=== PATIENT | female | born 1940 | race Caucasian/White ===

== ENCOUNTER → 2018-04-25 08:23 | Outpatient (CLI) | payer MEDICARE, SELFPAY | PROVIDERS: Family Provider Family Medicine; PCP Family Medicine; Visit Provider Urology | DX: N93.9 Abnormal uterine and vaginal bleeding, unspecified (principal) | CPT/HCPCS: 76830; 76856 ==

== ENCOUNTER → 2018-07-03 10:17 | Outpatient (CLI) | payer MEDICARE, SELFPAY ==
[2018-07-03 12:25] LABS: Anion Gap 10 (5-15); BUN 21 mg/dL (7-18); BUN/Creat Ratio 22.7 RATIO (10-20); Calcium,Total 9.5 mg/dL (8.5-10.1); Chloride 102 mmol/L (98-107); Creatinine, Serum 0.92 mg/dL (0.55-1.02); EST Glomerular Filtration Rate 62 mL/min (>60); Est Glom Filt Rate - Afr Amer 75 mL/min (>60); Glucose 97 mg/dL (74-106); Potassium 3.6 mmol/L (3.5-5.1); Sodium Level 141 mmol/L (136-145)
[2018-07-03 12:32] LABS: BNP,B-Type NATRIURETIC PEPTIDE 6.2 pg/mL (0-100)
== END ==
PROVIDERS: Family Provider Family Medicine; PCP Family Medicine; Referring Provider Internal Medicine Cardiovascular Disease; Visit Provider Internal Medicine Cardiovascular Disease
DX: R06.00 Dyspnea, unspecified (principal); I10 Essential (primary) hypertension
CPT/HCPCS: 36415; 80048; 83880

== ENCOUNTER → 2018-07-22 06:53 | Outpatient (CLI) | payer MEDICARE, SELFPAY ==
--- NOTE | 2018-07-22 07:18 | ECHOD_ITS ---
Reason For Study: \DYSPNEA/SOB Procedure This was a 2D Doppler, Color Flow transthoracic echocardiogram. Exam performed in department. Left Ventricle Normal LV size. Left ventricular systolic function is normal. The estimated ejection fraction is 65 %. Stage 1 diastolic dysfunction. No regional wall motion abnormalities noted. Right Ventricle Normal RV size. Normal systolic function. Atria Normal left atrium. Normal right atrium. Bubble contrast study negative for right to left interatrial shunt. Mitral Valve Normal mitral valve. Trivial eccentric mitral valve insufficiency. Tricuspid Valve Normal tricuspid valve. Mild to moderate (1-2+) tricuspid valve insufficiency. Pulmonary artery systolic pressure is 42 mmHg. Aortic Valve Trisinus/trileaflet aortic valve. Mild focal aortic valve thickening. Pulmonic Valve Normal pulmonic valve. Great Vessels Normal aortic root. The pulmonary artery is normal size. Normal inferior vena cava. Pericardium/Pleural No pericardial effusion. Medication Performed a rapid injection of agitated mix of 9 cc saline and 1cc air to assess for atrial septal defect. MMode/2D Measurements & Calculations LVIDd: 4.5 cm IVSd: 1.2 cm Ao root diam: 2.7 cm LVIDs: 2.9 cm LVPWd: 1.1 cm RVDd: 3.2 cm FS: 35.3 % LAV(MOD-bp): 75.7 ml LA A4 area: 22.1 cm2 LA dimension(2D): 4.0 cm LAV(MOD-bp) Indexed: 36.1 ml/m2 LAV(MOD-sp2): 73.8 ml LAV(MOD-sp4): 75.2 ml RA A4 area: 15.2 cm2 Time Measurements MV dec time: 0.23 sec Doppler Measurements & Calculations MV E max darren: 104.2 cm/sec Lat Peak E' Darren: 5.3 cm/sec Med Peak E' Darren: 5.4 cm/sec MV A max darren: 126.3 cm/sec E/E' lat: 19.7 E/E' med: 19.2 MV E/A: 0.82 Ao V2 max: 172.1 cm/sec LV V1 max: 112.2 cm/sec PA V2 max: 116.4 cm/sec Ao max P.9 mmHg LV V1 max P.0 mmHg TR max darren: 304.6 cm/sec TR max P.5 mmHg Interpretation Summary Normal LV size. Left ventricular systolic function is normal. The estimated ejection fraction is 65 %. Stage 1 diastolic dysfunction. Mild to moderate (1-2+) tricuspid valve insufficiency. Ordering Physician: Eitan Larson Referring Physician: Epi Escudero Performed By: Nelly Lozada, DENISHA, RVT
--- NOTE | 2018-07-22 14:47 | STRESSREP ---
Stress Test Report Pharmacologic myocardial perfusion stress test. 78-year-old lady with a history of chest pain possible previous NM. Stress protocol: Resting EKG demonstrates sinus bradycardia with a rate of 57 bpm normal intervals are noted. 0.4 mg of regadenoson was infused per usual protocol followed by rapid intravenous saline flush injection. Continuous EKG monitoring was performed. The maximum heart rate attained was 90 bpm which was 64% of maximum predicted heart rate the maximum workload was 1 metabolic equivalent. At rest there were no ST or T wave changes noted suggest abnormal flow reserve at peak infusion nonspecific ST-T wave changes were noted with normally the criteria for ischemia. The resting blood pressure was 136/84 with a final blood pressure 142/88. The peak blood pressure was 162/82 mmHg. Myocardial perfusion protocol. 14.7 mCi of technetium 99m sestamibi was injected at rest. 0.4 mg of adenosine was infused per usual protocol peak infusion 43.1 mCi of technetium 99m sestamibi was injected stress images were obtained stress and rest images were reconstructed and compared in the short axis vertical long and horizontal long axis. Gated images were also obtained Perfusion SPECT analysis: Review of the stress images demonstrate normal uptake of tracer noted in all areas of myocardium except for the apex of the ventricle. There was a perfusion defect noted in this area. On the resting images there was near complete reversibility suggesting apical ischemia. Gated SPECT analysis: The gated ejection fraction is noted to be 76%. Conclusion: Abnormal pharmacologic myocardial perfusion stress test with evidence of apical ischemia. Preserved ejection fraction.
== END ==
PROVIDERS: Family Provider Family Medicine; PCP Family Medicine; Referring Provider Internal Medicine Cardiovascular Disease; Visit Provider Internal Medicine Cardiovascular Disease
DX: R07.9 Chest pain, unspecified (principal); I10 Essential (primary) hypertension
CPT/HCPCS: 78452; 93017; 93306; A9500; A4216; J2785

== ENCOUNTER → 2018-07-23 15:37 | Outpatient (CLI) | payer MEDICARE, SELFPAY ==
[2018-07-23 16:19] LABS: Absolute Lymphocyte Count 1.97 X10^3/ul (0.83-4.51); Basophil# 0.09 X10^3/uL; Basophil% 1.1 % (0-1); Eosinophil# 0.18 X10^3/uL; Eosinophils% 2.3 % (0-5); Hematocrit 40.5 % (37-47); Hemoglobin 13.6 g/dl (12.0-15.0); Lymphocyte # 1.97 X10^3/ul (4.0); Lymphocyte % 24.9 % (19-41); Mean Corp Hgb Conc 33.6 g/gl (32-36); Mean Corpuscular Hgb 29.9 pg (27.0-32.0); Monocyte# 0.63 X10^3/uL; Neutrophil # 5.02 X10^3/uL (2.7-7.7); Neutrophil % 63.6 % (47-70); Platelet Count 335 K/mm3 (150-450); RBC Distribution Width CV 13.7 % (11.6-14.6); RBC Distribution Width SD 44.5 fl (35.1-43.9); Red Blood Count 4.55 M/mm3 (4.2-5.4); White Blood Count 7.9 K/mm3 (4.4-11.0)
[2018-07-23 16:22] LABS: POSITIVE COUNT NO; POSITIVE DIFFERENTIAL NO; POSITIVE MORPHOLOGY NO
[2018-07-23 16:32] LABS: Anion Gap 10 (5-15); BUN 19 mg/dL (7-18); BUN/Creat Ratio 21.7 RATIO (10-20); Calcium,Total 9.3 mg/dL (8.5-10.1); Chloride 102 mmol/L (98-107); Creatinine, Serum 0.88 mg/dL (0.55-1.02); EST Glomerular Filtration Rate 66 mL/min (>60); Est Glom Filt Rate - Afr Amer 80 mL/min (>60); Glucose 107 mg/dL (74-106); Potassium 3.4 mmol/L (3.5-5.1); Sodium Level 140 mmol/L (136-145)
[2018-07-23 16:44] LABS: Prothrombin Time (Protime)PT. 13.2 SECONDS (11.7-14.9)
[2018-07-23 16:45] LABS: Partial Thromboplast Time 32.3 Seconds (24.1-36.2)
--- OUTSIDE RECORDS SUMMARY | 2018-09-18 08:34 | XMS RPT_ITS ---
:1940 Author Organization OHIP Care Team Providers Name Role Phone PERRY ESCUDERO) Referring Unavailable PERRY ESCUDERO) Attending Unavailable PERRY ESCUDERO) Referring Unavailable PERRY ESCUDERO) Referring Unavailable SUZI VELAZCO (ASSOCIATE FIELD SERVICE ENGINEER) Attending Unavailable JAVI LIVE Referring Unavailable JAVI LIVE Attending Unavailable PERRY ESCUDERO) Referring Unavailable PERRY ESCUDERO) Attending Unavailable PERRY ESCUDERO) Referring Unavailable PERRY ESCUDERO) Referring Unavailable TRAM ROMAN (ASSOCIATE FIELD SERVICE ENGINEER) Attending Unavailable PODLOGAR, TRAM (ASSOCIATE FIELD SERVICE ENGINEER) Referring Unavailable PODLOGAR, TRAM (ASSOCIATE FIELD SERVICE ENGINEER) Referring Unavailable PODLOGAR, TRAM (ASSOCIATE FIELD SERVICE ENGINEER) Referring Unavailable PODLOGAR, TRAM (ASSOCIATE FIELD SERVICE ENGINEER) Attending Unavailable PODLOGAR, TRAM (ASSOCIATE FIELD SERVICE ENGINEER) Referring Unavailable BURSLEY, PERRY Way () Referring Unavailable BURSLEY, PERRY Way () Attending Unavailable BURSLEY, PERRY Way () Referring Unavailable BURSLEY, PERRY Way () Referring Unavailable BURSLEY, PERRY Way () Referring Unavailable AkiraneskiGale Attending Unavailable Gale Guan Referring Unavailable Bursley, Bhanu Primary Care Unavailable Nolt, Flory Attending Unavailable Marsha, [place]ien Attending Unavailable Bursley, Bhanu Referring Unavailable Marsha, [place] Attending Unavailable Marsha, Eitan Referring Unavailable Bursley, Bhanu Primary Care Unavailable Marsha, [place] Attending Unavailable Marsha, Eitan Referring Unavailable Bursley, Bhanu Primary Care Unavailable Marsha, Eitan Attending Unavailable Marsha, Eitan Referring Unavailable Bursley, Bhanu Primary Care Unavailable Marsha, [place] Consulting Unavailable Marsha, Eitan Attending Unavailable Bursley, Bhanu Referring Unavailable Marsha, Ietan Attending Unavailable Marsha, [place] Du [place]ien Referring Unavailable Bursley, Bhanu Primary Care Unavailable Marsha, Eitan Attending Unavailable Marsha, [place] Referring Unavailable Bursley, Bhanu Primary Care Unavailable PROBLEMS PROBLEMS DATE TYPE CONDITION / CODE ATTENDING STATUS SOURCE 07/22/2018 Unknown R07.9 - Chest pain, Marsha, [place] Active [facility] unspecified / Community R07.9(ICD-10) Hospital Repository 07/22/2018 Unknown I10 - Essential Marsha, [place] Active [facility] (primary) Community hypertension / Hospital I10(ICD-10) Repository 07/03/2018 Unknown R06.00 - Dyspnea, Marsha, Eitan Active [facility] unspecified / Community R06.00(ICD-10) Hospital Repository 07/03/2018 Unknown E78.5 - Marsha, Eitan Active [facility] Hyperlipidemia, Community unspecified / Hospital E78.5(ICD-10) Repository 09/11/2005 Active Essential (primary) NA Active [facility] hypertension / Clinic Main I10(ICD-10) [place] Repository 06/17/2018 Active Chronic gout, NA Active [facility] unspecified, Clinic Main without [facility] ([facility]) / Repository M1A.9XX0(ICD-10) 05/28/2018 Active Gout, unspecified / NA Active [facility] M10.9(ICD-10) Clinic Main [place] Repository 05/07/2018 Active Pain in left toe(s) NA Active [facility] / M79.675(ICD-10) Clinic Main [place] Repository 04/01/2018 Active Chest pain, NA Active [facility] unspecified / Clinic Main R07.9(ICD-10) [place] Repository 04/01/2018 Active Shortness of breath NA Active [facility] / R06.02(ICD-10) Clinic Main [place] Repository 11/05/2017 Active Pain, unspecified / NA Active [facility] R52(ICD-10) Clinic Main [place] Repository 09/27/2017 Active Unknown / BURSLEY, Active [facility] UNK(Unknown) PERRY [address] Clinic Main () [place] Repository 09/20/2017 Active Hypothyroidism, NA Active [facility] unspecified / Clinic Main E03.9(ICD-10) [place] Repository 09/20/2017 Active Type 2 diabetes NA Active [facility] mellitus without Clinic Main complications / [place] E11.9(ICD-10) Repository 09/20/2017 Active Disease of NA Active [facility] pancreas, Clinic Main unspecified / [place] K86.9(ICD-10) Repository PROCEDURES PROCEDURES No Procedure Records FoundRESULTS RESULTS OFFICE VISIT REPORT Observed: 07/30/2018 Status: F Source: [place] 10:15 AM [facility] REPOSITORY [address] [address] OFFICE VISIT Date of Service: 07/23/18 MR#: [id number] Acct: [id number] Patient: ANGELINE MONTANA Rep #: [id number] : 1940 Provider: Eitan Larson MD Age/Sex: 78/F Location: [facility] [place] Status: Signed Intake Intake Visit Reasons: [facility] Chief Complaint: Initial evaluation. Allergies codeine Allergy (Verified 07/03/18 08:49) Hives Penicillins [PCN] Allergy (Verified 07/03/18 08:49) Hives erythromycin base [Erythromycin Base] Adverse Reaction (Verified 07/03/18 08:49) Upset Stomach Medications Amlodipine [Norvasc] 1 tab PO DAILY 06/13/17 [History Confirmed 07/03/18] Aspirin 81 mg PO DAILY 06/13/17 [History Confirmed 07/03/18] Fosinopril Sodium 40 mg PO DAILY 06/13/17 [History Confirmed 07/03/18] Levothyroxine [Synthroid] 75 mcg PO DAILY 06/13/17 [History Confirmed 07/03/18] albuterol sulfate 2.5 mg/3 mL (0.083 %) solution for nebulization 1.25 mg INHALATION Q4H PRN 07/02/18 [History Confirmed 07/03/18] albuterol sulfate HFA 90 mcg/actuation aerosol inhaler 2 puff INHALATION Q4H PRN g 07/02/18 [History Confirmed 07/03/18] allopurinol 100 mg tablet 100 mg PO DAILY 07/02/18 [History Confirmed 07/03/18] budesonide-formoterol HFA 160 mcg-4.5 mcg/actuation aerosol inhaler 2 puff INHALATION BID 07/02/18 [History Confirmed 07/03/18] calcium carbonate-vitamin D3 500 mg (1,250 mg)-600 unit tablet tab PO tab 07/02/18 [History Confirmed 07/03/18] colchicine 0.6 mg tablet See Rx Instructions PO DAILY PRN 07/02/18 [History Confirmed 07/03/18] fluticasone 50 mcg/actuation nasal spray,suspension 2 spray INTRANASAL DAILY 07/02/18 [History Confirmed 07/03/18] furosemide 40 mg tablet 40 mg PO DAILY 07/02/18 [History Confirmed 07/03/18] labetalol 300 mg tablet 300 mg PO BID 07/02/18 [History Confirmed 07/03/18] metformin ER 500 mg tablet,extended release 24 hr 500 mg PO BID tab 07/02/18 [History Confirmed 07/03/18] qztrxzku-uej-uvfps acid 0.4 mg-lycopene 300 mcg-lutein 250 mcg tablet 1 tab PO DAILY 07/02/18 [History Confirmed 07/03/18] nystatin 100,000 unit/gram topical ointment 1 applic TOPICAL BID 07/02/18 [History Confirmed 07/03/18] pravastatin 20 mg tablet 20 mg PO DAILY 07/02/18 [History Confirmed 07/03/18] clopidogrel 75 mg tablet 75 mg PO DAILY #30 tab 07/23/18 [Rx Confirmed 07/23/18] Assessment AND Plan Medications New: Nursing Note Cardiac cath teaching completed. All questions answered. 07/30/18 1015 <Electronically signed by Eitan Larson MD> Date Eitan Larson MD Cosigner Signature: Date (if applicable) CC: CBC W/DIFF, AUTOMATED Collected: 07/23/2018 Status: F Source: [place] 3:41 PM [facility] REPOSITORY TYPE CODE TESTS RESULT OUT OF RANGE REFERENCE UNITS LAB L100.1000 4.4-11.0 K/mm3 Normal WBC 7.9 LAB L100.1200 4.2-5.4 M/mm3 Normal RBC 4.55 LAB L100.1300 12.0-15.0 g/dl Normal HGB 13.6 LAB L100.1400 37-47 % Normal HCT 40.5 LAB L100.1500 81-99 fL Normal MCV 89.0 LAB L100.1600 27.0-32.0 pg Normal MCH 29.9 LAB L100.1700 32-36 g/gl Normal MCHC 33.6 LAB L100.1810 11.6-14.6 % Normal RDW CV 13.7 LAB L100.1820 35.1-43.9 fl High RDW SD 44.5 LAB L100.1900 150-450 K/mm3 Normal PLT 335 LAB L100.2000 6.2-12.0 fl Normal MPV 9.0 LAB L100.2100 47-70 % Normal NEUT% 63.6 LAB L100.2200 19-41 % Normal LY% 24.9 LAB L100.2300 0-10 % Normal MONO% 8.0 LAB L100.2400 0-5 % Normal EO% 2.3 LAB L100.2500 0-1 % High BASO% 1.1 LAB L100.2550 0.0-0.9 % Normal IM GRAN % 0.100 Result Comment: IG% - Immature Granulocytes (promyelocytes, myelocytes and metamyelocytes) > 1% indicates that a LEFT SHIFT is Present. LAB L100.2620 2.0-7.7 X10 3/uL Normal Absolute Neut 5.0 LAB L100.2720 0.83-4.51 X10 3/ul Normal Absolute Lymph 1.97 Performed By: #### L100.0100 #### [facility] [address] [facility] [facility]. [place], [place], [address] BASIC METABOLIC Collected: 07/23/2018 Status: F Source: [place] PROFILE ([facility]) 3:41 PM [facility] REPOSITORY TYPE CODE TESTS RESULT OUT OF RANGE REFERENCE UNITS LAB L501.0100 74-106 mg/dL High GLU 107 Result Comment: Fasting Glucose result from 100 to 125 mg/dL suggests IMPAIRED HOMEOSTASIS per A.D.A. criteria. Please note revised GLUCOSE reference range effective 2017. LAB L501.1000 7-18 mg/dL High BUN 19 LAB L501.1100 0.55-1.02 mg/dL Normal CREAT,SERUM 0.88 Result Comment: The validity of the calculated GFR AND GFRAA in patients over 70 years has not been determined. Clinical correlation is essential. LAB L501.1110 >60 mL/min Normal EST GFR 66 Result Comment: Non- GFR Calc LAB L501.1115 >60 mL/min Normal EST GFR - AA 80 Result Comment: GFR Calc LAB L501.1300 10-20 RATIO High BUN/CRE 21.7 LAB L501.2200 8.5-10.1 mg/dL CA Normal 9.3 LAB L501.5300 136-145 mmol/L NA Normal 140 LAB L501.5600 3.5-5.1 mmol/L Low K 3.4 LAB L501.5900 98-107 mmol/L CL Normal 102 LAB L501.6100 21.0-32.0 mmol/L Normal CO2 28.0 LAB L501.6200 5-15 Normal GAP 10 Performed By: #### L500.2500 #### [facility] [address] [facility]. [place], [place], [address] PROTHROMBIN TIME W/INR Collected: 07/23/2018 Status: F Source: [place] 3:41 PM [facility] REPOSITORY TYPE CODE TESTS RESULT OUT OF RANGE REFERENCE UNITS LAB L300.4150 11.7-14.9 SECONDS Normal PROTIME 13.2 LAB L300.4200 Normal INR 1.0 Performed By: #### L300.3900, L300.4310 #### [facility] [address] [place], [address] PARTIAL THROMBOPLAST Collected: 07/23/2018 Status: F Source: [place] TIME 3:41 PM [facility] REPOSITORY TYPE CODE TESTS RESULT OUT OF RANGE REFERENCE UNITS LAB L300.4310 24.1-36.2 Seconds Normal PTT 32.3 Performed By: #### L300.3900, L300.4310 #### [facility] [address] [facility] [place], [address] STRESS REPORT Observed: 07/22/2018 Status: F Source: [place] 2:51 PM [facility] REPOSITORY [facility] Cardiovascular Services [address] [place] [address] MR#: [id number] Acct: [id number] Name: ANGELINE MONTANA Rep #: [id number] : 1940 78 From: Eitan Larson MD Primary Care: Bhanu Escudero MD Status: REG CLI Ordering Dr: Sex: F C Stress Test Report Pharmacologic myocardial perfusion stress test. 78-year-old lady with a history of chest pain possible previous MD. Stress protocol: Resting EKG demonstrates sinus bradycardia with a rate of 57 bpm normal intervals are noted. 0.4 mg of regadenoson was infused per usual protocol followed by rapid intravenous saline flush injection. Continuous EKG monitoring was performed. The maximum heart rate attained was 90 bpm which was 64% of maximum predicted heart rate the maximum workload was 1 metabolic equivalent. At rest there were no ST or T wave changes noted suggest abnormal flow reserve at peak infusion nonspecific ST-T wave changes were noted with normally the criteria for ischemia. The resting blood pressure was 136/84 with a final blood pressure 142/88. The peak blood pressure was 162/82 mmHg. Myocardial perfusion protocol. 14.7 mCi of technetium 99m sestamibi was injected at rest. 0.4 mg of adenosine was infused per usual protocol peak infusion 43.1 mCi of technetium 99m sestamibi was injected stress images were obtained stress and rest images were reconstructed and compared in the short axis vertical long and horizontal long axis. Gated images were also obtained Perfusion SPECT analysis: Review of the stress images demonstrate normal uptake of tracer noted in all areas of myocardium except for the apex of the ventricle. There was a perfusion defect noted in this area. On the resting images there was near complete reversibility suggesting apical ischemia. Gated SPECT analysis: The gated ejection fraction is noted to be 76%. Conclusion: Abnormal pharmacologic myocardial perfusion stress test with evidence of apical ischemia. Preserved ejection fraction. 07/22/18 1451 <Electronically signed by Eitan Larson MD> Date Eitan Larson MD CC: Bhanu Escudero MD; Eitan Larson MD Date Dictated: 07/22/181446 Date Transcribed: 07/22/181446 Die Stamper: CO Signed ECHOCARDIOGRAM COMPLETE Observed: 07/22/2018 Status: F Source: [place] 2:13 PM [facility] REPOSITORY [facility] Cardiovascular Services [address] [place] [address] Echo Complete 07/22/18 0856 MR#: [id number] Acct: [id number] Name: ANGELINE MONTANA Rep #: [id number] : 1940 78 From: Eitan Larson MD Attending Dr: Eitan Larson MD Status: REG CLI Ordering Dr: Eitan Larson MD Date: 07/22/18 Location: [facility] Sex: F C Admitted: Reason For Study: \DYSPNEA/SOB Procedure This was a 2D Doppler, Color Flow transthoracic echocardiogram. Exam performed in department. Left Ventricle Normal LV size. Left ventricular systolic function is normal. The estimated ejection fraction is 65 %. Stage 1 diastolic dysfunction. No regional wall motion abnormalities noted. Right Ventricle Normal RV size. Normal systolic function. Atria Normal left atrium. Normal right atrium. Bubble contrast study negative for right to left interatrial shunt. Mitral Valve Normal mitral valve. Trivial eccentric mitral valve insufficiency. Tricuspid Valve Normal tricuspid valve. Mild to moderate (1-2+) tricuspid valve insufficiency. Pulmonary artery systolic pressure is 42 mmHg. Aortic Valve Trisinus/trileaflet aortic valve. Mild focal aortic valve thickening. Pulmonic Valve Normal pulmonic valve. Great Vessels Normal aortic root. The pulmonary artery is normal size. Normal inferior vena cava. Pericardium/Pleural No pericardial effusion. Medication Performed a rapid injection of agitated mix of 9 cc saline and 1cc air to assess for atrial septal defect. MMode/2D Measurements AND Calculations LVIDd: 4.5 cm IVSd: 1.2 cm Ao root diam: 2.7 cm LVIDs: 2.9 cm LVPWd: 1.1 cm RVDd: 3.2 cm FS: 35.3 % LAV(MOD-bp): 75.7 ml LA A4 area: 22.1 cm2 LA dimension(2D): 4.0 cm LAV(MOD-bp) Indexed: 36.1 ml/m2 LAV(MOD-sp2): 73.8 ml LAV(MOD-sp4): 75.2 ml RA A4 area: 15.2 cm2 Time Measurements MV dec time: 0.23 sec Doppler Measurements AND Calculations MV E max milo: 104.2 cm/sec Lat Peak E' Milo: 5.3 cm/sec Med Peak E' Milo: 5.4 cm/sec MV A max milo: 126.3 cm/sec E/E' lat: 19.7 E/E' med: 19.2 MV E/A: 0.82 Ao V2 max: 172.1 cm/sec LV V1 max: 112.2 cm/sec PA V2 max: 116.4 cm/sec Ao max P.9 mmHg LV V1 max P.0 mmHg TR max milo: 304.6 cm/sec TR max P.5 mmHg Interpretation Summary Normal LV size. Left ventricular systolic function is normal. The estimated ejection fraction is 65 %. Stage 1 diastolic dysfunction. Mild to moderate (1-2+) tricuspid valve insufficiency. Ordering Physician: Eitan Larson Referring Physician: Perry Escudero Performed By: Nelly Lozada, DENISHA, RVT 07/22/18 1412 Date Eitan Larson MD CC: Bhanu Escudero MD; Eitan Larson MD Date Dictated: 07/22/18 0856 Date Transcribed: 07/22/18 1412 Die Stamper: Signed BASIC METABOLIC Collected: 07/03/2018 Status: F Source: [place] PROFILE ([place]) 10:22 AM [facility] REPOSITORY TYPE CODE TESTS RESULT OUT OF RANGE REFERENCE UNITS LAB L501.0100 74-106 mg/dL Normal GLU 97 Result Comment: Please note revised GLUCOSE reference range effective 2017. LAB L501.1000 7-18 mg/dL High BUN 21 LAB L501.1100 0.55-1.02 mg/dL Normal CREAT,SERUM 0.92 Result Comment: The validity of the calculated GFR AND GFRAA in patients over 70 years has not been determined. Clinical correlation is essential. LAB L501.1110 >60 mL/min Normal EST GFR 62 Result Comment: Non- GFR Calc LAB L501.1115 >60 mL/min Normal EST GFR - AA 75 Result Comment: GFR Calc LAB L501.1300 10-20 RATIO High BUN/CRE 22.7 LAB L501.2200 8.5-10.1 mg/dL CA Normal 9.5 LAB L501.5300 136-145 mmol/L NA Normal 141 LAB L501.5600 3.5-5.1 mmol/L K Normal 3.6 LAB L501.5900 98-107 mmol/L CL Normal 102 LAB L501.6100 21.0-32.0 mmol/L Normal CO2 29.0 LAB L501.6200 5-15 Normal GAP 10 Performed By: #### L500.2500 #### [facility] [address] [place], [address] BNP,B-TYPE NATRIURETIC Collected: 07/03/2018 Status: F Source: [place] 10:22 AM [facility] REPOSITORY TYPE CODE TESTS RESULT OUT OF RANGE REFERENCE UNITS LAB L503.6620 0-100 pg/mL Normal B-TYPE 6.2 YANELIS PEP Performed By: #### L503.6620 #### [facility] [address] [place], [address] CARDIOLOGY VISIT Observed: 07/03/2018 Status: F Source: [place] REPORT 9:52 AM [facility] REPOSITORY [facility] [address] [place] [address] OFFICE VISIT Date of Service: 07/03/18 MR#: [id number] Acct: [id number] Name: ANGELINE MONTANA Rep #: [id number] : 1940 Provider: Eitan Larson MD Age/Sex: 78/F Location: [facility] [place] Status: Signed HPI HPI Chief Complaint: Initial evaluation. Details: ANGELINE MONTANA, is a 78 F who presents to the office today for an initial evaluation. She is a lady with a history of hypertension diabetes mellitus who says that in March she was on a trip to [place] and got short of breath. Indeed it was debilitating enough that she could not walk. She says that when she got back she saw her physician and they told her that she may have had a heart attack. She has had no dizziness or diaphoresis no near syncope or syncope she did have an episode of chest discomfort which she described as sharp but with some dull qualities. There was no radiation of this discomfort. She has been compliant with all her medications and has been taking her blood pressures at home and says that they have been in the fairly normal range. Her last echocardiogram was performed in 2009 at that time demonstrated an ejection fraction of 60-70%. She has had no dizziness or diaphoresis no near syncope or syncope she has had some medications adjusted. Her physical exam here today demonstrates clear lung sebastian regular rate and rhythm mildly elevated blood pressure and no pedal edema. She does have an electrocardiogram from March 2018 demonstrating sinus rhythm with a rate of 75 bpm and no acute changes. Intake Vital Signs07/03/18 Height 5 ft 6 in Intake Visit Reasons: PCP ref'd for strong family Hx Allergies codeine Allergy (Verified 07/03/18 08:49) Hives Penicillins [PCN] Allergy (Verified 07/03/18 08:49) Hives erythromycin base [Erythromycin Base] Adverse Reaction (Verified 07/03/18 08:49) Upset Stomach Medications Amlodipine [Norvasc] 1 tab PO DAILY 06/13/17 [History Confirmed 07/03/18] Aspirin 81 mg PO DAILY 06/13/17 [History Confirmed 07/03/18] Fosinopril Sodium 40 mg PO DAILY 06/13/17 [History Confirmed 07/03/18] Levothyroxine [Synthroid] 75 mcg PO DAILY 06/13/17 [History Confirmed 07/03/18] albuterol sulfate 2.5 mg/3 mL (0.083 %) solution for nebulization 1.25 mg INHALATION Q4H PRN 07/02/18 [History Confirmed 07/03/18] albuterol sulfate HFA 90 mcg/actuation aerosol inhaler 2 puff INHALATION Q4H PRN g 07/02/18 [History Confirmed 07/03/18] allopurinol 100 mg tablet 100 mg PO DAILY 07/02/18 [History Confirmed 07/03/18] budesonide-formoterol HFA 160 mcg-4.5 mcg/actuation aerosol inhaler 2 puff INHALATION BID 07/02/18 [History Confirmed 07/03/18] calcium carbonate-vitamin D3 500 mg (1,250 mg)-600 unit tablet tab PO tab 07/02/18 [History Confirmed 07/03/18] colchicine 0.6 mg tablet See Rx Instructions PO DAILY PRN 07/02/18 [History Confirmed 07/03/18] fluticasone 50 mcg/actuation nasal spray,suspension 2 spray INTRANASAL DAILY 07/02/18 [History Confirmed 07/03/18] furosemide 40 mg tablet 40 mg PO DAILY 07/02/18 [History Confirmed 07/03/18] labetalol 300 mg tablet 300 mg PO BID 07/02/18 [History Confirmed 07/03/18] metformin ER 500 mg tablet,extended release 24 hr 500 mg PO BID tab 07/02/18 [History Confirmed 07/03/18] eibzjivz-zdn-yteia acid 0.4 mg-lycopene 300 mcg-lutein 250 mcg tablet 1 tab PO DAILY 07/02/18 [History Confirmed 07/03/18] nystatin 100,000 unit/gram topical ointment 1 applic TOPICAL BID 07/02/18 [History Confirmed 07/03/18] pravastatin 20 mg tablet 20 mg PO DAILY 07/02/18 [History Confirmed 07/03/18] [facility] Medical History Essential (primary) hypertension (Chronic) Secondary pulmonary arterial hypertension (Chronic) Obesity (BMI 30-39.9) (Chronic) Hyperlipidemia (Chronic) Arthritis (Chronic) Asthma (Chronic) Bilateral leg edema (Chronic) Cataracts, bilateral (Chronic) Diverticulosis (Chronic) Dysmetabolic syndrome X (Chronic) Essential hypertension (Chronic) Gout (Chronic) Hypothyroidism (Chronic) Obesity (Chronic) Pancreatic cyst (Chronic) Primary osteoarthritis of right knee (Chronic) Type 2 diabetes mellitus (Chronic) Surgical History History of abdominal hysterectomy (Resolved) History of appendectomy (Resolved) History of cataract extraction (Resolved) History of dilatation and curettage (Resolved) History of tonsillectomy (Resolved) Family History Father Diabetes Hypertension Heart disease Mother Diabetes Hypertension Brother Heart disease Brother Diabetes Brother Hypertension Social History Smoking Status: Never smoker alcohol intake: current alcohol intake frequency: holidays/special occasions only ROS Const Const: Negative for fatigue, weakness, difficulty sleeping, frequent falls, excessive sweating or headache(s) Eyes Eyes: Negative for loss of peripheral vision, transient loss of vision, blurry vision, tunnel vision or double vision ENT ENT: Negative for headache(s), dizziness, Nosebleed/epistaxis or balance problems Cardio Chest Pain: Yes (1 episode in March along with dyspnea) Palpitations: No Edema: Bilateral (BLE edema) Muscle aches with walking: None Resp Respiratory: Positive for SOB with activity (Admits to being SOB all the time); negative for SOB at rest, SOB orthopnea\SOB lying down, paroxysmal nocturnal dyspnea or Cough Additional Details: In March of this year had an episode of SOB and Chest pain while traveling on a bus trip. Admitted that she felt poorly and was unable to walk because of dyspnea and chest pain. GI GI: Negative nausea, heartburn, black,tarry stools or vomiting : Negative for hematuria Musc Musc: Negative for balance problems, muscle aches/ myalgia, muscle weakness or joint pain Skin Skin: Negative non-healing lesions, unusual bruising or rash Neuro Neuro: Negative for weakness, frequent falls, headache(s), blurry vision, double vision, dizziness, lightheadedness, orthostatic symptoms, near syncope, syncope or lack of coordination Randy Hematologic/Lymphatic: Negative for easy bruising or easy bleeding Endo Endo: Negative for fatigue, excessive sweating or increased thirst/drinking Psych Psych: Negative for anxiety or depression Allergy Allergy/Immunology: Negative for hives, Negative for rash Cardiology Exam Const Appearance: cooperative, healthy appearing, well developed, well groomed and no acute distress Nutritional Appearance: well nourished and average body habitus Orientation: alert, awake and oriented x3 Head Head: normal to inspection, normocephalic and atraumatic Ears: hearing grossly normal bilaterally and external ears normal Nose: external nose normal, nasal mucous membranes and turbinates normal, nares normal, septum normal, no nasal discharge Face and Sinus: face symmetric Mouth: oral mucosae normal, tongue normal, oropharynx normal and moist mucous membranes Teeth and gingiva: dentition normal Throat: posterior oropharynx normal, tonsils normal and uvula midline Eyes General: appearance normal, both eyes and all related structures Eyelids: eyelids normal Conjunctivae: conjunctivae normal Pupils: PERRL, normal by confrontation and accommodation normal EOM: EOM intact bilaterally Neck Neck: normal visual inspection, trachea midline and no JVD JVD: +5 Carotids: normal carotid upstroke and bounding pulses Chest Chest inspection: normal inspection of the chest, symmetric chest movement and normal respiratory effort Auscultation: Bilateral: Clear to Auscultation Cardio Palpation: normal PMI Rate: regular rate Rhythm: regular rhythm Heart sounds: S1 normal, S2 normal and normal, physiologic split S2; negative rub, gallop or murmur GI GI: normal to inspection, soft, no hepatosplenomegaly and bowel sounds present Neuro General: alert, awake, oriented x3, no focal sensory deficit, gait normal and moves all extremities Skin Skin: no rashes or lesions noted Extremities Pulses: Normal: Right Femoral Pulse, Left Femoral Pulse, Right Dorsalis Pedis Pulse, Left Dorsalis Pedis Pulse, Right Posterior Tibial Pulse, Left Posterior Tibial Pulse, Right Radial Pulse, Left Radial Pulse Lower Extremity Edema: None: Bilateral Musculoskel Musculoskeletal: No joint tenderness Psych Psychological: normal affect Assessment AND Plan 1. Essential (primary) hypertension I10 Plan She does have a history of hypertension. Her blood pressure here is elevated I have asked her to continue to monitor it. I am hesitant to increase her medications any further at this time. An echocardiogram should be performed to assess her left ventricular function and depending on those results further recommendations will be made she will remain in the meantime on the labetalol, and the fosinopril as well as the low-dose amlodipine. Orders Orders: 2. Chest pain, unspecified type R07.9 Plan She does have a history of chest pain which is somewhat atypical. I would recommend that we obtain a pharmacologic myocardial perfusion stress test to assess for ischemia. Depending on the findings further recommendations will be made. Orders Orders: 3. Dyspnea, unspecified type R06.00 Plan She did have some shortness of breath which she says has been diagnosed as reactive airway disease I would like to obtain a natruretic peptide level to exclude diastolic dysfunction and heart failure. Orders Orders: 4. Hyperlipidemia E78.5 Plan She does have a history of hyperlipidemia and the recommendation will be for her to remain on her current dose of statin especially with her diabetes. We will continue to follow her in terms of her lipid profiles. Thank you for allowing me to participate in the care of your patient. Please don't hesitate to call if any issues arise Plan Detail Follow Up 1 Month (mmm) Coding Level of Care Code Off vis,new,level 4 Diagnoses Essential (primary) hypertension I10 Chest pain, unspecified type R07.9 Chest pain type: unspecified Dyspnea, unspecified type R06.00 Dyspnea type: unspecified Hyperlipidemia E78.5 Hyperlipidemia type: unspecified hyperlipidemia Coding Level of Care Code Off vis,new,level 4 Diagnoses Essential (primary) hypertension I10 Chest pain, unspecified type R07.9 Chest pain type: unspecified Dyspnea, unspecified type R06.00 Dyspnea type: unspecified Hyperlipidemia E78.5 Hyperlipidemia type: unspecified hyperlipidemia 07/03/18 0952 <Electronically signed by Eitan Larson MD> Date Eitan Larson MD Cosigner Signature: Date (if applicable) CC: Bhanu Escudero MD PROGRESS Observed: 07/01/2018 Status: COMPLETED Source: [place] 11:20 AM [facility] [place] REPOSITORY O ID: [id number] Author: Dulce St LPN Service: (none) Author Type: (none) Type: Progress Notes Filed: 07/01/2018 11:28 AM Note Text: Manual Readin/76 Pulse: 60 Reason for blood pressure check - Last BP elevated and Medication adjustment Patient is: Taking medication as prescribed No Took medication today Yes If no, date medication last taken N/A Experiencing side effects No BP continued to be elevated at nurse visit 06/17/18. Fosinopril was to be increased to 40mg every AM and 20mg every PM. Patient stated today that she only took the new dosing for one day. She had misunderstood instructions and thought that the dosing was too high (thought that she was going to be taking an entire extra 40mg every AM in addition to the 40mg she was already taking, plus the 20mg every PM). Continues to have some edema in BLE; non-pitting right ankle and 1+ left. Denies any chest pain, unusual shortness of breath, dizziness or headaches. Daily caffeine use; none today. No personal history of tobacco use; no current exposure. Alert and oriented. Pt has been identified by name and birthdate: Yes Allergies reviewed: Yes Latex allergy: no. Medication - prescribed and OTC reviewed and updated: Yes Do you need any prescription refills prior to your next visit: No Health Maintenance: Reviewed and not up to date and provider notified Patient advised that she would be contacted after review by PCP. Dulce St LPN CNNURSE Observed: 07/01/2018 Status: COMPLETED Source: [place] 11:15 AM [facility] REPOSITORY Nurse Visit ([facility]) ANGELINE MONTANA ([id number]) 1940 F Date Time Provider Department 07/01/18 11:15 AM MD NURSE FAMPWS During your visit today, we recorded the following information about you: Pulse Blood pressure 60/minute 134/[address] LPN 07/01/2018 11:28 AM Signed Manual Readin/76 Pulse: 60 Reason for blood pressure check - Last BP elevated and Medication adjustment Patient is: Taking medication as prescribed No Took medication today Yes If no, date medication last taken N/A Experiencing side effects No BP continued to be elevated at nurse visit 06/17/18. Fosinopril was to be increased to 40mg every AM and 20mg every PM. Patient stated today that she only took the new dosing for one day. She had misunderstood instructions and thought that the dosing was too high (thought that she was going to be taking an entire extra 40mg every AM in addition to the 40mg she was already taking, plus the 20mg every PM). Continues to have some edema in BLE; non-pitting right ankle and 1+ left. Denies any chest pain, unusual shortness of breath, dizziness or headaches. Daily caffeine use; none today. No personal history of tobacco use; no current exposure. Alert and oriented. Pt has been identified by name and birthdate: Yes Allergies reviewed: Yes Latex allergy: no. Medication - prescribed and OTC reviewed and updated: Yes Do you need any prescription refills prior to your next visit: No Health Maintenance: Reviewed and not up to date and provider notified Patient advised that she would be contacted after review by PCP. Dulce St LPN Referring Provider: PERRY ESCUDERO) [[id number]] Allergies As of Date: 07/01/2018 Noted Allergy Reaction CODEINE 09/11/2005 4 - Hives ERYTHROMYCIN 09/11/2005 8 - GI Upset PENICILLINS 09/11/2005 4 - Hives Date Reviewed: 05/30/2018 Reviewed by: Manjula Sorensen - Fully Assessed Reason for Visit: Blood Pressure Check [195] Primary Visit Diagnosis:Essential hypertension, benign [I10] Prescriptions as of 07/01/2018 Sig: AMLODIPINE 5 MG TABLET Take 0.5 tablets by mouth onc* FUROSEMIDE 40 MG TABLET Take 1 tablet by mouth once d* PRAVASTATIN 20 MG TABLET TAKE 1 TABLET DAILY AT BEDTIME ALLOPURINOL 100 MG TABLET Take 1 tablet by mouth once d* ALBUTEROL SULFATE 2.5 MG/3 ML* Use 3 mL via nebulizer every * ALBUTEROL SULFATE 2.5 MG/3 ML* Use 3 mL via nebulizer every * BUDESONIDE-FORMOTEROL HFA 160* Inhale 2 Puffs as instructed * LABETALOL 300 MG TABLET TAKE 1 TABLET TWICE A DAY METFORMIN ER 500 MG TABLET,EX* TAKE 1 TABLET TWICE A DAY ALBUTEROL SULFATE HFA 90 MCG/* Inhale 2 Puffs as instructed * FLUTICASONE 50 MCG/ACTUATION * INSTILL 2 SPRAYS IN EACH NOST* LEVOTHYROXINE 75 MCG TABLET TAKE 1 TABLET DAILY ON AN EMP* NYSTATIN 100,000 UNIT/GRAM TO* Apply 1 application to affect* COMPOUNDED PRESCRIPTION Walker COMPOUNDED PRESCRIPTION Walker with wheels Left * COMPOUNDED PRESCRIPTION 1 Device every 4 hours as nee* CALCIUM 500 + D ORAL Take by mouth. Every other d* BLOOD GLUCOSE CONTROL, NORMAL* Test controls as needed. * ASPIRIN 81 MG TABLET Take one(1) tablet daily. * CENTRUM SILVER TABLET Take one(1) tablet daily. FOSINOPRIL 40 MG TABLET Take 40 mg PO qam and 20 mg q* Problem List As Of Date 07/01/2018 Noted Resolved BENIGN HYPERTENSION [I10] More... Hypothyroidism [E03.9] HYPERLIPIDEMIA NEC/NOS [E78.5] 06/24/2015 More... 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15] INVALID FOR*06/24/2015 Nocturia [R35.1] INVALID FOR*06/24/2015 Urge incontinence [N39.41] INVALID FOR*05/16/2011 Female stress incontinence [N39.3] INVALID FOR* Unspecified urinary incontinence [R32] INVALID FOR*06/24/2015 Breast cyst [N60.09] INVALID FOR*06/24/2015 Sebaceous cyst [L72.3] INVALID FOR*06/24/2015 BMI 36.0-36.9,adult [Z68.36] INVALID FOR*11/30/2014 DM (diabetes mellitus), type 2 (HCC) [E11.9] INVALID FOR*06/24/2015 BMI 37.0-37.9, adult [Z68.37] INVALID FOR*06/24/2015 Diabetes mellitus type 2, controlled, without c*INVALID FOR* BMI 38.0-38.9,adult [Z68.38] INVALID FOR*10/07/2015 Hyperlipidemia [E78.5] INVALID FOR* Primary osteoarthritis of right knee [M17.11] INVALID FOR* Cellulitis of right lower extremity [L03.115] INVALID FOR*09/27/2017 Burning with urination [R30.0] INVALID FOR*09/27/2017 Gross hematuria [R31.0] INVALID FOR* Generalized abdominal pain [R10.84] INVALID FOR* Secondhand smoke exposure [Z77.22] INVALID FOR* Aspirin long-term use [Z79.82] INVALID FOR* Asthma [J45.909] 12/19/2016 Mild intermittent asthma without complication [*INVALID FOR* More... Encounter Status:Closed by DULCE ST LPN on 07/01/18 CNNURSE Observed: 06/17/2018 Status: COMPLETED Source: [place] 10:30 AM [facility] REPOSITORY [facility] ANGELINE MONTANA ([id number]) 1940 F Date Time Provider Department 06/17/18 10:30 AM MD NURSE BHARAT During your visit today, we recorded the following information about you: Pulse Blood pressure 75/minute 165/[address] LPN 06/17/2018 10:46 AM Signed Manual Readin/84 Pulse: 78 BP Eyad average: 165/78 P: 75 Repeat BP Check: 165/81 P73 #1 167/80 P74 #2 170/78 P75 #3 171/78 P76 #4 163/78 P76 #5 156/78 P75 #6 Reason for blood pressure check - Last BP elevated and Medication adjustment Patient is: Taking medication as prescribed Yes Took medication today Yes If no, date medication last taken N/A Experiencing side effects No BP was elevated at last appt 05/30/18. Lasix was increased to 40mg daily at that time d/t increased swelling. Tolerating medication change well. States that swelling in BLE is better; non-pitting right ankle and 1+ left. Denies any chest pain, unusual shortness of breath, dizziness or headaches. Daily caffeine use. No personal history of tobacco use; no current exposure. Alert and oriented. Pt has been identified by name and birthdate: Yes Allergies reviewed: Yes Latex allergy: no. Medication - prescribed and OTC reviewed and updated: Yes Do you need any prescription refills prior to your next visit: No Health Maintenance: Reviewed and not up to date and provider notified Patient advised that she would be contacted after review by PCP. Dulce St LPN Referring Provider: SELF [[id number]] Allergies As of Date: 06/17/2018 Noted Allergy Reaction CODEINE 09/11/2005 4 - Hives ERYTHROMYCIN 09/11/2005 8 - GI Upset PENICILLINS 09/11/2005 4 - Hives Date Reviewed: 05/30/2018 Reviewed by: Manjula Sorensen - Fully Assessed Reason for Visit: Blood Pressure Check [195] Primary Visit Diagnosis:Essential hypertension, benign [I10] Prescriptions as of 06/17/2018 Sig: AMLODIPINE 5 MG TABLET Take 0.5 tablets by mouth onc* FUROSEMIDE 40 MG TABLET Take 1 tablet by mouth once d* PRAVASTATIN 20 MG TABLET TAKE 1 TABLET DAILY AT BEDTIME ALLOPURINOL 100 MG TABLET Take 1 tablet by mouth once d* ALBUTEROL SULFATE 2.5 MG/3 ML* Use 3 mL via nebulizer every * ALBUTEROL SULFATE 2.5 MG/3 ML* Use 3 mL via nebulizer every * BUDESONIDE-FORMOTEROL HFA 160* Inhale 2 Puffs as instructed * LABETALOL 300 MG TABLET TAKE 1 TABLET TWICE A DAY FOSINOPRIL 40 MG TABLET TAKE 1 TABLET DAILY METFORMIN ER 500 MG TABLET,EX* TAKE 1 TABLET TWICE A DAY ALBUTEROL SULFATE HFA 90 MCG/* Inhale 2 Puffs as instructed * FLUTICASONE 50 MCG/ACTUATION * INSTILL 2 SPRAYS IN EACH NOST* LEVOTHYROXINE 75 MCG TABLET TAKE 1 TABLET DAILY ON AN EMP* NYSTATIN 100,000 UNIT/GRAM TO* Apply 1 application to affect* COMPOUNDED PRESCRIPTION Walker COMPOUNDED PRESCRIPTION Walker with wheels Left * COMPOUNDED PRESCRIPTION 1 Device every 4 hours as nee* CALCIUM 500 + D ORAL Take by mouth. Every other d* BLOOD GLUCOSE CONTROL, NORMAL* Test controls as needed. * ASPIRIN 81 MG TABLET Take one(1) tablet daily. * CENTRUM SILVER TABLET Take one(1) tablet daily. Problem List As Of Date 06/17/2018 Noted Resolved BENIGN HYPERTENSION [I10] More... Hypothyroidism [E03.9] HYPERLIPIDEMIA NEC/NOS [E78.5] 06/24/2015 More... 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15] INVALID FOR*06/24/2015 Nocturia [R35.1] INVALID FOR*06/24/2015 Urge incontinence [N39.41] INVALID FOR*05/16/2011 Female stress incontinence [N39.3] INVALID FOR* Unspecified urinary incontinence [R32] INVALID FOR*06/24/2015 Breast cyst [N60.09] INVALID FOR*06/24/2015 Sebaceous cyst [L72.3] INVALID FOR*06/24/2015 BMI 36.0-36.9,adult [Z68.36] INVALID FOR*11/30/2014 DM (diabetes mellitus), type 2 (HCC) [E11.9] INVALID FOR*06/24/2015 BMI 37.0-37.9, adult [Z68.37] INVALID FOR*06/24/2015 Diabetes mellitus type 2, controlled, without c*INVALID FOR* BMI 38.0-38.9,adult [Z68.38] INVALID FOR*10/07/2015 Hyperlipidemia [E78.5] INVALID FOR* Primary osteoarthritis of right knee [M17.11] INVALID FOR* Cellulitis of right lower extremity [L03.115] INVALID FOR*09/27/2017 Burning with urination [R30.0] INVALID FOR*09/27/2017 Gross hematuria [R31.0] INVALID FOR* Generalized abdominal pain [R10.84] INVALID FOR* Secondhand smoke exposure [Z77.22] INVALID FOR* Aspirin long-term use [Z79.82] INVALID FOR* Asthma [J45.909] 12/19/2016 Mild intermittent asthma without complication [*INVALID FOR* More... Encounter Status:Closed by DULEC ST LPN on 06/17/18 PROGRESS Observed: 06/17/2018 Status: COMPLETED Source: [place] 10:24 AM [facility] HNO ID: [id number] Author: Dulce St LPN Service: (none) Author Type: (none) Type: Progress Notes Filed: 06/17/2018 10:46 AM Note Text: Manual Readin/84 Pulse: 78 BP Eyad average: 165/78 P: 75 Repeat BP Check: 165/81 P73 #1 167/80 P74 #2 170/78 P75 #3 171/78 P76 #4 163/78 P76 #5 156/78 P75 #6 Reason for blood pressure check - Last BP elevated and Medication adjustment Patient is: Taking medication as prescribed Yes Took medication today Yes If no, date medication last taken N/A Experiencing side effects No BP was elevated at last appt 05/30/18. Lasix was increased to 40mg daily at that time d/t increased swelling. Tolerating medication change well. States that swelling in BLE is better; non-pitting right ankle and 1+ left. Denies any chest pain, unusual shortness of breath, dizziness or headaches. Daily caffeine use. No personal history of tobacco use; no current exposure. Alert and oriented. Pt has been identified by name and birthdate: Yes Allergies reviewed: Yes Latex allergy: no. Medication - prescribed and OTC reviewed and updated: Yes Do you need any prescription refills prior to your next visit: No Health Maintenance: Reviewed and not up to date and provider notified Patient advised that she would be contacted after review by PCP. Dulce St LPN BASIC METABOLIC PANL Collected: 06/17/2018 Status: F Source: [place] 8:45 AM [facility] REPOSITORY TYPE CODE TESTS RESULT OUT OF REFERENCE UNITS RANGE LAB GLU 74-99 mg/dL Glucose High 123 LAB BUN 7-21 mg/dL BUN 17 LAB CRET 0.58-0.96 mg/dL Creatinine 0.75 LAB NA 136-144 mmol/L Sodium 138 LAB K 3.7-5.1 mmol/L Potassium 4.0 LAB CL 97-105 mmol/L Chloride 103 LAB CO2 22-30 mmol/L CO2 23 LAB AGAP mmol/L Anion Gap 12 LAB CA 8.5-10.2 mg/dL Calcium, Total 9.6 LAB GFRAA eGFR- >60 Amer. LAB GFRNAA . eGFR-All Other Races >60 Result Comment: eGFR (Estimated GFR) Units of measure: mL/min/1.73 meters squared eGFR is derived from the reexpressed MDRD Study equation using the following parameters: serum creatinine, age, gender and race. The creatinine assay has been calibrated to be traceable to IDMS. An eGFR <60 mL/min/1.73m2 for >3 months is consistent with chronic kidney disease. Refer to KDOQI guidelines for clinical interpretation. In patients with unstable renal function, e.g. those with acute kidney injury, the eGFR may not accurately reflect actual GFR. URIC ACID Collected: 06/17/2018 Status: F Source: [place] 8:45 AM [facility] [place] REPOSITORY TYPE CODE TESTS RESULT OUT OF RANGE REFERENCE UNITS LAB URIC 2.5-6.6 mg/dL Uric Acid 6.6 PROGRESS Observed: 05/30/2018 Status: COMPLETED Source: [place] 2:46 PM [facility] REPOSITORY HNO ID: [id number] Author: Perry Brito) [place] Service: (none) Author Type: Physician Type: Progress Notes Filed: 05/30/2018 9:00 PM Note Text: Chief Complaint Patient presents with: Recheck Imm/Inj: Flu Vaccine HPI Angeline Montana is a 77 year old female who presents here today for 3 month follow up appointment. DIABETES MELLITUS: Ms. Montana was last seen 3 months ago. Since our last visit she denies excessive thirst or increased frequency of urination, numbness, tingling or pain in extremities, new or unusual visual symptoms and low sugar/hypoglycemic reactions. Follows a diabetic diet most of the time. She is compliant with medication(s) and is tolerating med(s) without any side effects. She reports checking her glucose on a infrequent to not at all basis. Patient's last HgA1C was Hemoglobin A1C (%) Date Value 05/28/2018 6.0 01/18/2018 6.0 ) Last Ophthalmology exam was within the past 12 months Last Podiatry exam was within the past 12 months Asthma: Patient has not had any further asthma exacerbations since her OV with UROGYNECOLOGY PHYSICIAN last month. Finished prednisone and has been using her symbicort as prescribed by UROGYNECOLOGY PHYSICIAN and symptoms have been well controlled. Has not required her rescue inhaler at home. Denies wheezing, SOB, coughing, night time awakenings. HTN: BP elevated today. Forgot her medications this morning. Willing to come back for recheck. Edema: still getting swelling in her LE with 20 mg lasix daily. Kidney function and electrolytes normal. Discussed increased dosage and use of compression stockings at home which she has not been compliant with. Gout: working to control with diet. Has not been taking allopurinol. Uric acid level still elevated. Requesting flu shot today. Up to date on HM otherwise. Past medical history, appointments, medications, allergies reviewed. Previous Medical History PAST MEDICAL HISTORY Diagnosis Date - Allergic rhinitis, cause unspecified - Arthritis - Asthma - Cataracts, bilateral Seeing Dr. Godwin - Diabetes mellitus without mention of complication Diabetes mellitus - Diverticulosis of colon (without mention of hemorrhage) - Dysmetabolic syndrome X - Essential hypertension, benign - Gout - Obesity, unspecified - Other and unspecified hyperlipidemia - Pancreatic cyst 07/24/2016 needs repeat MRI in 6 months from 02/22/2018 to recheck - Primary osteoarthritis of right knee 06/24/2015 - Unspecified hypothyroidism - Urgency of urination Previous Surgical History PAST SURGICAL HISTORY Procedure Laterality Date - APPENDECTOMY - CATARACT EXTRACTION HX Bilateral 05/2014, 06/2017 - COLONOSCOP W/ OR W/O RUST SPEC 1990 Colonoscopy - COLONOSCOP W/ OR W/O RUST SPEC 05/11/2011 Colonoscopy - DANDC, DIAG AND/OR THERAPEUTIC Dilation AND curettage - FNA WITH IMAGING 09/15/10 U/S FNA right breast 6 O'clock - REMOVAL OF TONSILS,<12 Y/O Tonsillectomy - TOTAL ABDOM HYSTERECTOMY Hysterectomy, JOSE still has her ovaries Family History FAMILY HISTORY Problem Relation Age of Onset - Diabetes Father - Hypertension Father - other (heart disease) Father - Diabetes Mother - Hypertension Mother - other (heart disease) Brother - Cancer Daughter had a hysterectomy for cervical - Diabetes Brother - Diabetes Maternal Grandmother - Hypertension Maternal Grandmother - Stroke Maternal Grandmother - Hypertension Brother - Hypertension Maternal Grandfather - Stroke Maternal Grandfather Patient Allergies ALLERGIES Allergen Reactions - Codeine Hives - Erythromycin GI Upset - Penicillins Hives Current Medications Current Outpatient Prescriptions on File Prior to Visit: pravastatin (PRAVACHOL) 20 mg tablet TAKE 1 TABLET DAILY AT BEDTIME colchicine 0.6 mg tablet Take 2 tabs by mouth, followed by 1 tab one hour later for gout flare. May repeat in 1 week. allopurinol (ZYLOPRIM) 100 mg tablet Take 1 tablet by mouth once daily. For gout. albuterol (PROVENTIL) 2.5 mg /3 mL (0.083 %) nebulizer solution Use 3 mL via nebulizer every 4 hours as needed for Wheezing/Shortness of Breath. Use over 5-15minutes. albuterol (PROVENTIL) 2.5 mg /3 mL (0.083 %) nebulizer solution Use 3 mL via nebulizer every 4 hours as needed for Wheezing/Shortness of Breath. Use over 5-15minutes. budesonide-formoterol (SYMBICORT) 160-4.5 mcg/actuation inhaler Inhale 2 Puffs as instructed twice daily. labetalol (TRANDATE) 300 mg tablet TAKE 1 TABLET TWICE A DAY Fosinopril Sodium 40 mg tablet TAKE 1 TABLET DAILY metFORMIN ER (GLUCOPHAGE XR) 500 mg 24 hr tablet TAKE 1 TABLET TWICE A DAY albuterol HFA (PROVENTIL HFA, VENTOLIN HFA) 90 mcg/actuation inhaler Inhale 2 Puffs as instructed every 4 hours as needed. furosemide (LASIX) 20 mg tablet Take 1 tablet by mouth once daily. fluticasone (FLONASE) 50 mcg/actuation nasal spray INSTILL 2 SPRAYS IN EACH NOSTRIL ONCE DAILY. RINSE MOUTH AFTER USE levothyroxine (SYNTHROID) 75 mcg tablet TAKE 1 TABLET DAILY ON AN EMPTY STOMACH amLODIPine (NORVASC) 5 mg tablet Take 0.5 tablets by mouth once daily. nystatin (MYCOSTATIN) ointment Apply 1 application to affected area twice daily. COMPOUNDED PRESCRIPTION Walker COMPOUNDED PRESCRIPTION Walker with wheelsLeft Leg Pain: M79.605Chronic Right Knee Pain M25.561 Nebulizer 1 Device every 4 hours as needed (asthma exacerbation). NEBULIZER AND SUPPLIES FOR HOME USE. DX: mild intermittent asthma CALCIUM CARBONATE/VITAMIN D3 (CALCIUM 500 + D ORAL) Take by mouth. Every other day Blood Glucose Control, Normal (CONTOUR CONTROL SOLUTION, NML) soln Test controls as needed. ASPIRIN 81 MG TAB Take one(1) tablet daily. multivitamins w-minerals/lut(CENTRUM SILVER TAB) Take one(1) tablet daily. No current facility-administered medications on file prior to visit. 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 No recurrent symptoms since asthma controlled. GI: No nausea, vomiting, or diarrhea SKIN: Negative for lesions, rash, and itching EXAM: BP 152/82 (BP Site: Left Arm, BP Position: Sitting, BP Cuff Size: Regular Adult) Pulse 82 Resp 18 Wt 103.9 kg (229 lb) BMI 38.11 kg/m? General Appearance: Well appearing, alert, in no acute distress, well-hydrated, well nourished.. Skin: Skin color, texture, turgor normal, no suspicious rashes or lesions. Lungs: Lungs clear to auscultation. No wheezing, rhonchi, rales. Heart: RRR without murmur, gallop, or rubs. No ectopy. Abdomen: Normal abdominal exam, Abdomen soft, non-tender. Bowel sounds normal. No masses, organomegaly. Extremities: Edema: 2+ edema to just above ankle. Health Maintenance List INFLUENZA(1) due on 04/27/2018 STATIN MED ADHERENCE due on 06/27/2018 DIABETES MED ADHERENCE due on 06/27/2018 STEROID INHALER ADHERENCE due on 06/27/2018 HBA1C due on 11/26/2018 DIABETIC FOOT EXAM due on 01/31/2019 DILATED RETINAL EXAM due on 03/21/2019 ANNUAL PCP TEAM CHRONIC DISEASE VISIT due on 05/07/2019 BP CONTROLLED (<130/80) due on 05/07/2019 URINE ALBUMIN:CREATININE RATIO due on 05/28/2019 LDL CHOLESTEROL due on 05/28/2019 COLORECTAL CANCER SCREENING,SEE MODIFIER due on 05/11/2021 DTAP,TDAP,TD(2 - Td) due on 04/01/2028 BONE DENSITY Completed ADULT PREVNAR-13 Completed PNEUMOVAX AGE 65 AND OVER WITH 5YR LOOKBACK Completed Data reviewed Component Latest Ref Rng AND Units 01/18/2018 05/28/2018 Protein, Total 6.3 - 8.0 g/dL 6.7 6.8 Albumin 3.9 - 4.9 g/dL 4.2 4.1 Calcium 8.5 - 10.2 mg/dL 9.4 9.7 Bilirubin, Total 0.2 - 1.3 mg/dL 0.4 0.4 Alkaline Phosphatase 34 - 123 U/L 66 67 AST 13 - 35 U/L 14 19 Glucose 74 - 99 mg/dL 109 (H) 110 (H) BUN 7 - 21 mg/dL 17 17 Creatinine 0.58 - 0.96 mg/dL 0.90 0.81 Sodium 136 - 144 mmol/L 138 141 Potassium 3.7 - 5.1 mmol/L 4.3 4.1 Chloride 97 - 105 mmol/L 99 103 CO2 22 - 30 mmol/L 26 26 Anion Gap 9 - 18 mmol/L 13 12 ALT 7 - 38 U/L 14 13 eGFR- >60 >60 eGFR-All Other Races . >60 >60 WBC 3.70 - 11.00 k/uL 6.64 RBC 3.90 - 5.20 m/uL 4.60 Hemoglobin 11.5 - 15.5 g/dL 13.7 Hematocrit 36.0 - 46.0 % 42.4 MCV 80.0 - 100.0 fL 92.2 MCH 26.0 - 34.0 pG 29.8 MCHC 30.5 - 36.0 g/dL 32.3 RDW-CV 11.5 - 15.0 % 13.8 Platelet Count 150 - 400 k/uL 334 MPV 9.0 - 12.7 fL 9.2 Absolute nRBC <0.01 k/uL <0.01 Cholesterol, Total <200 mg/dL 172 Triglyceride <150 mg/dL 182 (H) HDL Cholesterol >39 mg/dL 51 LDL Cholesterol <100 mg/dL 85 Non HDL Cholesterol <130 mg/dL 121 Fasting Time hrs 12 VLDL Cholesterol <30 mg/dL 36 (H) TC:HDL Ratio <5.10 3.37 LDL:HDL Ratio <2.54 1.67 Creatinine, Ur Random (UCRR) 20 - 300 mg/dL 73.6 Albumin, Urine Random 0.0 - 23.0 mg/L 91.3 (H) Albumin/Creat Ratio 0 - 30 mg/g 124 (H) Hemoglobin A1C 4.3 - 5.6 % 6.0 (H) 6.0 (H) Estimated Average Glucose mg/dL 126 126 Vitamin B12 232 - 1,245 pg/mL 278 Uric Acid 2.5 - 6.6 mg/dL 6.7 (H) ASSESSMENT/PLAN: 1. Controlled type 2 diabetes mellitus without complication, without long-term current use of insulin (HCC) - ICD9: 250.00, ICD10: E11.9 (primary diagnosis) Controlled. - Continue current medications - Blood glucose monitoring on a once a day schedule - Encouraged regular aerobic exercise and weight loss - Daily Asprin therapy recommended - Follow up in 3 months, sooner should any other issues arise. 2. Chronic gout without tophus, unspecified cause, unspecified site - ICD9: 274.02, ICD10: M1A.9XX0 Start allopurinol. Given information on diet control for gout. - URIC ACID BLOOD 3. Essential hypertension, benign - ICD9: 401.1, ICD10: I10 - suboptimal control - Continue current medication(s) - Encouraged dietary sodium restriction/DASH diet - Recommended regular aerobic exercise. - Follow up in 1 month for BP recheck. - Reviewed risks of HTN and principles of treatment - Goal of BP <140/90 - BASIC METABOLIC PNL 4. Acquired hypothyroidism - ICD9: 244.9, ICD10: E03.9 Continue current regimen 5. Hyperlipidemia, unspecified hyperlipidemia type - ICD9: 272.4, ICD10: E78.5 - good control - Continue current medication. - Encouraged following a low fat, low cholesterol diet. - Discussed the benefits of regular aerobic exercise and weight loss. 6. Mild intermittent asthma without complication - ICD9: 493.90, ICD10: J45.20 Moderate persistent Asthma stable - Continue current meds - Avoidance of triggers recommended 7. Need for vaccination - ICD9: V05.9, ICD10: Z23 - INFLUENZA SEASONAL HIGH DOSE AGE 65+ 8. Bilateral leg edema - ICD9: 782.3, ICD10: R60.0 Increase lasix. Recheck BMP in 2 weeks. - FUROSEMIDE 40 MG TABLET Perry Escudero MD CNOV Observed: 05/30/2018 Status: COMPLETED Source: [place] 2:40 PM [facility] REPOSITORY Office Visit (FAMPWS) ANGELINE MONTANA ([id number]) 1940 F Date Time Provider Department 05/30/18 2:40 PM PERRY ESCUDERO) [facility] During your visit today, we recorded the following information about you: Pulse Respiration Blood pressure Weight 82/minute 18/minute 152/82 103.9 kg Manjula Sorensen 05/30/2018 9:00 PM Signed 77 year old female here for INACTIVATED INFLUENZA VACCINE. 9918-6427 Season Patient is identified by name and date of : Yes [] CONTRAINDICATIONS color enhanced section Age less than 6 months? No Allergy to eggs, chicken, chicken feathers, or chicken dander? No Allergy to thimerosal (a preservative) or formaldehyde, gelatin? No History of severe reaction to any vaccine component or a previous dose of influenza vaccination? No History of Guillain-Crocheron Syndrome within 6 weeks after a previous influenza vaccine? No Patient is not moderately or severely ill? No Current temperature greater or equal to 100.4F? No History of Bone Marrow Transplant prior 6 months or solid organ transplant in the past 3 months ? No History of fainting after a prior injection or medical procedure? No- ? If patient has fainted in the past, the CDC recommends sitting or lying down for 15 minutes after the vaccination. [] VERIFICATION color enhanced section Was the answer Yes for any of the above contraindications? No contraindications present. Acceptable to proceed with vaccine. Patient/guardian agrees the above answers are true to the best of their knowledge? Yes Flu vaccine information sheet given? Yes See immunization activity in [facility] for details of immunizations adminstered today. Patient age: [age] year old For The [id number] Flu Season 6-35 months old: Fluzone 0.25 ml - IM (Preservative Free) 3 years of age: Fluzone 0.5 ml - IM (Preservative Free) 3 years and older: Fluzone 0.5 ml- IM-(with Preservatives) 65+ years old: 2-49 years old Fluzone High-Dose 0.5 ml - IM (Preservative Free) FLUMIST- intranasal REMEMBER: If patient is less than 9 years of age and this is the first vaccine of Influenza to be received in any flu season, they should receive a second dose in one months time. Perry Escudero MD 05/30/2018 9:00 PM Signed Chief Complaint Patient presents with: Recheck Imm/Inj: Flu Vaccine HPI Angeline Montana is a 77 year old female who presents here today for 3 month follow up appointment. DIABETES MELLITUS: Ms. Montana was last seen 3 months ago. Since our last visit she denies excessive thirst or increased frequency of urination, numbness, tingling or pain in extremities, new or unusual visual symptoms and low sugar/hypoglycemic reactions. Follows a diabetic diet most of the time. She is compliant with medication(s) and is tolerating med(s) without any side effects. She reports checking her glucose on a infrequent to not at all basis. Patient's last HgA1C was Hemoglobin A1C (%) Date Value 05/28/2018 6.0 01/18/2018 6.0 ) Last Ophthalmology exam was within the past 12 months Last Podiatry exam was within the past 12 months Asthma: Patient has not had any further asthma exacerbations since her OV with UROGYNECOLOGY PHYSICIAN last month. Finished prednisone and has been using her symbicort as prescribed by UROGYNECOLOGY PHYSICIAN and symptoms have been well controlled. Has not required her rescue inhaler at home. Denies wheezing, SOB, coughing, night time awakenings. HTN: BP elevated today. Forgot her medications this morning. Willing to come back for recheck. Edema: still getting swelling in her LE with 20 mg lasix daily. Kidney function and electrolytes normal. Discussed increased dosage and use of compression stockings at home which she has not been compliant with. Gout: working to control with diet. Has not been taking allopurinol. Uric acid level still elevated. Requesting flu shot today. Up to date on HM otherwise. Past medical history, appointments, medications, allergies reviewed. Previous Medical History PAST MEDICAL HISTORY Diagnosis Date - Allergic rhinitis, cause unspecified - Arthritis - Asthma - Cataracts, bilateral Seeing Dr. Godwin - Diabetes mellitus without mention of complication Diabetes mellitus - Diverticulosis of colon (without mention of hemorrhage) - Dysmetabolic syndrome X - Essential hypertension, benign - Gout - Obesity, unspecified - Other and unspecified hyperlipidemia - Pancreatic cyst 07/24/2016 needs repeat MRI in 6 months from 02/22/2018 to recheck - Primary osteoarthritis of right knee 06/24/2015 - Unspecified hypothyroidism - Urgency of urination Previous Surgical History PAST SURGICAL HISTORY Procedure Laterality Date - APPENDECTOMY - CATARACT EXTRACTION HX Bilateral 05/2014, 06/2017 - COLONOSCOP W/ OR W/O RUST SPEC 1990 Colonoscopy - COLONOSCOP W/ OR W/O BRS SPEC 05/11/2011 Colonoscopy - DANDC, DIAG AND/OR THERAPEUTIC Dilation AND curettage - FNA WITH IMAGING 09/15/10 U/S FNA right breast 6 O'clock - REMOVAL OF TONSILS,<12 Y/O Tonsillectomy - TOTAL ABDOM HYSTERECTOMY Hysterectomy, JOSE still has her ovaries Family History FAMILY HISTORY Problem Relation Age of Onset - Diabetes Father - Hypertension Father - other (heart disease) Father - Diabetes Mother - Hypertension Mother - other (heart disease) Brother - Cancer Daughter had a hysterectomy for cervical - Diabetes Brother - Diabetes Maternal Grandmother - Hypertension Maternal Grandmother - Stroke Maternal Grandmother - Hypertension Brother - Hypertension Maternal Grandfather - Stroke Maternal Grandfather Patient Allergies ALLERGIES Allergen Reactions - Codeine Hives - Erythromycin GI Upset - Penicillins Hives Current Medications Current Outpatient Prescriptions on File Prior to Visit: pravastatin (PRAVACHOL) 20 mg tablet TAKE 1 TABLET DAILY AT BEDTIME colchicine 0.6 mg tablet Take 2 tabs by mouth, followed by 1 tab one hour later for gout flare. May repeat in 1 week. allopurinol (ZYLOPRIM) 100 mg tablet Take 1 tablet by mouth once daily. For gout. albuterol (PROVENTIL) 2.5 mg /3 mL (0.083 %) nebulizer solution Use 3 mL via nebulizer every 4 hours as needed for Wheezing/Shortness of Breath. Use over 5-15minutes. albuterol (PROVENTIL) 2.5 mg /3 mL (0.083 %) nebulizer solution Use 3 mL via nebulizer every 4 hours as needed for Wheezing/Shortness of Breath. Use over 5-15minutes. budesonide-formoterol (SYMBICORT) 160-4.5 mcg/actuation inhaler Inhale 2 Puffs as instructed twice daily. labetalol (TRANDATE) 300 mg tablet TAKE 1 TABLET TWICE A DAY Fosinopril Sodium 40 mg tablet TAKE 1 TABLET DAILY metFORMIN ER (GLUCOPHAGE XR) 500 mg 24 hr tablet TAKE 1 TABLET TWICE A DAY albuterol HFA (PROVENTIL HFA, VENTOLIN HFA) 90 mcg/actuation inhaler Inhale 2 Puffs as instructed every 4 hours as needed. furosemide (LASIX) 20 mg tablet Take 1 tablet by mouth once daily. fluticasone (FLONASE) 50 mcg/actuation nasal spray INSTILL 2 SPRAYS IN EACH NOSTRIL ONCE DAILY. RINSE MOUTH AFTER USE levothyroxine (SYNTHROID) 75 mcg tablet TAKE 1 TABLET DAILY ON AN EMPTY STOMACH amLODIPine (NORVASC) 5 mg tablet Take 0.5 tablets by mouth once daily. nystatin (MYCOSTATIN) ointment Apply 1 application to affected area twice daily. COMPOUNDED PRESCRIPTION Walker COMPOUNDED PRESCRIPTION Walker with wheelsLeft Leg Pain: M79.605Chronic Right Knee Pain M25.561 Nebulizer 1 Device every 4 hours as needed (asthma exacerbation). NEBULIZER AND SUPPLIES FOR HOME USE. DX: mild intermittent asthma CALCIUM CARBONATE/VITAMIN D3 (CALCIUM 500 + D ORAL) Take by mouth. Every other day Blood Glucose Control, Normal (CONTOUR CONTROL SOLUTION, NML) soln Test controls as needed. ASPIRIN 81 MG TAB Take one(1) tablet daily. multivitamins w-minerals/lut(CENTRUM SILVER TAB) Take one(1) tablet daily. No current facility-administered medications on file prior to visit. 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 No recurrent symptoms since asthma controlled. GI: No nausea, vomiting, or diarrhea SKIN: Negative for lesions, rash, and itching EXAM: BP 152/82 (BP Site: Left Arm, BP Position: Sitting, BP Cuff Size: Regular Adult) Pulse 82 Resp 18 Wt 103.9 kg (229 lb) BMI 38.11 kg/m? General Appearance: Well appearing, alert, in no acute distress, well-hydrated, well nourished.. Skin: Skin color, texture, turgor normal, no suspicious rashes or lesions. Lungs: Lungs clear to auscultation. No wheezing, rhonchi, rales. Heart: RRR without murmur, gallop, or rubs. No ectopy. Abdomen: Normal abdominal exam, Abdomen soft, non-tender. Bowel sounds normal. No masses, organomegaly. Extremities: Edema: 2+ edema to just above ankle. Health Maintenance List INFLUENZA(1) due on 04/27/2018 STATIN MED ADHERENCE due on 06/27/2018 DIABETES MED ADHERENCE due on 06/27/2018 STEROID INHALER ADHERENCE due on 06/27/2018 HBA1C due on 11/26/2018 DIABETIC FOOT EXAM due on 01/31/2019 DILATED RETINAL EXAM due on 03/21/2019 ANNUAL PCP TEAM CHRONIC DISEASE VISIT due on 05/07/2019 BP CONTROLLED (<130/80) due on 05/07/2019 URINE ALBUMIN:CREATININE RATIO due on 05/28/2019 LDL CHOLESTEROL due on 05/28/2019 COLORECTAL CANCER SCREENING,SEE MODIFIER due on 05/11/2021 DTAP,TDAP,TD(2 - Td) due on 04/01/2028 BONE DENSITY Completed ADULT PREVNAR-13 Completed PNEUMOVAX AGE 65 AND OVER WITH 5YR LOOKBACK Completed Data reviewed Component Latest Ref Rng AND Units 01/18/2018 05/28/2018 Protein, Total 6.3 - 8.0 g/dL 6.7 6.8 Albumin 3.9 - 4.9 g/dL 4.2 4.1 Calcium 8.5 - 10.2 mg/dL 9.4 9.7 Bilirubin, Total 0.2 - 1.3 mg/dL 0.4 0.4 Alkaline Phosphatase 34 - 123 U/L 66 67 AST 13 - 35 U/L 14 19 Glucose 74 - 99 mg/dL 109 (H) 110 (H) BUN 7 - 21 mg/dL 17 17 Creatinine 0.58 - 0.96 mg/dL 0.90 0.81 Sodium 136 - 144 mmol/L 138 141 Potassium 3.7 - 5.1 mmol/L 4.3 4.1 Chloride 97 - 105 mmol/L 99 103 CO2 22 - 30 mmol/L 26 26 Anion Gap 9 - 18 mmol/L 13 12 ALT 7 - 38 U/L 14 13 eGFR- >60 >60 eGFR-All Other Races . >60 >60 WBC 3.70 - 11.00 k/uL 6.64 RBC 3.90 - 5.20 m/uL 4.60 Hemoglobin 11.5 - 15.5 g/dL 13.7 Hematocrit 36.0 - 46.0 % 42.4 MCV 80.0 - 100.0 fL 92.2 MCH 26.0 - 34.0 pG 29.8 MCHC 30.5 - 36.0 g/dL 32.3 RDW-CV 11.5 - 15.0 % 13.8 Platelet Count 150 - 400 k/uL 334 MPV 9.0 - 12.7 fL 9.2 Absolute nRBC <0.01 k/uL <0.01 Cholesterol, Total <200 mg/dL 172 Triglyceride <150 mg/dL 182 (H) HDL Cholesterol >39 mg/dL 51 LDL Cholesterol <100 mg/dL 85 Non HDL Cholesterol <130 mg/dL 121 Fasting Time hrs 12 VLDL Cholesterol <30 mg/dL 36 (H) TC:HDL Ratio <5.10 3.37 LDL:HDL Ratio <2.54 1.67 Creatinine, Ur Random (UCRR) 20 - 300 mg/dL 73.6 Albumin, Urine Random 0.0 - 23.0 mg/L 91.3 (H) Albumin/Creat Ratio 0 - 30 mg/g 124 (H) Hemoglobin A1C 4.3 - 5.6 % 6.0 (H) 6.0 (H) Estimated Average Glucose mg/dL 126 126 Vitamin B12 232 - 1,245 pg/mL 278 Uric Acid 2.5 - 6.6 mg/dL 6.7 (H) ASSESSMENT/PLAN: 1. Controlled type 2 diabetes mellitus without complication, without long-term current use of insulin (HCC) - ICD9: 250.00, ICD10: E11.9 (primary diagnosis) Controlled. - Continue current medications - Blood glucose monitoring on a once a day schedule - Encouraged regular aerobic exercise and weight loss - Daily Asprin therapy recommended - Follow up in 3 months, sooner should any other issues arise. 2. Chronic gout without tophus, unspecified cause, unspecified site - ICD9: 274.02, ICD10: M1A.9XX0 Start allopurinol. Given information on diet control for gout. - URIC ACID BLOOD 3. Essential hypertension, benign - ICD9: 401.1, ICD10: I10 - suboptimal control - Continue current medication(s) - Encouraged dietary sodium restriction/DASH diet - Recommended regular aerobic exercise. - Follow up in 1 month for BP recheck. - Reviewed risks of HTN and principles of treatment - Goal of BP <140/90 - BASIC METABOLIC PNL 4. Acquired hypothyroidism - ICD9: 244.9, ICD10: E03.9 Continue current regimen 5. Hyperlipidemia, unspecified hyperlipidemia type - ICD9: 272.4, ICD10: E78.5 - good control - Continue current medication. - Encouraged following a low fat, low cholesterol diet. - Discussed the benefits of regular aerobic exercise and weight loss. 6. Mild intermittent asthma without complication - ICD9: 493.90, ICD10: J45.20 Moderate persistent Asthma stable - Continue current meds - Avoidance of triggers recommended 7. Need for vaccination - ICD9: V05.9, ICD10: Z23 - INFLUENZA SEASONAL HIGH DOSE AGE 65+ 8. Bilateral leg edema - ICD9: 782.3, ICD10: R60.0 Increase lasix. Recheck BMP in 2 weeks. - FUROSEMIDE 40 MG TABLET Perry Escudero MD Referring Provider: PERRY ESCUDERO) [[id number]] Allergies As of Date: 05/30/2018 Noted Allergy Reaction CODEINE 09/11/2005 4 - Hives ERYTHROMYCIN 09/11/2005 8 - GI Upset PENICILLINS 09/11/2005 4 - Hives Date Reviewed: 05/30/2018 Reviewed by: Manjula Sorensen - Fully Assessed Reason for Visit: Recheck [92] Imm/Inj [58] Cmt: Flu Vaccine Reason For Visit History Recorded Primary Visit Diagnosis:Controlled type 2 diabetes mellitus without complication, without long-term current use of insulin (HCC) [E11.9] Other Visit Diagnoses:Chronic gout without tophus, unspecified cause, unspecified site [M1A.9XX0] Essential hypertension, benign [I10] Acquired hypothyroidism [E03.9] Hyperlipidemia, unspecified hyperlipidemia type [E78.5] Mild intermittent asthma without complication [J45.20] Need for vaccination [Z23] Bilateral leg edema [R60.0] Order(s):INFLUENZA SEASONAL HIGH DOSE AGE 65+ [[id number]] Order #: [id number] URIC ACID BLOOD [SQURIC] Order #: [id number] FUTURE furosemide (LASIX) 40 mg tabletTake 1 tablet by mouth once daily.Disp: 30 tabletRfl: 5 BASIC METABOLIC PNL [SQBMP] Order #: [id number] FUTURE Prescriptions as of 05/30/2018 Sig: FUROSEMIDE 40 MG TABLET Take 1 tablet by mouth once d* PRAVASTATIN 20 MG TABLET TAKE 1 TABLET DAILY AT BEDTIME ALLOPURINOL 100 MG TABLET Take 1 tablet by mouth once d* ALBUTEROL SULFATE 2.5 MG/3 ML* Use 3 mL via nebulizer every * ALBUTEROL SULFATE 2.5 MG/3 ML* Use 3 mL via nebulizer every * BUDESONIDE-FORMOTEROL HFA 160* Inhale 2 Puffs as instructed * LABETALOL 300 MG TABLET TAKE 1 TABLET TWICE A DAY FOSINOPRIL 40 MG TABLET TAKE 1 TABLET DAILY METFORMIN ER 500 MG TABLET,EX* TAKE 1 TABLET TWICE A DAY ALBUTEROL SULFATE HFA 90 MCG/* Inhale 2 Puffs as instructed * FLUTICASONE 50 MCG/ACTUATION * INSTILL 2 SPRAYS IN EACH NOST* LEVOTHYROXINE 75 MCG TABLET TAKE 1 TABLET DAILY ON AN EMP* AMLODIPINE 5 MG TABLET Take 0.5 tablets by mouth onc* NYSTATIN 100,000 UNIT/GRAM TO* Apply 1 application to affect* COMPOUNDED PRESCRIPTION Walker COMPOUNDED PRESCRIPTION Walker with wheels Left * COMPOUNDED PRESCRIPTION 1 Device every 4 hours as nee* CALCIUM 500 + D ORAL Take by mouth. Every other d* BLOOD GLUCOSE CONTROL, NORMAL* Test controls as needed. * ASPIRIN 81 MG TABLET Take one(1) tablet daily. * CENTRUM SILVER TABLET Take one(1) tablet daily. Problem List As Of Date 05/30/2018 Noted Resolved BENIGN HYPERTENSION [I10] More... Hypothyroidism [E03.9] HYPERLIPIDEMIA NEC/NOS [E78.5] 06/24/2015 More... 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15] INVALID FOR*06/24/2015 Nocturia [R35.1] INVALID FOR*06/24/2015 Urge incontinence [N39.41] INVALID FOR*05/16/2011 Female stress incontinence [N39.3] INVALID FOR* Unspecified urinary incontinence [R32] INVALID FOR*06/24/2015 Breast cyst [N60.09] INVALID FOR*06/24/2015 Sebaceous cyst [L72.3] INVALID FOR*06/24/2015 BMI 36.0-36.9,adult [Z68.36] INVALID FOR*11/30/2014 DM (diabetes mellitus), type 2 (HCC) [E11.9] INVALID FOR*06/24/2015 BMI 37.0-37.9, adult [Z68.37] INVALID FOR*06/24/2015 Diabetes mellitus type 2, controlled, without c*INVALID FOR* BMI 38.0-38.9,adult [Z68.38] INVALID FOR*10/07/2015 Hyperlipidemia [E78.5] INVALID FOR* Primary osteoarthritis of right knee [M17.11] INVALID FOR* Cellulitis of right lower extremity [L03.115] INVALID FOR*09/27/2017 Burning with urination [R30.0] INVALID FOR*09/27/2017 Gross hematuria [R31.0] INVALID FOR* Generalized abdominal pain [R10.84] INVALID FOR* Secondhand smoke exposure [Z77.22] INVALID FOR* Aspirin long-term use [Z79.82] INVALID FOR* Asthma [J45.909] 12/19/2016 Mild intermittent asthma without complication [*INVALID FOR* More... Prescriptions ordered this encounter Disp Refills Start End FUROSEMIDE 40 MG TABLET 30 t* 5 05/30/2018 Route: ORAL Sig: Take 1 tablet by mouth once daily. Medications Discontinued During This Encounter colchicine 0.6 mg tablet 6 ta* 0 05/08/2018 05/30/2018 Sig: Take 2 tabs by mouth, followed by 1 tab one hour later for gout flare. May repeat in 1 week. Disc: Reason for discontinue is not on file. furosemide (LASIX) 20 mg tablet 90 t* 3 09/27/2017 05/30/2018 Class: [facility] Route: ORAL Sig: Take 1 tablet by mouth once daily. Disc: Reason for discontinue is not on file. Disposition: Return in about 3 months (around 08/30/2018). Follow-up and Disposition History Recorded Encounter Status:Closed by PERRY ESCUDERO MD on 05/30/18 PROGRESS Observed: 05/30/2018 Status: COMPLETED Source: [place] 2:37 PM [facility] RE[facility] O ID: [id number] Author: Manjula Sorensen Service: (none) Author Type: (none) Type: Progress Notes Filed: 05/30/2018 9:00 PM Note Text: 77 year old female here for INACTIVATED INFLUENZA VACCINE. [id number] Season Patient is identified by name and date of : Yes [] CONTRAINDICATIONS color enhanced section Age less than 6 months? No Allergy to eggs, chicken, chicken feathers, or chicken dander? No Allergy to thimerosal (a preservative) or formaldehyde, gelatin? No History of severe reaction to any vaccine component or a previous dose of influenza vaccination? No History of Guillain-Crocheron Syndrome within 6 weeks after a previous influenza vaccine? No Patient is not moderately or severely ill? No Current temperature greater or equal to 100.4F? No History of Bone Marrow Transplant prior 6 months or solid organ transplant in the past 3 months ? No History of fainting after a prior injection or medical procedure? No- ? If patient has fainted in the past, the CDC recommends sitting or lying down for 15 minutes after the vaccination. [] VERIFICATION color enhanced section Was the answer Yes for any of the above contraindications? No contraindications present. Acceptable to proceed with vaccine. Patient/guardian agrees the above answers are true to the best of their knowledge? Yes Flu vaccine information sheet given? Yes See immunization activity in [facility] for details of immunizations adminstered today. Patient age: [age] year old For The [id number] Flu Season 6-35 months old: Fluzone 0.25 ml - IM (Preservative Free) 3 years of age: Fluzone 0.5 ml - IM (Preservative Free) 3 years and older: Fluzone 0.5 ml- IM-(with Preservatives) 65+ years old: 2-49 years old Fluzone High-Dose 0.5 ml - IM (Preservative Free) FLUMIST- intranasal REMEMBER: If patient is less than 9 years of age and this is the first vaccine of Influenza to be received in any flu season, they should receive a second dose in one months time. ALBUMIN/CREAT RATIO Collected: 05/28/2018 Status: F Source: [place] 8:00 AM [facility] REPOSITORY TYPE CODE TESTS RESULT OUT OF REFERENCE UNITS RANGE LAB UCRR 20-300 mg/dL Creatinine,Ur 73.6 ine,Ran LAB UALBR 0.0-23.0 mg/L High Albumin Urine 91.3 Random LAB UALBCR 0-30 mg/g High Albumin/Creat 124 Ratio Result Comment: 30 to 300 mg/g indicates an increased risk for diabetic nephropathy. Greater than 300 mg/g is consistent with clinical nephropathy. (Am J Kidney Disease 1994, 25:107) Performed By: #### UACR #### [facility] [address] [place] [address] COMP METABOLIC PANEL Collected: 05/28/2018 Status: F Source: [place] 7:57 AM [facility] REPOSITORY TYPE CODE TESTS RESULT OUT OF REFERENCE UNITS RANGE LAB TP 6.3-8.0 g/dL Protein, Total 6.8 LAB ALB 3.9-4.9 g/dL Albumin 4.1 LAB CA 8.5-10.2 mg/dL Calcium, Total 9.7 LAB TBIL 0.2-1.3 mg/dL Bilirubin, Total 0.4 LAB ALKP 34-123 U/L Alkaline Phosphatase 67 LAB AST 13-35 U/L AST 19 LAB GLU 74-99 mg/dL Glucose High 110 Result Comment: The [place] Diabetes Association (ADA) provides guidance for cutoff values for fasting glucose and random glucose. The ADA defines fasting as no caloric intake for at least 8 hours. Fas ting plasma glucose results between 100 to 125 mg/dL indicate increased risk for diabetes (prediabetes). Fasting plasma glucose results greater than or equal to 126 mg/dL meet the criteria for diagnosis of diabetes. In the absence of unequivocal hyperglycemia, results should be confirmed by repeat testing. In a patient with classic symptoms of hyperglycemia or hyperglycemic crisis, random plasma glucose results greater than or equal to 200 mg/dL meet the criteria for diagnosis of diabetes. Reference: Standards of Medical Care in Diabetes 2016, [place] Diabetes Association. Diabetes Care. 2016.39(Suppl 1). LAB BUN 7-21 mg/dL BUN 17 LAB CRET 0.58-0.96 mg/dL Creatinine 0.81 LAB NA 136-144 mmol/L Sodium 141 LAB K 3.7-5.1 mmol/L Potassium 4.1 LAB CL 97-105 mmol/L Chloride 103 LAB CO2 22-30 mmol/L CO2 26 LAB AGAP 9-18 mmol/L Anion Gap 12 LAB ALT 7-38 U/L ALT 13 LAB GFRAA eGFR- Amer. >60 LAB GFRNAA . eGFR-All Other Races >60 Result Comment: eGFR (Estimated GFR) Units of measure: mL/min/1.73 meters squared eGFR is derived from the reexpressed MDRD Study equation using the following parameters: serum creatinine, age, gender and race. The creatinine assay has been calibrated to be traceable to IDMS. An eGFR <60 mL/min/1.73m2 for >3 months is consistent with chronic kidney disease. Refer to KDOQI guidelines for clinical interpretation. In patients with unstable renal function, e.g. those with acute kidney injury, the eGFR may not accurately reflect actual GFR. Performed By: #### CMP, LIPB, URIC, B12, HBA1C #### [facility] [address] [place], [place] [address] LIPID PANEL, BASIC Collected: 05/28/2018 Status: F Source: [place] 7:57 AM [facility] REPOSITORY TYPE CODE TESTS RESULT OUT OF REFERENCE UNITS RANGE LAB CHOL <200 mg/dL Cholesterol 172 Result Comment: <200 mg/dL, Desirable 200-239 mg/dL, Borderline high >239 mg/dL, High LAB TRIGLY <150 mg/dL Triglyceride High 182 Result Comment: <150 mg/dL, Normal 150-199 mg/dL, Borderline high 200-499 mg/dL, High >499 mg/dL, Very high LAB HDL >39 mg/dL HDL-Cholesterol 51 Result Comment: 40-59 mg/dL, Acceptable >59 mg/dL, High: Negative risk factor for coronary heart disease <40 mg/dL, Low: Positive risk factor for coronary heart disease LAB LDL <100 mg/dL LDL-Cholesterol 85 Result Comment: <100 mg/dL, Optimal 100-129 mg/dL, Near optimal/above optimal 130-159 mg/dL, Borderline high 160-189 mg/dL, High >189 mg/dL, Very high Secondary prevention optimal LDL Cholesterol levels are recommended to be < 70 mg/dL LAB NONHDL <130 mg/dL Non HDL Cholesterol 121 Result Comment: <130 mg/dL, Optimal 130-159 mg/dL, Near optimal/above optimal 160-189 mg/dL, Borderline high 190-219 mg/dL, High >219 mg/dL, Very high Secondary prevention optimal non HDL Cholesterol levels are recommended to be < 100 mg/dL LAB FT hrs Fasting Time 12 LAB VLDL <30 mg/dL High VLDL Cholesterol 36 LAB TCHDL <5.10 TC:HDL Ratio 3.37 LAB LDLHDL <2.54 LDL:HDL Ratio 1.67 Result Comment: Reference: 1. National Cholesterol Education Program ATP III Guideline At-A-Glance Quick Desk Reference: National Heart, Lung, and Blood [place]. National Institutes of Health. 2001: NIH Publication No. 01-3305. 2. An International Atherosclerosis Society position paper: global recommendations for the management of dyslipidemia: executive summary, Atherosclerosis. 2014: 232(2):410-413. Performed By: #### CMP, LIPB, URIC, B12, HBA1C #### [facility] [address] [place] [address] URIC ACID Collected: 05/28/2018 Status: F Source: [place] 7:57 AM [facility] REPOSITORY TYPE CODE TESTS RESULT OUT OF RANGE REFERENCE UNITS LAB URIC 2.5-6.6 mg/dL High Uric Acid 6.7 Performed By: #### CMP, LIPB, URIC, B12, HBA1C #### [facility] [address] [place] [address] VITAMIN B12 Collected: 05/28/2018 Status: F Source: [place] 7:57 AM [facility] REPOSITORY TYPE CODE TESTS RESULT OUT OF REFERENCE UNITS RANGE LAB B12 232-1245 pg/mL Vitamin B12 278 Performed By: #### CMP, LIPB, URIC, B12, HBA1C #### [facility] [address] [place] [address] HEMOGLOBIN A1C Collected: 05/28/2018 Status: F Source: [place] 7:57 AM [facility] REPOSITORY TYPE CODE TESTS RESULT OUT OF REFERENCE UNITS RANGE LAB HGBA1C 4.3-5.6 % High Hemoglobin A1c 6.0 LAB HBA0 mg/dL Est. Average Glucose 126 Result Comment: eAG: (Estimated average glucose) is a calculated value from HgbA1c and is business center representative of the average blood glucose level in the last 2-3 month period. Performed By: #### CMP, LIPB, URIC, B12, HBA1C #### [facility] [address] [place], [place] [address] URIC ACID Collected: 05/07/2018 Status: F Source: [place] 9:45 AM [facility] REPOSITORY TYPE CODE TESTS RESULT OUT OF RANGE REFERENCE UNITS LAB URIC 2.5-6.6 mg/dL High Uric Acid 6.9 Performed By: #### URIC #### [facility] [address] [place], [place] [address] PROGRESS Observed: 05/07/2018 Status: COMPLETED Source: [place] 8:47 AM [facility] REPOSITORY HNO ID: [id number] Author: Tram Bird) Podlogar Service: (none) Author Type: Nurse Practitioner Type: Progress Notes Filed: 05/07/2018 2:43 PM Note Text: 05/07/2018 Patient presents with: Asthma: off all medications now states going backwards a bit SUBJECTIVE: This is a 77 year old that is here today for Above Complaints. After last visit on 04/01/2018 is feeling much better. Ran out of Symbicort a couple of days ago and has had some wheezing and SOB. Since starting Symbicort has rarely had to use albuterol inhaler or home nebulizer. Did get her PFT's done since last visit- see results below. Denies fevers, chills, dyspnea, coughing, hemoptysis, chest pains, palpitations, and leg edema Left great toe: has had some pain in left great toe for a couple of days- thinks it may be gout. Has been reducing her diet for coffee. Reports did have a gout attack a few years ago Has been taking some tylenol which does help some. Pain is described as aching/throbbing. No aggravating features. Denies other swollen painful, reddened, or warm joints [facility] ?[address] ? [place] [address] ?Test Date: ? ? 2018-04-11 Pat Name: ? ? ?ANGELINE MONTANA ?Department: ? ? Patient ID: ? ?[id number] ? Room: ? Gender: ?Female ?Supervisor Sound Technician: ? ? : ? 1940 ?Requested By: ? Order Number: ?[id number] ? ? ? Reading MD: ? ?Ovidio Hunter ?Interpretive Statements ATS acceptability and repeatability standards for spirometry met. Meds taken: Symbicort 18 hours before testing. IMPRESSION: The flow volume loop is normal. Spirometry is normal. Electronically Signed On 04-11-2018 15:41:47 EDT by Ovidio Hunter PAST MEDICAL HISTORY Diagnosis Date - Allergic rhinitis, cause unspecified - Arthritis - Asthma - Cataracts, bilateral Seeing Dr. Godwin - Diabetes mellitus without mention of complication Diabetes mellitus - Diverticulosis of colon (without mention of hemorrhage) - Dysmetabolic syndrome X - Essential hypertension, benign - Obesity, unspecified - Other and unspecified hyperlipidemia - Pancreatic cyst 07/24/2016 needs repeat MRI in 6 months from 02/22/2018 to recheck - Primary osteoarthritis of right knee 06/24/2015 - Unspecified hypothyroidism - Urgency of urination ALLERGIES Codeine; Erythromycin; Penicillins MEDICATIONS Current Outpatient Prescriptions: albuterol (PROVENTIL) 2.5 mg /3 mL (0.083 %) nebulizer solution Use 3 mL via nebulizer every 4 hours as needed for Wheezing/Shortness of Breath. Use over 5-15minutes. predniSONE (DELTASONE) 20 mg tablet Take 2 tablets by mouth once daily. budesonide-formoterol (SYMBICORT) 160-4.5 mcg/actuation inhaler Inhale 2 Puffs as instructed twice daily. albuterol (PROVENTIL) 2.5 mg /3 mL (0.083 %) nebulizer solution Use 3 mL via nebulizer every 4 hours as needed for Wheezing/Shortness of Breath. Use over 5-15minutes. budesonide-formoterol (SYMBICORT) 160-4.5 mcg/actuation inhaler Inhale 2 Puffs as instructed twice daily. predniSONE (DELTASONE) 20 mg tablet Take 2 tablets by mouth once daily. labetalol (TRANDATE) 300 mg tablet TAKE 1 TABLET TWICE A DAY Fosinopril Sodium 40 mg tablet TAKE 1 TABLET DAILY metFORMIN ER (GLUCOPHAGE XR) 500 mg 24 hr tablet TAKE 1 TABLET TWICE A DAY pravastatin (PRAVACHOL) 20 mg tablet TAKE 1 TABLET DAILY AT BEDTIME albuterol HFA (PROVENTIL HFA, VENTOLIN HFA) 90 mcg/actuation inhaler Inhale 2 Puffs as instructed every 4 hours as needed. furosemide (LASIX) 20 mg tablet Take 1 tablet by mouth once daily. fluticasone (FLONASE) 50 mcg/actuation nasal spray INSTILL 2 SPRAYS IN EACH NOSTRIL ONCE DAILY. RINSE MOUTH AFTER USE levothyroxine (SYNTHROID) 75 mcg tablet TAKE 1 TABLET DAILY ON AN EMPTY STOMACH amLODIPine (NORVASC) 5 mg tablet Take 0.5 tablets by mouth once daily. nystatin (MYCOSTATIN) ointment Apply 1 application to affected area twice daily. COMPOUNDED PRESCRIPTION Walker COMPOUNDED PRESCRIPTION Walker with wheelsLeft Leg Pain: M79.605Chronic Right Knee Pain M25.561 Nebulizer 1 Device every 4 hours as needed (asthma exacerbation). NEBULIZER AND SUPPLIES FOR HOME USE. DX: mild intermittent asthma CALCIUM CARBONATE/VITAMIN D3 (CALCIUM 500 + D ORAL) Take by mouth. Every other day Blood Glucose Control, Normal (CONTOUR CONTROL SOLUTION, NML) soln Test controls as needed. ASPIRIN 81 MG TAB Take one(1) tablet daily. multivitamins w-minerals/lut(CENTRUM SILVER TAB) Take one(1) tablet daily. No current facility-administered medications for this visit. Medications and allergies reviewed by this provider. 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 OBJECTIVE: BP 104/62 (BP Site: Left Arm, BP Position: Sitting, BP Cuff Size: Large Adult) Pulse 63 Temp 36.7 ?C (98 ?F) Resp 16 Wt 104.3 kg (230 lb) SpO2 95% BMI 38.27 kg/m? . Vital signs reviewed by this provider. APPEARANCE Well appearing, alert, in no acute distress, well-hydrated, well nourished. NECK Supple, no adenopathy; thyroid symmetric, normal size, no bruits HEART RRR with normal S1 and S2, no murmurs, no gallops, no JVD appreciated LUNG clear to auscultation. No wheezes, rhonchi, or rales EXTREMITIES Extremities normal, No deformities, No skin discoloration and Normal pulses bilaterally. Left ankle mildly swollen SKIN Skin color, texture, turgor normal, no suspicious rashes or lesions to exposed skin Left great toe: no erythema or warmth. Slightly puffy. ASSESSMENT/PLAN: 1. Mild intermittent asthma, uncomplicated - ICD9: 493.90, ICD10: J45.20 (primary diagnosis) Mild intermittent Asthma stable - Continue current meds - Avoidance of triggers recommended - Follow up as scheduled - Flu shot in the fall recommended 2. Great toe pain, left - ICD9: 729.5, ICD10: M79.675 - possibly gout- will treat if uric acid level increased - handout on gout diet and treatment provided - encouraged to use ibuprofen to help with pain - URIC ACID BLOOD 3. Old anterior myocardial infarction - ICD9: 412, ICD10: I25.2 - CONSULT TO CARDIOLOGY Tram Podlogkenny, USER EXPERIENCE ANALYST.ASSOCIATE FIELD SERVICE ENGINEER Prescription instructions reviewed with patient as applicable. Patient advised if symptoms do not improve or if symptoms worsen sooner, to contact their primary care physician. Potential red flag symptoms discussed with the patient. Reviewed appropriate action plan to take if red flag symptoms occur. Patient agreeable to treatment plan. [place] Observed: 05/07/2018 Status: COMPLETED Source: [place] 8:40 AM [facility] REPOSITORY [facility] RUBÉNANGELINE ([id number]) 1940 F Date Time Provider Department 05/07/18 8:40 AM TRAM ROMAN) BHARAT During your visit today, we recorded the following information about you: Temperature Pulse Respiration Blood pressure 98 degrees 63/minute 16/minute 104/62 Weight 104.3 kg Tram Roman APRN.CNP 05/07/2018 2:43 PM Signed 05/07/2018 Patient presents with: Asthma: off all medications now states going backwards a bit SUBJECTIVE: This is a 77 year old that is here today for Above Complaints. After last visit on 04/01/2018 is feeling much better. Ran out of Symbicort a couple of days ago and has had some wheezing and SOB. Since starting Symbicort has rarely had to use albuterol inhaler or home nebulizer. Did get her PFT's done since last visit- see results below. Denies fevers, chills, dyspnea, coughing, hemoptysis, chest pains, palpitations, and leg edema Left great toe: has had some pain in left great toe for a couple of days- thinks it may be gout. Has been reducing her diet for coffee. Reports did have a gout attack a few years ago Has been taking some tylenol which does help some. Pain is described as aching/throbbing. No aggravating features. Denies other swollen painful, reddened, or warm joints [facility] ?[address] ? [place] [address] ?Test Date: ? ? 2018-04-11 Pat Name: ? ? ?ANGELINE MONTANA ?Department: ? ? Patient ID: ? ?[id number] ? Room: ? Gender: ?Female ?Supervisor Sound Technician: ? ? : ? 1940 ?Requested By: ? Order Number: ?[id number] ? ? ? Reading MD: ? ?Ovidio Hunter ?Interpretive Statements ATS acceptability and repeatability standards for spirometry met. Meds taken: Symbicort 18 hours before testing. IMPRESSION: The flow volume loop is normal. Spirometry is normal. Electronically Signed On 04-11-2018 15:41:47 EDT by Ovidio Hunter PAST MEDICAL HISTORY Diagnosis Date - Allergic rhinitis, cause unspecified - Arthritis - Asthma - Cataracts, bilateral Seeing Dr. Godwin - Diabetes mellitus without mention of complication Diabetes mellitus - Diverticulosis of colon (without mention of hemorrhage) - Dysmetabolic syndrome X - Essential hypertension, benign - Obesity, unspecified - Other and unspecified hyperlipidemia - Pancreatic cyst 07/24/2016 needs repeat MRI in 6 months from 02/22/2018 to recheck - Primary osteoarthritis of right knee 06/24/2015 - Unspecified hypothyroidism - Urgency of urination ALLERGIES Codeine; Erythromycin; Penicillins MEDICATIONS Current Outpatient Prescriptions: albuterol (PROVENTIL) 2.5 mg /3 mL (0.083 %) nebulizer solution Use 3 mL via nebulizer every 4 hours as needed for Wheezing/Shortness of Breath. Use over 5-15minutes. predniSONE (DELTASONE) 20 mg tablet Take 2 tablets by mouth once daily. budesonide-formoterol (SYMBICORT) 160-4.5 mcg/actuation inhaler Inhale 2 Puffs as instructed twice daily. albuterol (PROVENTIL) 2.5 mg /3 mL (0.083 %) nebulizer solution Use 3 mL via nebulizer every 4 hours as needed for Wheezing/Shortness of Breath. Use over 5-15minutes. budesonide-formoterol (SYMBICORT) 160-4.5 mcg/actuation inhaler Inhale 2 Puffs as instructed twice daily. predniSONE (DELTASONE) 20 mg tablet Take 2 tablets by mouth once daily. labetalol (TRANDATE) 300 mg tablet TAKE 1 TABLET TWICE A DAY Fosinopril Sodium 40 mg tablet TAKE 1 TABLET DAILY metFORMIN ER (GLUCOPHAGE XR) 500 mg 24 hr tablet TAKE 1 TABLET TWICE A DAY pravastatin (PRAVACHOL) 20 mg tablet TAKE 1 TABLET DAILY AT BEDTIME albuterol HFA (PROVENTIL HFA, VENTOLIN HFA) 90 mcg/actuation inhaler Inhale 2 Puffs as instructed every 4 hours as needed. furosemide (LASIX) 20 mg tablet Take 1 tablet by mouth once daily. fluticasone (FLONASE) 50 mcg/actuation nasal spray INSTILL 2 SPRAYS IN EACH NOSTRIL ONCE DAILY. RINSE MOUTH AFTER USE levothyroxine (SYNTHROID) 75 mcg tablet TAKE 1 TABLET DAILY ON AN EMPTY STOMACH amLODIPine (NORVASC) 5 mg tablet Take 0.5 tablets by mouth once daily. nystatin (MYCOSTATIN) ointment Apply 1 application to affected area twice daily. COMPOUNDED PRESCRIPTION Walker COMPOUNDED PRESCRIPTION Walker with wheelsLeft Leg Pain: M79.605Chronic Right Knee Pain M25.561 Nebulizer 1 Device every 4 hours as needed (asthma exacerbation). NEBULIZER AND SUPPLIES FOR HOME USE. DX: mild intermittent asthma CALCIUM CARBONATE/VITAMIN D3 (CALCIUM 500 + D ORAL) Take by mouth. Every other day Blood Glucose Control, Normal (CONTOUR CONTROL SOLUTION, NML) soln Test controls as needed. ASPIRIN 81 MG TAB Take one(1) tablet daily. multivitamins w-minerals/lut(CENTRUM SILVER TAB) Take one(1) tablet daily. No current facility-administered medications for this visit. Medications and allergies reviewed by this provider. 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 OBJECTIVE: BP 104/62 (BP Site: Left Arm, BP Position: Sitting, BP Cuff Size: Large Adult) Pulse 63 Temp 36.7 ?C (98 ?F) Resp 16 Wt 104.3 kg (230 lb) SpO2 95% BMI 38.27 kg/m? . Vital signs reviewed by this provider. APPEARANCE Well appearing, alert, in no acute distress, well- hydrated, well nourished. NECK Supple, no adenopathy; thyroid symmetric, normal size, no bruits HEART RRR with normal S1 and S2, no murmurs, no gallops, no JVD appreciated LUNG clear to auscultation. No wheezes, rhonchi, or rales EXTREMITIES Extremities normal, No deformities, No skin discoloration and Normal pulses bilaterally. Left ankle mildly swollen SKIN Skin color, texture, turgor normal, no suspicious rashes or lesions to exposed skin Left great toe: no erythema or warmth. Slightly puffy. ASSESSMENT/PLAN: 1. Mild intermittent asthma, uncomplicated - ICD9: 493.90, ICD10: J45.20 (primary diagnosis) Mild intermittent Asthma stable - Continue current meds - Avoidance of triggers recommended - Follow up as scheduled - Flu shot in the fall recommended 2. Great toe pain, left - ICD9: 729.5, ICD10: M79.675 - possibly gout- will treat if uric acid level increased - handout on gout diet and treatment provided - encouraged to use ibuprofen to help with pain - URIC ACID BLOOD 3. Old anterior myocardial infarction - ICD9: 412, ICD10: I25.2 - CONSULT TO CARDIOLOGY Tram Roman APRN.CNP Prescription instructions reviewed with patient as applicable. Patient advised if symptoms do not improve or if symptoms worsen sooner, to contact their primary care physician. Potential red flag symptoms discussed with the patient. Reviewed appropriate action plan to take if red flag symptoms occur. Patient agreeable to treatment plan. Tram Roman APRN.CNP 05/07/2018 9:23 AM Signed Low Purine Diet Recommendations for Gout Gout is a form of arthritis which can occur as sudden, severe attacks of pain, with redness and tenderness in the joints of the body. Too much uric acid in the blood (hyperuricemia), is one cause of gout. Uric acid is a waste product formed from the breakdown of purines. It is helpful to lower your uric acid level through your diet as well as by taking your prescribed medication. Foods high in primes which should be avoided include: Organ meats: such as liver, brain, kidneys, heart, and sweetbreads Game meats: goose, partridge, duck Gravy, broth, bouilloin, and consomme Mincemeat Seafood such as chowdhury, sardines, anchovies, scallops, mussels, mackerel, caviar and gus (fish eggs) Yeast extracts such as: Marmite, Vegemite, Aaron's and Boyd's yeast. In addition to avoiding the above named foods, other aspects of your diet should also be considered. Increase Your Fluid Consumption - Fluids aid in the removal of uric acid from the body. Drink approximately 8-10 eight ounce glasses of water or other non-caloric fluid per day. Weight Control - Maintain a healthy weight. Obesity is associated with gout and may contribute to the onset of the disease. If you are overweight make strong efforts to decrease the amount of food you consume. Excess weight puts additional stress on your joints and increases the risk of hyperuricemia and gout. Avoid low carbohydrate type diets because they are high in protein and fat which can increase the amount of uric acid in the blood. Avoid or Limit Alcohol - Drinking too much alcohol increases the risk of hyperuremia because it interferes with the removal or uric acid from the body. Moderate Protein Intake - Smaller amounts of purines are found in all types of meat, fish and poultry products. It is generally recommended that meat, fish, and poultry be limited to no more than 6-8 ounces per day. Referring Provider: SELF [[id number]] Allergies As of Date: 05/07/2018 Noted Allergy Reaction CODEINE 09/11/2005 4 - Hives ERYTHROMYCIN 09/11/2005 8 - GI Upset PENICILLINS 09/11/2005 4 - Hives Date Reviewed: 05/07/2018 Reviewed by: Shelly Dia LPN - Fully Assessed Reason for Visit: Asthma [11] Cmt: off all medications now states going backwards a bit Primary Visit Diagnosis:Mild intermittent asthma, uncomplicated [J45.20] Other Visit Diagnoses:Great toe pain, left [M79.675] Old anterior myocardial infarction [I25.2] Order(s):CONSULT TO CARDIOLOGY [9004] Order #: [id number]: 1 URIC ACID BLOOD [SQURIC] Order #: [id number] FUTURE Prescriptions as of 05/07/2018 Sig: ALBUTEROL SULFATE 2.5 MG/3 ML* Use 3 mL via nebulizer every * ALBUTEROL SULFATE 2.5 MG/3 ML* Use 3 mL via nebulizer every * BUDESONIDE-FORMOTEROL HFA 160* Inhale 2 Puffs as instructed * LABETALOL 300 MG TABLET TAKE 1 TABLET TWICE A DAY FOSINOPRIL 40 MG TABLET TAKE 1 TABLET DAILY METFORMIN ER 500 MG TABLET,EX* TAKE 1 TABLET TWICE A DAY PRAVASTATIN 20 MG TABLET TAKE 1 TABLET DAILY AT BEDTIME ALBUTEROL SULFATE HFA 90 MCG/* Inhale 2 Puffs as instructed * FUROSEMIDE 20 MG TABLET Take 1 tablet by mouth once d* FLUTICASONE 50 MCG/ACTUATION * INSTILL 2 SPRAYS IN EACH NOST* LEVOTHYROXINE 75 MCG TABLET TAKE 1 TABLET DAILY ON AN EMP* AMLODIPINE 5 MG TABLET Take 0.5 tablets by mouth onc* NYSTATIN 100,000 UNIT/GRAM TO* Apply 1 application to affect* COMPOUNDED PRESCRIPTION Walker COMPOUNDED PRESCRIPTION Walker with wheels Left * COMPOUNDED PRESCRIPTION 1 Device every 4 hours as nee* CALCIUM 500 + D ORAL Take by mouth. Every other d* BLOOD GLUCOSE CONTROL, NORMAL* Test controls as needed. * CENTRUM SILVER TABLET Take one(1) tablet daily. * ASPIRIN 81 MG TABLET Take one(1) tablet daily. Problem List As Of Date 05/07/2018 Noted Resolved BENIGN HYPERTENSION [I10] More... Hypothyroidism [E03.9] HYPERLIPIDEMIA NEC/NOS [E78.5] 06/24/2015 More... 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15] INVALID FOR*06/24/2015 Nocturia [R35.1] INVALID FOR*06/24/2015 Urge incontinence [N39.41] INVALID FOR*05/16/2011 Female stress incontinence [N39.3] INVALID FOR* Unspecified urinary incontinence [R32] INVALID FOR*06/24/2015 Breast cyst [N60.09] INVALID FOR*06/24/2015 Sebaceous cyst [L72.3] INVALID FOR*06/24/2015 BMI 36.0-36.9,adult [Z68.36] INVALID FOR*11/30/2014 DM (diabetes mellitus), type 2 (HCC) [E11.9] INVALID FOR*06/24/2015 BMI 37.0-37.9, adult [Z68.37] INVALID FOR*06/24/2015 Diabetes mellitus type 2, controlled, without c*INVALID FOR* BMI 38.0-38.9,adult [Z68.38] INVALID FOR*10/07/2015 Hyperlipidemia [E78.5] INVALID FOR* Primary osteoarthritis of right knee [M17.11] INVALID FOR* Cellulitis of right lower extremity [L03.115] INVALID FOR*09/27/2017 Burning with urination [R30.0] INVALID FOR*09/27/2017 Gross hematuria [R31.0] INVALID FOR* Generalized abdominal pain [R10.84] INVALID FOR* Secondhand smoke exposure [Z77.22] INVALID FOR* Aspirin long-term use [Z79.82] INVALID FOR* Asthma [J45.909] 12/19/2016 Mild intermittent asthma without complication [*INVALID FOR* More... Other instructions from your clinician: Low Purine Diet Recommendations for Gout Gout is a form of arthritis which can occur as sudden, severe attacks of pain, with redness and tenderness in the joints of the body. Too much uric acid in the blood (hyperuricemia), is one cause of gout. Uric acid is a waste product formed from the breakdown of purines. It is helpful to lower your uric acid level through your diet as well as by taking your prescribed medication. Foods high in primes which should be avoided include: Organ meats: such as liver, brain, kidneys, heart, and sweetbreads Game meats: goose, partridge, duck Gravy, broth, bouilloin, and consomme Mincemeat Seafood such as chowdhury, sardines, anchovies, scallops, mussels, mackerel, caviar and gus (fish eggs) Yeast extracts such as: Marmite, Vegemite, Aaron's and Boyd's yeast. In addition to avoiding the above named foods, other aspects of your diet should also be considered. Increase Your Fluid Consumption - Fluids aid in the removal of uric acid from the body. Drink approximately 8-10 eight ounce glasses of water or other non-caloric fluid per day. Weight Control - Maintain a healthy weight. Obesity is associated with gout and may contribute to the onset of the disease. If you are overweight make strong efforts to decrease the amount of food you consume. Excess weight puts additional stress on your joints and increases the risk of hyperuricemia and gout. Avoid low carbohydrate type diets because they are high in protein and fat which can increase the amount of uric acid in the blood. Avoid or Limit Alcohol - Drinking too much alcohol increases the risk of hyperuremia because it interferes with the removal or uric acid from the body. Moderate Protein Intake - Smaller amounts of purines are found in all types of meat, fish and poultry products. It is generally recommended that meat, fish, and poultry be limited to no more than 6-8 ounces per day. Prescriptions ordered this encounter Disp Refills Start End BUDESONIDE-FORMOTEROL HFA 160 MCG-4.* 1 In* 2 05/07/2018 05/07/2018 Route: INHALATION Sig: Inhale 2 Puffs as instructed twice daily. Disc: Duplicate Entry Medications Discontinued During This Encounter budesonide-formoterol (SYMBICORT) 16* 1 In* 2 04/01/2018 05/07/2018 Route: INHALATION Sig: Inhale 2 Puffs as instructed twice daily. Disc: Reason for discontinue is not on file. predniSONE (DELTASONE) 20 mg tablet 10 t* 0 04/01/2018 05/07/2018 Route: ORAL Sig: Take 2 tablets by mouth once daily. Disc: Reason for discontinue is not on file. predniSONE (DELTASONE) 20 mg tablet 10 t* 0 04/01/2018 05/07/2018 Route: ORAL Sig: Take 2 tablets by mouth once daily. Disc: Course of therapy completed budesonide-formoterol (SYMBICORT) 16* 1 In* 2 05/07/2018 05/07/2018 Route: INHALATION Sig: Inhale 2 Puffs as instructed twice daily. Disc: Duplicate Entry Follow-up and Disposition History Recorded Encounter Status:Closed by PODLOGTRAM PLATA CNP on 05/07/18 PELVIC (NON ) Observed: 04/25/2018 Status: F Source: [place] 8:27 AM [facility] REPOSITORY [facility] Imaging Services [address] [place] [id number] Pelvic (Non ) MR#: [id number] Acct: [id number] Name: ANGELINE MONTANA Rep #: [id number] : 1940 F 77 From: Sammy Fitzpatrick MD PCP: Bhanu Escudero MD Status: REG CLI Study: Pelvic (Non ) Date of Exam: 04/25/18 Exam# [id number] Ordering Dr: Gale Guan MD STUDY: ULTRASOUND OF THE FEMALE PELVIS - COMPLETE REASON FOR EXAM: Female, 77 years old. Bleeding LMP: TECHNIQUE: Transabdominal and Transvaginal TECHNICAL QUALITY: Adequate. COMPARISON: None. FINDINGS: There has been previous hysterectomy. Uterus and ovaries have been previously removed. There is an echogenic focus in the vaginal cuff measuring 5 x 6 x 4 mm likely representing adjacent bowel. There is no fluid in the cul-de-sac. The pre void volume of the bladder was 58.17 ml. US/Pelvic (Non ) IMPRESSION: No suspicious sonographic findings Electronically Signed: Armani Fitzpatrick MD at 17:05 EDT , Service support , CC: Bhanu Escudero MD; Gale Guan MD Die Stamper: Signed TRANSVAGINAL Observed: 04/25/2018 Status: F Source: [place] NON- 8:27 AM [facility] REPOSITORY [facility] Imaging Services [address] [place] [address] Transvaginal Non- MR#: [id number] Acct: [id number] Name: ANGELINE MONTANA Rep #: [id number] : 1940 F 77 From: Sammy Fitzpatrick MD PCP: Bhanu Escudero MD Status: REG CLI Study: Transvaginal Non- Date of Exam: 04/25/18 Exam# [id number] Ordering Dr: Gale Guan MD STUDY: ULTRASOUND OF THE FEMALE PELVIS - COMPLETE REASON FOR EXAM: Female, 77 years old. Bleeding LMP: TECHNIQUE: Transabdominal and Transvaginal TECHNICAL QUALITY: Adequate. COMPARISON: None. FINDINGS: There has been previous hysterectomy. Uterus and ovaries have been previously removed. There is an echogenic focus in the vaginal cuff measuring 5 x 6 x 4 mm likely representing adjacent bowel. There is no fluid in the cul-de-sac. The pre void volume of the bladder was 58.17 ml. US/Transvaginal Non- IMPRESSION: No suspicious sonographic findings Electronically Signed: Armani Fitzpatrick MD at 17:05 EDT , Service support , CC: Bhanu Escudero MD; Gale Guan MD Die Stamper: Signed XR CHEST 2V FRONTAL/LAT Observed: 04/01/2018 Status: F Source: [place] 11:49 AM [facility] REPOSITORY * * *Final Report* * * DATE OF EXAM: Apr 01 2018 11:49AM WOX [id number] - XR CHEST 2V FRONTAL/LAT / PROCEDURE REASON: Shortness of breath * * * * Physician Interpretation * * * * PA and lateral views are compared with the prior study of 08/06/2015. No significant change is seen. The cardiac size is not enlarged. The lung sebastian are clear. There is no pleural fluid. The bony thorax appears intact. IMPRESSION: No developing abnormality or acute process. Die Stamper: MICKEY Transcribe Date/Time: Apr 01 2018 12:38P Dictated by : MARIVEL BRYANT MD This examination was interpreted and the report reviewed and electronically signed by: MARIVEL BRYANT MD on Apr 01 2018 12:38PM EST [id number] PROGRESS Observed: 04/01/2018 Status: COMPLETED Source: [place] 11:36 AM [facility] REPOSITORY HNO ID: [id number] Author: Muriel Richardson (Rt) Yogesh Eden Service: (none) Author Type: Supervisor Sound Technician Type: Progress Notes Filed: 04/01/2018 11:49 AM Note Text: Radiology Service Progress Note PATIENT NAME: Angeline Montana DATE OF SERVICE: April 01, 2018 TIME: 11:36 AM PATIENT IDENTITY VERIFICATION COMPLETED USING TWO (2) METHODS: Patient confirmed name verbally and Date of . PATIENT GENDER DATA: Female. status: : No status: NO. PATIENT RELEVANT IMPLANT DATA REVIEWED: Not Applicable RADIOLOGY DEPARTMENT: General X-ray: Exam(s) Completed: Chest X-Ray PERIPHERAL IV DATA: Not applicable SIGNED BY: RT Radha April 01, 2018 11:36 AM ECG COMPLETE W Observed: 04/01/2018 Status: F Source: [place] INTERPRETATION 10:20 AM [facility] REPOSITORY NAME : ANGELINE MONTANA PID : [id number] : 1940 Gender : Female Race : ORD : [id number] Procedure Date : Apr 01 2018 10:20:12 Edit Date : Apr 03 2018 08:03:49 Diagnosis:NORMAL SINUS RHYTHM CANNOT EXCLUDE ANTERIOR MYOCARDIAL INFARCTION , AGE UNDETERMINED ABNORMAL ECG Confirmed by SRINIVASA TODD D.O. ([id number]) on 04/03/2018 8:03:43 AM Ventricular Rate : 75 BPM Atrial Rate : 75 BPM P-R Interval : 186 ms QRS Duration : 84 ms Q-T Interval : 408 ms QTC Calculation(Bezet) : 455 ms P [place] : 44 degrees R [place] : 14 degrees T [place] : 61 degrees Test Reason : Location : 185 : [facility] Overread By : SRINIVASA TODD D.O. Edited By : SRINIVASA TODD D.O. Referred By : TRAM ROMAN Acquired by : [facility], PROGRESS Observed: 04/01/2018 Status: COMPLETED Source: [place] 9:54 AM [facility] REPOSITORY [facility] ID: [id number] Author: Tram (Counterintelligence Analyst) Podlogar Service: (none) Author Type: Nurse Practitioner Type: Progress Notes Filed: 04/01/2018 11:57 AM Note Text: 04/01/2018 Patient presents with: Asthma: off and on wheezing started worse over weekend using inhaler but having to use more than supose to. coughing SUBJECTIVE: This is a 77 year old that is here today for Above Complaints. Over the last couple of weeks has been having increased SOB and wheezing. Has been using albuterol inhaler and nebulizer frequently. Went on bus trip this last weekend asn was using inhaler every 2 hours. Gets relief with use, however needs to use often. Denies nocturnal wakening, however she gets up frequently in the night to urinate and then gets SOB and uses inhaler or nebulizer. Positive for dry cough, chest pain, wheezing, dyspnea, and leg edema. Denies weight loss, fever, chills, sore throat, ear pain, headaches, and palpitations. SOB is occasionally accompanied with chest pain. Is located mid sternal, is sharp, non-radiating and not reproducible. Will go away with rest. manual b/p 162/92 79 True b/p average 153/78 75 1.) 156/80 74 2.) 158/84 75 3.) 150/73 74 4.) 153/77 77 5.) 143/79 73 PAST MEDICAL HISTORY Diagnosis Date - Allergic rhinitis, cause unspecified - Arthritis - Asthma - Cataracts, bilateral Seeing Dr. Godwin - Diabetes mellitus without mention of complication Diabetes mellitus - Diverticulosis of colon (without mention of hemorrhage) - Dysmetabolic syndrome X - Essential hypertension, benign - Obesity, unspecified - Other and unspecified hyperlipidemia - Pancreatic cyst 07/24/2016 needs repeat MRI in 6 months from 02/22/2018 to recheck - Primary osteoarthritis of right knee 06/24/2015 - Unspecified hypothyroidism - Urgency of urination ALLERGIES Codeine; Erythromycin; Penicillins MEDICATIONS Current Outpatient Prescriptions: labetalol (TRANDATE) 300 mg tablet TAKE 1 TABLET TWICE A DAY Fosinopril Sodium 40 mg tablet TAKE 1 TABLET DAILY metFORMIN ER (GLUCOPHAGE XR) 500 mg 24 hr tablet TAKE 1 TABLET TWICE A DAY pravastatin (PRAVACHOL) 20 mg tablet TAKE 1 TABLET DAILY AT BEDTIME albuterol HFA (PROVENTIL HFA, VENTOLIN HFA) 90 mcg/actuation inhaler Inhale 2 Puffs as instructed every 4 hours as needed. furosemide (LASIX) 20 mg tablet Take 1 tablet by mouth once daily. fluticasone (FLONASE) 50 mcg/actuation nasal spray INSTILL 2 SPRAYS IN EACH NOSTRIL ONCE DAILY. RINSE MOUTH AFTER USE levothyroxine (SYNTHROID) 75 mcg tablet TAKE 1 TABLET DAILY ON AN EMPTY STOMACH amLODIPine (NORVASC) 5 mg tablet Take 0.5 tablets by mouth once daily. nystatin (MYCOSTATIN) ointment Apply 1 application to affected area twice daily. COMPOUNDED PRESCRIPTION Walker COMPOUNDED PRESCRIPTION Walker with wheelsLeft Leg Pain: M79.605Chronic Right Knee Pain M25.561 albuterol (PROVENTIL) 2.5 mg /3 mL (0.083 %) nebulizer solution Use 3 mL via nebulizer every 4 hours as needed for Wheezing/Shortness of Breath. Use over 5-15minutes. Nebulizer 1 Device every 4 hours as needed (asthma exacerbation). NEBULIZER AND SUPPLIES FOR HOME USE. DX: mild intermittent asthma CALCIUM CARBONATE/VITAMIN D3 (CALCIUM 500 + D ORAL) Take by mouth. Every other day Blood Glucose Control, Normal (CONTOUR CONTROL SOLUTION, NML) soln Test controls as needed. multivitamins w-minerals/lut(CENTRUM SILVER TAB) Take one(1) tablet daily. ASPIRIN 81 MG TAB Take one(1) tablet daily. No current facility-administered medications for this visit. Medications and allergies reviewed by this provider. 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 OBJECTIVE: BP 153/78 Pulse 75 Temp 36.2 ?C (97.1 ?F) Resp 18 Wt 105.7 kg (233 lb 0.6 oz) SpO2 96% BMI 38.78 kg/m? . Vital signs reviewed by this provider. APPEARANCE Well appearing, alert, in no acute distress, well-hydrated, well nourished. and Overweight EYES PERRLA, conjunctiva and sclera normal. EARS External ears normal, canals clear THROAT normal, no erythema NECK Supple, no adenopathy; thyroid symmetric, normal size, no bruits HEART RRR with normal S1 and S2, no murmurs, no gallops, no JVD appreciated LUNG clear to auscultation. No wheezes, rhonchi, or rales EXTREMITIES No deformities, No skin discoloration and Normal pulses bilaterally. 1+ pitting edema BLE SKIN Skin color, texture, turgor normal, no suspicious rashes or lesions ASSESSMENT/PLAN: 1. SOB (shortness of breath) - ICD9: 786.05, ICD10: R06.02 (primary diagnosis) - asthma exacerbation - no red flag exam findings -red flag symptoms discussed, verbalizes understanding - XR CHEST 2V FRONTAL/LAT - SPIROMETRY WITH DILATOR IF OBSTRUCTED - PREDNISONE 20 MG TABLET- if worse after stopping notify office - BUDESONIDE-FORMOTEROL HFA 160 MCG-4.5 MCG/ACTUATION AEROSOL INHALER - follow-up pending testing, sooner if needed 2. Cough - ICD9: 786.2, ICD10: R05 -plan as above 3. Moderate persistent asthma with (acute) exacerbation - ICD9: 493.92, ICD10: J45.41 Moderate persistent Asthma worse - factors affecting control of asthma include being overweight - Begin symbicort - Exacerbation treatment of Prednisone burst- see orders - Avoidance of triggers recommended - Asthma education of Reviewed signs and symptoms, Monitoring of control by symptoms and rinsing after each inhaled steroid use - ALBUTEROL SULFATE 2.5 MG/3 ML (0.083 %) SOLUTION FOR NEBULIZATION - PREDNISONE 20 MG TABLET - BUDESONIDE-FORMOTEROL HFA 160 MCG-4.5 MCG/ACTUATION AEROSOL INHALER - follow-up pending testing 4. Chest pain, unspecified type - ICD9: 786.50, ICD10: R07.9 Atypical chest pain, symptoms are not consistent with cardiac ischemia due to localization of the pain possible etiology include Costochondritis/chest wall pain, asthma related and Pleurisy - no red flag exam findings - red flag symptoms discussed, verbalizes understanding - Electrocardiogram: An ECG today showed normal sinus rhythm at 82 BPM, UT interval 170 ms, normal QRS, cannot rule out anterior wall myocardial infarction, age insetermined normal ST-T, QT 406 ms - ECG COMPLETE W INTERPRETATION - follow-up pending above testing- consider stress test if continue Tram Roman, NORMA.TABITHA Prescription instructions reviewed with patient as applicable. Patient advised if symptoms do not improve or if symptoms worsen sooner, to contact their primary care physician. Potential red flag symptoms discussed with the patient. Reviewed appropriate action plan to take if red flag symptoms occur. Patient agreeable to treatment plan. CNOV Observed: 04/01/2018 Status: COMPLETED Source: [place] 9:40 AM [facility] REPOSITORY Office Visit (FAMPWS) ANGELINE MONTANA ([id number]) 1940 F Date Time Provider Department 04/01/18 9:40 AM TRAM ROMAN) DARONPWS During your visit today, we recorded the following information about you: Temperature Pulse Respiration Blood pressure 97.1 degrees 75/minute 18/minute 153/78 Weight 105.7 kg Tram Roman, USER EXPERIENCE ANALYST.ASSOCIATE FIELD SERVICE ENGINEER 04/01/2018 11:57 AM Signed 04/01/2018 Patient presents with: Asthma: off and on wheezing started worse over weekend using inhaler but having to use more than supose to. coughing SUBJECTIVE: This is a 77 year old that is here today for Above Complaints. Over the last couple of weeks has been having increased SOB and wheezing. Has been using albuterol inhaler and nebulizer frequently. Went on bus trip this last weekend asn was using inhaler every 2 hours. Gets relief with use, however needs to use often. Denies nocturnal wakening, however she gets up frequently in the night to urinate and then gets SOB and uses inhaler or nebulizer. Positive for dry cough, chest pain, wheezing, dyspnea, and leg edema. Denies weight loss, fever, chills, sore throat, ear pain, headaches, and palpitations. SOB is occasionally accompanied with chest pain. Is located mid sternal, is sharp, non-radiating and not reproducible. Will go away with rest. manual b/p 162/92 79 True b/p average 153/78 75 1.) 156/80 74 2.) 158/84 75 3.) 150/73 74 4.) 153/77 77 5.) 143/79 73 PAST MEDICAL HISTORY Diagnosis Date - Allergic rhinitis, cause unspecified - Arthritis - Asthma - Cataracts, bilateral Seeing Dr. Godwin - Diabetes mellitus without mention of complication Diabetes mellitus - Diverticulosis of colon (without mention of hemorrhage) - Dysmetabolic syndrome X - Essential hypertension, benign - Obesity, unspecified - Other and unspecified hyperlipidemia - Pancreatic cyst 07/24/2016 needs repeat MRI in 6 months from 02/22/2018 to recheck - Primary osteoarthritis of right knee 06/24/2015 - Unspecified hypothyroidism - Urgency of urination ALLERGIES Codeine; Erythromycin; Penicillins MEDICATIONS Current Outpatient Prescriptions: labetalol (TRANDATE) 300 mg tablet TAKE 1 TABLET TWICE A DAY Fosinopril Sodium 40 mg tablet TAKE 1 TABLET DAILY metFORMIN ER (GLUCOPHAGE XR) 500 mg 24 hr tablet TAKE 1 TABLET TWICE A DAY pravastatin (PRAVACHOL) 20 mg tablet TAKE 1 TABLET DAILY AT BEDTIME albuterol HFA (PROVENTIL HFA, VENTOLIN HFA) 90 mcg/actuation inhaler Inhale 2 Puffs as instructed every 4 hours as needed. furosemide (LASIX) 20 mg tablet Take 1 tablet by mouth once daily. fluticasone (FLONASE) 50 mcg/actuation nasal spray INSTILL 2 SPRAYS IN EACH NOSTRIL ONCE DAILY. RINSE MOUTH AFTER USE levothyroxine (SYNTHROID) 75 mcg tablet TAKE 1 TABLET DAILY ON AN EMPTY STOMACH amLODIPine (NORVASC) 5 mg tablet Take 0.5 tablets by mouth once daily. nystatin (MYCOSTATIN) ointment Apply 1 application to affected area twice daily. COMPOUNDED PRESCRIPTION Walker COMPOUNDED PRESCRIPTION Walker with wheelsLeft Leg Pain: M79.605Chronic Right Knee Pain M25.561 albuterol (PROVENTIL) 2.5 mg /3 mL (0.083 %) nebulizer solution Use 3 mL via nebulizer every 4 hours as needed for Wheezing/Shortness of Breath. Use over 5-15minutes. Nebulizer 1 Device every 4 hours as needed (asthma exacerbation). NEBULIZER AND SUPPLIES FOR HOME USE. DX: mild intermittent asthma CALCIUM CARBONATE/VITAMIN D3 (CALCIUM 500 + D ORAL) Take by mouth. Every other day Blood Glucose Control, Normal (CONTOUR CONTROL SOLUTION, NML) soln Test controls as needed. multivitamins w-minerals/lut(CENTRUM SILVER TAB) Take one(1) tablet daily. ASPIRIN 81 MG TAB Take one(1) tablet daily. No current facility-administered medications for this visit. Medications and allergies reviewed by this provider. 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 OBJECTIVE: BP 153/78 Pulse 75 Temp 36.2 ?C (97.1 ?F) Resp 18 Wt 105.7 kg (233 lb 0.6 oz) SpO2 96% BMI 38.78 kg/m? . Vital signs reviewed by this provider. APPEARANCE Well appearing, alert, in no acute distress, well- hydrated, well nourished. and Overweight EYES PERRLA, conjunctiva and sclera normal. EARS External ears normal, canals clear THROAT normal, no erythema NECK Supple, no adenopathy; thyroid symmetric, normal size, no bruits HEART RRR with normal S1 and S2, no murmurs, no gallops, no JVD appreciated LUNG clear to auscultation. No wheezes, rhonchi, or rales EXTREMITIES No deformities, No skin discoloration and Normal pulses bilaterally. 1+ pitting edema BLE SKIN Skin color, texture, turgor normal, no suspicious rashes or lesions ASSESSMENT/PLAN: 1. SOB (shortness of breath) - ICD9: 786.05, ICD10: R06.02 (primary diagnosis) - asthma exacerbation - no red flag exam findings -red flag symptoms discussed, verbalizes understanding - XR CHEST 2V FRONTAL/LAT - SPIROMETRY WITH DILATOR IF OBSTRUCTED - PREDNISONE 20 MG TABLET- if worse after stopping notify office - BUDESONIDE-FORMOTEROL HFA 160 MCG-4.5 MCG/ACTUATION AEROSOL INHALER - follow-up pending testing, sooner if needed 2. Cough - ICD9: 786.2, ICD10: R05 -plan as above 3. Moderate persistent asthma with (acute) exacerbation - ICD9: 493.92, ICD10: J45.41 Moderate persistent Asthma worse - factors affecting control of asthma include being overweight - Begin symbicort - Exacerbation treatment of Prednisone burst- see orders - Avoidance of triggers recommended - Asthma education of Reviewed signs and symptoms, Monitoring of control by symptoms and rinsing after each inhaled steroid use - ALBUTEROL SULFATE 2.5 MG/3 ML (0.083 %) SOLUTION FOR NEBULIZATION - PREDNISONE 20 MG TABLET - BUDESONIDE-FORMOTEROL HFA 160 MCG-4.5 MCG/ACTUATION AEROSOL INHALER - follow-up pending testing 4. Chest pain, unspecified type - ICD9: 786.50, ICD10: R07.9 Atypical chest pain, symptoms are not consistent with cardiac ischemia due to localization of the pain possible etiology include Costochondritis/chest wall pain, asthma related and Pleurisy - no red flag exam findings - red flag symptoms discussed, verbalizes understanding - Electrocardiogram: An ECG today showed normal sinus rhythm at 82 BPM, UT interval 170 ms, normal QRS, cannot rule out anterior wall myocardial infarction, age insetermined normal ST-T, QT 406 ms - ECG COMPLETE W INTERPRETATION - follow-up pending above testing- consider stress test if continue Tram Roman APRN.ASSOCIATE FIELD SERVICE ENGINEER Prescription instructions reviewed with patient as applicable. Patient advised if symptoms do not improve or if symptoms worsen sooner, to contact their primary care physician. Potential red flag symptoms discussed with the patient. Reviewed appropriate action plan to take if red flag symptoms occur. Patient agreeable to treatment plan. Referring Provider: SELF [[id number]] Allergies As of Date: 04/01/2018 Noted Allergy Reaction CODEINE 09/11/2005 4 - Hives ERYTHROMYCIN 09/11/2005 8 - GI Upset PENICILLINS 09/11/2005 4 - Hives Date Reviewed: 04/01/2018 Reviewed by: Shelly Dia LPN - Fully Assessed Reason for Visit: Asthma [11] Cmt: off and on wheezing started worse over weekend using inhaler but having to use more than supose to. coughing Primary Visit Diagnosis:SOB (shortness of breath) [R06.02] Other Visit Diagnoses:Cough [R05] Moderate persistent asthma with (acute) exacerbation [J45.41] Chest pain, unspecified type [R07.9] Order(s):albuterol (PROVENTIL) 2.5 mg /3 mL (0.083 %) nebulizer solutionUse 3 mL via nebulizer every 4 hours as needed for Wheezing/Shortness of Breath. Use over 5-15minutes.Disp: 1 PackageRfl: 2 ECG COMPLETE W INTERPRETATION [ECG01] Order #: [id number] FUTURE XR CHEST 2V FRONTAL/LAT [[id number]] Order #: [id number] FUTURE SPIROMETRY WITH DILATOR IF OBSTRUCTED [[id number]] Order #: [id number] FUTURE predniSONE (DELTASONE) 20 mg tabletTake 2 tablets by mouth once daily.Disp: 10 tabletRfl: 0 budesonide-formoterol (SYMBICORT) 160-4.5 mcg/actuation inhalerInhale 2 Puffs as instructed twice daily.Disp: 1 InhalerRfl: 2 albuterol (PROVENTIL) 2.5 mg /3 mL (0.083 %) nebulizer solutionUse 3 mL via nebulizer every 4 hours as needed for Wheezing/Shortness of Breath. Use over 5-15minutes.Disp: 3 mLRfl: 3 budesonide-formoterol (SYMBICORT) 160-4.5 mcg/actuation inhalerInhale 2 Puffs as instructed twice daily.Disp: 1 InhalerRfl: 2 predniSONE (DELTASONE) 20 mg tabletTake 2 tablets by mouth once daily.Disp: 10 tabletRfl: 0 Prescriptions as of 04/01/2018 Sig: ALBUTEROL SULFATE 2.5 MG/3 ML* Use 3 mL via nebulizer every * LABETALOL 300 MG TABLET TAKE 1 TABLET TWICE A DAY FOSINOPRIL 40 MG TABLET TAKE 1 TABLET DAILY METFORMIN ER 500 MG TABLET,EX* TAKE 1 TABLET TWICE A DAY PRAVASTATIN 20 MG TABLET TAKE 1 TABLET DAILY AT BEDTIME ALBUTEROL SULFATE HFA 90 MCG/* Inhale 2 Puffs as instructed * FUROSEMIDE 20 MG TABLET Take 1 tablet by mouth once d* FLUTICASONE 50 MCG/ACTUATION * INSTILL 2 SPRAYS IN EACH NOST* LEVOTHYROXINE 75 MCG TABLET TAKE 1 TABLET DAILY ON AN EMP* AMLODIPINE 5 MG TABLET Take 0.5 tablets by mouth onc* NYSTATIN 100,000 UNIT/GRAM TO* Apply 1 application to affect* COMPOUNDED PRESCRIPTION Walker COMPOUNDED PRESCRIPTION Walker with wheels Left * COMPOUNDED PRESCRIPTION 1 Device every 4 hours as nee* CALCIUM 500 + D ORAL Take by mouth. Every other d* BLOOD GLUCOSE CONTROL, NORMAL* Test controls as needed. * CENTRUM SILVER TABLET Take one(1) tablet daily. PREDNISONE 20 MG TABLET Take 2 tablets by mouth once * BUDESONIDE-FORMOTEROL HFA 160* Inhale 2 Puffs as instructed * ALBUTEROL SULFATE 2.5 MG/3 ML* Use 3 mL via nebulizer every * BUDESONIDE-FORMOTEROL HFA 160* Inhale 2 Puffs as instructed * PREDNISONE 20 MG TABLET Take 2 tablets by mouth once * * ASPIRIN 81 MG TABLET Take one(1) tablet daily. Problem List As Of Date 04/01/2018 Noted Resolved BENIGN HYPERTENSION [I10] More... Hypothyroidism [E03.9] HYPERLIPIDEMIA NEC/NOS [E78.5] 06/24/2015 More... 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15] INVALID FOR*06/24/2015 Nocturia [R35.1] INVALID FOR*06/24/2015 Urge incontinence [N39.41] INVALID FOR*05/16/2011 Female stress incontinence [N39.3] INVALID FOR* Unspecified urinary incontinence [R32] INVALID FOR*06/24/2015 Breast cyst [N60.09] INVALID FOR*06/24/2015 Sebaceous cyst [L72.3] INVALID FOR*06/24/2015 BMI 36.0-36.9,adult [Z68.36] INVALID FOR*11/30/2014 DM (diabetes mellitus), type 2 (HCC) [E11.9] INVALID FOR*06/24/2015 BMI 37.0-37.9, adult [Z68.37] INVALID FOR*06/24/2015 Diabetes mellitus type 2, controlled, without c*INVALID FOR* BMI 38.0-38.9,adult [Z68.38] INVALID FOR*10/07/2015 Hyperlipidemia [E78.5] INVALID FOR* Primary osteoarthritis of right knee [M17.11] INVALID FOR* Cellulitis of right lower extremity [L03.115] INVALID FOR*09/27/2017 Burning with urination [R30.0] INVALID FOR*09/27/2017 Gross hematuria [R31.0] INVALID FOR* Generalized abdominal pain [R10.84] INVALID FOR* Secondhand smoke exposure [Z77.22] INVALID FOR* Aspirin long-term use [Z79.82] INVALID FOR* Asthma [J45.909] 12/19/2016 Mild intermittent asthma without complication [*INVALID FOR* More... Prescriptions ordered this encounter Disp Refills Start End ALBUTEROL SULFATE 2.5 MG/3 ML (0.083* 1 Pa* 2 04/01/2018 Route: NEBULIZATION Sig: Use 3 mL via nebulizer every 4 hours as needed for Wheezing/Shortness of Breath. Use over 5-15minutes. PREDNISONE 20 MG TABLET 10 t* 0 04/01/2018 Route: ORAL Sig: Take 2 tablets by mouth once daily. BUDESONIDE-FORMOTEROL HFA 160 MCG-4.* 1 In* 2 04/01/2018 Route: INHALATION Sig: Inhale 2 Puffs as instructed twice daily. ALBUTEROL SULFATE 2.5 MG/3 ML (0.083* 3 mL 3 04/01/2018 Route: NEBULIZATION Sig: Use 3 mL via nebulizer every 4 hours as needed for Wheezing/Shortness of Breath. Use over 5-15minutes. BUDESONIDE-FORMOTEROL HFA 160 MCG-4.* 1 In* 2 04/01/2018 Route: INHALATION Sig: Inhale 2 Puffs as instructed twice daily. PREDNISONE 20 MG TABLET 10 t* 0 04/01/2018 Route: ORAL Sig: Take 2 tablets by mouth once daily. Medications Discontinued During This Encounter albuterol (PROVENTIL) 2.5 mg /3 mL (* 1 Pa* 2 01/24/2017 04/01/2018 Route: NEBULIZATION -UNSPEC Sig: Use 3 mL via nebulizer every 4 hours as needed for Wheezing/Shortness of Breath. Use over 5-15minutes. Disc: Reason for discontinue is not on file. Follow-up and Disposition History Recorded Encounter Status:Closed by PODLOGARTRAM CNP on 04/01/18 MRI ABDOMEN WO/W Observed: 02/21/2018 Status: F Source: [place] IVCON 11:10 AM [facility] REPOSITORY * * *Final Report* * * DATE OF EXAM: Feb 21 2018 11:10AM [facility] [id number] - MRI ABDOMEN WO/W IVCON / PROCEDURE REASON: Disease of pancreas, unspecified * * * * Physician Interpretation * * * * MRI ABDOMEN WITHOUT AND WITH IV CONTRAST HISTORY: Follow-up of pancreatic cystic lesion TECHNIQUE: Magnet: 1.5T scanner. Multiplanar MRI with multiple sequences before and after contrast. Contrast: IV: 20 ml of Dotarem COMPARISON: 08/02/2017 RESULT: Liver: Normal morphology. Diffuse hepatic steatosis. No mass. Biliary: No bile duct dilation. Gallbladder is normal. Spleen: No mass. No splenomegaly. Pancreas: No significant change in size or morphology of T2 hyperintense cystic lesion arising exophytically from the uncinate process, measuring 1.4 x 1.7 x 1.6 cm (6:11, 7:38). The lesion demonstrates thin internal septation but no nodular or masslike enhancing component. Additional sub-5 mm T2 hyperintense foci in the body and tail, stable. No duct dilation. Adrenals: No mass. Kidneys: No solid or cystic mass. No hydronephrosis. GI tract: No dilation or wall thickening. Small hiatal hernia. Lymph nodes: No abdominal or pelvic lymphadenopathy. Mesentery / Peritoneum / Retroperitoneum: No ascites or mass. Vasculature: The celiac axis and SMA are patent. The portal vein and branches, splenic vein, SMV, and hepatic veins are patent. IMPRESSION: STABLE T2 HYPERINTENSE CYSTIC LESION IN THE UNCINATE PROCESS, DIFFERENTIAL DIAGNOSIS AGAIN INCLUDES SIDE BRANCH IPMN, PSEUDOCYST OR LESS LIKELY SEROUS CYSTADENOMA. SIX-MONTH FOLLOW-UP MRI IS RECOMMENDED. HEPATIC STEATOSIS. Die Stamper: MICKEY Transcribe Date/Time: Feb 21 2018 11:44A Dictated by : SIRIA PATEL MD This examination was interpreted and the report reviewed and electronically signed by: SIRIA PATEL MD on Feb 21 2018 3:31PM EST [id number] Observed: 02/21/2018 Status: COMPLETED Source: [place] 11:05 AM [facility] REPOSITORY O ID: [id number] Author: Yogesh Edwards (Rt) Service: (none) Author Type: Supervisor Sound Technician Type: Progress Notes Filed: 02/21/2018 11:07 AM Note Text: Radiology Service Progress Note PATIENT NAME: Angeline Montana DATE OF SERVICE: February 21, 2018 TIME: 11:06 AM PATIENT IDENTITY VERIFICATION COMPLETED USING TWO (2) METHODS: Patient confirmed name verbally and Date of . PATIENT GENDER DATA: Female. status: : No status: NO. PATIENT RELEVANT IMPLANT DATA REVIEWED: Yes CONTRAST INDUCED NEPHROPATHY RISK FACTORS: Patient age > 60 years CREATININE: Creatinine Date Value Ref Range Status 01/18/2018 0.90 0.58 - 0.96 mg/dL Final 09/20/2017 0.80 0.58 - 0.96 mg/dL Final 06/19/2017 0.86 0.58 - 0.96 mg/dL Final eGFR-All Other Races Date Value Ref Range Status 01/18/2018 >60 . Final Comment: eGFR (Estimated GFR) Units of measure: mL/min/1.73 meters squared eGFR is derived from the reexpressed MDRD Study equation using the following parameters: serum creatinine, age, gender and race. The creatinine assay has been calibrated to be traceable to IDMS. An eGFR <60 mL/min/1.73m2 for >3 months is consistent with chronic kidney disease. Refer to KDOQI guidelines for clinical interpretation. In patients with unstable renal function, e.g. those with acute kidney injury, the eGFR may not accurately reflect actual GFR. eGFR- Date Value Ref Range Status 01/18/2018 >60 Final P.O.C.T. RESULTS: POC done: Yes, See Lab Tab February 21, 2018 RADIOLOGIST NOTIFIED?: No ALLERGIES: Reviewed and unchanged CONTRAST ALLERGY: NO. PERIPHERAL IV ACCESS: Ambulatory: IV type: A peripheral IV was started in the Left antecubital site with a Angio cath: 22 gauge., Site assessment: Clean,Dry and Intact, Site disposition Discontinued RADIOLOGY DEPARTMENT: MR; Exam(s) Completed: Body: Pancreas/Biliary SIGNED BY: RT Jerry February 21, 2018 11:06 AM CNOV Observed: 01/31/2018 Status: COMPLETED Source: [place] 11:20 AM [facility] REPOSITORY Office Visit (FAMPWS) ANGELINE MONTANA ([id number]) 1940 F Date Time Provider Department 01/31/18 11:20 AM PERRY ESCUDERO) FAMPWS During your visit today, we recorded the following information about you: Pulse Respiration Blood pressure Weight 76/minute 16/minute 136/80 105.7 kg Perry Escudero MD 01/31/2018 8:59 PM Signed Chief Complaint Patient presents with: Recheck: 4 month HPI Angeline Montana is a 77 year old female who presents here today for 4 month follow up. Patient states that she was seen in the urgent care on 01/12 for complaint of recurrent bleeding. States that she had pain up in her vagina with bleeding, and had small amount with clotting. They obtained UA which showed trace blood and treated her with Keflex for UTI. Bleeding symptoms resolved and urine culture resulted as negative. Patient has been seen by [facility] and had negative vaginal exam. Has had hysterectomy. Does not think that the bleeding could be coming from rectum. Has appointment with new urologist on 03/07. . Denies lightheadedness, vertigo, SOB. Reviewed recent labs showing well controlled DM. Denies worsening symptoms. Need to obtain records from diabetic eye exam done in the last 6 months. Not wearing compression stockings during summer. Has had increased leg swelling with current dose of lasix. C/o erythematous rash on left lower extremity. Treating with OTC lotion without improvement. Denies itching or burning. Started out as brown macule. Past medical history, appointments, medications, allergies reviewed. Previous Medical History PAST MEDICAL HISTORY Diagnosis Date - Allergic rhinitis, cause unspecified - Arthritis - Asthma - Cataracts, bilateral Seeing Dr. Godwin - Diabetes mellitus without mention of complication Diabetes mellitus - Diverticulosis of colon (without mention of hemorrhage) - Dysmetabolic syndrome X - Essential hypertension, benign - Obesity, unspecified - Other and unspecified hyperlipidemia - Pancreatic cyst 07/24/2016 needs repeat MRI in 6 months from 08/04/17 to recheck - Primary osteoarthritis of right knee 06/24/2015 - Unspecified hypothyroidism - Urgency of urination Previous Surgical History PAST SURGICAL HISTORY Procedure Laterality Date - APPENDECTOMY - CATARACT EXTRACTION HX Bilateral 05/2014, 06/2017 - COLONOSCOP W/ OR W/O RUST SPEC 1990 Colonoscopy - COLONOSCOP W/ OR W/O BRSH SPEC 05/11/2011 Colonoscopy - DANDC, DIAG AND/OR THERAPEUTIC Dilation AND curettage - FNA WITH IMAGING 09/15/10 U/S FNA right breast 6 O'clock - REMOVAL OF TONSILS,<12 Y/O Tonsillectomy - TOTAL ABDOM HYSTERECTOMY Hysterectomy, JOSE still has her ovaries Family History FAMILY HISTORY Problem Relation Age of Onset - Diabetes Father - Hypertension Father - heart disease [OTHER] Father - Diabetes Mother - Hypertension Mother - heart disease [OTHER] Brother - Cancer Daughter had a hysterectomy for cervical - Diabetes Brother - Diabetes Maternal Grandmother - Hypertension Maternal Grandmother - Stroke Maternal Grandmother - Hypertension Brother - Hypertension Maternal Grandfather - Stroke Maternal Grandfather Patient Allergies ALLERGIES Allergen Reactions - Codeine Hives - Erythromycin GI Upset - Penicillins Hives Current Medications Current Outpatient Prescriptions on File Prior to Visit: labetalol (TRANDATE) 300 mg tablet TAKE 1 TABLET TWICE A DAY Fosinopril Sodium 40 mg tablet TAKE 1 TABLET DAILY metFORMIN ER (GLUCOPHAGE XR) 500 mg 24 hr tablet TAKE 1 TABLET TWICE A DAY pravastatin (PRAVACHOL) 20 mg tablet TAKE 1 TABLET DAILY AT BEDTIME albuterol HFA (PROVENTIL HFA, VENTOLIN HFA) 90 mcg/actuation inhaler Inhale 2 Puffs as instructed every 4 hours as needed. furosemide (LASIX) 20 mg tablet Take 1 tablet by mouth once daily. fluticasone (FLONASE) 50 mcg/actuation nasal spray INSTILL 2 SPRAYS IN EACH NOSTRIL ONCE DAILY. RINSE MOUTH AFTER USE levothyroxine (SYNTHROID) 75 mcg tablet TAKE 1 TABLET DAILY ON AN EMPTY STOMACH amLODIPine (NORVASC) 5 mg tablet Take 0.5 tablets by mouth once daily. nystatin (MYCOSTATIN) ointment Apply 1 application to affected area twice daily. COMPOUNDED PRESCRIPTION Walker COMPOUNDED PRESCRIPTION Walker with wheelsLeft Leg Pain: M79.605Chronic Right Knee Pain M25.561 albuterol (PROVENTIL) 2.5 mg /3 mL (0.083 %) nebulizer solution Use 3 mL via nebulizer every 4 hours as needed for Wheezing/Shortness of Breath. Use over 5-15minutes. Nebulizer 1 Device every 4 hours as needed (asthma exacerbation). NEBULIZER AND SUPPLIES FOR HOME USE. DX: mild intermittent asthma CALCIUM CARBONATE/VITAMIN D3 (CALCIUM 500 + D ORAL) Take by mouth. Every other day Blood Glucose Control, Normal (CONTOUR CONTROL SOLUTION, NML) soln Test controls as needed. ASPIRIN 81 MG TAB Take one(1) tablet daily. multivitamins w-minerals/lut(CENTRUM SILVER TAB) Take one(1) tablet daily. No current facility-administered medications on file prior to visit. 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 General Appearance: Well appearing, alert, in no acute distress, well-hydrated, well nourished.. Skin: 3-4 cm erythematous macule with flaking on left anterior tirado. Lungs: Lungs clear to auscultation. No wheezing, rhonchi, rales. Heart: RRR without murmur, gallop, or rubs. No ectopy. Abdomen: Normal abdominal exam, Abdomen soft, non-tender. Bowel sounds normal. No masses, organomegaly. Extremities: Edema: Trace to 1+ to knees. Feet: Shoes and socks removed and No deformities, ulcers, calluses Health Maintenance List DTAP,TDAP,TD(1 - Tdap) due on 1957 DILATED RETINAL EXAM due on 04/19/2016 URINE ALBUMIN CREATININE RATIO due on 06/19/2018 LDL due on 06/19/2018 HBA1C due on 07/21/2018 DIABETIC FOOT EXAM due on 09/27/2018 COLORECTAL CANCER SCREENING,SEE MODIFIER due on 05/11/2021 BONE DENSITY Completed ADULT PREVNAR-13 Completed INFLUENZA Completed PNEUMOVAX AGE 65 AND OVER WITH 5YR LOOKBACK Completed Data reviewed Component Latest Ref Rng AND Units 09/20/2017 01/18/2018 Protein, Total 6.3 - 8.0 g/dL 6.7 Albumin 3.9 - 4.9 g/dL 4.2 Calcium 8.5 - 10.2 mg/dL 9.4 Bilirubin, Total 0.2 - 1.3 mg/dL 0.4 Alkaline Phosphatase 32 - 117 U/L 66 AST 13 - 35 U/L 14 Glucose 74 - 99 mg/dL 109 (H) BUN 7 - 21 mg/dL 17 Creatinine 0.58 - 0.96 mg/dL 0.80 0.90 Sodium 136 - 144 mmol/L 138 Potassium 3.7 - 5.1 mmol/L 4.3 Chloride 97 - 105 mmol/L 99 CO2 22 - 30 mmol/L 26 Anion Gap 9 - 18 mmol/L 13 ALT 7 - 38 U/L 14 eGFR- >60 >60 eGFR-All Other Races . >60 >60 WBC 3.70 - 11.00 k/uL 6.64 RBC 3.90 - 5.20 m/uL 4.60 Hemoglobin 11.5 - 15.5 g/dL 13.7 Hematocrit 36.0 - 46.0 % 42.4 MCV 80.0 - 100.0 fL 92.2 MCH 26.0 - 34.0 pG 29.8 MCHC 30.5 - 36.0 g/dL 32.3 RDW-CV 11.5 - 15.0 % 13.8 Platelet Count 150 - 400 k/uL 334 MPV 9.0 - 12.7 fL 9.2 Absolute nRBC <0.01 k/uL <0.01 Hemoglobin A1C 4.3 - 5.6 % 6.0 (H) 6.0 (H) Estimated Average Glucose mg/dL 126 126 TSH 0.400 - 5.500 uU/mL 1.640 ASSESSMENT/PLAN: 1. Gross hematuria - ICD9: 599.71, ICD10: R31.0 (primary diagnosis) Patient to follow up with urology. Normal CBC since bleeding episode. Will follow up results. 2. Rectal bleeding - ICD9: 569.3, ICD10: K62.5 Will obtain FOBT to rule out rectal bleeding. If positive, will refer for colonoscopy. - FECAL OCCULT BLOOD TEST 3. Controlled type 2 diabetes mellitus without complication, without long-term current use of insulin (HCC) - ICD9: 250.00, ICD10: E11.9 Controlled. - Continue current medications - Blood glucose monitoring on a once a day schedule - Ophthalmology referral for eval/management of diabetic eye changes - Encouraged regular aerobic exercise and weight loss - Daily Asprin therapy recommended - Follow up in 4 months, sooner should any other issues arise. 4. Essential hypertension, benign - ICD9: 401.1, ICD10: I10 - good control - Continue current medication(s) - Encouraged dietary sodium restriction/DASH diet - Recommended regular aerobic exercise. - Reviewed risks of HTN and principles of treatment - Goal of BP <140/90 5. Acquired hypothyroidism - ICD9: 244.9, ICD10: E03.9 - Instructed patient on importance of taking on an empty stomach either first thing in the morning or at bedtime. - continue current dose of Synthroid 0.075 mg 6. Hyperlipidemia, unspecified hyperlipidemia type - ICD9: 272.4, ICD10: E78.5 - good control - Continue current medication. - Encouraged following a low fat, low cholesterol diet. - Discussed the benefits of regular aerobic exercise and weight loss. 7. Bilateral lower extremity edema - ICD9: 782.3, ICD10: R60.0 Continue lasix. Advised continued use of compression stockings daily. 8. Rash - ICD9: 782.1, ICD10: R21 Patient to follow up with dermatology. Continue lotion BID. Perry Escudero MD Referring Provider: PERRY ESCUDERO) [[id number]] Allergies As of Date: 01/31/2018 Noted Allergy Reaction CODEINE 09/11/2005 4 - Hives ERYTHROMYCIN 09/11/2005 8 - GI Upset PENICILLINS 09/11/2005 4 - Hives Date Reviewed: 01/31/2018 Reviewed by: Serenity Jimenez) CHILO Edwards - Fully Assessed Reason for Visit: Recheck [92] Cmt: 4 month Primary Visit Diagnosis:Gross hematuria [R31.0] Other Visit Diagnoses:Rectal bleeding [K62.5] Controlled type 2 diabetes mellitus without complication, without long-term current use of insulin (HCC) [E11.9] Essential hypertension, benign [I10] Acquired hypothyroidism [E03.9] Hyperlipidemia, unspecified hyperlipidemia type [E78.5] Bilateral lower extremity edema [R60.0] Rash [R21] Order(s):FECAL OCCULT BLOOD TEST [SQIFOBT] Order #: [id number] FUTURE HGB A1C [GWDBH6B] Order #: [id number] FUTURE COMP METABOLIC PANEL [SQCMP] Order #: [id number] FUTURE VITAMIN B12 BLOOD [SQB12] Order #: [id number] FUTURE LIPID PANEL BASIC [SQLIPB] Order #: [id number] FUTURE ALBUMIN/CREAT RATIO RND UR [SQUACR] Order #: [id number] FUTURE Prescriptions as of 01/31/2018 Sig: LABETALOL 300 MG TABLET TAKE 1 TABLET TWICE A DAY FOSINOPRIL 40 MG TABLET TAKE 1 TABLET DAILY METFORMIN ER 500 MG TABLET,EX* TAKE 1 TABLET TWICE A DAY PRAVASTATIN 20 MG TABLET TAKE 1 TABLET DAILY AT BEDTIME ALBUTEROL SULFATE HFA 90 MCG/* Inhale 2 Puffs as instructed * FUROSEMIDE 20 MG TABLET Take 1 tablet by mouth once d* FLUTICASONE 50 MCG/ACTUATION * INSTILL 2 SPRAYS IN EACH NOST* LEVOTHYROXINE 75 MCG TABLET TAKE 1 TABLET DAILY ON AN EMP* AMLODIPINE 5 MG TABLET Take 0.5 tablets by mouth onc* NYSTATIN 100,000 UNIT/GRAM TO* Apply 1 application to affect* COMPOUNDED PRESCRIPTION Walker COMPOUNDED PRESCRIPTION Walker with wheels Left * ALBUTEROL SULFATE 2.5 MG/3 ML* Use 3 mL via nebulizer every * COMPOUNDED PRESCRIPTION 1 Device every 4 hours as nee* CALCIUM 500 + D ORAL Take by mouth. Every other d* BLOOD GLUCOSE CONTROL, NORMAL* Test controls as needed. * ASPIRIN 81 MG TABLET Take one(1) tablet daily. * CENTRUM SILVER TABLET Take one(1) tablet daily. Problem List As Of Date 01/31/2018 Noted Resolved BENIGN HYPERTENSION [I10] More... Hypothyroidism [E03.9] HYPERLIPIDEMIA NEC/NOS [E78.5] 06/24/2015 More... 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15] INVALID FOR*06/24/2015 Nocturia [R35.1] INVALID FOR*06/24/2015 Urge incontinence [N39.41] INVALID FOR*05/16/2011 Female stress incontinence [N39.3] INVALID FOR* Unspecified urinary incontinence [R32] INVALID FOR*06/24/2015 Breast cyst [N60.09] INVALID FOR*06/24/2015 Sebaceous cyst [L72.3] INVALID FOR*06/24/2015 BMI 36.0-36.9,adult [Z68.36] INVALID FOR*11/30/2014 DM (diabetes mellitus), type 2 (HCC) [E11.9] INVALID FOR*06/24/2015 BMI 37.0-37.9, adult [Z68.37] INVALID FOR*06/24/2015 Diabetes mellitus type 2, controlled, without c*INVALID FOR* BMI 38.0-38.9,adult [Z68.38] INVALID FOR*10/07/2015 Hyperlipidemia [E78.5] INVALID FOR* Primary osteoarthritis of right knee [M17.11] INVALID FOR* Cellulitis of right lower extremity [L03.115] INVALID FOR*09/27/2017 Burning with urination [R30.0] INVALID FOR*09/27/2017 Gross hematuria [R31.0] INVALID FOR* Generalized abdominal pain [R10.84] INVALID FOR* Secondhand smoke exposure [Z77.22] INVALID FOR* Aspirin long-term use [Z79.82] INVALID FOR* Asthma [J45.909] 12/19/2016 Mild intermittent asthma without complication [*INVALID FOR* More... Encounter Status:Closed by PERRY ESCUDERO MD on 01/31/18 PROGRESS Observed: 01/31/2018 Status: COMPLETED Source: [place] 11:05 AM [facility] [place] REPOSITORY O ID: [id number] Author: Perry Way () [place] Service: (none) Author Type: Physician Type: Progress Notes Filed: 01/31/2018 8:59 PM Note Text: Chief Complaint Patient presents with: Recheck: 4 month HPI Angeline Montana is a 77 year old female who presents here today for 4 month follow up. Patient states that she was seen in the urgent care on 01/12 for complaint of recurrent bleeding. States that she had pain up in her vagina with bleeding, and had small amount with clotting. They obtained UA which showed trace blood and treated her with Keflex for UTI. Bleeding symptoms resolved and urine culture resulted as negative. Patient has been seen by [facility] and had negative vaginal exam. Has had hysterectomy. Does not think that the bleeding could be coming from rectum. Has appointment with new urologist on 03/07. . Denies lightheadedness, vertigo, SOB. Reviewed recent labs showing well controlled DM. Denies worsening symptoms. Need to obtain records from diabetic eye exam done in the last 6 months. Not wearing compression stockings during summer. Has had increased leg swelling with current dose of lasix. C/o erythematous rash on left lower extremity. Treating with OTC lotion without improvement. Denies itching or burning. Started out as brown macule. Past medical history, appointments, medications, allergies reviewed. Previous Medical History PAST MEDICAL HISTORY Diagnosis Date - Allergic rhinitis, cause unspecified - Arthritis - Asthma - Cataracts, bilateral Seeing Dr. Godwin - Diabetes mellitus without mention of complication Diabetes mellitus - Diverticulosis of colon (without mention of hemorrhage) - Dysmetabolic syndrome X - Essential hypertension, benign - Obesity, unspecified - Other and unspecified hyperlipidemia - Pancreatic cyst 07/24/2016 needs repeat MRI in 6 months from 08/04/17 to recheck - Primary osteoarthritis of right knee 06/24/2015 - Unspecified hypothyroidism - Urgency of urination Previous Surgical History PAST SURGICAL HISTORY Procedure Laterality Date - APPENDECTOMY - CATARACT EXTRACTION HX Bilateral 05/2014, 06/2017 - COLONOSCOP W/ OR W/O RUST SPEC 1990 Colonoscopy - COLONOSCOP W/ OR W/O RUST SPEC 05/11/2011 Colonoscopy - DANDC, DIAG AND/OR THERAPEUTIC Dilation AND curettage - FNA WITH IMAGING 09/15/10 U/S FNA right breast 6 O'clock - REMOVAL OF TONSILS,<12 Y/O Tonsillectomy - TOTAL ABDOM HYSTERECTOMY Hysterectomy, JOSE still has her ovaries Family History FAMILY HISTORY Problem Relation Age of Onset - Diabetes Father - Hypertension Father - heart disease [OTHER] Father - Diabetes Mother - Hypertension Mother - heart disease [OTHER] Brother - Cancer Daughter had a hysterectomy for cervical - Diabetes Brother - Diabetes Maternal Grandmother - Hypertension Maternal Grandmother - Stroke Maternal Grandmother - Hypertension Brother - Hypertension Maternal Grandfather - Stroke Maternal Grandfather Patient Allergies ALLERGIES Allergen Reactions - Codeine Hives - Erythromycin GI Upset - Penicillins Hives Current Medications Current Outpatient Prescriptions on File Prior to Visit: labetalol (TRANDATE) 300 mg tablet TAKE 1 TABLET TWICE A DAY Fosinopril Sodium 40 mg tablet TAKE 1 TABLET DAILY metFORMIN ER (GLUCOPHAGE XR) 500 mg 24 hr tablet TAKE 1 TABLET TWICE A DAY pravastatin (PRAVACHOL) 20 mg tablet TAKE 1 TABLET DAILY AT BEDTIME albuterol HFA (PROVENTIL HFA, VENTOLIN HFA) 90 mcg/actuation inhaler Inhale 2 Puffs as instructed every 4 hours as needed. furosemide (LASIX) 20 mg tablet Take 1 tablet by mouth once daily. fluticasone (FLONASE) 50 mcg/actuation nasal spray INSTILL 2 SPRAYS IN EACH NOSTRIL ONCE DAILY. RINSE MOUTH AFTER USE levothyroxine (SYNTHROID) 75 mcg tablet TAKE 1 TABLET DAILY ON AN EMPTY STOMACH amLODIPine (NORVASC) 5 mg tablet Take 0.5 tablets by mouth once daily. nystatin (MYCOSTATIN) ointment Apply 1 application to affected area twice daily. COMPOUNDED PRESCRIPTION Walker COMPOUNDED PRESCRIPTION Walker with wheelsLeft Leg Pain: M79.605Chronic Right Knee Pain M25.561 albuterol (PROVENTIL) 2.5 mg /3 mL (0.083 %) nebulizer solution Use 3 mL via nebulizer every 4 hours as needed for Wheezing/Shortness of Breath. Use over 5-15minutes. Nebulizer 1 Device every 4 hours as needed (asthma exacerbation). NEBULIZER AND SUPPLIES FOR HOME USE. DX: mild intermittent asthma CALCIUM CARBONATE/VITAMIN D3 (CALCIUM 500 + D ORAL) Take by mouth. Every other day Blood Glucose Control, Normal (CONTOUR CONTROL SOLUTION, NML) soln Test controls as needed. ASPIRIN 81 MG TAB Take one(1) tablet daily. multivitamins w-minerals/lut(CENTRUM SILVER TAB) Take one(1) tablet daily. No current facility-administered medications on file prior to visit. 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 General Appearance: Well appearing, alert, in no acute distress, well-hydrated, well nourished.. Skin: 3-4 cm erythematous macule with flaking on left anterior tirado. Lungs: Lungs clear to auscultation. No wheezing, rhonchi, rales. Heart: RRR without murmur, gallop, or rubs. No ectopy. Abdomen: Normal abdominal exam, Abdomen soft, non-tender. Bowel sounds normal. No masses, organomegaly. Extremities: Edema: Trace to 1+ to knees. Feet: Shoes and socks removed and No deformities, ulcers, calluses Health Maintenance List DTAP,TDAP,TD(1 - Tdap) due on 1959 DILATED RETINAL EXAM due on 04/19/2016 URINE ALBUMIN CREATININE RATIO due on 06/19/2018 LDL due on 06/19/2018 HBA1C due on 07/21/2018 DIABETIC FOOT EXAM due on 09/27/2018 COLORECTAL CANCER SCREENING,SEE MODIFIER due on 05/11/2021 BONE DENSITY Completed ADULT PREVNAR-13 Completed INFLUENZA Completed PNEUMOVAX AGE 65 AND OVER WITH 5YR LOOKBACK Completed Data reviewed Component Latest Ref Rng AND Units 09/20/2017 01/18/2018 Protein, Total 6.3 - 8.0 g/dL 6.7 Albumin 3.9 - 4.9 g/dL 4.2 Calcium 8.5 - 10.2 mg/dL 9.4 Bilirubin, Total 0.2 - 1.3 mg/dL 0.4 Alkaline Phosphatase 32 - 117 U/L 66 AST 13 - 35 U/L 14 Glucose 74 - 99 mg/dL 109 (H) BUN 7 - 21 mg/dL 17 Creatinine 0.58 - 0.96 mg/dL 0.80 0.90 Sodium 136 - 144 mmol/L 138 Potassium 3.7 - 5.1 mmol/L 4.3 Chloride 97 - 105 mmol/L 99 CO2 22 - 30 mmol/L 26 Anion Gap 9 - 18 mmol/L 13 ALT 7 - 38 U/L 14 eGFR- >60 >60 eGFR-All Other Races . >60 >60 WBC 3.70 - 11.00 k/uL 6.64 RBC 3.90 - 5.20 m/uL 4.60 Hemoglobin 11.5 - 15.5 g/dL 13.7 Hematocrit 36.0 - 46.0 % 42.4 MCV 80.0 - 100.0 fL 92.2 MCH 26.0 - 34.0 pG 29.8 MCHC 30.5 - 36.0 g/dL 32.3 RDW-CV 11.5 - 15.0 % 13.8 Platelet Count 150 - 400 k/uL 334 MPV 9.0 - 12.7 fL 9.2 Absolute nRBC <0.01 k/uL <0.01 Hemoglobin A1C 4.3 - 5.6 % 6.0 (H) 6.0 (H) Estimated Average Glucose mg/dL 126 126 TSH 0.400 - 5.500 uU/mL 1.640 ASSESSMENT/PLAN: 1. Gross hematuria - ICD9: 599.71, ICD10: R31.0 (primary diagnosis) Patient to follow up with urology. Normal CBC since bleeding episode. Will follow up results. 2. Rectal bleeding - ICD9: 569.3, ICD10: K62.5 Will obtain FOBT to rule out rectal bleeding. If positive, will refer for colonoscopy. - FECAL OCCULT BLOOD TEST 3. Controlled type 2 diabetes mellitus without complication, without long-term current use of insulin (HCC) - ICD9: 250.00, ICD10: E11.9 Controlled. - Continue current medications - Blood glucose monitoring on a once a day schedule - Ophthalmology referral for eval/management of diabetic eye changes - Encouraged regular aerobic exercise and weight loss - Daily Asprin therapy recommended - Follow up in 4 months, sooner should any other issues arise. 4. Essential hypertension, benign - ICD9: 401.1, ICD10: I10 - good control - Continue current medication(s) - Encouraged dietary sodium restriction/DASH diet - Recommended regular aerobic exercise. - Reviewed risks of HTN and principles of treatment - Goal of BP <140/90 5. Acquired hypothyroidism - ICD9: 244.9, ICD10: E03.9 - Instructed patient on importance of taking on an empty stomach either first thing in the morning or at bedtime. - continue current dose of Synthroid 0.075 mg 6. Hyperlipidemia, unspecified hyperlipidemia type - ICD9: 272.4, ICD10: E78.5 - good control - Continue current medication. - Encouraged following a low fat, low cholesterol diet. - Discussed the benefits of regular aerobic exercise and weight loss. 7. Bilateral lower extremity edema - ICD9: 782.3, ICD10: R60.0 Continue lasix. Advised continued use of compression stockings daily. 8. Rash - ICD9: 782.1, ICD10: R21 Patient to follow up with dermatology. Continue lotion BID. Perry Escudero MD CBC Collected: 01/18/2018 Status: F Source: [place] 8:41 AM [facility] REPOSITORY TYPE CODE TESTS RESULT OUT OF REFERENCE UNITS RANGE LAB WBC 3.70-11.00 k/uL WBC 6.64 LAB RBC 3.90-5.20 m/uL RBC 4.60 LAB HGB 11.5-15.5 g/dL Hemoglobin 13.7 LAB HCT 36.0-46.0 % Hematocrit 42.4 LAB MCV 80.0-100.0 fL MCV 92.2 LAB MCH 26.0-34.0 pG MCH 29.8 LAB MCHC 30.5-36.0 g/dL MCHC 32.3 LAB RDWCV 11.5-15.0 % RDW-CV 13.8 LAB PLTCT 150-400 k/uL Platelet Count 334 LAB MPV 9.0-12.7 fL MPV 9.2 LAB ABSNUC <0.01 k/uL Absolute nRBC <0.01 Performed By: #### CBC, CMP, HBA1C #### [facility] [address] [address] COMP METABOLIC PANEL Collected: 01/18/2018 Status: F Source: [place] 8:41 AM [facility] REPOSITORY TYPE CODE TESTS RESULT OUT OF REFERENCE UNITS RANGE LAB TP 6.3-8.0 g/dL Protein, Total 6.7 LAB ALB 3.9-4.9 g/dL Albumin 4.2 LAB CA 8.5-10.2 mg/dL Calcium, Total 9.4 LAB TBIL 0.2-1.3 mg/dL Bilirubin, Total 0.4 LAB ALKP 32-117 U/L Alkaline Phosphatase 66 LAB AST 13-35 U/L AST 14 LAB GLU 74-99 mg/dL Glucose High 109 Result Comment: The [place] Diabetes Association (ADA) provides guidance for cutoff values for fasting glucose and random glucose. The ADA defines fasting as no caloric intake for at least 8 hours. Fas ting plasma glucose results between 100 to 125 mg/dL indicate increased risk for diabetes (prediabetes). Fasting plasma glucose results greater than or equal to 126 mg/dL meet the criteria for diagnosis of diabetes. In the absence of unequivocal hyperglycemia, results should be confirmed by repeat testing. In a patient with classic symptoms of hyperglycemia or hyperglycemic crisis, random plasma glucose results greater than or equal to 200 mg/dL meet the criteria for diagnosis of diabetes. Reference: Standards of Medical Care in Diabetes 2016, [place] Diabetes Association. Diabetes Care. 2016.39(Suppl 1). LAB BUN 7-21 mg/dL BUN 17 LAB CRET 0.58-0.96 mg/dL Creatinine 0.90 LAB NA 136-144 mmol/L Sodium 138 LAB K 3.7-5.1 mmol/L Potassium 4.3 LAB CL 97-105 mmol/L Chloride 99 LAB CO2 22-30 mmol/L CO2 26 LAB AGAP 9-18 mmol/L Anion Gap 13 LAB ALT 7-38 U/L ALT 14 LAB GFRAA eGFR- Amer. >60 LAB GFRNAA . eGFR-All Other Races >60 Result Comment: eGFR (Estimated GFR) Units of measure: mL/min/1.73 meters squared eGFR is derived from the reexpressed MDRD Study equation using the following parameters: serum creatinine, age, gender and race. The creatinine assay has been calibrated to be traceable to IDMS. An eGFR <60 mL/min/1.73m2 for >3 months is consistent with chronic kidney disease. Refer to KDOQI guidelines for clinical interpretation. In patients with unstable renal function, e.g. those with acute kidney injury, the eGFR may not accurately reflect actual GFR. Performed By: #### CBC, CMP, HBA1C #### [facility] [address] [place], [place] [address] HEMOGLOBIN A1C Collected: 01/18/2018 Status: F Source: [place] 8:41 [facility] [place] REPOSITORY TYPE CODE TESTS RESULT OUT OF REFERENCE UNITS RANGE LAB HGBA1C 4.3-5.6 % High Hemoglobin A1c 6.0 LAB HBA0 mg/dL Est. Average Glucose 126 Result Comment: eAG: (Estimated average glucose) is a calculated value from HgbA1c and is business center representative of the average blood glucose level in the last 2-3 month period. Performed By: #### CBC, CMP, HBA1C #### [facility] [address] [place], [place] [address] Observed: 01/12/2018 Status: F Source: [place] URINE CULTURE 12:30 PM [facility] REPOSITORY Sp. Request/Comment: - Specimen received in preservative Culture Result - 10,000 - <50,000 CFU/ml Normal urogenital michelle Performed By: #### URCUL #### [facility] [address] [place] [id number] PROGRESS Observed: 01/12/2018 Status: COMPLETED Source: [place] 12:27 PM [facility] REPOSITORY HNO ID: [id number] Author: Bridgette Bird) Jenny Service: (none) Author Type: Nurse Practitioner Type: Progress Notes Filed: 01/12/2018 1:26 PM Note Text: Subjective HPI ROS Objective Physical Exam PROGRESS Observed: 01/12/2018 Status: COMPLETED Source: [place] 12:19 PM [facility] REPOSITORY HNO ID: [id number] Author: Bridgette Alvarado Service: (none) Author Type: Nurse Practitioner Type: Progress Notes Filed: 01/12/2018 1:26 PM Note Text: Subjective HPI HPI Angeline Montana is a 77 year old female who presents today for CC of increase frequency in urination This started over the past week She is also having cloudy colored urine, and lower pelvic pressure. Symptoms are worsened by voiding. She has tried tylenol with slight relief. Risk factors menopause, elderly. PMH T2D BP 130/72 Pulse 64 Temp (!) 35.6 ?C (96.1 ?F) Resp 16 Wt 105.2 kg (232 lb) BMI 38.61 kg/m? ALLERGIES Allergen Reactions - Codeine Hives - Erythromycin GI Upset - Penicillins Hives ACTIVE PROBLEM LIST Essential Hypertension, Benign Hypothyroidism Dysmetabolic Syndrome X Postmenopausal Atrophic Vaginitis Female Stress Incontinence Diabetes Mellitus Type 2, Controlled, Without Complications (Hcc) Hyperlipidemia Primary Osteoarthritis of Right Knee Gross Hematuria Generalized Abdominal Pain Secondhand Smoke Exposure Aspirin Long-Term Use Mild Intermittent Asthma Without Complication Family History Problem Relation Age of Onset - Diabetes Father - Hypertension Father - heart disease [OTHER] Father - Diabetes Mother - Hypertension Mother - heart disease [OTHER] Brother - Cancer Daughter had a hysterectomy for cervical - Diabetes Brother - Diabetes Maternal Grandmother - Hypertension Maternal Grandmother - Stroke Maternal Grandmother - Hypertension Brother - Hypertension Maternal Grandfather - Stroke Maternal Grandfather Social History Marital status: Spouse name: Years of education: 17+ Number of children: 2 Occupational History Occupation Employer Comment retired [employer]* Social History Main Topics Smoking status: Never Smoker Smokeless tobacco: Never Used Alcohol use: Yes Comment: rarely 1 per year Drug use: No Sexual activity: Not Currently Partners with: Male Social History Narrative Enjoys playing cards 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 Gastrointestinal: Positive for abdominal pain. Vomiting: suprapubic. Genitourinary: Positive for dysuria, flank pain, frequency, hematuria and urgency. Skin: Negative for rash. Neurological: Negative for headaches. Objective Physical Exam Constitutional: She is oriented to person, place, and time and well-developed, well-nourished, and in no distress. HENT: Head: Normocephalic and atraumatic. Eyes: Conjunctivae and EOM are normal. Pupils are equal, round, and reactive to light. Neck: Normal range of motion. Neck supple. Pulmonary/Chest: Effort normal. Abdominal: Soft. Bowel sounds are normal. She exhibits no abdominal bruit, no pulsatile midline mass and no mass. There is no hepatosplenomegaly. There is tenderness in the suprapubic area. There is no rigidity, no rebound, no guarding, no CVA tenderness (mild), no tenderness at McBurney's point and negative Burgos's sign. Neurological: She is alert and oriented to person, place, and time. Skin: Skin is warm. Psychiatric: Affect normal. Nursing note and vitals reviewed. Component Latest Ref Rng AND Units 01/12/2018 Glucose, Urine Neg mg/dL neg Bilirubin, Urine Neg neg Ketones, Urine Neg neg Specific [place], Ur 1.005 - 1.030 1.010 Hemoglobin/Blood,Ur Neg non hemo trace pH, Urine 4.5 - 8.0 6.0 Protein, Urine Neg mg/dL neg Urobilinogen, Urine Normal (<1.1) EU 0.2 Nitrites Neg neg Leukocytes Neg small Color/Appearance comment: clear yellow Quality Check yes/no Yes ASSESSMENT/PLAN: 1. Acute cystitis with hematuria - ICD9: 595.0, ICD10: N30.01 (primary diagnosis) -Avoid alcohol and caffeine as these are bladder irritants and may make symptoms worse. -You can take OTC AZO if needed for painful urination but not for longer then 2 days. - Increase water intake -Follow up with PCP or return to clinic if symptoms not improving in 3 days or if you develop any new (or worsening) symptoms such as fever, chills or back pain. Urinary tract infection (UTI) We will send the urine for culture, which shows us what organism, if any, we are treating. If we need to change the antibiotic coverage, you will receive a call in 48-72 hours. * Seek medical care immediately, call 911, or go to ER if you have high fevers, severe flank or low back pain, blood in your urine. * Follow up with primary care provider if symptoms persist or worsen. - CEPHALEXIN 500 MG CAPSULE 2. Urinary frequency - ICD9: 788.41, ICD10: R35.0 acute - UA positive for barry esterase, hematuria and proteinuria - Send urine for culture - Begin treatment with keflex for 7 days - Patient education for prevention given - UA DIP B/O - URINE CULTURE 3. Cloudy urine - ICD9: 791.9, ICD10: R82.90 - UA DIP B/O - URINE CULTURE Diagnosis and treatment plan were discussed and questions were answered to the patient's satisfaction. Pt acknowledged understanding of concepts and follow up plan. Specific signs and symptoms that would indicate the need for higher level of care were discussed in detail warranting prompt ER evaluation. Bridgette Alvarado APRN.TABITHA CNOV Observed: 01/12/2018 Status: COMPLETED Source: [place] 11:45 AM [facility] REPOSITORY Office Visit ([facility]) ANGELINE MONTANA ([id number]) 1940 F Date Time Provider Department 01/12/18 11:45 AM BRIDGETTE ALVARADO ([facility]) [facility] During your visit today, we recorded the following information about you: Temperature Pulse Respiration Blood pressure 96.1 degrees 64/minute 16/minute 130/72 Weight 105.2 kg Bridgette Alvarado APRN.TABITHA 01/12/2018 1:26 PM Signed Subjective HPI HPI Angeline Montana is a 77 year old female who presents today for CC of increase frequency in urination This started over the past week She is also having cloudy colored urine, and lower pelvic pressure. Symptoms are worsened by voiding. She has tried tylenol with slight relief. Risk factors menopause, elderly. PMH T2D BP 130/72 Pulse 64 Temp (!) 35.6 ?C (96.1 ?F) Resp 16 Wt 105.2 kg (232 lb) BMI 38.61 kg/m? ALLERGIES Allergen Reactions - Codeine Hives - Erythromycin GI Upset - Penicillins Hives ACTIVE PROBLEM LIST Essential Hypertension, Benign Hypothyroidism Dysmetabolic Syndrome X Postmenopausal Atrophic Vaginitis Female Stress Incontinence Diabetes Mellitus Type 2, Controlled, Without Complications (Hcc) Hyperlipidemia Primary Osteoarthritis of Right Knee Gross Hematuria Generalized Abdominal Pain Secondhand Smoke Exposure Aspirin Long-Term Use Mild Intermittent Asthma Without Complication Family History Problem Relation Age of Onset - Diabetes Father - Hypertension Father - heart disease [OTHER] Father - Diabetes Mother - Hypertension Mother - heart disease [OTHER] Brother - Cancer Daughter had a hysterectomy for cervical - Diabetes Brother - Diabetes Maternal Grandmother - Hypertension Maternal Grandmother - Stroke Maternal Grandmother - Hypertension Brother - Hypertension Maternal Grandfather - Stroke Maternal Grandfather Social History Marital status: Spouse name: Years of education: 17+ Number of children: 2 Occupational History Occupation Employer Comment retired [employer]* Social History Main Topics Smoking status: Never Smoker Smokeless tobacco: Never Used Alcohol use: Yes Comment: rarely 1 per year Drug use: No Sexual activity: Not Currently Partners with: Male Social History Narrative Enjoys playing cards 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 Gastrointestinal: Positive for abdominal pain. Vomiting: suprapubic. Genitourinary: Positive for dysuria, flank pain, frequency, hematuria and urgency. Skin: Negative for rash. Neurological: Negative for headaches. Objective Physical Exam Constitutional: She is oriented to person, place, and time and well-developed, well-nourished, and in no distress. HENT: Head: Normocephalic and atraumatic. Eyes: Conjunctivae and EOM are normal. Pupils are equal, round, and reactive to light. Neck: Normal range of motion. Neck supple. Pulmonary/Chest: Effort normal. Abdominal: Soft. Bowel sounds are normal. She exhibits no abdominal bruit, no pulsatile midline mass and no mass. There is no hepatosplenomegaly. There is tenderness in the suprapubic area. There is no rigidity, no rebound, no guarding, no CVA tenderness (mild), no tenderness at McBurney's point and negative Burgos's sign. Neurological: She is alert and oriented to person, place, and time. Skin: Skin is warm. Psychiatric: Affect normal. Nursing note and vitals reviewed. Component Latest Ref Rng AND Units 01/12/2018 Glucose, Urine Neg mg/dL neg Bilirubin, Urine Neg neg Ketones, Urine Neg neg Specific [place], Ur 1.005 - 1.030 1.010 Hemoglobin/Blood,Ur Neg non hemo trace pH, Urine 4.5 - 8.0 6.0 Protein, Urine Neg mg/dL neg Urobilinogen, Urine Normal (<1.1) EU 0.2 Nitrites Neg neg Leukocytes Neg small Color/Appearance comment: clear yellow Quality Check yes/no Yes ASSESSMENT/PLAN: 1. Acute cystitis with hematuria - ICD9: 595.0, ICD10: N30.01 (primary diagnosis) -Avoid alcohol and caffeine as these are bladder irritants and may make symptoms worse. -You can take OTC AZO if needed for painful urination but not for longer then 2 days. - Increase water intake -Follow up with PCP or return to clinic if symptoms not improving in 3 days or if you develop any new (or worsening) symptoms such as fever, chills or back pain. Urinary tract infection (UTI) We will send the urine for culture, which shows us what organism, if any, we are treating. If we need to change the antibiotic coverage, you will receive a call in 48-72 hours. * Seek medical care immediately, call 911, or go to ER if you have high fevers, severe flank or low back pain, blood in your urine. * Follow up with primary care provider if symptoms persist or worsen. - CEPHALEXIN 500 MG CAPSULE 2. Urinary frequency - ICD9: 788.41, ICD10: R35.0 acute - UA positive for barry esterase, hematuria and proteinuria - Send urine for culture - Begin treatment with keflex for 7 days - Patient education for prevention given - UA DIP B/O - URINE CULTURE 3. Cloudy urine - ICD9: 791.9, ICD10: R82.90 - UA DIP B/O - URINE CULTURE Diagnosis and treatment plan were discussed and questions were answered to the patient's satisfaction. Pt acknowledged understanding of concepts and follow up plan. Specific signs and symptoms that would indicate the need for higher level of care were discussed in detail warranting prompt ER evaluation. RUSTY Mendoza APRN.CNP 01/12/2018 12:27 PM Signed ASSESSMENT/PLAN: 1. Acute cystitis with hematuria - ICD9: 595.0, ICD10: N30.01 (primary diagnosis) -Avoid alcohol and caffeine as these are bladder irritants and may make symptoms worse. -You can take OTC AZO if needed for painful urination but not for longer then 2 days. - Increase water intake -Follow up with PCP or return to clinic if symptoms not improving in 3 days or if you develop any new (or worsening) symptoms such as fever, chills or back pain. Urinary tract infection (UTI) We will send the urine for culture, which shows us what organism, if any, we are treating. If we need to change the antibiotic coverage, you will receive a call in 48-72 hours. * Seek medical care immediately, call 911, or go to ER if you have high fevers, severe flank or low back pain, blood in your urine. * Follow up with primary care provider if symptoms persist or worsen. - CEPHALEXIN 500 MG CAPSULE 2. Urinary frequency - ICD9: 788.41, ICD10: R35.0 acute - UA positive for barry esterase, hematuria and proteinuria - Send urine for culture - Begin treatment with keflex for 7 days - Patient education for prevention given - UA DIP B/O - URINE CULTURE 3. Cloudy urine - ICD9: 791.9, ICD10: R82.90 - UA DIP B/O - URINE CULTURE Bridgette Alvarado APRN.CNP 01/12/2018 1:26 PM Signed Subjective HPI ROS Objective Physical Exam Referring Provider: SELF [200] Allergies As of Date: 01/12/2018 Noted Allergy Reaction CODEINE 09/11/2005 4 - Hives ERYTHROMYCIN 09/11/2005 8 - GI Upset PENICILLINS 09/11/2005 4 - Hives Date Reviewed: 01/12/2018 [facility] - Fully Assessed Reason for Visit: Urinary Problem [252] Cmt: x 1 week frequent urination, cloudy urine and clots in urine Primary Visit Diagnosis:Acute cystitis with hematuria [N30.01] Other Visit Diagnoses:Urinary frequency [R35.0] Cloudy urine [R82.90] Order(s):UA DIP B/O [[id number]] Order #: [id number] URINE CULTURE [SQURCUL] Order #: [id number] cephALEXin (KEFLEX) 500 mg capsuleTake 1 capsule by mouth twice daily for 7 days.Disp: 14 capsuleRfl: 0 Prescriptions as of 01/12/2018 Sig: PRAVASTATIN 20 MG TABLET TAKE 1 TABLET DAILY AT BEDTIME ALBUTEROL SULFATE HFA 90 MCG/* Inhale 2 Puffs as instructed * FUROSEMIDE 20 MG TABLET Take 1 tablet by mouth once d* FLUTICASONE 50 MCG/ACTUATION * INSTILL 2 SPRAYS IN EACH NOST* LEVOTHYROXINE 75 MCG TABLET TAKE 1 TABLET DAILY ON AN EMP* AMLODIPINE 5 MG TABLET Take 0.5 tablets by mouth onc* NYSTATIN 100,000 UNIT/GRAM TO* Apply 1 application to affect* COMPOUNDED PRESCRIPTION Walker COMPOUNDED PRESCRIPTION Walker with wheels Left * FOSINOPRIL 40 MG TABLET Take 1 tablet by mouth once d* METFORMIN ER 500 MG TABLET,EX* Take 1 tablet by mouth twice * LABETALOL 300 MG TABLET Take 1 tablet by mouth twice * ALBUTEROL SULFATE 2.5 MG/3 ML* Use 3 mL via nebulizer every * COMPOUNDED PRESCRIPTION 1 Device every 4 hours as nee* CALCIUM 500 + D ORAL Take by mouth. Every other d* BLOOD GLUCOSE CONTROL, NORMAL* Test controls as needed. * ASPIRIN 81 MG TABLET Take one(1) tablet daily. * CENTRUM SILVER TABLET Take one(1) tablet daily. CEPHALEXIN 500 MG CAPSULE Take 1 capsule by mouth twice* Problem List As Of Date 01/12/2018 Noted Resolved BENIGN HYPERTENSION [I10] More... Hypothyroidism [E03.9] HYPERLIPIDEMIA NEC/NOS [E78.5] 06/24/2015 More... 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15] INVALID FOR*06/24/2015 Nocturia [R35.1] INVALID FOR*06/24/2015 Urge incontinence [N39.41] INVALID FOR*05/16/2011 Female stress incontinence [N39.3] INVALID FOR* Unspecified urinary incontinence [R32] INVALID FOR*06/24/2015 Breast cyst [N60.09] INVALID FOR*06/24/2015 Sebaceous cyst [L72.3] INVALID FOR*06/24/2015 BMI 36.0-36.9,adult [Z68.36] INVALID FOR*11/30/2014 DM (diabetes mellitus), type 2 (HCC) [E11.9] INVALID FOR*06/24/2015 BMI 37.0-37.9, adult [Z68.37] INVALID FOR*06/24/2015 Diabetes mellitus type 2, controlled, without c*INVALID FOR* BMI 38.0-38.9,adult [Z68.38] INVALID FOR*10/07/2015 Hyperlipidemia [E78.5] INVALID FOR* Primary osteoarthritis of right knee [M17.11] INVALID FOR* Cellulitis of right lower extremity [L03.115] INVALID FOR*09/27/2017 Burning with urination [R30.0] INVALID FOR*09/27/2017 Gross hematuria [R31.0] INVALID FOR* Generalized abdominal pain [R10.84] INVALID FOR* Secondhand smoke exposure [Z77.22] INVALID FOR* Aspirin long-term use [Z79.82] INVALID FOR* Asthma [J45.909] 12/19/2016 Mild intermittent asthma without complication [*INVALID FOR* More... Other instructions from your clinician: ASSESSMENT/PLAN: 1. Acute cystitis with hematuria - ICD9: 595.0, ICD10: N30.01 (primary diagnosis) -Avoid alcohol and caffeine as these are bladder irritants and may make symptoms worse. -You can take OTC AZO if needed for painful urination but not for longer then 2 days. - Increase water intake -Follow up with PCP or return to clinic if symptoms not improving in 3 days or if you develop any new (or worsening) symptoms such as fever, chills or back pain. Urinary tract infection (UTI) We will send the urine for culture, which shows us what organism, if any, we are treating. If we need to change the antibiotic coverage, you will receive a call in 48-72 hours. * Seek medical care immediately, call 911, or go to ER if you have high fevers, severe flank or low back pain, blood in your urine. * Follow up with primary care provider if symptoms persist or worsen. - CEPHALEXIN 500 MG CAPSULE 2. Urinary frequency - ICD9: 788.41, ICD10: R35.0 acute - UA positive for barry esterase, hematuria and proteinuria - Send urine for culture - Begin treatment with keflex for 7 days - Patient education for prevention given - UA DIP B/O - URINE CULTURE 3. Cloudy urine - ICD9: 791.9, ICD10: R82.90 - UA DIP B/O - URINE CULTURE Prescriptions ordered this encounter Disp Refills Start End CEPHALEXIN 500 MG CAPSULE 14 c* 0 01/12/2018 01/19/2018 Route: ORAL Sig: Take 1 capsule by mouth twice daily for 7 days. Encounter Status:Closed by BRIDGETTE ALVARADO CNP on 01/12/18 PROGRESS Observed: 12/06/2017 Status: COMPLETED Source: [place] 10:26 PM [facility] REPOSITORY HNO ID: [id number] Author: Javi Live Service: (none) Author Type: Physician Type: Progress Notes Filed: 12/06/2017 10:28 PM Note Text: PROCEDURE- JOINT INJECTION Joint Sites: knee On exam, the joint is cool to touch without sign of infection. Flexion is limited and is uncomfortable. Crepitation is present with ROM. The proposed risks versus benefits of local anesthetic and steroid injection were discussed in detail. The patient verbalizes understanding and elects to proceed with the injection. The procedure was verified with the patient, including the correct injection site, and confirmation with both the patient and marketing support coordinator. Under sterile technique following verbal consent the patient underwent a right knee injection with 2cc of 6 mg/ml Celestone with 3 cc 1% Lidocaine and tolerated the procedure well without complications. The injection was performed through a superior-lateral portal to the knee without incident. The patient tolerated the injection well. Verbal instructions on post-injection care were given. Javi Live MD PROGRESS Observed: 11/08/2017 Status: COMPLETED Source: [place] 8:29 AM [facility] REPOSITORY HNO ID: [id number] Author: Javi Live Service: (none) Author Type: Physician Type: Progress Notes Filed: 12/06/2017 10:28 PM Note Text: CONSULT ORTHOPAEDIC: KNEE PRIMARY CARE PHYSICIAN: Perry Escudero MD REFERRING PROVIDER: SELF ASSESSMENT AND PLAN Impression: Right Knee Severe Degenerative Osteoarthritis, Primary After discussion with Angeline Montana, continued non-operative management of injection(s) was chosen. The patient currently has had progressive symptoms. Progressive Symptoms Include: Pain effecting living situation Pain limiting ability to stay fit and healthy. The patient has been ordered: No orders placed today. CONSULTS: Patient does not require consults for optimization at this time. ACTIVE PROBLEM LIST Essential Hypertension, Benign Hypothyroidism Dysmetabolic Syndrome X Postmenopausal Atrophic Vaginitis Female Stress Incontinence Diabetes Mellitus Type 2, Controlled, Without Complications (Hcc) Hyperlipidemia Primary Osteoarthritis of Right Knee Gross Hematuria Generalized Abdominal Pain Secondhand Smoke Exposure Aspirin Long-Term Use Mild Intermittent Asthma Without Complication SUBJECTIVE CHIEF COMPLAINT: Knee Pain HPI: Angeline Montana is a 77 year old female here for evaluation and management of right knee pain. 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 The problem began limiting activities 3+ years ago. Looking for non-operative treatments at this time. Currently the pain in the joint is rated at 5 out of 10 with moderate activity. The pain is chronic and constant and is located along the inside aspect and in the back. The pain is described as aching, boring, severe, sharp and stiffness. Relieving factors include ambulatory device, rest and repositioning. There is no specific incident that brought about this pain. She has no additional complaints. FUNCTIONAL STATUS: Walk indoors, such as around the house (1.75 METs) Do light work around the house, such as dusting or washing dishes (2.70 METs) Take care of self, that is eating, dressing, bathing, using the toilet (2.75 METs) Walk a block or two on level ground (2.75 METs) Preoperative Ambulatory Status: Impaired Community Distances Number of Entry Steps: 1 Bedroom Location: First floor Bathroom Location: First floor Caregiver Assistance: Inconsistent/None Home Location: [place] to 150 miles PREVIOUS TREATMENTS: Medical Treatments: Intolerant of NSAIDS REVIEW OF SYSTEMS: GENERAL: Denies fever, chills malaise and weight loss.. PAIN ASSESSMENT: See HPI. MUSCULOSKELETAL: See HPI. Surgical Risk Factors: Diabetes PAST MEDICAL HISTORY Diagnosis Date - Allergic rhinitis, cause unspecified - Arthritis - Asthma - Cataracts, bilateral Seeing Dr. Godwin - Diabetes mellitus without mention of complication Diabetes mellitus - Diverticulosis of colon (without mention of hemorrhage) - Dysmetabolic syndrome X - Essential hypertension, benign - Obesity, unspecified - Other and unspecified hyperlipidemia - Pancreatic cyst 07/24/2016 needs repeat MRI in 6 months from 08/04/17 to recheck - Primary osteoarthritis of right knee 06/24/2015 - Unspecified hypothyroidism - Urgency of urination PAST SURGICAL HISTORY Procedure Laterality Date - APPENDECTOMY - CATARACT EXTRACTION HX Bilateral 05/2014, 06/2017 - COLONOSCOP W/ OR W/O RUST SPEC 1991 Colonoscopy - COLONOSCOP W/ OR W/O RUST SPEC 05/11/2011 Colonoscopy - DANDC, DIAG AND/OR THERAPEUTIC Dilation AND curettage - FNA WITH IMAGING 09/15/10 U/S FNA right breast 6 O'clock - REMOVAL OF TONSILS,<10 Y/O Tonsillectomy - TOTAL ABDOM HYSTERECTOMY Hysterectomy, JOSE still has her ovaries FAMILY HISTORY Problem Relation Age of Onset - Diabetes Father - Hypertension Father - heart disease [OTHER] Father - Diabetes Mother - Hypertension Mother - heart disease [OTHER] Brother - Cancer Daughter had a hysterectomy for cervical - Diabetes Brother - Diabetes Maternal Grandmother - Hypertension Maternal Grandmother - Stroke Maternal Grandmother - Hypertension Brother - Hypertension Maternal Grandfather - Stroke Maternal Grandfather Social History Marital status: Spouse name: Years of education: 17+ Number of children: 2 Occupational History Occupation Employer Comment retired [employer]* Social History Main Topics Smoking status: Never Smoker Smokeless status: Never Used Alcohol use: Yes Comment: rarely 1 per year Drug use: No Sexual activity: Not Currently Partners with: Male Social History Narrative Enjoys playing cards 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 albuterol HFA (PROVENTIL HFA, VENTOLIN HFA) 90 mcg/actuation inhaler Inhale 2 Puffs as instructed every 4 hours as needed. furosemide (LASIX) 20 mg tablet Take 1 tablet by mouth once daily. fluticasone (FLONASE) 50 mcg/actuation nasal spray INSTILL 2 SPRAYS IN EACH NOSTRIL ONCE DAILY. RINSE MOUTH AFTER USE levothyroxine (SYNTHROID) 75 mcg tablet TAKE 1 TABLET DAILY ON AN EMPTY STOMACH amLODIPine (NORVASC) 5 mg tablet Take 0.5 tablets by mouth once daily. nystatin (MYCOSTATIN) ointment Apply 1 application to affected area twice daily. COMPOUNDED PRESCRIPTION Walker COMPOUNDED PRESCRIPTION Walker with wheelsLeft Leg Pain: M79.605Chronic Right Knee Pain M25.561 Fosinopril Sodium 40 mg tablet Take 1 tablet by mouth once daily. metFORMIN ER (GLUCOPHAGE XR) 500 mg 24 hr tablet Take 1 tablet by mouth twice daily. labetalol (TRANDATE) 300 mg tablet Take 1 tablet by mouth twice daily. albuterol (PROVENTIL) 2.5 mg /3 mL (0.083 %) nebulizer solution Use 3 mL via nebulizer every 4 hours as needed for Wheezing/Shortness of Breath. Use over 5-15minutes. pravastatin (PRAVACHOL) 20 mg tablet Take 1 tablet by mouth daily at bedtime. Nebulizer 1 Device every 4 hours as needed (asthma exacerbation). NEBULIZER AND SUPPLIES FOR HOME USE. DX: mild intermittent asthma CALCIUM CARBONATE/VITAMIN D3 (CALCIUM 500 + D ORAL) Take by mouth. Every other day Blood Glucose Control, Normal (CONTOUR CONTROL SOLUTION, NML) soln Test controls as needed. ASPIRIN 81 MG TAB Take one(1) tablet daily. multivitamins w-minerals/lut(CENTRUM SILVER TAB) Take one(1) tablet daily. PHYSICAL EXAM: Ht 165.1 cm (5' 5) Wt 105.2 kg (232 lb) BMI 38.61 kg/m2 All other systems deferred. GENERAL: Obese HABITUS: Obese GAIT: Antalgic to the right KNEE EXAM: Left: Alignment: Varus deformity, Partially Correctable Range of motion is 0 degrees in extension and 110 degrees of flexion. Extension La degrees Pain with ROM: No Effusion: Slight Tender to the palpation of Medial joint line Pain with patellar compression: No Stability: Anterior/Posterior stable and Varus/Valgus stable Hip Exam: flexion to 100+ degrees, full extension, internal/external rotation adequate and no pain with log roll Neurovascular Status: Sensation Intact, Moves foot and ankle up AND down and 2+ dorsalis pedis Right: Alignment: Varus deformity, Partially Correctable Range of motion is 5 degrees in extension and 110 degrees of flexion. Extension La degrees Pain with ROM: No Effusion: Slight Tender to the palpation of Medial joint line Pain with patellar compression: No Stability: Anterior/Posterior stable and has mild laxity and slight joint space opening MEDIAL with valgus stress. Hip Exam: flexion to 100+ degrees, full extension, internal/external rotation adequate and no pain with log roll Neurovascular Status: Sensation Intact, Moves foot and ankle up AND down and 2+ dorsalis pedis DATA: Diagnostic tests reviewed for today's visit: Right knee X-Ray: Severe tri-compartmental degeneration, Medial joint space noted to have severe degenerative changes, Osteophyte formation in the medial joint space(s) and Preservation of the lateral joint space(s) The following conditions were addressed during the office visit today: Obesity - Weight management strategies SIGNATURE: Javi Live MD PATIENT NAME: Angeline Montana DATE: November 08, 2017 TIME: 8:29 AM CNOV Observed: 11/08/2017 Status: COMPLETED Source: [place] 8:00 AM [facility] REPOSITORY Office Visit (ORMDNA) ANGELINE MONTANA ([id number]) 1940 F Date Time Provider Department 11/08/17 8:00 AM JAVI LIVE During your visit today, we recorded the following information about you: Weight Height 105.2 kg 1.651 m Diana Buck Ma 11/08/2017 8:18 AM Signed Patient presents with: Right Knee Pain Javi Live MD 12/06/2017 10:28 PM Signed CONSULT ORTHOPAEDIC: KNEE PRIMARY CARE PHYSICIAN: Perry Escudero MD REFERRING PROVIDER: SELF ASSESSMENT ANDamp; PLAN Impression: Right Knee Severe Degenerative Osteoarthritis, Primary After discussion with Angeline Montana, continued non-operative management of injection(s) was chosen. The patient currently has had progressive symptoms. Progressive Symptoms Include: Pain effecting living situation Pain limiting ability to stay fit and healthy. The patient has been ordered: No orders placed today. CONSULTS: Patient does not require consults for optimization at this time. ACTIVE PROBLEM LIST Essential Hypertension, Benign Hypothyroidism Dysmetabolic Syndrome X Postmenopausal Atrophic Vaginitis Female Stress Incontinence Diabetes Mellitus Type 2, Controlled, Without Complications ([facility]) Hyperlipidemia Primary Osteoarthritis of Right Knee Gross Hematuria Generalized Abdominal Pain Secondhand Smoke Exposure Aspirin Long-Term Use Mild Intermittent Asthma Without Complication SUBJECTIVE CHIEF COMPLAINT: Knee Pain HPI: Angeline Montana is a 77 year old female here for evaluation and management of right knee pain. 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 The problem began limiting activities 3+ years ago. Looking for non-operative treatments at this time. Currently the pain in the joint is rated at 5 out of 10 with moderate activity. The pain is chronic and constant and is located along the inside aspect and in the back. The pain is described as aching, boring, severe, sharp and stiffness. Relieving factors include ambulatory device, rest and repositioning. There is no specific incident that brought about this pain. She has no additional complaints. FUNCTIONAL STATUS: Walk indoors, such as around the house (1.75 METs) Do light work around the house, such as dusting or washing dishes (2.70 METs) Take care of self, that is eating, dressing, bathing, using the toilet (2.75 METs) Walk a block or two on level ground (2.75 METs) Preoperative Ambulatory Status: Impaired Community Distances Number of Entry Steps: 1 Bedroom Location: First floor Bathroom Location: First floor Caregiver Assistance: Inconsistent/None Home Location: [place] 150 [place] PREVIOUS TREATMENTS: Medical Treatments: Intolerant of NSAIDS REVIEW OF SYSTEMS: GENERAL: Denies fever, chills malaise and weight loss.. PAIN ASSESSMENT: See HPI. MUSCULOSKELETAL: See HPI. Surgical Risk Factors: Diabetes PAST MEDICAL HISTORY Diagnosis Date - Allergic rhinitis, cause unspecified - Arthritis - Asthma - Cataracts, bilateral Seeing Dr. Godwin - Diabetes mellitus without mention of complication Diabetes mellitus - Diverticulosis of colon (without mention of hemorrhage) - Dysmetabolic syndrome X - Essential hypertension, benign - Obesity, unspecified - Other and unspecified hyperlipidemia - Pancreatic cyst 07/24/2016 needs repeat MRI in 6 months from 08/04/17 to recheck - Primary osteoarthritis of right knee 06/24/2015 - Unspecified hypothyroidism - Urgency of urination PAST SURGICAL HISTORY Procedure Laterality Date - APPENDECTOMY - CATARACT EXTRACTION HX Bilateral 05/2014, 06/2017 - COLONOSCOP W/ OR W/O RUST SPEC 1990 Colonoscopy - COLONOSCOP W/ OR W/O BRSH SPEC 05/11/2011 Colonoscopy - DANDamp;C, DIAG AND/OR THERAPEUTIC Dilation ANDamp; curettage - FNA WITH IMAGING 09/15/10 U/S FNA right breast 6 O'clock - REMOVAL OF TONSILS,ANDlt;10 Y/O Tonsillectomy - TOTAL ABDOM HYSTERECTOMY Hysterectomy, JOSE still has her ovaries FAMILY HISTORY Problem Relation Age of Onset - Diabetes Father - Hypertension Father - heart disease [OTHER] Father - Diabetes Mother - Hypertension Mother - heart disease [OTHER] Brother - Cancer Daughter had a hysterectomy for cervical - Diabetes Brother - Diabetes Maternal Grandmother - Hypertension Maternal Grandmother - Stroke Maternal Grandmother - Hypertension Brother - Hypertension Maternal Grandfather - Stroke Maternal Grandfather Social History Marital status: Spouse name: Years of education: 17+ Number of children: 2 Occupational History Occupation Employer Comment retired [employer]* Social History Main Topics Smoking status: Never Smoker Smokeless status: Never Used Alcohol use: Yes Comment: rarely 1 per year Drug use: No Sexual activity: Not Currently Partners with: Male Social History Narrative Enjoys playing cards 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 albuterol HFA (PROVENTIL HFA, VENTOLIN HFA) 90 mcg/actuation inhaler Inhale 2 Puffs as instructed every 4 hours as needed. furosemide (LASIX) 20 mg tablet Take 1 tablet by mouth once daily. fluticasone (FLONASE) 50 mcg/actuation nasal spray INSTILL 2 SPRAYS IN EACH NOSTRIL ONCE DAILY. RINSE MOUTH AFTER USE levothyroxine (SYNTHROID) 75 mcg tablet TAKE 1 TABLET DAILY ON AN EMPTY STOMACH amLODIPine (NORVASC) 5 mg tablet Take 0.5 tablets by mouth once daily. nystatin (MYCOSTATIN) ointment Apply 1 application to affected area twice daily. COMPOUNDED PRESCRIPTION Walker COMPOUNDED PRESCRIPTION Walker with wheelsLeft Leg Pain: M79.605Chronic Right Knee Pain M25.561 Fosinopril Sodium 40 mg tablet Take 1 tablet by mouth once daily. metFORMIN ER (GLUCOPHAGE XR) 500 mg 24 hr tablet Take 1 tablet by mouth twice daily. labetalol (TRANDATE) 300 mg tablet Take 1 tablet by mouth twice daily. albuterol (PROVENTIL) 2.5 mg /3 mL (0.083 %) nebulizer solution Use 3 mL via nebulizer every 4 hours as needed for Wheezing/Shortness of Breath. Use over 5-15minutes. pravastatin (PRAVACHOL) 20 mg tablet Take 1 tablet by mouth daily at bedtime. Nebulizer 1 Device every 4 hours as needed (asthma exacerbation). NEBULIZER AND SUPPLIES FOR HOME USE. DX: mild intermittent asthma CALCIUM CARBONATE/VITAMIN D3 (CALCIUM 500 + D ORAL) Take by mouth. Every other day Blood Glucose Control, Normal (CONTOUR CONTROL SOLUTION, NML) soln Test controls as needed. ASPIRIN 81 MG TAB Take one(1) tablet daily. multivitamins w-minerals/lut(CENTRUM SILVER TAB) Take one(1) tablet daily. PHYSICAL EXAM: Ht 165.1 cm (5' 5ANDquot;) Wt 105.2 kg (232 lb) BMI 38.61 kg/m2 All other systems deferred. GENERAL: Obese HABITUS: Obese GAIT: Antalgic to the right KNEE EXAM: Left: Alignment: Varus deformity, Partially Correctable Range of motion is 0 degrees in extension and 110 degrees of flexion. Extension La degrees Pain with ROM: No Effusion: Slight Tender to the palpation of Medial joint line Pain with patellar compression: No Stability: Anterior/Posterior stable and Varus/Valgus stable Hip Exam: flexion to 100+ degrees, full extension, internal/external rotation adequate and no pain with log roll Neurovascular Status: Sensation Intact, Moves foot and ankle up ANDamp; down and 2+ dorsalis pedis Right: Alignment: Varus deformity, Partially Correctable Range of motion is 5 degrees in extension and 110 degrees of flexion. Extension La degrees Pain with ROM: No Effusion: Slight Tender to the palpation of Medial joint line Pain with patellar compression: No Stability: Anterior/Posterior stable and has mild laxity and slight joint space opening MEDIAL with valgus stress. Hip Exam: flexion to 100+ degrees, full extension, internal/external rotation adequate and no pain with log roll Neurovascular Status: Sensation Intact, Moves foot and ankle up ANDamp; down and 2+ dorsalis pedis DATA: Diagnostic tests reviewed for today's visit: Right knee X-Ray: Severe tri-compartmental degeneration, Medial joint space noted to have severe degenerative changes, Osteophyte formation in the medial joint space(s) and Preservation of the lateral joint space(s) The following conditions were addressed during the office visit today: Obesity - Weight management strategies SIGNATURE: Javi Live MD PATIENT NAME: Angeline Montana DATE: November 08, 2017 TIME: 8:29 AM Javi Live MD 12/06/2017 10:28 PM Signed PROCEDURE- JOINT INJECTION Joint Sites: knee On exam, the joint is cool to touch without sign of infection. Flexion is limited and is uncomfortable. Crepitation is present with ROM. The proposed risks versus benefits of local anesthetic and steroid injection were discussed in detail. The patient verbalizes understanding and elects to proceed with the injection. The procedure was verified with the patient, including the correct injection site, and confirmation with both the patient and marketing support coordinator. Under sterile technique following verbal consent the patient underwent a right knee injection with 2cc of 6 mg/ml Celestone with 3 cc 1% Lidocaine and tolerated the procedure well without complications. The injection was performed through a superior-lateral portal to the knee without incident. The patient tolerated the injection well. Verbal instructions on post-injection care were given. Javi Live MD Referring Provider: SELF [[id number]] Allergies As of Date: 11/08/2017 Noted Allergy Reaction CODEINE 09/11/2005 4 - Hives ERYTHROMYCIN 09/11/2005 8 - GI Upset PENICILLINS 09/11/2005 4 - Hives Date Reviewed: 11/08/2017 Reviewed by: Diana Buck Ma - Fully Assessed Reason for Visit: Right Knee Pain [1209] Primary Visit Diagnosis:Primary osteoarthritis of right knee [M17.11] Prescriptions as of 11/08/2017 Sig: X CEPHALEXIN 500 MG CAPSULE Take 1 capsule by mouth four * ALBUTEROL SULFATE HFA 90 MCG/* Inhale 2 Puffs as instructed * FUROSEMIDE 20 MG TABLET Take 1 tablet by mouth once d* FLUTICASONE 50 MCG/ACTUATION * INSTILL 2 SPRAYS IN EACH NOST* LEVOTHYROXINE 75 MCG TABLET TAKE 1 TABLET DAILY ON AN EMP* AMLODIPINE 5 MG TABLET Take 0.5 tablets by mouth onc* NYSTATIN 100,000 UNIT/GRAM TO* Apply 1 application to affect* COMPOUNDED PRESCRIPTION Walker COMPOUNDED PRESCRIPTION Walker with wheels Left * FOSINOPRIL 40 MG TABLET Take 1 tablet by mouth once d* METFORMIN ER 500 MG TABLET,EX* Take 1 tablet by mouth twice * LABETALOL 300 MG TABLET Take 1 tablet by mouth twice * ALBUTEROL SULFATE 2.5 MG/3 ML* Use 3 mL via nebulizer every * X PRAVASTATIN 20 MG TABLET Take 1 tablet by mouth daily * COMPOUNDED PRESCRIPTION 1 Device every 4 hours as nee* CALCIUM 500 + D ORAL Take by mouth. Every other d* BLOOD GLUCOSE CONTROL, NORMAL* Test controls as needed. * ASPIRIN 81 MG TABLET Take one(1) tablet daily. * CENTRUM SILVER TABLET Take one(1) tablet daily. Medication notes this encounter CEPHALEXIN 500 MG CAPSULE >> Diana Mari Buck Chilo 11/08/2017 8:10 AM >> HARRY BUCK MAEN DecemberNov 08, 2017 8:10 AM D/C >> Diana December Buck Chilo 11/08/2017 8:10 AM >> AYSHA WOO DIANA DecemberNov 08, 2017 8:10 AM Will finish Sunday Problem List As Of Date 11/08/2017 Noted Resolved BENIGN HYPERTENSION [I10] More... Hypothyroidism [E03.9] HYPERLIPIDEMIA NEC/NOS [E78.5] 06/24/2015 More... 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15] INVALID FOR*06/24/2015 Nocturia [R35.1] INVALID FOR*06/24/2015 Urge incontinence [N39.41] INVALID FOR*05/16/2011 Female stress incontinence [N39.3] INVALID FOR* Unspecified urinary incontinence [R32] INVALID FOR*06/24/2015 Breast cyst [N60.09] INVALID FOR*06/24/2015 Sebaceous cyst [L72.3] INVALID FOR*06/24/2015 BMI 36.0-36.9,adult [Z68.36] INVALID FOR*11/30/2014 DM (diabetes mellitus), type 2 (HCC) [E11.9] INVALID FOR*06/24/2015 BMI 37.0-37.9, adult [Z68.37] INVALID FOR*06/24/2015 Diabetes mellitus type 2, controlled, without c*INVALID FOR* BMI 38.0-38.9,adult [Z68.38] INVALID FOR*10/07/2015 Hyperlipidemia [E78.5] INVALID FOR* Primary osteoarthritis of right knee [M17.11] INVALID FOR* Cellulitis of right lower extremity [L03.115] INVALID FOR*09/27/2017 Burning with urination [R30.0] INVALID FOR*09/27/2017 Gross hematuria [R31.0] INVALID FOR* Generalized abdominal pain [R10.84] INVALID FOR* Secondhand smoke exposure [Z77.22] INVALID FOR* Aspirin long-term use [Z79.82] INVALID FOR* Asthma [J45.909] 12/19/2016 Mild intermittent asthma without complication [*INVALID FOR* More... Visit Notes: >> Diana Buck Ma Filomena Nov 08, 2017 8:10 AM Status: Signed Patient presents with: Right Knee Pain Encounter Status:Closed by JAVI LIVE MD on 12/06/17 XR KNEE 4V AP/PA Observed: 11/05/2017 Status: F Source: [facility] BOTH+LAT/TESS RT 9:06 AM [facility] REPOSITORY * * *Final Report* * * DATE OF EXAM: Nov 05 2017 9:06AM WRX [id number] - XR KNEE 4V AP/PA BOTH+LAT/TESS RT / PROCEDURE REASON: Pain, unspecified * * * * Physician Interpretation * * * * EXAM TITLE: XR KNEE 4V AP/PA BOTH+LAT/TESS RT EXAM DATE/TIME: 11/05/2017 9:06 AM COMPARISON: None. CLINICAL INDICATION/HISTORY: Right knee pain. TECHNIQUE: AP, lateral, sunrise and tunnel views of the right knee are presented. FINDINGS: Right knee: No fractures or subluxations are noted. There is significant medial compartmental joint space narrowing. Tricompartmental osteophyte formation is present. There are loose bodies. There is no evidence of joint effusion. The mineralization of the bones is normal. There is no significant soft tissue swelling. Left knee: Medial compartmental joint space narrowing. IMPRESSION: Findings are suggestive of osteoarthritis of the right knee. Die Stamper: MICKEY Transcribe Date/Time: Nov 05 2017 9:41A Dictated by : NORBERTO MUÑIZ MD This examination was interpreted and the report reviewed and electronically signed by: NORBERTO MUÑIZ MD on Nov 05 2017 9:44AM EST [id number] PROGRESS Observed: 11/05/2017 Status: COMPLETED Source: [place] 8:51 AM [facility] REPOSITORY HNO ID: [id number] Author: Dakota Garcia (Rt) Yogesh Tate Service: (none) Author Type: Supervisor Sound Technician Type: Progress Notes Filed: 11/05/2017 9:07 AM Note Text: Radiology Service Progress Note PATIENT NAME: Angeline Montana DATE OF SERVICE: November 05, 2017 TIME: 8:51 AM PATIENT IDENTITY VERIFICATION COMPLETED USING TWO (2) METHODS: Patient confirmed name verbally and Date of . PATIENT GENDER DATA: Female. status: : No status: NO. PATIENT RELEVANT IMPLANT DATA REVIEWED: Not Applicable RADIOLOGY DEPARTMENT: General X-ray: Exam(s) Completed: Lower Extremity X-Ray(s): Knee, AP / Lat / Tunne / Merchant Right and Wt. Bearing: PERIPHERAL IV DATA: Not applicable SIGNED BY: RT Rakesh November 05, 2017 8:51 AM PROGRESS Observed: 10/29/2017 Status: COMPLETED Source: [place] 10:36 AM [facility] REPOSITORY O ID: [id number] Author: Suzi Velazco Service: (none) Author Type: Nurse Practitioner Type: Progress Notes Filed: 10/29/2017 11:08 AM Note Text: 10/29/2017 Patient presents with: SAMANTA leg edema and warm to touch SUBJECTIVE: This is a 77 year old that is here today for left leg swelling, warmth, slight pain, and small blisters starting to form. She states that her daughter was visiting yesterday and she wanted to see how the lasix was working, so she looked at her legs. She noticed the symptoms listed above. She denies any open areas, fever, chills, streaking. She states that she is worried because she had cellulitis a couple of years ago that required a hospital stay because it was so bad. She states that she recalls tolerating the keflex she was given by Dr. Rodriguez after the hospital stay, she only recalls not doing well with any of the pain medications. She would prefer to go back to something that she has tolerated before rather than anything new. She denies any pain when walking, just twinges of pain here and there. Denies CP, SOB, cough, wheezing, palpitations. She states that she has not been able to wear compression stockings for edema because of her calf size and the elastic made her break out. She was using KRZYSZTOF wraps, but she cannot get her shoes on if she does. She is very active and this is a concern for her. A friend gave her a catalog that they order their compression stockings from and she measured herself and plans to order a pair to try. She is elevating at night. She does feel that they lasix is helping. PAST MEDICAL HISTORY Diagnosis Date - Allergic rhinitis, cause unspecified - Arthritis - Asthma - Cataracts, bilateral Seeing Dr. Godwin - Diabetes mellitus without mention of complication Diabetes mellitus - Diverticulosis of colon (without mention of hemorrhage) - Dysmetabolic syndrome X - Essential hypertension, benign - Obesity, unspecified - Other and unspecified hyperlipidemia - Pancreatic cyst 07/24/2016 needs repeat MRI in 6 months from 08/04/17 to recheck - Primary osteoarthritis of right knee 06/24/2015 - Unspecified hypothyroidism - Urgency of urination ALLERGIES Codeine; Erythromycin; Penicillins MEDICATIONS Current Outpatient Prescriptions: albuterol HFA (PROVENTIL HFA, VENTOLIN HFA) 90 mcg/actuation inhaler Inhale 2 Puffs as instructed every 4 hours as needed. furosemide (LASIX) 20 mg tablet Take 1 tablet by mouth once daily. fluticasone (FLONASE) 50 mcg/actuation nasal spray INSTILL 2 SPRAYS IN EACH NOSTRIL ONCE DAILY. RINSE MOUTH AFTER USE levothyroxine (SYNTHROID) 75 mcg tablet TAKE 1 TABLET DAILY ON AN EMPTY STOMACH amLODIPine (NORVASC) 5 mg tablet Take 0.5 tablets by mouth once daily. nystatin (MYCOSTATIN) ointment Apply 1 application to affected area twice daily. COMPOUNDED PRESCRIPTION Walker COMPOUNDED PRESCRIPTION Walker with wheelsLeft Leg Pain: M79.605Chronic Right Knee Pain M25.561 Fosinopril Sodium 40 mg tablet Take 1 tablet by mouth once daily. metFORMIN ER (GLUCOPHAGE XR) 500 mg 24 hr tablet Take 1 tablet by mouth twice daily. labetalol (TRANDATE) 300 mg tablet Take 1 tablet by mouth twice daily. albuterol (PROVENTIL) 2.5 mg /3 mL (0.083 %) nebulizer solution Use 3 mL via nebulizer every 4 hours as needed for Wheezing/Shortness of Breath. Use over 5-15minutes. pravastatin (PRAVACHOL) 20 mg tablet Take 1 tablet by mouth daily at bedtime. Nebulizer 1 Device every 4 hours as needed (asthma exacerbation). NEBULIZER AND SUPPLIES FOR HOME USE. DX: mild intermittent asthma CALCIUM CARBONATE/VITAMIN D3 (CALCIUM 500 + D ORAL) Take by mouth. Every other day Blood Glucose Control, Normal (CONTOUR CONTROL SOLUTION, NML) soln Test controls as needed. ASPIRIN 81 MG TAB Take one(1) tablet daily. multivitamins w-minerals/lut(CENTRUM SILVER TAB) Take one(1) tablet daily. No current facility-administered medications for this visit. Medications and allergies reviewed by this provider. 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 Vital signs reviewed by this provider. PHYSICAL EXAMINATION: General appearance: Well appearing, alert, in no acute distress, well-hydrated, well nourished., Overweight Lungs: Lungs clear to auscultation. No wheezing, rhonchi, rales Heart: RRR without murmur, gallop, or rubs. No ectopy Extremities: Pulses: 2+, Edema: Trace to right leg, 1+ to right foot, left leg 1+ and left foot 1+, left anterior lower leg with slight erythema, warm to touch, 3 small start of blisters (less than 0.5cm). Area starts just below the knee and ends just above the ankle and the entire width of the anterior lower leg. No open areas or drainage. Slightly shiny appearance. No streaking. ASSESSMENT/PLAN: 1. Cellulitis of left lower leg - ICD9: 682.6, ICD10: L03.116 - Begin treatment with Cephalaxin (Keflex) - No lymphangetic streaking, this was defined for patient to watch for and to seek medical care immediately if appears - Discussed possible cross reaction with PCN allergy- encouraged to monitor symptoms- states that she prefers to be on something that she knows that she has tolerated in the past with her history of not tolerating medications - follow up as needed if no improvement or with any worsening symptoms. Discussed that this appears to be just the start of the infection, so hopeful that this treatment will be all she needs, but discussed that if not starting to get any better with the antibiotic, she should be seen. If worsening on the antibiotic, she needs to be seen immediately. - CEPHALEXIN 500 MG CAPSULE TABITHA OrantesOV Observed: 10/29/2017 Status: COMPLETED Source: [place] 10:20 AM [facility] REPOSITORY [facility] ANGELINE MONTANA ([id number]) 1940 F Date Time Provider Department 10/29/17 10:20 AM SUZI VELAZCO (TABITHA) BHARAT During your visit today, we recorded the following information about you: Temperature Pulse Respiration Blood pressure 96.8 degrees 74/minute 16/minute 130/84 Weight 104.8 kg Suzi Velazco CNP 10/29/2017 11:08 AM Signed 10/29/2017 Patient presents with: SAMANTA leg edema and warm to touch SUBJECTIVE: This is a 77 year old that is here today for left leg swelling, warmth, slight pain, and small blisters starting to form. She states that her daughter was visiting yesterday and she wanted to see how the lasix was working, so she looked at her legs. She noticed the symptoms listed above. She denies any open areas, fever, chills, streaking. She states that she is worried because she had cellulitis a couple of years ago that required a hospital stay because it was so bad. She states that she recalls tolerating the keflex she was given by Dr. Rodriguez after the hospital stay, she only recalls not doing well with any of the pain medications. She would prefer to go back to something that she has tolerated before rather than anything new. She denies any pain when walking, just ANDquot;twinges of pain here and thereANDquot;. Denies CP, SOB, cough, wheezing, palpitations. She states that she has not been able to wear compression stockings for edema because of her calf size and the elastic made her break out. She was using KRZYSZTOF wraps, but she cannot get her shoes on if she does. She is very active and this is a concern for her. A friend gave her a catalog that they order their compression stockings from and she measured herself and plans to order a pair to try. She is elevating at night. She does feel that they lasix is helping. PAST MEDICAL HISTORY Diagnosis Date - Allergic rhinitis, cause unspecified - Arthritis - Asthma - Cataracts, bilateral Seeing Dr. Godwin - Diabetes mellitus without mention of complication Diabetes mellitus - Diverticulosis of colon (without mention of hemorrhage) - Dysmetabolic syndrome X - Essential hypertension, benign - Obesity, unspecified - Other and unspecified hyperlipidemia - Pancreatic cyst 07/24/2016 needs repeat MRI in 6 months from 08/04/17 to recheck - Primary osteoarthritis of right knee 06/24/2015 - Unspecified hypothyroidism - Urgency of urination ALLERGIES Codeine; Erythromycin; Penicillins MEDICATIONS Current Outpatient Prescriptions: albuterol HFA (PROVENTIL HFA, VENTOLIN HFA) 90 mcg/actuation inhaler Inhale 2 Puffs as instructed every 4 hours as needed. furosemide (LASIX) 20 mg tablet Take 1 tablet by mouth once daily. fluticasone (FLONASE) 50 mcg/actuation nasal spray INSTILL 2 SPRAYS IN EACH NOSTRIL ONCE DAILY. RINSE MOUTH AFTER USE levothyroxine (SYNTHROID) 75 mcg tablet TAKE 1 TABLET DAILY ON AN EMPTY STOMACH amLODIPine (NORVASC) 5 mg tablet Take 0.5 tablets by mouth once daily. nystatin (MYCOSTATIN) ointment Apply 1 application to affected area twice daily. COMPOUNDED PRESCRIPTION Walker COMPOUNDED PRESCRIPTION Walker with wheelsLeft Leg Pain: M79.605Chronic Right Knee Pain M25.561 Fosinopril Sodium 40 mg tablet Take 1 tablet by mouth once daily. metFORMIN ER (GLUCOPHAGE XR) 500 mg 24 hr tablet Take 1 tablet by mouth twice daily. labetalol (TRANDATE) 300 mg tablet Take 1 tablet by mouth twice daily. albuterol (PROVENTIL) 2.5 mg /3 mL (0.083 %) nebulizer solution Use 3 mL via nebulizer every 4 hours as needed for Wheezing/Shortness of Breath. Use over 5-15minutes. pravastatin (PRAVACHOL) 20 mg tablet Take 1 tablet by mouth daily at bedtime. Nebulizer 1 Device every 4 hours as needed (asthma exacerbation). NEBULIZER AND SUPPLIES FOR HOME USE. DX: mild intermittent asthma CALCIUM CARBONATE/VITAMIN D3 (CALCIUM 500 + D ORAL) Take by mouth. Every other day Blood Glucose Control, Normal (CONTOUR CONTROL SOLUTION, NML) soln Test controls as needed. ASPIRIN 81 MG TAB Take one(1) tablet daily. multivitamins w-minerals/lut(CENTRUM SILVER TAB) Take one(1) tablet daily. No current facility-administered medications for this visit. Medications and allergies reviewed by this provider. 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 Vital signs reviewed by this provider. PHYSICAL EXAMINATION: General appearance: Well appearing, alert, in no acute distress, well-hydrated, well nourished., Overweight Lungs: Lungs clear to auscultation. No wheezing, rhonchi, rales Heart: RRR without murmur, gallop, or rubs. No ectopy Extremities: Pulses: 2+, Edema: Trace to right leg, 1+ to right foot, left leg 1+ and left foot 1+, left anterior lower leg with slight erythema, warm to touch, 3 small start of blisters (less than 0.5cm). Area starts just below the knee and ends just above the ankle and the entire width of the anterior lower leg. No open areas or drainage. Slightly shiny appearance. No streaking. ASSESSMENT/PLAN: 1. Cellulitis of left lower leg - ICD9: 682.6, ICD10: L03.116 - Begin treatment with Cephalaxin (Keflex) - No lymphangetic streaking, this was defined for patient to watch for and to seek medical care immediately if appears - Discussed possible cross reaction with PCN allergy- encouraged to monitor symptoms- states that she prefers to be on something that she knows that she has tolerated in the past with her history of not tolerating medications - follow up as needed if no improvement or with any worsening symptoms. Discussed that this appears to be just the start of the infection, so hopeful that this treatment will be all she needs, but discussed that if not starting to get any better with the antibiotic, she should be seen. If worsening on the antibiotic, she needs to be seen immediately. - CEPHALEXIN 500 MG CAPSULE Suzi Velazco CNP Referring Provider: SELF [[id number]] Allergies As of Date: 10/29/2017 Noted Allergy Reaction CODEINE 09/11/2005 4 - Hives ERYTHROMYCIN 09/11/2005 8 - GI Upset PENICILLINS 09/11/2005 4 - Hives Date Reviewed: 10/29/2017 Reviewed by: Clinton Huerta Ma - Fully Assessed Reason for Visit: SAMANTA leg edema and warm to touch [Other] Primary Visit Diagnosis:Cellulitis of left lower leg [L03.116] Order(s):cephALEXin (KEFLEX) 500 mg capsuleTake 1 capsule by mouth four times daily for 10 days.Disp: 40 capsuleRfl: 0 Prescriptions as of 10/29/2017 Sig: ALBUTEROL SULFATE HFA 90 MCG/* Inhale 2 Puffs as instructed * FUROSEMIDE 20 MG TABLET Take 1 tablet by mouth once d* FLUTICASONE 50 MCG/ACTUATION * INSTILL 2 SPRAYS IN EACH NOST* LEVOTHYROXINE 75 MCG TABLET TAKE 1 TABLET DAILY ON AN EMP* AMLODIPINE 5 MG TABLET Take 0.5 tablets by mouth onc* NYSTATIN 100,000 UNIT/GRAM TO* Apply 1 application to affect* COMPOUNDED PRESCRIPTION Walker COMPOUNDED PRESCRIPTION Walker with wheels Left * FOSINOPRIL 40 MG TABLET Take 1 tablet by mouth once d* METFORMIN ER 500 MG TABLET,EX* Take 1 tablet by mouth twice * LABETALOL 300 MG TABLET Take 1 tablet by mouth twice * ALBUTEROL SULFATE 2.5 MG/3 ML* Use 3 mL via nebulizer every * PRAVASTATIN 20 MG TABLET Take 1 tablet by mouth daily * COMPOUNDED PRESCRIPTION 1 Device every 4 hours as nee* CALCIUM 500 + D ORAL Take by mouth. Every other d* BLOOD GLUCOSE CONTROL, NORMAL* Test controls as needed. * ASPIRIN 81 MG TABLET Take one(1) tablet daily. * CENTRUM SILVER TABLET Take one(1) tablet daily. CEPHALEXIN 500 MG CAPSULE Take 1 capsule by mouth four * Medication notes this encounter ASPIRIN 81 MG TABLET >> Clinton Huerta Ma 10/29/2017 10:27 AM >> CLINTON HUERTA MA Oct 29, 2017 10:27 AM Problem List As Of Date 10/29/2017 Noted Resolved BENIGN HYPERTENSION [I10] More... Hypothyroidism [E03.9] HYPERLIPIDEMIA NEC/NOS [E78.5] 06/24/2015 More... 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15] INVALID FOR*06/24/2015 Nocturia [R35.1] INVALID FOR*06/24/2015 Urge incontinence [N39.41] INVALID FOR*05/16/2011 Female stress incontinence [N39.3] INVALID FOR* Unspecified urinary incontinence [R32] INVALID FOR*06/24/2015 Breast cyst [N60.09] INVALID FOR*06/24/2015 Sebaceous cyst [L72.3] INVALID FOR*06/24/2015 BMI 36.0-36.9,adult [Z68.36] INVALID FOR*11/30/2014 DM (diabetes mellitus), type 2 (HCC) [E11.9] INVALID FOR*06/24/2015 BMI 37.0-37.9, adult [Z68.37] INVALID FOR*06/24/2015 Diabetes mellitus type 2, controlled, without c*INVALID FOR* BMI 38.0-38.9,adult [Z68.38] INVALID FOR*10/07/2015 Hyperlipidemia [E78.5] INVALID FOR* Primary osteoarthritis of right knee [M17.11] INVALID FOR* Cellulitis of right lower extremity [L03.115] INVALID FOR*09/27/2017 Burning with urination [R30.0] INVALID FOR*09/27/2017 Gross hematuria [R31.0] INVALID FOR* Generalized abdominal pain [R10.84] INVALID FOR* Secondhand smoke exposure [Z77.22] INVALID FOR* Aspirin long-term use [Z79.82] INVALID FOR* Asthma [J45.909] 12/19/2016 Mild intermittent asthma without complication [*INVALID FOR* More... Prescriptions ordered this encounter Disp Refills Start End CEPHALEXIN 500 MG CAPSULE 40 c* 0 10/29/2017 11/08/2017 Route: ORAL Sig: Take 1 capsule by mouth four times daily for 10 days. Disposition: Return if symptoms worsen or fail to improve. Follow-up and Disposition History Recorded Encounter Status:Closed by SUZI VELAZCO on 10/29/17 PROGRESS Observed: 10/15/2017 Status: COMPLETED Source: [place] 9:54 AM [facility] REPOSITORY [place] ID: [id number] Author: Dulce St LPN Service: (none) Author Type: (none) Type: Progress Notes Filed: 10/15/2017 9:59 AM Note Text: Manual Readin/72 Pulse: 70 Reason for blood pressure check - Last BP elevated Patient is: Taking medication as prescribed Yes Took medication today Yes If no, date medication last taken N/A Experiencing side effects No BP was elevated at last appt 09/27/17. No BP medication changes were made at that time. Taking all medications as prescribed. Denies any chest pain, unusual shortness of breath, dizziness, or headaches. Drinks mostly decaf. No personal history of tobacco use; no current exposure. Alert and oriented. Pt has been identified by name and birthdate: Yes Allergies reviewed: Yes Latex allergy: no. Medication - prescribed and OTC reviewed and updated: Yes Do you need any prescription refills prior to your next visit: No Health Maintenance: Reviewed and not up to date and provider notified Patient advised to continue with current medications and would be contacted with any further instructions after review by PCP. Dulce St LPN PROGRESS Observed: 09/27/2017 Status: COMPLETED Source: [place] 1:09 PM [facility] REPOSITORY [place] ID: [id number] Author: Perry Brito) [place] Service: (none) Author Type: Physician Type: Progress Notes Filed: 09/27/2017 1:47 PM Note Text: Chief Complaint Patient presents with: Recheck: 3 month follow up HPI Angeline Montana is a 77 year old female who presents here today for 3 month follow up. Complaining today of dry cough with wheezing, SOB, and chest congestion which has been present for the last 3 weeks. Treating with Flonase, OTC cough medicine. Only cough medicine is helping. Has albuterol nebulizer at home, but has not been using it. Has been unable to use the puffer, but instructed on use today. Is able to depress the canister on her own. Admits to sick contacts with family. Feels like symptoms not improving. DIABETES MELLITUS: Ms. Montana was last seen 3 months ago. Since our last visit she denies excessive thirst or increased frequency of urination, numbness, tingling or pain in extremities, new or unusual visual symptoms and low sugar/hypoglycemic reactions. Follows a diabetic diet some of the time. She is compliant with medication(s) and is tolerating med(s) without any side effects. Patient's last HgA1C was Hemoglobin A1C (%) Date Value 09/20/2017 6.0 12/14/2016 6.2 ) Last Ophthalmology exam was within the past [address] Godwin's office. Last Podiatry exam was within the past 12 months Neck pain discussed at last visit is improving with PT. Still going 2 times per week and has improved ROM and pain. Still having left leg swelling. Has been unable to wear compression stockings or KRZYSZTOF wrap as her foot will not fit in shoes, even larger men' shoe. Feels like lasix was helping initially, but seems to be worsening. Past medical history, appointments, medications, allergies reviewed. Previous Medical History PAST MEDICAL HISTORY Diagnosis Date - Allergic rhinitis, cause unspecified - Arthritis - Asthma - Cataracts, bilateral Seeing Dr. Godwin - Diabetes mellitus without mention of complication Diabetes mellitus - Diverticulosis of colon (without mention of hemorrhage) - Dysmetabolic syndrome X - Essential hypertension, benign - Obesity, unspecified - Other and unspecified hyperlipidemia - Pancreatic cyst 07/24/2016 needs repeat MRI in 6 months from 08/04/17 to recheck - Primary osteoarthritis of right knee 06/24/2015 - Unspecified hypothyroidism - Urgency of urination Previous Surgical History PAST SURGICAL HISTORY Procedure Laterality Date - APPENDECTOMY - COLONOSCOP W/ OR W/O RUST SPEC 1990 Colonoscopy - COLONOSCOP W/ OR W/O RUST SPEC 05/11/2011 Colonoscopy - DANDC, DIAG AND/OR THERAPEUTIC Dilation AND curettage - FNA WITH IMAGING 09/15/10 U/S FNA right breast 6 O'clock - REMOVAL OF TONSILS,<12 Y/O Tonsillectomy - TOTAL ABDOM HYSTERECTOMY Hysterectomy, JOSE still has her ovaries Family History FAMILY HISTORY Problem Relation Age of Onset - Diabetes Father - Hypertension Father - heart disease [OTHER] Father - Diabetes Mother - Hypertension Mother - heart disease [OTHER] Brother - Cancer Daughter had a hysterectomy for cervical - Diabetes Brother - Diabetes Maternal Grandmother - Hypertension Maternal Grandmother - Stroke Maternal Grandmother - Hypertension Brother - Hypertension Maternal Grandfather - Stroke Maternal Grandfather Patient Allergies ALLERGIES Allergen Reactions - Codeine Hives - Erythromycin GI Upset - Penicillins Hives Current Medications Current Outpatient Prescriptions on File Prior to Visit: levothyroxine (SYNTHROID) 75 mcg tablet TAKE 1 TABLET DAILY ON AN EMPTY STOMACH furosemide (LASIX) 20 mg tablet Take 1 tablet by mouth once daily. amLODIPine (NORVASC) 5 mg tablet Take 0.5 tablets by mouth once daily. fluticasone (FLONASE) 50 mcg/actuation nasal spray INSTILL 2 SPRAYS IN EACH NOSTRIL ONCE DAILY. RINSE MOUTH AFTER USE atropine 1 % ophthalmic solution Use 1 Drop in the right eye twice daily. ciprofloxacin HCl (CILOXAN) 0.3 % ophthalmic solution Use 1 Drop in the right eye as directed. 4 times daily 3 days before surgery then 4 times daily after surgery. Ketorolac Tromethamine (ACLUAR LS) 0.4 % drop Use 1 Drop in the right eye as directed. 4 times daily 3 days before surgery then 4 times daily after surgery. prednisoLONE acetate (PRED FORTE, ECONOPRED PLUS) 1 % ophthalmic suspension Use 1 Drop in the right eye as directed. 4 times daily after surgery. nystatin (MYCOSTATIN) ointment Apply 1 application to affected area twice daily. COMPOUNDED PRESCRIPTION Walker COMPOUNDED PRESCRIPTION Walker with wheelsLeft Leg Pain: M79.605Chronic Right Knee Pain M25.561 Fosinopril Sodium 40 mg tablet Take 1 tablet by mouth once daily. metFORMIN ER (GLUCOPHAGE XR) 500 mg 24 hr tablet Take 1 tablet by mouth twice daily. labetalol (TRANDATE) 300 mg tablet Take 1 tablet by mouth twice daily. albuterol (PROVENTIL) 2.5 mg /3 mL (0.083 %) nebulizer solution Use 3 mL via nebulizer every 4 hours as needed for Wheezing/Shortness of Breath. Use over 5-15minutes. pravastatin (PRAVACHOL) 20 mg tablet Take 1 tablet by mouth daily at bedtime. Nebulizer 1 Device every 4 hours as needed (asthma exacerbation). NEBULIZER AND SUPPLIES FOR HOME USE. DX: mild intermittent asthma CALCIUM CARBONATE/VITAMIN D3 (CALCIUM 500 + D ORAL) Take by mouth. Every other day albuterol HFA (PROVENTIL HFA, VENTOLIN HFA) 90 mcg/actuation inhaler Inhale 2 Puffs as instructed every 4 hours as needed. Blood Glucose Control, Normal (CONTOUR CONTROL SOLUTION, NML) soln Test controls as needed. ASPIRIN 81 MG TAB Take one(1) tablet daily. multivitamins w-minerals/lut(CENTRUM SILVER TAB) Take one(1) tablet daily. No current facility-administered medications on file prior to visit. 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 Skin: Skin color, texture, turgor normal, no suspicious rashes or lesions. Lungs: Lungs clear to auscultation. No wheezing, rhonchi, rales. Heart: RRR without murmur, gallop, or rubs. No ectopy. Abdomen: Normal abdominal exam, Abdomen soft, non-tender. Bowel sounds normal. No masses, organomegaly. Extremities:Edema: Trace from ankle to mid tirado on left. Feet: Shoes and socks removed, No deformities, ulcers, calluses, normal distal pulses and sensitive to 10 gm monofilament Health Maintenance List DILATED RETINAL EXAM due on 04/19/2016 DIABETIC FOOT EXAM due on 12/19/2017 HBA1C due on 03/20/2018 URINE ALBUMIN CREATININE RATIO due on 06/19/2018 LDL due on 06/19/2018 COLORECTAL CANCER SCREENING,SEE MODIFIER due on 05/11/2021 TETANUS due on 09/24/2022 BONE DENSITY Completed ADULT PREVNAR-13 Completed INFLUENZA Completed PNEUMOVAX AGE 65 AND OVER WITH 5YR LOOKBACK Completed Data reviewed Component Latest Ref Rng AND Units 12/14/2016 06/19/2017 09/20/2017 Glucose 74 - 99 mg/dL 101 (H) BUN 7 - 21 mg/dL 18 Creatinine 0.58 - 0.96 mg/dL 0.86 0.80 Sodium 136 - 144 mmol/L 136 Potassium 3.7 - 5.1 mmol/L 3.9 Chloride 97 - 105 mmol/L 97 CO2 22 - 30 mmol/L 24 Anion Gap 9 - 18 mmol/L 15 Calcium 8.5 - 10.2 mg/dL 9.5 eGFR- >60 >60 eGFR-All Other Races . >60 >60 Triglyceride 30 - 149 mg/dL 177 (H) Cholesterol, Total 100 - 199 mg/dL 174 HDL Cholesterol >55 mg/dL 57 VLDL Cholesterol 6 - 40 mg/dL 35 LDL Cholesterol 60 - 129 mg/dL 82 Fasting Time hrs 14 TC:HDL Ratio 1.00 - 5.00 3.05 LDL:HDL Ratio 0.50 - 3.55 1.44 Non HDL Cholesterol 90 - 159 mg/dL 117 Creatinine, Ur Random (UCRR) 20 - 300 mg/dL 104.1 Albumin, Urine Random 0.0 - 23.0 mg/L 23.7 (H) Albumin/Creat Ratio 0 - 30 mg/g 23 Hemoglobin A1C 4.3 - 5.6 % 6.2 (H) 6.0 (H) Estimated Average Glucose mg/dL 131 126 TSH 0.400 - 5.500 uU/mL 1.640 ASSESSMENT/PLAN: 1. Controlled type 2 diabetes mellitus without complication, without long-term current use of insulin (HCC) - ICD9: 250.00, ICD10: E11.9 (primary diagnosis) Controlled. - Continue current medications - Blood glucose monitoring on a twice a day schedule - Encouraged regular aerobic exercise and weight loss - Daily Asprin therapy recommended - Follow up in 4 months, sooner should any other issues arise. 2. Bilateral leg edema - ICD9: 782.3, ICD10: R60.0 Swelling mild today. Discussed limiting salt in diet, keeping leg elevated, tighter wrap on KRZYSZTOF bandage. If still worsening to call and will increase lasix. - FUROSEMIDE 20 MG TABLET 3. Essential hypertension, benign - ICD9: 401.1, ICD10: I10 - suboptimal control - Continue current medication(s) - Encouraged dietary sodium restriction/DASH diet - Recommended regular aerobic exercise. - Follow up in 1 month for BP recheck. - Reviewed risks of HTN and principles of treatment - Goal of BP <140/90 4. Hyperlipidemia, unspecified hyperlipidemia type - ICD9: 272.4, ICD10: E78.5 - good control - Continue current medication. - Encouraged following a low fat, low cholesterol diet. - Discussed the benefits of regular aerobic exercise and weight loss. 5. Acquired hypothyroidism - ICD9: 244.9, ICD10: E03.9 - continue current dose of Synthroid 6. Mild intermittent asthma with acute exacerbation - ICD9: 493.92, ICD10: J45.21 Advised avoidance of triggers and instructed to use albuterol every 4 hours for next 2-3 days, then PRN, and call with worsening symptoms. Perry Escudero MD OBSOLETE Observed: 09/23/2017 Status: COMPLETED Source: [place] 12:00 [facility] REPOSITORY Refill (INTMWS) ANGELINE MONTANA ([id number]) 1940 F Date Time Provider Department 09/23/17 PERRY ESCUDERO) INTMWS During your visit today, we recorded the following information about you: Melba Ambriz LPN 09/24/2017 2:44 PM Signed Last office visit: 06/29/17 Next office visit: 09/27/17 Patient has been identified by name and date of : Yes Pending Prescriptions Disp Refills LEVOTHYROXINE 75 MCG TABLET 90 tablet 3 Sig: TAKE 1 TABLET DAILY ON AN EMPTY STOMACH JEANETTE: Yes RX INSTRUCTIONS: Pharmacy initiated this request. No need to notify patient. Melba Ambriz LPN Allergies As of Date: 09/23/2017 Noted Allergy Reaction CODEINE 09/11/2005 4 - Hives ERYTHROMYCIN 09/11/2005 8 - GI Upset PENICILLINS 09/11/2005 4 - Hives Date Reviewed: 08/01/2017 Reviewed by: Tianna Jorge Rt - Fully Assessed Reason for Visit: Refill Request [94] Order(s):levothyroxine (SYNTHROID) 75 mcg tabletTAKE 1 TABLET DAILY ON AN EMPTY STOMACHDisp: 90 tabletRfl: 3 Prescriptions as of 09/23/2017 Sig: LEVOTHYROXINE 75 MCG TABLET TAKE 1 TABLET DAILY ON AN EMP* FUROSEMIDE 20 MG TABLET Take 1 tablet by mouth once d* AMLODIPINE 5 MG TABLET Take 0.5 tablets by mouth onc* FLUTICASONE 50 MCG/ACTUATION * INSTILL 2 SPRAYS IN EACH NOST* ATROPINE 1 % EYE DROPS Use 1 Drop in the right eye t* CIPROFLOXACIN 0.3 % EYE DROPS Use 1 Drop in the right eye a* KETOROLAC 0.4 % EYE DROPS Use 1 Drop in the right eye a* PREDNISOLONE ACETATE 1 % EYE * Use 1 Drop in the right eye a* NYSTATIN 100,000 UNIT/GRAM TO* Apply 1 application to affect* COMPOUNDED PRESCRIPTION Walker COMPOUNDED PRESCRIPTION Walker with wheels Left * FOSINOPRIL 40 MG TABLET Take 1 tablet by mouth once d* METFORMIN ER 500 MG TABLET,EX* Take 1 tablet by mouth twice * LABETALOL 300 MG TABLET Take 1 tablet by mouth twice * ALBUTEROL SULFATE 2.5 MG/3 ML* Use 3 mL via nebulizer every * PRAVASTATIN 20 MG TABLET Take 1 tablet by mouth daily * COMPOUNDED PRESCRIPTION 1 Device every 4 hours as nee* CALCIUM 500 + D ORAL Take by mouth. Every other d* ALBUTEROL SULFATE HFA 90 MCG/* Inhale 2 Puffs as instructed * BLOOD GLUCOSE CONTROL, NORMAL* Test controls as needed. * ASPIRIN 81 MG TABLET Take one(1) tablet daily. * CENTRUM SILVER TABLET Take one(1) tablet daily. Problem List As Of Date 09/23/2017 Noted Resolved BENIGN HYPERTENSION [I10] More... Hypothyroidism [E03.9] HYPERLIPIDEMIA NEC/NOS [E78.5] 06/24/2015 More... 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15] INVALID FOR*06/24/2015 Nocturia [R35.1] INVALID FOR*06/24/2015 Urge incontinence [N39.41] INVALID FOR*05/16/2011 Female stress incontinence [N39.3] INVALID FOR* Unspecified urinary incontinence [R32] INVALID FOR*06/24/2015 Breast cyst [N60.09] INVALID FOR*06/24/2015 Sebaceous cyst [L72.3] INVALID FOR*06/24/2015 BMI 36.0-36.9,adult [Z68.36] INVALID FOR*11/30/2014 DM (diabetes mellitus), type 2 (HCC) [E11.9] INVALID FOR*06/24/2015 BMI 37.0-37.9, adult [Z68.37] INVALID FOR*06/24/2015 Diabetes mellitus type 2, controlled, without c*INVALID FOR* BMI 38.0-38.9,adult [Z68.38] INVALID FOR*10/07/2015 Hyperlipidemia [E78.5] INVALID FOR* Primary osteoarthritis of right knee [M17.11] INVALID FOR* Cellulitis of right lower extremity [L03.115] INVALID FOR* Burning with urination [R30.0] INVALID FOR* Gross hematuria [R31.0] INVALID FOR* Generalized abdominal pain [R10.84] INVALID FOR* Secondhand smoke exposure [Z77.22] INVALID FOR* Aspirin long-term use [Z79.82] INVALID FOR* Asthma [J45.909] 12/19/2016 Mild intermittent asthma without complication [*INVALID FOR* More... Prescriptions ordered this encounter Disp Refills Start End LEVOTHYROXINE 75 MCG TABLET 90 t* 3 09/24/2017 Sig: TAKE 1 TABLET DAILY ON AN EMPTY STOMACH Medications Discontinued During This Encounter levothyroxine (SYNTHROID) 75 mcg tab* 90 t* 3 09/27/2016 09/24/2017 Route: ORAL Sig: Take 1 tablet by mouth once daily. Take on an empty stomach. Disc: Reason for discontinue is not on file. Encounter Status:Closed by PERRY ESCUDERO MD on 09/24/17 CREATININE Collected: 09/20/2017 Status: F Source: [place] 9:57 AM [facility] REPOSITORY TYPE CODE TESTS RESULT OUT OF REFERENCE UNITS RANGE LAB CRET 0.58-0.96 mg/dL Creatinine 0.80 LAB GFRAA eGFR- >60 Amer. LAB GFRNAA . eGFR-All Other Races >60 Result Comment: eGFR (Estimated GFR) Units of measure: mL/min/1.73 meters squared eGFR is derived from the reexpressed MDRD Study equation using the following parameters: serum creatinine, age, gender and race. The creatinine assay has been calibrated to be traceable to IDMS. An eGFR <60 mL/min/1.73m2 for >3 months is consistent with chronic kidney disease. Refer to KDOQI guidelines for clinical interpretation. In patients with unstable renal function, e.g. those with acute kidney injury, the eGFR may not accurately reflect actual GFR. Performed By: #### CRET1, TSH, HBA1C #### [facility] [employer] [address] [place], [place] [address] TSH Collected: 09/20/2017 Status: F Source: [place] 9:57 AM [facility] REPOSITORY TYPE CODE TESTS RESULT OUT OF RANGE REFERENCE UNITS LAB TSH 0.400-5.500 uU/mL TSH 1.640 Performed By: #### CRET1, TSH, HBA1C #### [facility] [employer] [address] [place] [id number] HEMOGLOBIN A1C Collected: 09/20/2017 Status: F Source: [place] 9:57 AM [facility] REPOSITORY TYPE CODE TESTS RESULT OUT OF REFERENCE UNITS RANGE LAB HGBA1C 4.3-5.6 % High Hemoglobin A1c 6.0 LAB HBA0 mg/dL Est. Average Glucose 126 Result Comment: eAG: (Estimated average glucose) is a calculated value from HgbA1c and is business center representative of the average blood glucose level in the last 2-3 month period. Performed By: #### CRET1, TSH, HBA1C #### [facility] [employer] [address] [place], [place] [address] ALLERGIES ALLERGIES DATE TYPE / CODE NAME / CODE REACTION SEVERITY SOURCE 07/03/2018 Drug Penicillins/[id number] Hives Unknown [place] Allergy/416 476(RXNORM) [facility] 218728([facility]) Repository 07/03/2018 Drug codeine/[id number]( Hives Unknown [place] Allergy/416 RXNORM) [facility] 814390([facility] ED CT) Repository 07/03/2018 Drug erythromycin Upset Stomach Unknown [place] Allergy/416 base/[id number](RXN [facility] 987482([facility] ED CT) Repository 09/11/2005 DRUG CODEINE HIVES [facility] INGREDI/[address] [place] 336619(SNOM Repository ED CT) 09/11/2005 DRUG/[id number] ERYTHROMYCIN GI UPSET [facility] 003(SNOMED [address] [place] [address]) Repository 09/11/2005 Drug PENICILLINS [facility] Class/[address] [place] 1003(SNOMED Repository CT) ENCOUNTERS ENCOUNTERS ADMIT/DISCHARGE ACCOUNT ADMITTING ENCOUNTER LOCATION SOURCE NUMBER CLASS 08/02/2018/08/02/20 [id number] Ambulatory [address] ing:CLSP Repository 07/23/2018 [id number] Ambulatory [facility] ing:LAB Repository 07/23/2018/07/23/20 [id number] Ambulatory BMS[facility]:B [place] [address] [facility] Repository 07/22/2018 [id number] Ambulatory [facility]:B [place] [facility] Repository 07/22/2018 [id number] Ambulatory [facility] ing:CVS Repository 07/03/2018 [id number] Ambulatory [facility] ing:LAB Repository 07/03/2018/07/03/20 [id number] Ambulatory BMSBuilding:B [place] [address] [facility] Repository 07/02/2018 [id number] Ambulatory BMSBuilding:B [place] Repository 07/01/2018/07/02/20 [id number] Ambulatory [address] Repository 06/17/2018/06/18/20 [id number] Ambulatory [address] Repository 06/17/2018/06/18/20 [id number] Ambulatory [address] Repository 05/30/2018/05/31/20 [id number] Ambulatory [address] Repository 05/28/2018/05/28/20 [id number] [facility] [address] [place] Repository 05/07/2018/05/07/20 [id number] [facility] [address] [place] Repository 05/07/2018/05/08/20 [id number] [facility] [address] [place] Repository 04/25/2018 [id number] Ambulatory [place] [facility] ing:OPUS Repository 04/11/2018/04/12/20 [id number] [facility] [address] [place] Repository 04/01/2018/04/01/20 [id number] [facility] [address] [place] Repository 04/01/2018/04/01/20 [id number] [facility] [address] [place] Repository 04/01/2018/04/02/20 [id number] [facility] [address] [place] Repository 02/21/2018/02/22/20 [id number] [facility] [address] [place] Repository 01/31/2018/02/02/20 [id number] [facility] [place] Repository 01/18/2018/01/19/20 [id number] [facility] [place] Repository 01/12/2018/02/26/20 [id number] [facility] [place] Repository 11/08/2017/12/08/19 [id number] [facility] [place] Repository 11/05/2017/11/06/19 [id number] [facility] [place] Repository 10/29/2017/10/31/19 [id number] [facility] [place] Repository 10/15/2017/10/15/19 [id number] [facility] [place] Repository 09/27/2017/09/27/19 [id number] [facility] [place] Repository 09/20/2017/09/20/19 [id number] [facility] [place] Repository PAYERS PAYERS ENCOUNTER GUARANTOR PAYER SUBSCRIBER SOURCE 08/02/2018 ANGELINE [id number] Insurance:BECCA GUSTAFSONB: [facility] Number: [id number]66DVEffective Repository [address]Lyi: 330) Date:5569-52-67SV [phone] (HP) [id number] [place] [address]JF: 08/02/2018 Secondary NOT GIVENUNK [place] Insurance:SELF PAY [facility] Number: Effective Repository Date:2018-07-23 07/23/2018 ANGELINE L Primary ANGELINE L [place] [id number] Insurance:AETNA TURNERDOB: [facility] Number: [id number] [facility] HospitalBD66DVEffective Repository [address]Soo: (330) Date:4308-57-13BL [phone] (HP) [id number] [place] [address]ZG: 07/23/2018 Secondary NOT GIVENUNK Francisco Insurance:SELF PAY [facility] Number: Effective Repository Date:2018-07-23 07/23/2018 ANGELINE L Primary ANGELINE L [place] [id number] Insurance:AETNA TURNERDOB: [facility] Number: [id number] [id number] Repository [address]Bnq: (330) Date:3456-04-91WD [phone] () [id number] [place] [address]TT: 07/23/2018 Secondary NOT GIVENUNK Francisco Insurance:SELF PAY [facility] Number: Effective Repository Date:2018-07-23 07/22/2018 ANGELINE L Primary ANGELINE L [place] [id number] Insurance:AETNA TURNERDOB: [facility] Number: [id number], [place] [id number] Repository [address]Fbs: (330) Date:1747-11-28KC [phone] () [id number] [place] [address]RT: 07/22/2018 Secondary NOT GIVENUNK [place] Insurance:SELF PAY [facility] Number: Effective Repository Date:2018-07-22 07/22/2018 ANGELINE L Primary ANGELINE L [place] [id number] Insurance:AETNA TURNERDOB: [facility] Number: [id number], [place] [id number] Repository [address]Fym: (330) Date:5707-43-63NU [phone] () [id number] JOVANI DAR[place] [phone]: 07/22/2018 Secondary NOT GIVENUNK Francisco Insurance:SELF PAY [facility] Number: Effective Repository Date:2018-07-03 07/03/2018 ANGELINE L Primary ANGELINE L [place] [id number] Insurance:AETNA JAANYB: [facility] Number: [id number], [place] [id number] Repository [address]Fan: (330) Date:9984-83-43ZS [phone] (HP) [id number] [place]OVANI DAR[place] [address]BX: 07/03/2018 Secondary NOT GIVENUNK Francisco Insurance:SELF PAY [facility] Number: Effective Repository Date:2018-07-03 07/03/2018 ANGELINE L Primary ANGELINE L [place] [id number] Insurance:AETJUSTIN GUSTAFSONB: [facility] Number: [id number], [place] [id number] Repository [address]Crr: (330) Date:3918-19-87FB [phone] (HP) [id number] [place] [address]XV: 07/03/2018 Secondary NOT GIVENUNK Francisco Insurance:SELF PAY [facility] Number: Effective Repository Date:2018-07-03 07/02/2018 Angeline L Primary Angeline L Francisco [id number] Insurance:AETJUSTIN GustafsonB: [facility] Number: [id number] [id number] Repository [address]Omi: (330) Date:3846-93-50MB [phone] (HP) [id number] [place] [address]CM: 07/02/2018 Secondary NOT GIVENUNK [place] Insurance:SELF PAY [facility] Number: Effective Repository Date:2018-07-02 04/25/2018 Angeline Turcios Primary Angeline Singh [id number] Insurance:AETJUSTIN GustafsonB: [facility] Number: [id number], [place] [id number] Repository [address]Qsq: 330) Date:2383-87-16TF [phone] () [id number] JOVANI DARBY [id number]: 04/25/2018 Secondary NOT GIVENUNK Francisco Insurance:SELF PAY [facility] Number: Effective Repository Date:2018-03-07
== END ==
PROVIDERS: Family Provider Family Medicine; PCP Family Medicine; Referring Provider Internal Medicine Cardiovascular Disease; Visit Provider Internal Medicine Cardiovascular Disease
DX: R94.39 Abnormal result of other cardiovascular function study (principal); R07.9 Chest pain, unspecified; R06.00 Dyspnea, unspecified; I10 Essential (primary) hypertension; I27.21 Secondary pulmonary arterial hypertension; E66.9 Obesity, unspecified; E78.5 Hyperlipidemia, unspecified
CPT/HCPCS: 36415; 80048; 85025; 85610; 85730

== ENCOUNTER 2018-08-02 06:45 | Day surgery (SDC) | payer MEDICARE, SELFPAY ==
[2018-07-03 08:49] VITALS: BMI 36.1
[2018-08-01 08:13] VITALS: BMI 36.1
--- NOTE | 2018-08-02 08:55 | CL.D_ITS ---
Patient Name: PEDRITO MONTANA Study Date: 08/02/2018 Performing: Eitan Larson MD Ht: 66.14 inches 168 cm : 1940 Wt: 224.87 lbs 102 kg Age: 78 Gender: female BSA: 2.11 PROCEDURE(S) PERFORMED SL39-ADJ/COR/LV CLINICAL PROFILE AND INDICATIONS Indications: Suspected CAD Heart Failure: None Stress/Imaging Stress Test w/SPECT MPI: Yes Result: Positive Intermediate RiskStress Test with SP ECT MPI: Positive Intermediate Risk CAD Presentations: Stable angina. CONCLUSIONS Mild coronary artery disease noted in the proximal LAD, circumflex artery, and right coronary artery. RECOMMENDATIONS Medical therapy DESCRIPTION OF PROCEDURE The patient arrived to the procedure lab. The risks and benefits of the procedure as well as a full d escription of our services here and current unavailability of surgical backup were fully explained to the patient and/or their significant other prior to the catheterization. The Timeout was completed, verifying the correct patient and procedure. The patient's procedural site was prepped and draped in the usual fashion. Local anesthetic was given subcutaneously to right groin region with Lidocaine 2%. Using a modified Seldinger technique, arterial access was obtained via the right femoral artery, a 5 Fr sheath was inserted. Left Coronary Artery selective angiography was performed in multiple views u sing a 5 Fr. JL4 catheter. Right Coronary Artery selective angiography was then performed in multiple views using a 5 Fr. 3DRC (David) catheter. Left Ventriculography was performed in BARRERA projection using a 5 Fr. Pigtail catheter. LV to AO pullback pressures were then recorded.Contrast was injected through the sheath and the Right Iliac and Femoral artery were assessed for possible luis sure device.The arterial sheath was pulled and manual compression applied until hemostasis is achieve d. CORONARY ANGIOGRAPHY DOMINANCE: Right Dominant LEFT HEART ASSESSMENT Left Ventricular Ejection Fraction: by LV Gram 60 % Apical Akinesis Normal Left Ventricular systolic function LEFT MAIN: Mild calcification, Angiographically normal LEFT ANTERIOR DECENDING ARTERY: Mild luminal irregularities less than 30% DISTAL LAD: is occluded CIRCUMFLEX ARTERY: Mild luminal irregularities less than 30% RIGHT CORONARY ARTERY: Mild luminal irregularities less than 30% COMPLICATIONS No Complications PROCEDURE MEDICATIONS Versed 1 mg IV Oxygen: 2 L/min via nasal cannula SUMMARY OF HEMODYNAMIC DATA Time AIR REST ECG 07:14:44 AO 136/59 (89) SA 08:01:45 LV 126/3, 11 08:08:00 LV 132/0, 8 08:08:07 LV 123/2, 19 08:09:07 LV 144/2, 17 08:09:13 LVp 147/2, 24 08:09:17 AOp 146/-51 (37) 08:09:22 Signed By Eitan Larson MD On 08/02/2018 08:55:03 Eitan Larson MD
== END 2018-08-02 12:05 | disposition home or self-care (01) ==
LOC: CLSP 06:48
PROVIDERS: Family Provider Family Medicine; PCP Family Medicine; Referring Provider Internal Medicine Cardiovascular Disease; Visit Provider Internal Medicine Cardiovascular Disease
DX: I25.10 Atherosclerotic heart disease of native coronary artery without angina pectoris (principal); I10 Essential (primary) hypertension; E78.5 Hyperlipidemia, unspecified; E11.9 Type 2 diabetes mellitus without complications; I27.21 Secondary pulmonary arterial hypertension; E66.9 Obesity, unspecified; Z68.36 Body mass index [BMI] 36.0-36.9, adult; M19.90 Unspecified osteoarthritis, unspecified site; J45.909 Unspecified asthma, uncomplicated; K57.90 Diverticulosis of intestine, part unspecified, without perforation or abscess without bleeding; M10.9 Gout, unspecified; E03.9 Hypothyroidism, unspecified; M17.11 Unilateral primary osteoarthritis, right knee; E88.81 Metabolic syndrome and other insulin resistance; Z79.82 Long term (current) use of aspirin; Z79.84 Long term (current) use of oral hypoglycemic drugs; Z79.899 Other long term (current) drug therapy
CPT/HCPCS: 93458; 99152; 99153; C1760; J7040; C1769; Q9967

== ENCOUNTER → 2019-05-06 16:20 | Outpatient (CLI) | payer MEDICARE, SELFPAY ==
--- NOTE | 2019-05-06 | IMM_PTH ---
PATIENT: PEDRITO MONTANA LOC: GREG U#:[id number] AGE/SX: 85/F ROOM: RE05/06/[address]: Dr. Robb Bill MD : 1940 BED: DIS: SPEC #: [id number] RECD: 05/08/19 11:36 STATUS: CHRISTIAN REQ #: [id number] BELA: 05/06/19 00:[address]: Robb Bill DEPT: IMMUNOHISTOCHEMISTRY RECD BY: Che Don ENTERED: 05/08/19 11:38 SP TYPE: IMMUNO OTHR DR: Dr. Bhanu Escudero MD Tissues: Right breast, NOS Procedures: Calponin-1(initial) P53 (add) P40 (add) PHYSICIAN & INSTITUTION [place] [id number] SPECIMEN INFORMATION: Tissue Source: Right breast biopsy Clinical Info: Abnormal breast ultrasound Specimen Number: [id number] CPT code: 14176, 04048 x2 METHODOLOGY: Deparaffinized sections of prefer/formalin-fixed tissue or PAP/DQ stained slides are incubated with monoclonal/polyclonal antibodies/oligonucleotide probes. Localization is made via biotin free immunoperoxidase method. Appropriate controls are performed and reacted as expected. Results on target cell population are indicated in the following table: RESULTS: ANTIBODY / CLONE RESULT P40 (BC28) * Calponin-1 (HC503S) * P53 (DO-7) negative These tests were developed and their performance characteristics determined by [facility]. They may not have been cleared or approved by the U.S. Food and Drug Administration. The FDA has determined that such clearance or approval is not necessary. INTERPRETATION: Right breast, biopsy: Immunohistochemistry is noncontributory. AM:jose e 05/08/19 Comment: *Most of the tissue is exhausted on testing. Clinical correlation is necessary.
[2019-05-06 16:10] VITALS: BMI 39.1
--- NOTE | 2019-05-06 16:20 | BRBX_PTH ---
PATIENT: PEDRITO MONTANA LOC: GREG U#:[id number] AGE/SX: 85/F ROOM: RE05/06/[address]: Dr. Robb Bill MD : 1940 BED: DIS: SPEC #: [id number] RECD: 05/06/19 17:02 STATUS: CHRISTIAN CHANTEL #: [id number] BELA: 05/06/19 16:[address]: Robb Bill DEPT: SURGICAL PATHOLOGY RECD BY: Dariel Gramajo ENTERED: 05/07/19 10:03 SP TYPE: BREAST BX OTHR DR: Dr. Bhanu Escudero MD Tissues: Right breast, NOS Procedures: Surgery Specimen Level IV HEADER OPERATION: Right breast biopsy PRE-OP DIAGNOSIS: Abnormal breast ultrasound TISSUE SUBMITTED: Right breast tissue ISCHEMIC TIME: <1 minute FIXATION TIME: 27.5 hours MICROSCOPIC DIAGNOSIS Right breast, ultrasound-guided biopsy: Detached fragments of atypical glandular epithelium. See comment. AM:jose e 05/08/19 COMMENT The tissue may represent an area of hyperplasia or a higher grade lesion. The specimen is minute and exhausted on testing. Clinical correlation is necessary. Immunohistochemistry ([id number]) supports the above diagnosis. Case has been reviewed in consultation with Dr. Nelson who concurs with the above diagnosis. THIERRY:RENE MICROSCOPIC DESCRIPTION Slides are reviewed. GROSS DESCRIPTION Received in fixative is one container labeled with the patient's name and designated right breast biopsy. The specimen consists of small fragment of wise-yellow fibroadipose tissue measuring 0.3 cm in length and <0.1 cm in diameter. The entire specimen is submitted in one cassette. / RENE:jose e 05/07/19 TC:5 CPT: 91612
== END ==
PROVIDERS: Family Provider Family Medicine; PCP Family Medicine; Referring Provider Surgery; Visit Provider Surgery
DX: R92.8 Other abnormal and inconclusive findings on diagnostic imaging of breast (principal)
CPT/HCPCS: 88305; 88341; 88342

== ENCOUNTER → 2019-05-13 09:56 | Outpatient (CLI) | payer MEDICARE, SELFPAY ==
[2019-05-06 16:10] VITALS: BMI 39.1
--- NOTE | 2019-05-13 11:00 | BRBX_PTH ---
PATIENT: PEDRITO MONTANA LOC: [facility] U#:[id number] AGE/SX: 85/F ROOM: RE05/13/[address]: Dr. Robb Bill MD : 1940 BED: DIS: SPEC #: [id number] RECD: 05/13/19 12:08 STATUS: CHRISTIAN CHANTEL #: [id number] BELA: 05/13/19 11:[address]: Robb Bill DEPT: SURGICAL PATHOLOGY RECD BY: Dariel Gramajo ENTERED: 05/13/19 13:20 SP TYPE: BREAST BX OTHR DR: Dr. Bhanu Escudero MD Tissues: Right breast, NOS Procedures: Surgery Specimen Level IV HEADER OPERATION: Right breast stereotactic biopsy PRE-OP DIAGNOSIS: Right calcifications 1 o'clock anterior depth TISSUE SUBMITTED: Right breast ISCHEMIC TIME: 1 minute FIXATION TIME: 8.5 hours MICROSCOPIC DIAGNOSIS Right breast stereotactic core biopsy: Mild nonproliferative fibrocystic change. Collagenized stroma with clustered microcalcifications. Focal minimal intraductal hyperplasia without atypia. No evidence of malignancy. AM:jose e 05/14/19 MICROSCOPIC DESCRIPTION Slides are reviewed. GROSS DESCRIPTION Received is one container labeled with the patient's name and not further designated. The specimen consists of multiple elongated fragments of wise-yellow fibroadipose tissue that in aggregate measure 4 x 2.5 x 0.3 cm. The entire specimen is submitted in two cassettes. / RENE:jose e 05/13/19 TC:5 CPT: 02977
--- NOTE | 2019-05-13 11:24 | HP.PCM_ITS ---
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 Is patient in pain?: No Allergies codeine Allergy (Verified 07/03/18 08:49) Hives Penicillins [PCN] Allergy (Verified 07/03/18 08:49) Hives erythromycin base [Erythromycin Base] Adverse Reaction (Verified 07/03/18 08:49) Upset Stomach Medications Amlodipine [Norvasc] 1 tab PO DAILY 06/13/17 [History Confirmed 05/06/19] Aspirin 81 mg PO DAILY 06/13/17 [History Confirmed 05/06/19] Fosinopril Sodium 40 mg PO DAILY 06/13/17 [History Confirmed 05/06/19] Levothyroxine [Synthroid] 75 mcg PO DAILY 06/13/17 [History Confirmed 05/06/19] albuterol sulfate 2.5 mg/3 mL (0.083 %) solution for nebulization 1.25 mg INHALATION Q4H PRN 07/02/18 [History Confirmed 05/06/19] albuterol sulfate HFA 90 mcg/actuation aerosol inhaler 2 puff INHALATION Q4H PRN g 07/02/18 [History Confirmed 05/06/19] budesonide-formoterol HFA 160 mcg-4.5 mcg/actuation aerosol inhaler 2 puff INHALATION BID 07/02/18 [History Confirmed 05/06/19] calcium carbonate-vitamin D3 500 mg (1,250 mg)-600 unit tablet 500 tab PO DAILY tab 07/02/18 [History Confirmed 05/06/19] colchicine 0.6 mg tablet See Rx Instructions PO DAILY 07/02/18 [History Confirmed 08/01/18] fluticasone propionate 50 mcg/actuation nasal spray,suspension 2 spray INTRANASAL DAILY 07/02/18 [History Confirmed 08/01/18] furosemide 40 mg tablet 40 mg PO DAILY 07/02/18 [History Confirmed 05/06/19] labetalol 300 mg tablet 300 mg PO BID 07/02/18 [History Confirmed 05/06/19] metformin ER 500 mg tablet,extended release 24 hr 500 mg PO BID tab 07/02/18 [History Confirmed 05/06/19] hngkbrsd-rbj-myfuo acid 0.4 mg-lycopene 300 mcg-lutein 250 mcg tablet 1 tab PO DAILY 07/02/18 [History Confirmed 05/06/19] nystatin 100,000 unit/gram topical ointment 1 applic TOPICAL BID 07/02/18 [History Confirmed 05/06/19] pravastatin 20 mg tablet 20 mg PO DAILY 07/02/18 [History Confirmed 05/06/19] [facility] Medical History Essential (primary) hypertension (Chronic) Secondary pulmonary arterial hypertension (Chronic) Obesity (BMI 30-39.9) (Chronic) Hyperlipidemia (Chronic) Arthritis (Chronic) Asthma (Chronic) Bilateral leg edema (Chronic) Cataracts, bilateral (Chronic) Diverticulosis (Chronic) Dysmetabolic syndrome X (Chronic) Essential hypertension (Chronic) Gout (Chronic) Hypothyroidism (Chronic) Obesity (Chronic) Pancreatic cyst (Chronic) Primary osteoarthritis of right knee (Chronic) Type 2 diabetes mellitus (Chronic) Surgical History History of abdominal hysterectomy (Resolved) History of appendectomy (Resolved) History of cataract extraction (Resolved) History of dilatation and curettage (Resolved) History of tonsillectomy (Resolved) Family History Father Diabetes Hypertension Heart disease Mother Diabetes Hypertension Brother Heart disease Brother Diabetes Brother Hypertension Social History (Updated 05/06/19 @ 16:54 by Robb Bill MD) Smoking Status: Never smoker alcohol intake: current alcohol intake frequency: holidays/special occasions only substance use type: does not use caffeine: Yes what type of physical activity do you participate in: other details: Physical therapy frequency: 1-2 times per week seatbelt use: always HPI HPI HPI: PEDRITO MONTANA, is a 78 F who presents to the office today for HPI HPI Surgical H&P: Yes HPI: PEDRITO MONTANA, is a 78 F who presents to the office today for surgical consultation regarding abnormal mammogram. Patient is referred by Tram Roman CNP and Dr Epi Escudero and a written copy of my surgical consult recommendations will return to them. 78-year-old female. A0. She did breast-feed. She has had a remote right breast cyst aspiration. No history of estrogen replacement. No personal history of breast cancer. First child was born when she was 17. Menarche was at age 9. She has had no recent breast complaints. She presented for routine screening mammogram at the [facility] on April 03, 2019. There is felt to be a focal asymmetry in the right breast lower inner aspect. Diagnostic right mammogram and right ultrasound was obtained April 22, 2019. There was felt to be a cluster of calcifications in the right breast 1 o'clock position anterior depth indeterminate suspicion for malignancy stereotactic biopsy recommended. On ultrasound there was felt to be a density right breast at 5 o'clock position middle depth lower suspicion for malignancy biopsy again recommended. BI-RADS Category 4A for each. We have records August 02, 2018 from a cardiac catheterization performed by Dr. Eitan Larson at the [facility] suggesting mild coronary disease noted in the proximal LAD and circumflex artery and right coronary artery. The patient is being medically managed. Exam Const General: cooperative, healthy appearing, comfortable, no acute distress Nutritional Appearance: obese Orientation: alert, awake, oriented x3 HENMT Head: normal to inspection Chest Other: Right breast: No focal mass, no nipple discharge. No axillary or clavicular adenopathy, pendulous breast Left breast: No focal mass. No nipple discharge. No axillary or clavicular adenopathy, pendulous breast Resp Effort & Inspection: normal respiratory effort Auscultation: clear to auscultation bilaterally Cardio Rate: regular rate Rhythm: regular rhythm GI Palpation: soft, no hepatosplenomegaly Neuro Cognition: normal cognition Extrem General: no calf tenderness bilaterally Psych Affect: normal affect Office Procedures Biopsy Provider Documentation Ultrasound-guided needle core biopsy lower inner right breast 5 o'clock position Timeout and informed consent was obtained. 78-year-old female was taken to the procedure room placed upon the table. The right breast was sterilely prepped and draped. Ultrasound was performed identifying the density at the right breast 5 o'clock position. Under ultrasound guidance 1% lidocaine mixed 50-50 with 0.5% Marcaine was used as a local anesthetic. A total of 8 cc was used. A small stab incision was created. A 14-gauge Monopty needle was advanced to prefire depth. Pre-and post fire films were obtained. A single core was obtained. The lesion itself appeared to dissolve. A marking clip was left in position. The specimen was inspected on the within the Monopty needle there appeared to be mostly gelatinous material. This material and slight amount of solid material was placed within formalin. Pressure was held for hemostasis. Steri-Strip Telfa OpSite dressing applied. She was given activity wound care instructions. No apparent complication. Robb Bill M.D., F.A.C.S. Alert Darline Yes Biopsy Breast Biopsy: [id number] US Guidance Procedure Time Out Time Out Informed consent given: Yes Consent signed: Yes Time out checklist: patient, procedure, site marked/identified, positioning of patient, supplies available, allergies confirmed, team agrees on procedure Time out staff in room: Yes Time out verified: Yes Time out date: 05/06/19 Time out time: 16:20 Assessment & Plan Problems 1. Abnormal mammogram of right breast R92.8 Plan Abnormal mammogram right breast with 2 separate issues at hand. One issue the hand is nicely seen with ultrasound right breast 5 o'clock position. I did proceed today with an ultrasound-guided needle core biopsy of this area. Initial clinical suspicion that this that this was consistent with a gelatinous cyst. Material is sent for pathology but I strongly suspect that this will be benign. Secondary issue includes clustered microcalcifications right breast 1 o'clock position. I recommended the patient a stereotactic needle core biopsy of this area. We again have discussed the technique, benefit, risks, alternatives of this procedure. We will need to schedule and proceed as appropriate. She has had an opportunity to ask and have questions answered. I am very comfortable with proceeding with these techniques. I am anticipating good results. I very much appreciate the kind opportunity of assisting with her surgical care. CC: Tram Roman, TABITHA and Dr Epi Bill M.D., F.A.C.S. Orders Orders: Biopsy Today R92.8 Coding Level of Care Code 33285 Diagnoses Abnormal mammogram of right breast R92.8 Additional Codes Biopsy - Breast Biopsy: 75740 US Guidance (26502) 05/06/19 4104 <Electronically signed by Robb hamm MD> Date _ Robb Bill MD I have re-examined the patient. There are no clinical changes since date of exam.
--- NOTE | 2019-05-13 11:25 | OP.PCM_ITS ---
Problem List (1) Abnormal mammogram of right breast Status: Acute Report of Operation Date of Procedure: 05/13/19 Pre-Operative Diagnosis: Clustered microcalcifications upper inner right breast Post-Operative Diagnosis: Same Surgery/Procedure Performed:: Stereotactic needle core biopsy upper inner right breast Description of Surgical Findings:: Timeout and informed consent was obtained. 78-year-old female was taken to the mammography suite. She was placed prone on the table. The right breast was placed in the cc view. The microcalcifications in question upper inner right breast were rapidly identified. Stereotactic images were obtained. Digital information was taken on a single target site. The breast was prepped with Betadine. 1% lidocaine was used as a local anesthetic. Throughout the procedure a total of 10 cc was used. Local was instilled. A small stab incision was created. A 8 gauge resolved needle was advanced to prefire depth. Pre-and post fire films were obtained. 6 cores were obtained. There was some bleeding that occurred at the completion of the final core. Specimen mammograms were obtained. Microcalcifications were present consistent with the preoperative imaging. A marking clip was left at 12 o'clock position. Pressure was held for hemostasis. On fast view demonstrated the marking clip to be in good position. She was released from the device. A simple suture of 3-0 nylon was placed to assist with hemostasis. Additional pressure was held. Hemostasis was achieved. Sterile dressings were applied. She was given activity wound car e instructions. The specimens were directly submitted in formalin for analysis. Specimens core samples. Drains none. Blood loss 10 cc. Robb Bill M.D., F.A.C.S. Type of Anesthesia:: Local
== END ==
PROVIDERS: Family Provider Family Medicine; PCP Family Medicine; Referring Provider Surgery; Visit Provider Surgery
DX: N60.11 Diffuse cystic mastopathy of right breast (principal); N60.91 Unspecified benign mammary dysplasia of right breast; I10 Essential (primary) hypertension; I27.21 Secondary pulmonary arterial hypertension; E66.9 Obesity, unspecified; E78.5 Hyperlipidemia, unspecified; M19.90 Unspecified osteoarthritis, unspecified site; J45.909 Unspecified asthma, uncomplicated; K57.90 Diverticulosis of intestine, part unspecified, without perforation or abscess without bleeding; E88.81 Metabolic syndrome and other insulin resistance; M10.9 Gout, unspecified; E03.9 Hypothyroidism, unspecified; E11.9 Type 2 diabetes mellitus without complications; M17.11 Unilateral primary osteoarthritis, right knee; K86.2 Cyst of pancreas; Z79.82 Long term (current) use of aspirin; Z79.84 Long term (current) use of oral hypoglycemic drugs; Z79.899 Other long term (current) drug therapy
CPT/HCPCS: 19081; 88305; J7050

== ENCOUNTER → 2020-04-19 11:15 | Outpatient (CLI) | payer MEDICARE, SELFPAY ==
[2019-05-06 16:10] VITALS: BMI 39.1
--- NOTE | 2020-04-19 11:15 | BI_ITS ---
MAMMOGRAPHY - BILATERAL SCREENING REASON FOR EXAM: Female, 79 years old. Routine annual screening examination. PERTINENT HISTORY: Non-contributory. History of right stereotactic breast biopsy and excisional breast biopsy. TECHNIQUE: Digital bilateral breast jose roberto (3D mammographic acquisition) in the CC and MLO projections. 2-D mediolateral oblique (MLO) and craniocaudad (CC) views of both breasts were obtained. CAD: Full Field Digital Mammography with Computer Added Detection was performed. COMPARISON: Comparison is made with prior outside examination dated 05/13/2019. FINDINGS: Breast Composition: There are scattered areas of fibroglandular density. There are no dominant masses or suspicious calcifications. There are 2 tissue clip marker is in the central and medial aspect of the right breast. These are unchanged. Stable small benign appearing bilateral axillary lymph nodes. No other significant abnormalities are identified. There has been no significant change since the prior study. BI/SCREEN MAMM (CAD) W/JOSE ROBERTO BILAT IMPRESSION: Stable bilateral screening mammogram. Yearly follow-up mammogram recommended. (A) ASSESSMENT CATEGORY: BIRADS Category 2: Benign. A letter regarding these results will be sent to the patient by the facility within 30 days. Approximately 10% of breast cancers are not detected by mammography. A normal mammogram should not delay biopsy of a clinically suspicious abnormality. [id number] Electronically Signed: Wale Medina, at 12:36 EDT , Service support ,
== END ==
PROVIDERS: PCP Internal Medicine; Referring Provider Surgery; Visit Provider Surgery
DX: R92.8 Other abnormal and inconclusive findings on diagnostic imaging of breast (principal); Z12.31 Encounter for screening mammogram for malignant neoplasm of breast
CPT/HCPCS: 77063; 77067

== ENCOUNTER → 2021-04-28 12:52 | Outpatient (CLI) | payer MEDICARE, SELFPAY ==
[2020-04-28 05:54] VITALS: BMI 39.1
--- NOTE | 2021-04-28 12:54 | BI_ITS ---
MAMMOGRAPHY - BILATERAL SCREENING 3-D TOMOSYNTHESIS REASON FOR EXAM: Female, 80 years old. Screening for breast cancer PERTINENT HISTORY: No significant family history. TECHNIQUE: 2-D mammograms and 3-D Tomosynthesis of the breast (s) were performed. CAD was performed. COMPARISON: 04/19/2020 FINDINGS: The breast composition is heterogeneously dense that can obscure small breast masses. Scattered benign calcifications are seen. No dense spiculated masses or suspicious microcalcifications are identified. No architectural distortion is identified. There is no skin thickening or retraction. There has been no significant change since the prior study. BI/SCRN MAMM (CAD)W/JOSE ROBERTO BILAT IMPRESSION: No mammographic signs of malignancy. Routine yearly mammograms recommended. ASSESSMENT CATEGORY: BIRADS Category 1: Negative. A letter regarding these results will be sent to the patient by the facility within 30 days. FOLLOW UP RECOMMENDATION: Yearly follow up mammogram recommended. (A) Approximately 10% of breast cancers are not detected by mammography. A normal mammogram should not delay biopsy of a clinically suspicious abnormality. Electronically Signed: Ralph Jay MD at 14:57 EDT Tel , Service support ,
== END ==
PROVIDERS: PCP Internal Medicine; Referring Provider Surgery; Visit Provider Surgery
DX: Z12.31 Encounter for screening mammogram for malignant neoplasm of breast (principal)
CPT/HCPCS: 77063; 77067

== ENCOUNTER 2021-07-01 14:05 | Emergency (ER) | payer MEDICARE, SELFPAY ==
[2021-07-01 14:07] VITALS: BP 191/64; PULSE 67; RESP 18; TEMP 36.6; O2SAT 96; BMI 37.4
--- NOTE | 2021-07-01 14:22 | EDS_ITS ---
HPI History of Present Illness Chief Complaint: Neuro S/Sx Informant: patient Onset/Context/Timing Onset: Days Context: Sudden Onset Timing: Continuous Quality and Location: Positive for Left Facial Droop and Left Face Parasthesia; Negative for Right Facial Droop, Right Arm Parasthesia, Left Arm Parasthesia, Right Leg Parasthesia, Left Leg Parasthesia, Right Arm Weakness, Left Arm Weakness, Right Leg Weakness, Left Leg Weakness, Slurred Speech, Expressive Aphasia, Receptive Aphasia and Difficulty with Ambulation Onset: Patient believes onset was Sunday if not earlier Current Severity: Moderate Maximum Severity: Moderate Worsened by: Nothing Relieved by: Nothing Associated Symptoms Associated Symptoms: Positive for - (Difficulty brushing her teeth); Negative for Headache, Nausea, Vomiting and Chest Pain Narrative Narrative: Patient is an elderly woman who presents because of difficulty swallowing and brushing her teeth. She states that the left side of her face does not move. She denies headache, she denies change in vision. She had issues with her vision since last appointment with Dr. Edwards. Etiology is unknown. She denies diplopia. She denies ringing or ears, decreased hearing or drainage from her ears. She denies slurred speech. She denies difficulty pronouncing words or identifying things. Her daughter states she was with her on Sunday and she had no symptoms at that time. She denies cardiac, respiratory, GI or symptoms. She does have history of type 2 diabetes. Last A1c level was 6.1. Prior similar symptoms: No Recent Illness/Hospitalization: No [facility] Medical History Abnormal mammogram of right breast Arthritis Asthma Bilateral leg edema Cataracts, bilateral Diverticulosis Dysmetabolic syndrome X Essential (primary) hypertension Essential hypertension Gout Hyperlipidemia Hypothyroidism Obesity Obesity (BMI 30-39.9) Pancreatic cyst Primary osteoarthritis of right knee Screening for malignant neoplasm of breast Secondary pulmonary arterial hypertension Type 2 diabetes mellitus Home Medications amlodipine 1 tab PO DAILY 06/13/17 [History Last Taken 08/02/18] aspirin 81 mg PO DAILY 06/13/17 [History Last Taken 08/02/18] fosinopril 40 mg PO DAILY 06/13/17 [History Last Taken 08/02/18] levothyroxine 75 mcg PO DAILY 06/13/17 [History Last Taken 08/02/18] albuterol sulfate 1.25 mg INHALATION Q4H PRN 07/02/18 [History Last Taken Unknown] albuterol sulfate 90 mcg/actuation aerosol inhaler 2 puff INHALATION Q4H PRN g 07/02/18 [History Last Taken Unknown] budesonide-formoterol HFA 160 mcg-4.5 mcg/actuation aerosol inhaler 2 puff INHALATION BID 07/02/18 [History Last Taken Unknown] calcium carbonate-vitamin D3 500 mg (1,250 mg)-600 unit tablet 500 tab PO DAILY tab 07/02/18 [History Last Taken Unknown] colchicine 0.6 mg tablet See Rx Instructions PO DAILY 07/02/18 [History Last Taken Unknown] fluticasone propionate 50 mcg/actuation nasal spray,suspension 2 spray INTRANASAL DAILY 07/02/18 [History Last Taken Unknown] furosemide 40 mg tablet 40 mg PO DAILY 07/02/18 [History Last Taken Unknown] labetalol 300 mg tablet 300 mg PO BID 07/02/18 [History Last Taken 08/02/18] metformin 500 mg tablet,extended release 24 hr 500 mg PO BID tab 07/02/18 [History Last Taken 08/01/18] yitgkpzy-mee-ytvqk acid 0.4 mg-lycopene 300 mcg-lutein 250 mcg tablet 1 tab PO DAILY 07/02/18 [History Last Taken Unknown] nystatin 100,000 unit/gram topical ointment 1 applic TOPICAL BID 07/02/18 [History Last Taken Unknown] pravastatin 20 mg tablet 20 mg PO DAILY 07/02/18 [History Last Taken Unknown] erythromycin 0.5 inch LEFT EYE QHS #3.5 g 07/01/21 [Rx Last Taken Unknown] prednisone 60 mg PO DAILY #15 tablet 07/01/21 [Rx Last Taken Unknown] Allergy/AdvReac Type Severity Reaction Status Date / Time codeine Allergy Hives Verified 07/01/21 14:08 Penicillins [PCN] Allergy Hives Verified 07/01/21 14:08 erythromycin base AdvReac Upset Verified 07/01/21 14:08 [Erythromycin Base] Stomach Family History Father Diabetes Hypertension Heart disease Mother Diabetes Hypertension Brother Heart disease Brother Diabetes Brother Hypertension Surgical History History of abdominal hysterectomy History of appendectomy History of cataract extraction History of dilatation and curettage History of tonsillectomy Social History (Updated 07/01/21 @ 14:[address] Skyler Wills MD) household members: none Smoking Status: Never smoker alcohol intake: current alcohol intake frequency: holidays/special occasions only substance use type: does not use caffeine: Yes what type of physical activity do you participate in: other details: Physical therapy frequency: 1-2 times per week seatbelt use: always ROS ROS ED Constitutional Constitutional ED: Denies chills, fever(s), subjective, sweats or weakness Eyes Eyes: Reports blurry vision; Denies change in vision or diplopia ENT ENT ED: Denies ear pain, rhinorrhea or sore throat Cardiovascular Cardiovascular: Denies chest pain, palpitations or racing heartbeat Respiratory/Chest Respiratory/Chest: Denies cough, dyspnea, dyspnea on exertion or sputum Gastrointestinal Gastrointestinal: Denies abdominal pain, nausea or vomiting Integumentary Denies rash Neurologic Neurologic: Reports paresthesias and weakness; Denies headache(s) Hematologic/Lymphatic Hematologic/Lymphatic: Denies easy bleeding or easy bruising Allergic/Immunologic Allergic/Immunologic ED: Denies mouth swelling EXAM Physical Exam Const Vital Signs: 07/01/21 14:07 Temperature 97.9 F Temperature Source Temporal Pulse Rate 67 Respiratory Rate 18 Blood Pressure 191/64 H Blood Pressure Mean 106 Pulse Ox 96 Oxygen Delivery Method Room Air Positive well nourished, well developed and obese General Appearance ED: well developed and NAD Nutritional Appearance: obese HEENT Reports TM's clear and moist mucous membranes atraumatic Nose: other Other Details: Nares patent. Posterior pharynx out erythema exudate. There is no lesions in the auditory canal to suggest Blackstone Martinez syndrome. There is no preauricular lymphadenopathy. The forehead is not spared. She has difficulty raising her eyebrows on the left. She cannot close her left eye lid. Tympanic Membrane ED: Yes TM's clear Eyes PERRL and EOMs intact bilaterally Eyes Narrative: There is no photophobia. General Eye ED: Negative for pale conjunctiva or scleral icterus Neck no lymphadenopathy, supple and no JVD General: Negative for tenderness Resp normal respiratory effort Cardio Rate: regular rate Rhythm: regular rhythm Extremity normal to inspection Neuro oriented x3 and No CN's II-XII intact bilaterally Sensorium / Orientation: alert Speech: speech normal Gait (Neuro): normal gait Motor Exam: strength 5/5 throughout Psych mental status grossly normal Skin no wounds General Skin Exam: Negative for jaundice Lesions: no lesions Rashes: no rashes STROKE Vital Signs/Narrative: Vital Signs Temp Pulse Resp BP Pulse Ox 07/01/21 14:07 97.9 F 67 18 191/64 H 96 MDM MDM MDM Narrative Medical decision making narrative: Patient presents with neurologic symptoms that started 48 to 72 hours ago. 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 Patient was treated with prednisone. She was informed this may cause her blood sugar to be elevated. She has an appointment with her PCP and zinc plate cutter later this month. Stroke Documentation Questions Stroke Team Activated: No Reviewed Inclusion/Exclusion criteria: No Was Patient considered for Endovascular Intervention?: No IV Alteplase (t-PA) Administered: No No contraindications for IV Alteplase (t-PA) administration.: No Alteplase (t-PA) risks, benefits, alternative discussed: No Discharge Plan Triage Chief Complaint: Neuro S/Sx ED Provider: Skyler Wills Dx/Rx/DC Orders Clinical Impression: Facial paralysis/[place] palsy Instructions: ED Tam's Palsy Prescriptions: New prednisone 20 MG tablet 60 mg PO DAILY Qty: 15 RF: 0 erythromycin 5 mg/gram (0.5 %) ointment 0.5 inch LEFT EYE QHS Qty: 3.5 RF: 2 No Action pravastatin 20 mg tablet 20 mg PO DAILY RF: 0 colchicine 0.6 mg tablet See Rx Instructions PO DAILY RF: 0 albuterol sulfate 2.5 mg /3 mL (0.083 %) solution for nebulization 1.25 mg INHALATION Q4H PRN (Reason: Wheezing) RF: 0 Symbicort 160-4.5 mcg/actuation HFA aerosol inhaler 2 puff INHALATION BID RF: 0 labetalol 300 mg tablet 300 mg PO BID RF: 0 metformin 500 mg tablet extended release 24 hr 500 mg PO BID RF: 0 albuterol sulfate 90 mcg/actuation HFA aerosol inhaler 2 puff INHALATION Q4H PRN (Reason: Wheezing) RF: 0 fluticasone propionate [Flonase Allergy Relief] 50 mcg/actuation spray,suspension 2 spray INTRANASAL DAILY RF: 0 nystatin 100,000 unit/gram ointment 1 applic TOPICAL BID RF: 0 calcium carbonate-vitamin D3 500mg (1,250mg) -600 unit tablet 500 tab PO DAILY RF: 0 Centrum Silver 0.4-300-250 mg-mcg-mcg tablet 1 tab PO DAILY RF: 0 furosemide 40 mg tablet 40 mg PO DAILY RF: 0 levothyroxine 75 MCG tablet 75 mcg PO DAILY RF: 0 fosinopril 40 MG tablet 40 mg PO DAILY RF: 0 amlodipine 2.5 MG tablet 1 tab PO DAILY RF: 0 aspirin 81 MG tablet,chewable 81 mg PO DAILY RF: 0 Primary Care Provider: Ej Sims Referrals: Ramon Edwards MD [STAFF PHYSICIAN] - [facility] appointment Ej Sims MD [Primary Care Provider] - [facility] appointment Activity Restrictions/Additional Instructions: 1. Instill 1 drop to 2 drops of artificial tears left eye every hour while awake 2. Instill erythromycin ophthalmic ointment at bedtime and tape your upper eyelid shot Disposition Disposition: Home, Self Care
[2021-07-01 14:32] VITALS: BMI 37.4
== END 2021-07-01 14:57 | disposition home or self-care (01) ==
LOC: ED 14:36
PROVIDERS: Emergency Provider Emergency Medicine; PCP Internal Medicine
DX: G51.0 Bell's palsy (principal); I10 Essential (primary) hypertension; E03.9 Hypothyroidism, unspecified; E11.36 Type 2 diabetes mellitus with diabetic cataract; E66.9 Obesity, unspecified; Z68.37 Body mass index [BMI] 37.0-37.9, adult; K86.2 Cyst of pancreas; E78.5 Hyperlipidemia, unspecified; I27.21 Secondary pulmonary arterial hypertension; J45.909 Unspecified asthma, uncomplicated; M10.9 Gout, unspecified; M17.11 Unilateral primary osteoarthritis, right knee; Z79.82 Long term (current) use of aspirin; Z79.84 Long term (current) use of oral hypoglycemic drugs; Z79.899 Other long term (current) drug therapy
CPT/HCPCS: 99282

== ENCOUNTER → 2022-02-14 | Outpatient (CLI) | payer MEDICARE, SELFPAY ==
--- NOTE | 2022-02-14 13:45 | ECHOD_ITS ---
Reason For Study: HTN Procedure This was a 2D Doppler, Color Flow transthoracic echocardiogram. Exam performed in department. Left Ventricle Normal LV size. Left ventricular systolic function is normal. The estimated ejection fraction is 60 %. Stage 1 diastolic dysfunction. No regional wall motion abnormalities noted. Right Ventricle Normal RV size. Normal systolic function. Atria Normal left atrium. Normal right atrium. Mitral Valve Normal mitral valve. Tricuspid Valve Normal tricuspid valve. Mild (1+) tricuspid valve insufficiency. Pulmonary artery systolic pressure is 36 mmHg. Aortic Valve Normal aortic valve. Trisinus/trileaflet aortic valve. Pulmonic Valve Normal pulmonic valve. Great Vessels Normal aortic root. The pulmonary artery is normal size. Normal inferior vena cava. Pericardium/Pleural No pericardial effusion. MMode/2D Measurements & Calculations LVIDd: 3.5 cm IVSd: 1.2 cm Ao root diam: 3.1 cm LVIDs: 2.3 cm LVPWd: 1.1 cm LA dimension: 3.4 cm RVDd: 3.1 cm FS: 33.5 % LAV(MOD-bp): 43.7 ml LA A4 area: 18.6 cm2 RA A4 area: 13.0 cm2 LAV(MOD-bp) Indexed: 21.2 ml/m2 LAV(MOD-sp2): 32.2 ml LAV(MOD-sp4): 53.4 ml Time Measurements MV dec time: 0.31 sec Doppler Measurements & Calculations MV E max darren: 67.9 cm/sec Lat Peak E' Darren: 5.9 cm/sec Med Peak E' Darren: 3.9 cm/sec MV A max darren: 114.9 cm/sec E/E' lat: 11.6 E/E' med: 17.5 MV E/A: 0.59 MV V2 max: 121.3 cm/sec MV P1/2t max darren: 73.9 cm/sec Ao V2 max: 135.9 cm/sec MV max P.9 mmHg MV P1/2t: 120.8 msec Ao max P.4 mmHg MV V2 mean: 62.4 cm/sec MV dec slope: 179.2 cm/sec2 MV mean P.9 mmHg MVA(P1/2t): 1.8 cm2 MV V2 VTI: 30.3 cm LV V1 max: 118.3 cm/sec PA V2 max: 158.9 cm/sec TR max darren: 287.4 cm/sec LV V1 max P.6 mmHg TR max P.0 mmHg ECHO/Echo Complete Interpretation Summary Normal LV size. Left ventricular systolic function is normal. The estimated ejection fraction is 60 %. Stage 1 diastolic dysfunction. Pulmonary artery systolic pressure is 36 mmHg. Ordering Physician: Eitan Larson Referring Physician: Ej Sims M.D. Performed By: Eitan Larson MD
== END | disposition home or self-care (01) ==
PROVIDERS: PCP Internal Medicine; Referring Provider Internal Medicine Cardiovascular Disease; Visit Provider Internal Medicine Cardiovascular Disease
DX: I27.21 Secondary pulmonary arterial hypertension (principal)
CPT/HCPCS: 93306

== ENCOUNTER → 2022-03-16 | Outpatient (CLI) | payer MEDICARE, SELFPAY ==
--- NOTE | 2022-03-16 15:54 | CT_ITS ---
STUDY: CT RIGHT LOWER EXTREMITY WITHOUT CONTRAST REASON FOR EXAM: Right knee osteoarthritis, surgical planning. TECHNIQUE: Transaxial CT imaging of the lower extremity was performed. Coronal and sagittal images were reformatted. Individualized dose optimization techniques were used for this CT. COMPARISON: None. FINDINGS: There is osteopenia. Knee: There is arthrosis of the medial femorotibial compartment with marginal osteophytes, subchondral cystic change, mild subchondral eburnation and chondral loss (coronal reconstruction 40). There is arthrosis of the lateral femorotibial compartment with marginal osteophytes, subchondral eburnation and joint space narrowing at the mesial aspect of the compartment (coronal reconstruction 38). There is arthrosis of the patellofemoral compartment with marginal osteophytes and joint space narrowing (axial image 233). There are intra-articular bodies at the posterior medial aspect of the knee (sagittal reconstructions 40-42, 50-53). There is a small joint effusion. There is a small popliteal cyst (sagittal reconstruction 54). There is mild chondrocalcinosis in the lateral meniscus. There is mild vascular calcification. Hip: There is joint space narrowing of the superior medial right hip (coronal reconstruction 60). There is a small bone island in the medial femoral head. Ankle: Normal tibiotalar, talonavicular and calcaneocuboid articulations. There is mild joint space narrowing of the posterior subtalar articulation (sagittal reconstruction 40). There are small posterior and plantar calcaneal enthesophytes. There is soft tissue swelling. CT/Extremity Lower without Contra IMPRESSION: Right knee osteoarthritis. Electronically Signed: Anthony Hutchinson MD at 14:58 EDT ,
[2022-03-16 17:37] LABS: Absolute Lymphocyte Count 2.08 X10^3/uL (0.83-4.51); Basophil% 1.2 % (0-1); Eosinophil# 0.15 X10^3/uL; Eosinophils% 1.8 % (0-5); Hemoglobin 13.3 g/dL (12.0-15.0); Lymphocyte # 2.08 X10^3/ul (0.83-4.51); Lymphocyte % 25.6 % (19-41); Mean Corp Hgb Conc 34.1 g/dL (32-36); Mean Corpuscular Hgb 30.4 pg (27.0-32.0); Mean Corpuscular Volume 89.2 fL (81-99); Mean Platelet Vol. 9.4 fl (6.2-12.0); Monocyte# 0.72 X10^3/uL; Monocyte% 8.9 % (0-10); NRBC Flagged by Analyzer 0 % (0-5); Neutrophil # 5.02 X10^3/uL (2.7-7.7); Platelet Count 330 K/mm3 (150-450); RBC Distribution Width CV 12.9 % (11.6-14.6); RBC Distribution Width SD 42.5 fl (35.1-43.9); Red Blood Count 4.37 M/mm3 (4.2-5.4); White Blood Count 8.1 K/mm3 (4.4-11.0)
[2022-03-16 18:11] LABS: Anion Gap 8 (5-15); BUN 29 mg/dL (7-18); BUN/Creat Ratio 32.5 RATIO (10-20); Calcium,Total 9.7 mg/dL (8.5-10.1); Chloride 101 mmol/L (98-107); Creatinine, Serum 0.89 mg/dL (0.55-1.02); EST Glomerular Filtration Rate 64 mL/min (>60); Est Glom Filt Rate - Afr Amer 78 mL/min (>60); Glucose 96 mg/dL (74-106); Potassium 3.9 mmol/L (3.5-5.1); Sodium Level 134 mmol/L (136-145)
[2022-03-16 19:31] LABS: Hemoglobin A1c 6.1 % (3.8-5.6)
[2022-03-17 14:44] LABS: Magnesium 1.9 mg/dL (1.6-2.6)
[2022-03-18 13:25] LABS: Albumin, Serum 3.9 g/dL (3.2-5.0)
[2022-03-20 11:34] LABS: Thyroid Stim Hormone (TSH) 1.85 uIU/mL (0.358-3.74)
== END | disposition home or self-care (01) ==
LOC: CT 15:26
PROVIDERS: Anesthesiology; PCP Internal Medicine; Referring Provider Specialist; Visit Provider Specialist
DX: Z01.818 Encounter for other preprocedural examination (principal); M21.161 Varus deformity, not elsewhere classified, right knee; Z11.2 Encounter for screening for other bacterial diseases
CPT/HCPCS: 36415; 73700; 80048; 82040; 83036; 83735; 84443; 85025; 87081

== ENCOUNTER → 2022-03-17 | Outpatient (CLI) | payer MEDICARE, SELFPAY ==
[2022-03-17 12:51] VITALS: PULSE 76; PULSE 80; PULSE 90; PULSE 91; PULSE 94; PULSE 97; PULSE 98; PULSE 99; O2SAT 93; O2SAT 94; O2SAT 95; O2SAT 96; O2SAT 97
--- NOTE | 2022-03-17 14:27 | PCM.PSN.6M ---
PSN 6 Minute Walk Test 6 Minute Walk Test 6 Minute Walk Test: 6 Minute Walk Test PSN:6-Minute Walk Test Start: 03/17/22 12:50 Freq: Status: Active Protocol: RESP.6MINW Document 03/17/22 12:51 DANAY (Rec: 03/17/22 12:53 DANAY [id number]) 6 Minute Walk Test Date Performed 03/17/22 Time Performed 12:30 Height 5 ft 5 in Weight: 100.698 kg Weight in Pounds 222.[address]: Leonardo Bacon Assistive device used: None Pre-test Oxygen Delivery Method Room Air Pulse Ox (%) 93 Pulse Rate (60-100 beats/min) 76 Dyspnea Juan Diego Scale (0-10) 3 Exertion Juan Diego Scale (6-20) 6 1st minute Oxygen Delivery Method Room Air Pulse Ox (%) 94 Pulse Rate (60-100 beats/min) 94 2nd minute Oxygen Delivery Method Room Air Pulse Ox (%) 94 Pulse Rate (60-100 beats/min) 97 3rd minute Oxygen Delivery Method Room Air Pulse Ox (%) 94 Pulse Rate (60-100 beats/min) 98 4th minute Oxygen Delivery Method Room Air Pulse Ox (%) 94 Pulse Rate (60-100 beats/min) 99 5th minute Oxygen Delivery Method Room Air Pulse Ox (%) 95 Pulse Rate (60-100 beats/min) 90 6th minute Oxygen Delivery Method Room Air Pulse Ox (%) 96 Pulse Rate (60-100 beats/min) 91 Dyspnea Juan Diego Scale (0-10) 4 Exertion Juan Diego Scale (6-20) 13 Post-test Oxygen Delivery Method Room Air Pulse Ox (%) 97 Pulse Rate (60-100 beats/min) 80 Full Laps Walked 6 Partial Lap, Number of Tiles Walked 10 Total Distance Walked (ft) 364 Interpretation Interpretation: The patient was able to ambulate only 364 feet over the course of 6 minutes on room air with a cane, but no breaks. The patient experienced no significant desaturation or tachycardia during testing. These findings are consistent with a musculoskeletal limitation exercise tolerance. Recommendations Recommendations: No supplemental oxygen is indicated at this time.
== END | disposition home or self-care (01) ==
LOC: PSN 12:13
PROVIDERS: PCP Internal Medicine; Referring Provider Internal Medicine Critical Care Medicine; Visit Provider Internal Medicine Critical Care Medicine
DX: J45.909 Unspecified asthma, uncomplicated (principal)
CPT/HCPCS: 94618

== ENCOUNTER 2022-03-29 16:01 | Observation (INO) | payer MEDICARE, SELFPAY ==
--- NOTE | 2022-03-18 11:13 | HP.PCM_ITS ---
History and Physical History and Physical [facility] Patient Name: Angeline Murphy : 1940 From:? NINO BENNETT PA-C? DATE OF SURGERY:? 03/29/2022 SCHEDULED PROCEDURE:? right total knee arthroplasty HISTORY OF PRESENT ILLNESS: Preoperative history and physical exam was performed on March 16, 2022.? This is a 81-year-old female who has been having ongoing pain in her knee since 2008.? Her pain as being constant, aching, sharp, stabbing.? Pain is increased with sitting and walking.? She does have start up pain.? Patient has difficulty with activities of daily living including housework, shopping, leisure activity such as traveling and outside gardening.? She has fallen and tripped/stumbled due to the knee.? She feels unsafe walking on uneven ground.? Pain is located over the medial aspect of the knee.? Pain does awaken her at nighttime.? She has tried conservative measures including rest, elevation with minimal relief.? She has tried previous corticosteroid injection with no relief.? Patient has been through physical therapy and home exercises with minimal relief.? She has tried oral medications including Tylenol and Advil.? Patient denies previous surgery on the right knee.? She has been using a walker and cane for the past 3 years.? Patient does have medical history pertinent for congestive heart failure, coronary artery disease, type 2 diabetes, hypertension, previous heart attack, thyroid disease, cellulitis.? We are obtaining surgical clearance from the primary care physician Dr. Sims as well as cardiology Dr. Larson.? Recent is currently seeing automotive accessory installer Dr. Arash Bacon as she gets shortness of breath with walking.? We are also obtaining surgical clearance from the automotive accessory installer.? Patient currently denies any chest pain or recent fevers, chills or infections.? Patient does live at home alone and is concerned about discharge planning. REVIEW OF SYSTEMS: Review Of Systems: Constitutional: Denies change in appetite, fever and weight change. Cardiovasular: Reports chest pain, but denies heart murmur and irregular heartbeat. Respiratory: Reports cough, shortness of breath and wheezing, but denies pneumonia and tuberculosis. Gastrointestinal: Reports constipation, but denies diarrhea, heartburn, nausea, rectal itching, bloody stools and vomiting. Genitourinary: Reports incontinence. Musculoskeletal: Reports leg swelling and trouble walking, but denies pain and weakness. Skin: Denies Raynaud's, history of shingles and tattoo. Neurological: Reports ambulatory dysfunction but denies dizziness, numbness/ tingling and tremor. Psychiatric: Denies anxiety, insomnia and stress. Hematologic/Lymphatic: Denies anemia, bleeding/bruising tendency and past transfusion. Reviewed and updated. PAST MEDICAL HISTORY: Advance Care Plan: Other Directive, HEALTH POA Effective Date: 11/25/2021 Other Directive, LIVING WILL Effective Date: 11/25/2021 Past Medical History: Medical Problems: Asthma, Congestive Heart Failure (CHF), Coronary Artery Disease (CAD), Diabetes, High Blood Pressure, Hypercholesterolemia, Heart Attack, Psoriasis, Thyroid Disease Covid- 19 - VACCINATED? Cellulitis Accidents: Sports Related Injury - SPRAINED ANKLE- MULTIPLE TIMES- IN HIGH SCHOOL Surgical Hx: Cataracts - BOTH EYES Hysterectomy Anesthesia Complications: None Assistive Devices: Cane, Dentures, Glasses Reviewed and updated. SOCIAL HISTORY: Social History: Marital: .Occupation: Retired.Work Status: Retired.Hand Dominance: Right- handed. Personal Habits:? Cigarette Use: Never Smoked Cigarettes.Smokeless Tobacco: Ethan r Used Smokeless Tobacco.E-Cigarette Use: Never used.Alcohol: Occasionally.Drug Use: Denies Use.Enjoy Exercising: Exercises 1-3 X/Week. Reviewed and updated. VITALS: Ht: 65.5 Wt: 224lb Wt k.606 BMI: 36.7 BP: 128/64 Pulse: 73 Resp: 12 T: 97.6 T: 36.4C Pain Level: 6 O2SatR: 96 ALLERGIES: Penicillin Codeine Pain Killers Unknown Some Antibiotics Shellfish-Derived Products? MEDICATIONS: Aspirin 81 81 mg 1 pill 2x/day by mouth, Labetalol HCL 200 mg 2 by mouth daily for high bp, Metformin HCL 500 mg 1 by mouth every day, Synthroid 75 mcg 1 by mouth every day, Pravastatin Sodium 40 mg 1 by mouth every day, Amlodipine Besylate 10 mg 1 by mouth every day, Centrum? 1po qday, Advil 200 mg 4 tablets 1-2x daily as needed, Tylenol Extra Strength 500 mg 2 by mouth every 8 hours, Calcium Citrate 250 mg 1200 mg calcium daily, Hair/Skin/Nails? 1po qday, Symbicort 160-4.5 mcg/Act 2 puffs daily, Proair HFA 108 (90 Base) mcg/Act 2 puffs prn, Doxazosin Mesylate 4 mg, Hydrochlorothiazide 25 mg, Vitamin C , Vitamin B Complex , Biotin , Vitamin D , Fosinopril Sodium 40 mg, Systane 0.4- 0.3 % PRE-OP EXAM:? General appearance:NORMAL? ? ? Other: Eyes: Conjunctivae and lids: NORMAL? Pupils: ERR Ears, Nose, Mouth, and Throat: NORMAL? Other: Inspection of lips, teeth and gums: NORMAL? ?Other: Neck: Examination of neck: no masses noted. Respiratory: Assessment of respiratory effort: NORMAL? ?Other: ?Auscultation of lungs: clear to auscultation no wheezes, rhonchi or rales. Cardiovascular:? Auscultation of heart: regular rate and rhythm, no murmurs, gallops or rubs. PHYSICAL EXAMINATION: Patient does walk with an antalgic gait.? Right knee is cool to touch without erythema or signs of infection.? Patient does have a large effusion with the right knee.? There is tenderness to palpation over the medial joint line.? Range of motion: Patient does have 20 flexion contracture with flexion to 87.? She has fixed varus alignment.? Sensation intact to light touch to bilateral lower extremities. IMAGING STUDIES: Previous x-rays of the right knee reveal varus alignment, medial joint space narrowing, subchondral sclerosis, osteophyte formation consistent with severe tr icompartmental osteoarthritis with medial lateral compartment bony erosions. IMPRESSION: 1.? Severe right knee osteoarthritis with varus deformity 2.? Congestive heart failure 3.? Coronary artery disease 4.? Hypertension 5.? Type 2 diabetes mellitus 6.? Hypercholesterolemia 7.? Previous heart attack 8.? History of heart catheterization 9.? Thyroid disease 10.? History of cellulitis PLAN: Dr. Stephane Arriola did discuss and review with the patient all treatment options including surgical versus nonsurgical options.? Patient does wish to proceed with the above-stated procedure.? Potential risks, benefits, and complications of the procedure were discussed in detail including but not limited to , infection, nerve and blood vessel damage, persistent pain, numbness, tingling, paresthesias, blood clot, pulmonary embolism, and requirement for possible further surgery.? The patient expressed full understanding and has no further questions for the doctor.? Patient does agree to proceed with the above-stated procedure and has signed the surgery consent form. We discussed the current risks associated with COVID 19.? This does include the risk of exposure while in the hospital.? Patient was reassured local hospitals have low infection rates and are taking all necessary precautions to avoid exposure to patients.? In addition, we discussed strategies that can be used to help limit exposure including those that limit the patient's time in the hospital.? Also using strategies to limit the patient's need for continued inpatient services after being discharged from the hospital.? Patient was notified that we will need to comply with any screening or testing the hospital wishes to perform or that surgery may be delayed for any positive results. This dictation was created using voice recognition software. Phonetic and/or grammatical errors may exist. ___? I have re-examined the patient.? There are no clinical changes since date of exam. ___? See progress notes for changes. ___? Dictated on admission Date: ? ? ?Time: Signature:
[2022-03-29] VITALS (14 sets, daily range): BP systolic 110–156; BP diastolic 50–69; PULSE 57–72; RESP 16–18; TEMP 35.8–37; O2SAT 92–97; BMI 37.0
--- NOTE | 2022-03-29 07:45 | PCM.OPRPT ---
Report of Operation Date of Procedure: 03/29/22 Pre-Operative Diagnosis: Right knee primary osteoarthritis Post-Operative Diagnosis: Right knee primary osteoarthritis Surgery/Procedure Performed:: Right minimally invasive robotic total knee replacement Description of Surgical Findings:: Stable knee with good patella tracking Surgeon: Stephane Arriola flag car driver: Slava Franklin Type of Anesthesia: General Anesthesiologist: Junior Schafer Special Medications: 2 g Ancef, 1 g TXA at incision, 1 g TXA closure, 10 mg Decadron, joint cocktail (5 mg Duramorph, 30 mL of 0.5% Ropivicaine, 1000 units of epinephrine, 30 mg of Toradol) Specimen's removed: Bony cuts Estimated Blood Loss (mL): 100 Fluids Replaced: 1200 mL crystalloid Description of Procedure: Implants used: 1. Florence size 3 triathlon cruciate retaining distal femoral press-fit component 2. Henry size 4 press-fit tritanium tibial baseplate 3. Florence X3 11 mm CS polyethylene 4. Henry X3 29 mm asymmetric patella Brief history operative indications: 81-year-old female with history of right knee osteoarthritis with radiographic findings with loss of joint space, osteophyte formation and subchondral sclerosis. Failed conservative measures as mentioned in the H&P. Discussion of total knee arthroplasty as well as risk and benefits were discussed the patient including but not limited to blood loss, DVTs, PEs, neurovascular damage, general risk of anesthesia including loss of life, and stiffness or instability were discussed with patient. Patient demonstrated understanding and was able to sign informed consent. Procedure: On the date of procedure patient's right lower extremity was marked in the preoperative area. The patient was then taken back to the operating room where the patient was placed on the table in the supine position. All bony prominences were identified a well-padded. Anesthesia assumed control of the C-spine and airway and remained controlled throughout the remainder of the procedure. A tourniquet was placed on the right upper thigh and the leg was prepped in a sterile fashion. The surgeon then scrubbed at this time .Upon reentering the room right lower extremity was draped in a standard orthopedic fashion. A timeout was then called and everyone agreed upon the side, the site, the procedure to be performed, patient's identity and antibiotics given. Esmarch bandage was used to exsanguinate the extremity and the tourniquet was placed up to 250 mmHg with the knee in flexion. A midline skin incision was made and sharp dissection was taken down through skin subcutaneous tissue and fat. The standard medial parapatellar incision was made and the patella was subluxed laterally. An Appropriate deep MCL release was done and the fat pad was resected. Our attention was then directed to the patella. The patella was everted and a flat resection was made. The knee was then flexed up in 2 femoral pins were placed inside the incision and 2 tibial pins were placed outside the incision in the medial tibia bicortically. Once this was completed the 2 checkpoints in the femur and tibia were placed. Knee was then flexed up and the bony landmarks were registered. Once this was completed knee was taken through range of motion and manually stressed allowing us to a plan for an appropriate tibial cut. The robotic arm was brought into the field sterilely and checkpoint and saw were registered. Based on the patient's deformity the tibial cut was made in 3 degrees of varus. At this time the tensioner was then placed in the joint and ligament tension was checked at 90 degrees and full extension. Based on the patient's ligamentous tension appropriate adjustments were made to the operative plan and ligament releases were done. Once we were happy with our operative plan with balanced flexion and extension gaps our attention was directed to the femur. The robot was brought into the field sterilely and registered. Posterior condylar cuts, anterior chamfer cuts and anterior cuts were appropriately made for a size 3 femur. When these were completed the saws were switched out in the distal femoral and posterior chamfer cuts were made. Protecting the soft tissue throughout this time. A size 4 tibial base plate was selected. the knee was flexed to 90 degrees and the soft tissues and posterior osteophytes were removed from the joint. 40 cc of the periarticular injection was injected into the posterior medial corner of the joint. The appropriate trials were then placed on the femur and tibia. A trial polyethylene was trialed to ensure proper balancing and stability of the knee. The appropriate tibial internal rotation was then marked with a bovie. Our attention was then directed to the patella. The lug holes were drilled and the patella trial was placed. Patellar tracking was checked and deemed appropriate. Once we were happy lug holes were drilled for the femur and trial components were removed. the tibia was subluxed and pinned into place and the keel was punched and drilled appropriately. Final components were verified and opened, and cement was mixed in a vacuum. [employer] cement was used. The wound was copiously irrigated with normal saline. When the cement was ready the components were impacted into place starting with the tibia, femur and finally cementing the patella. The trial poly component was placed and the knee was placed in full extension. All excess cement was removed in the process. Once the cement had cured the tracking, alignment and balance were verified and a size 11 mm CS polyethylene component was placed. Once the final components were placed a 3-minute dilute Betadine lavage was performed followed by an Irrisept lavage was performed and the wound was copiously irrigated with normal saline solution and the periarticular injection was given. The wound was closed in a layer chiu fashion using #1 vicryl interrupted sutures for the arthrotomy, 2-0 interrupted Vicryl suture for the subcuticular layer and faith for final skin closure. A sterile compressive dressing was then placed. The patient was then awakened from anesthesia, transferred to the [place] and transferred to the PACU for recovery. Post op plan DVT ppx: ASA 81mg BID, thigh high compression stockings Follow up: in office in 2 weeks for wound check PT: to start POD #0 at hospital, outpatient PT should be arranged. My physician assistant printer floor covering was a vital part of this case. He was important in appropriate retraction during the case, and protection of soft tissues during bony cuts. His intimate knowledge of the case and my steps aided in safe and expedient completion of the procedure as well as appropriate position of the leg during the case. He was also vital in assisting with closure under my direct supervision. Due to the complexity of this case robotic arm was used to assist in the surgery to improve accuracy and clinical outcomes. Complications No intraoperative complications Admit VTE Documentation VTE Present on Admission: No VTE Mechan Device Prophylaxis: SCD's and Thigh High GENEVA Hose VTE Pharm Prophylaxis ordered?: Yes
[2022-03-29] MEDS: Lactated Ringers 1,000 ML 125 ML IV (10:57)
[2022-03-29] MEDS: Gabapentin 600 MG Tablet PO (10:58)
[2022-03-29] MEDS: Celecoxib 200 MG Capsule 400 MG PO (10:58)
[2022-03-29] MEDS: Magnesium 2 GM IV (10:58)
[2022-03-29] MEDS: Acetaminophen 500 MG Tablet 1000 MG PO ×2 (10:58→18:28)
[2022-03-29 12:05] LABS: Bedside Glucose 199 mg/dL (74-106)
--- NOTE | 2022-03-29 13:00 | KNEE_PTH ---
PATIENT: PEDRITO MON[place]NA LOC: MS3 U#:[id number] AGE/SX: 81/F [place] [facility] [place]: Dr. Stephane Arriola MD : [id number] BED: 1 DIS: 03/31/2022 SPEC #: [id number] RECD: 03/29/22 17:11 STATUS: CHRISTIAN REMary #: [id number] BELA: 03/29/22 13:[address]: Stephane Arriola DEPT: SURGICAL PATHOLOGY RECD BY: Dominique Montero ENTERED: 03/30/22 09:40 SP TYPE: TOTAL KNEE OTHR DR: DO Dr. Ej Herrera MD Tissues: Knee, NOS Procedures: Decalcification bone/plaque Surgery Specimen Level IV HEADER OPERATION: ERAS, total knee replacement robotic arm assist PRE-OP DIAGNOSIS: Right knee primary osteoarthritis TISSUE SUBMITTED: Bone and tissue right knee MICROSCOPIC DIAGNOSIS Bone and tissue, right knee, total knee replacement/resection: Pieces of bone with degenerative osteoarthritic changes. Fibroadipose tissue, fibroconnective tissue and reactive synovial tissue. RENE:jose e 04/03/2022 MICROSCOPIC DESCRIPTION Slides are reviewed. GROSS DESCRIPTION Received is one container designated bone and soft tissue right knee. The specimen consists of multiple fragments of wise-yellow bone measuring in aggregate 10 x 9 x 3 cm. A few small fragments of soft tissue attached to pieces of bone measures in aggregate 2.5 x 3 x 1 cm. A number of bony fragments contain articular surfaces consistent with tibial plateau and femoral condyle and displaying prominent osteophyte formation, eburnation and bone erosion. A piece of loose body is also noted measuring 1.5 x 1.5 x 1 cm. Falsework Builder sections are submitted in two cassettes as follows: 1 - soft tissue, 2 - bone after decalcification. / RENE:jose e 03/30/2022 TC:5 CPT: 86917, 21844
[2022-03-29] MEDS: Cefazolin 2 GM in 0.9% Normal Saline 100 ML IV (13:28)
[2022-03-29] MEDS: TXA 1000mg in NS100 100ml (IVPB at Incision) 660 MG IV (13:40)
[2022-03-29] MEDS: dexAMETHasone 10 MG/ML Vial IV (13:40)
[2022-03-29] MEDS: TXA 1000mg in NS100 100ml (IVPB at Closure) 660 MG IV (14:52)
[2022-03-29] MEDS: Lactated Ringers 1,000 ML 999 ML IV (15:35)
--- NOTE | 2022-03-29 15:40 | CASEMGMT ---
Pt dtrs present on floor asking questions regarding dc planning. Met with them, they state pt would like to go to the rehab unit post surgery. Discussed that this is typically not approved for this dx and patient insurance. They question SNF with therapy. Provided dtrs with a list of SNF/Rehab unit providers including quality and resource use data and consistent with the patient?s preferred geographic region, medical needs, and insurance network. Daughters are aware that pt will need to work with therapy to help determine if this would be appropriate and insurance would need to approve. Daughters wish to review list and will speak with their mother.
--- NOTE | 2022-03-29 15:55 | RAD_ITS ---
INDICATION: post op -- AP and Lateral xray of operative knee in PACU EXAMINATION/TECHNIQUE: X-RAY - RIGHT XR Knee 1 or 2 Views 2 VIEWS COMPARISON: 06/30/2014.. FINDINGS: Unremarkable alignment of the tibial and femoral prosthesis the right knee prosthesis. No evidence of lucency is visualized surrounding the prosthesis. No evidence of cortical irregularity or lucency is seen to to suggest a fracture. Soft tissue swelling visualized with overlying surgical faith consistent with postoperative changes. RAD/Knee 1 or 2 Views IMPRESSION: Unremarkable alignment of the right knee prosthesis, no evidence of complications. Electronically Signed: Shashi Leon MD at 16:32 EDT ,
[2022-03-29 17:35] LABS: Bedside Glucose 133 mg/dL (74-106)
[2022-03-29] MEDS: Ensure Surgery 237 ML LIQUID PO (18:28)
[2022-03-29] MEDS: Aspirin 81 MG TAB.CHEW PO (18:29)
[2022-03-29] MEDS: Albuterol 2.5 MG/3 ML VIAL.NEB. INHALATION (18:47)
[2022-03-29] MEDS: Budesonide Respules 0.5 MG/2 ML AMPUL.NEB. INHALATION (18:47)
--- NOTE | 2022-03-29 20:25 | PN.HOSP_ITS ---
Subjective Subjective Patient was seen and examined today, she underwent a right minimally invasive knee replacement today, chronic medical problems include essential hypertension, atherosclerotic heart disease, hyperlipidemia, and pulmonary hypertension. Patient would like to go to an inpatient rehab facility short-term for rehab services at discharge from the hospital, I told her it would depend on her insurance coverage, she will be seen by PT and OT tomorrow. At the time my examination, patient does not complain of any shortness of breath, chest pain, fever, or chills. Objective Data Objective Data Vital Signs: Vital Signs Temp Pulse Resp BP Pulse Ox O2 Del Method O2 Flow Rate 97.7 F L 59 L 18 156/59 H 92 Room Air 2 03/29/22 20:07 03/29/22 20:07 03/29/22 20:07 03/29/22 20:07 03/29/22 20:07 03/29/22 20:07 03/29/22 18:47 Oxygen Flow Rate (L/min) 2 Oxygen Delivery Method Room Air Weight: 101 kg Body Mass Index (BMI) 37.0 Intake & Output: Intake and Output for Last 24 Hours 03/27/22 03/28/22 03/29/22 23:59 23:59 23:59 Intake Total 2434 / 2434 Balance 2434 / 2434 Lab / Micro Data Labs: Laboratory Results - last 24 hr 03/29/22 10:47: POC Glucose 199 H 03/29/22 17:18: POC Glucose 133 H Micro: Microbiology 03/29/22 10:36 Interface Orders SARS-CoV-2 Antigen (Rapid) - Final Radiography Diagnostic Testing: Radiology Impression Knee X-Ray 03/29/22 15:55 IMPRESSION: Unremarkable alignment of the right knee prosthesis, no evidence of complications. Electronically Signed: Shashi Leon MD at 16:32 EDT , Physical Exam Const alert, oriented x3, no apparent distress and healthy appearing Constitutional Narrative: Patient appears younger than her stated age General Appearance: cooperative, well kempt and well developed Orientation / Consciousness: awake, oriented to person, oriented to place and oriented to time HEENT normocephalic, head/scalp atraumatic and moist oral mucous membranes Eyes PERRL, EOMs intact bilaterally and conjunctivae normal Neck supple, no JVD, thyroid normal and no carotid bruits General: trachea midline Resp normal respiratory effort, no retractions, no use of accessory muscles and clear to auscultation bilaterally Auscultation: Negative for rales, rhonchi or wheezes Cardio regular rate, regular rhythm, S1 normal heart sound, S2 normal heart sound, no murmurs, no rub and no gallops GI normal to inspection, nondistended, normoactive bowel sounds, soft to palpation, non-tender and non-distended Extremity Extremity Narrative: Patient's right leg is wrapped with Robin wrap, patient also has Robin wrap over her left leg. Skin no rashes or lesions noted General Skin Exam: no breakdown Neuro oriented x3, CN's II-XII intact bilaterally, no focal motor deficits and no sensory deficits noted Sensorium / Orientation: awake and alert Speech: speech normal Psych affect normal Assessment & Plan Assessment/Plan (1) Essential (primary) hypertension: PLAN: Plan 1. Essential hypertension-patient is currently on amlodipine, Cardura, lisinopril, Trandate, and hydrochlorothiazide for blood pressure-these will be continued #2 hyperlipidemia-patient is on a statin at home-this will be continued #3 hypothyroidism-patient is on Synthroid #4 type 2 diabetes-patient is on Glucophage-this will be continued #5 osteoarthritis-complicates care, medical management, recovery, and prognosis #6 asthma-patient will continue as needed albuterol aerosols, she will also be on budesonide aerosols #7 coronary artery disease-stable at this time-patient will remain on her pres ent medications #8 postop day 0 minimally invasive right knee replacement due to osteoarthritis- PT and OT will see the patient, she may need to be placed in a retirement facility for short-term rehab services, case management will talk with the patient tomorrow Charges/Coding Visit Charges Inpatient E&M: 44961 Subs Hosp L3
[2022-03-29] MEDS: Doxazosin 4 MG Tablet PO (22:07)
[2022-03-29] MEDS: Glycerin/Hypromellose/PEG400 15 ml Bottle 1 DRP EACH EYE (22:11)
[2022-03-29] MEDS: Labetalol 100 MG Tablet 300 MG PO (22:11)
[2022-03-29] MEDS: Cefazolin 1 GM/50 ML BAG IV (22:11)
[2022-03-29] MEDS: Pravastatin 40 MG Tablet PO (22:12)
[2022-03-29] MEDS: Senna/Docusate Sodium 1 Tablet 2 TABLET PO (22:12)
[2022-03-29] MEDS: Levothyroxine 75 MCG Tablet PO (22:12)
[2022-03-29 23:01] LABS: Bedside Glucose 249 mg/dL (74-106)
[2022-03-30] VITALS (8 sets, daily range): BP systolic 95–151; BP diastolic 50–103; PULSE 57–88; RESP 18–21; TEMP 35.8–36.5; O2SAT 89–97
[2022-03-30] MEDS: Acetaminophen 500 MG Tablet 1000 MG PO ×3 (02:56→18:52)
--- NOTE | 2022-03-30 04:09 | NURSING ---
PT PLACED ON O2 2L NC
[2022-03-30] MEDS: Cefazolin 1 GM/50 ML BAG IV (05:00)
[2022-03-30 06:32] LABS: Hematocrit 35.9 % (37-47); Hemoglobin 12.4 g/dL (12.0-15.0); Mean Corp Hgb Conc 34.5 g/dL (32-36); Mean Corpuscular Hgb 30.8 pg (27.0-32.0); Mean Corpuscular Volume 89.1 fL (81-99); Mean Platelet Vol. 9.6 fl (6.2-12.0); Platelet Count 274 K/mm3 (150-450); RBC Distribution Width CV 12.4 % (11.6-14.6); RBC Distribution Width SD 40.7 fl (35.1-43.9); Red Blood Count 4.03 M/mm3 (4.2-5.4); White Blood Count 12.9 K/mm3 (4.4-11.0)
[2022-03-30 06:40] LABS: Anion Gap 8 (5-15); BUN 25 mg/dL (7-18); Calcium,Total 8.4 mg/dL (8.5-10.1); Chloride 95 mmol/L (98-107); EST Glomerular Filtration Rate 56 mL/min (>60); Est Glom Filt Rate - Afr Amer 68 mL/min (>60); Estimated Creatinine Clearance 38.36 ml/min; Glucose 152 mg/dL (74-106); Potassium 4.7 mmol/L (3.5-5.1); Sodium Level 127 mmol/L (136-145)
[2022-03-30 07:00] LABS: Bedside Glucose 160 mg/dL (74-106)
[2022-03-30] MEDS: Cholecalciferol (VIT D3) 25 MCG TABLET (1,000 UNITS) PO (08:27)
[2022-03-30] MEDS: Labetalol 100 MG Tablet 300 MG PO ×2 (08:27→21:51)
[2022-03-30] MEDS: hydroCHLOROthiazide 25 MG Tablet PO (08:27)
[2022-03-30] MEDS: Multivitamins,Ther W-Minerals Tablet 1 TABLET PO (08:27)
[2022-03-30] MEDS: metFORMIN (XR) 500 MG Tablet PO (08:27)
[2022-03-30] MEDS: Senna/Docusate Sodium 1 Tablet 2 TABLET PO ×2 (08:27→21:51)
[2022-03-30] MEDS: Ascorbic Acid 500 MG Tablet PO (08:28)
[2022-03-30] MEDS: Aspirin 81 MG TAB.CHEW PO ×2 (08:28→17:17)
[2022-03-30] MEDS: Famotidine 20 MG Tablet PO (08:28)
[2022-03-30] MEDS: Methylcellulose 2 GM Bottle PO (08:29)
[2022-03-30] MEDS: amLODIPine 10 MG Tablet PO (08:31)
--- NOTE | 2022-03-30 10:31 | PCM.PN.ORT ---
Subjective Subjective The patient was sitting in bed upon examination with her daughters present. Patient denies any chest pain, shortness of breath, dizziness, lightheadedness, nausea or vomiting, or calf pain. Pain is controlled on medications. No adverse overnight events. Patient states she had some throat irritation but that has resolved. Patient does live home alone. She is requesting penitentiary facility or rehab. Objective Data Objective Data Vital Signs: Vital Signs Temp Pulse Resp BP Pulse Ox O2 Del Method O2 Flow Rate 97.6 F L 60 18 139/69 H 97 Room Air 2 03/30/22 08:30 03/30/22 08:30 03/30/22 08:30 03/30/22 08:30 03/30/22 08:30 03/30/22 08:30 03/29/22 18:47 Oxygen Flow Rate (L/min) 2 Oxygen Delivery Method Room Air Weight: 101 kg Body Mass Index (BMI) 37.0 Intake & Output: Intake and Output for Last 24 Hours 03/28/22 03/29/22 03/30/22 23:59 23:59 23:59 Intake Total 2484 / 2484 50 / 50 Balance 2484 / 2484 50 / 50 Lab / Micro Data Result Diagrams: 03/30/22 05:00 03/30/22 05:00 Labs: Laboratory Results - last 24 hr 03/29/22 10:47: POC Glucose 199 H 03/29/22 17:18: POC Glucose 133 H 03/29/22 22:34: POC Glucose 249 H 03/30/22 05:00: WBC 12.9 H, RBC 4.03 L, Hgb 12.4, Hct 35.9 L, MCV 89.1, MCH 30.8, MCHC 34.5, RDW Std Deviation 40.7, RDW Coeff of Braden 12.4, Plt Count 274, MPV 9.6 03/30/22 05:00: Sodium 127 L, Potassium 4.7, Chloride 95 L, Carbon Dioxide 24.0, Anion Gap 8, BUN 25 H, Creatinine 1.00, Estim Creat Clear Calc 38.36, Est GFR (MDRD) Af Amer 68, Est GFR (MDRD) Non-Af 56 L, BUN/Creatinine Ratio 25.0 H, Glucose 152 H, Calcium 8.4 L 03/30/22 06:38: POC Glucose 160 H Micro: Microbiology 08/03/22 10:36 Interface Orders SARS-CoV-2 Antigen (Rapid) - Final Radiography Diagnostic Testing: Radiology Impression Knee X-Ray 03/29/22 15:55 IMPRESSION: Unremarkable alignment of the right knee prosthesis, no evidence of complications. Electronically Signed: Shashi Leon MD at 16:32 EDT , Physical Exam Narrative Vital signs stable and afebrile. SCDs and GENEVA hose are in place bilaterally Patient is able to plantarflex and dorsiflex actively. Sensation is intact to light touch to saphenous, sural, superficial and deep peroneal, and tibial distribution. Proximal pin site dressing and main Mepilex dressing is clean dry and intact. Mild saturation of the distal pin site dressing Negative Homans bilaterally, negative signs and symptoms of DVT. Const alert, oriented x3 and no apparent distress Assessment & Plan Assessment/Plan (1) Status post total right knee replacement: PLAN: 1. S/P right total knee arthroplasty POD #1 2. Continue Pain Medications: Tylenol and oxycodone 3. DVT Prophylaxis: Take 81 mg aspirin twice daily for 4 weeks postoperatively for DVT prophylaxis. Patient denies history of DVT or pulmonary embolism in the past. She does take baby aspirin once daily at home. She was instructed for 4 weeks postoperatively twice daily for DVT prophylaxis. 4. PT/OT: Weightbearing as tolerated with walker 5. H & H: 12.4/35.9, asymptomatic. Postoperative anemia secondary to acute blood loss from surgery without any intra operative complications. 6. Reactive leukocytosis: Currently 12.9, afebrile. Patient did receive Decadron intraoperatively 7. Continue postoperative medical management per medicine 8. Encouraged Incentive Spirometry 9. Disposition: Patient does live home alone and will require additional assistance upon discharge. Case management is currently involved with appropriate placement. Would like input from physical therapy for discharge planning as well. We will continue to monitor the patient while in the hospital. Repeat lab work tomorrow morning. I have reviewed the [place] Automated Rx Reporting System (OARRS) report for this patient for refill pattern and other prescriber involvement as part of the appropriate surveillance for the provision of acute and chronic controlled medications. The report was requested and reviewed on the date of this entry and was considered in the prescribing process. This dictation was created using voice recognition software. Phonetic and/or grammatical errors may exist.
[2022-03-30] MEDS: Lisinopril 40 MG Tablet PO (11:18)
--- NOTE | 2022-03-30 11:41 | CASEMGMT ---
Social Work SW to room to meet with patient for initial transition planning/care coordination assessment. SW introduced self and role at [facility].? Pt voices understanding and consents to assessment at this time.? Pt resting in bed in no distress at this time, with Daughter Surekha at bedside.? Pt is A/O at this time and answers all questions appropriately.?? Care providers, pharmacy, and demographics verified/updated at this time.? PCP: Ej Sims? Specialists: Dr. Burrows- Table Games Shift Manager, Dr. Bacon-Document Review Attorney, Dr. Garcia- Motion Study Technician? Preferred Pharmacy: [facility] in [place]? Insurance: [employer] Medicare? Prescription Benefit:?No concerns? Living Will/HPOA: Daughter, Surekha Murphy? LNOK: Daughter, Surekha Murphy? Living Arrangements:?Pt. lives alone in a ranch style home. Pt reports 4 steps to get in front door and 3 steps for the back door. Pt has some concerns with entering the house. She also noted laundry is in the basement and feels unsteady going down the basement steps. ? Transportation: Pt states drives self and states no transportation concerns at this time.?? DME:?? Pt has a walker and a rollator but reports using a cane while walking the majority of the time. ?Pt has bedside commode, raised toilet. Pt states no need for further DME at this time.?? ? HHC/SNF:? Patient was provided a list of SNF providers including quality and resource use data that is consistent with the patient?s preferred geographic region, medical needs, and insurance network. The patient?s preferred provider is [facility]. ? ? SW to follow for any further discharge planning/needs.? Pt voices no further concerns/needs at this time.? Advised pt to ask for SW if any further questions/concerns/needs arise.? Voices understanding.? TUSHAR Lopez
[2022-03-30] MEDS: Albuterol 2.5 MG/3 ML VIAL.NEB. INHALATION ×2 (13:05→19:06)
[2022-03-30] MEDS: Budesonide Respules 0.5 MG/2 ML AMPUL.NEB. INHALATION ×2 (13:16→19:06)
--- NOTE | 2022-03-30 13:30 | CASEMGMT ---
RN ALFREDO NOTE: Intro role of CM to patient and [employer] form explained re: Observation status for treatment of right knee replacement. Explained hospitalization will be paid per her insurance policy for Outpatient billing and condition will continue to be evaluated for Inpt necessity. Also let pt know that [facility] sends paper in the billing packet with their phone number if questions arise. Discussed Pharmacy section of [employer] form and self administered medication guideline. Pt verbalizes understanding and does not have further questions. Form signed, copy made and placed in chart, and original given to pt. Genoveva MERCER RN CM
--- NOTE | 2022-03-30 16:43 | PN.HOSP_ITS ---
Subjective Subjective Patient was seen and examined today, we are presently trying to seek approval for the patient to go to a [facility] facility for short-term rehab services. Patient has no complaints of any shortness of breath or chest discomfort today, she denies any fevers or chills. Objective Data Objective Data Vital Signs: Vital Signs Temp Pulse Resp BP Pulse Ox O2 Del Method O2 Flow Rate 97.5 F L 64 18 132/66 H 97 Room Air 2 03/30/22 15:06 03/30/22 15:06 03/30/22 15:06 03/30/22 15:06 03/30/22 15:06 03/30/22 15:06 03/29/22 18:47 Oxygen Flow Rate (L/min) 2 Oxygen Delivery Method Room Air Weight: 101 kg Body Mass Index (BMI) 37.0 Intake & Output: Intake and Output for Last 24 Hours 03/28/22 03/29/22 03/30/22 23:59 23:59 23:59 Intake Total 2484 / 2484 50 / 50 Balance 2484 / 2484 50 / 50 Lab / Micro Data Result Diagrams: 03/30/22 05:00 03/30/22 05:00 Labs: Laboratory Results - last 24 hr 03/29/22 17:18: POC Glucose 133 H 03/29/22 22:34: POC Glucose 249 H 03/30/22 05:00: WBC 12.9 H, RBC 4.03 L, Hgb 12.4, Hct 35.9 L, MCV 89.1, MCH 30.8, MCHC 34.5, RDW Std Deviation 40.7, RDW Coeff of Braden 12.4, Plt Count 274, MPV 9.6 03/30/22 05:00: Sodium 127 L, Potassium 4.7, Chloride 95 L, Carbon Dioxide 24.0, Anion Gap 8, BUN 25 H, Creatinine 1.00, Estim Creat Clear Calc 38.36, Est GFR (MDRD) Af Amer 68, Est GFR (MDRD) Non-Af 56 L, BUN/Creatinine Ratio 25.0 H, Glucose 152 H, Calcium 8.4 L 03/30/22 06:38: POC Glucose 160 H Micro: Microbiology 03/29/22 10:36 Interface Orders SARS-CoV-2 Antigen (Rapid) - Final Physical Exam Narrative alert, oriented x3, no apparent distress and healthy appearing Constitutional Narrative: Patient appears younger than her stated age General Appearance: cooperative, well kempt and well developed Orientation / Consciousness: awake, oriented to person, oriented to place and oriented to time HEENT normocephalic, head/scalp atraumatic and moist oral mucous membranes Eyes PERRL, EOMs intact bilaterally and conjunctivae normal Neck supple, no JVD, thyroid normal and no carotid bruits General: trachea midline Resp normal respiratory effort, no retractions, no use of accessory muscles and clear to auscultation bilaterally Auscultation: Negative for rales, rhonchi or wheezes Cardio regular rate, regular rhythm, S1 normal heart sound, S2 normal heart sound, no murmurs, no rub and no gallops GI normal to inspection, nondistended, normoactive bowel sounds, soft to palpation, non-tender and non-distended Extremity Extremity Narrative: Patient's right leg is wrapped with Robin wrap, patient also has Robin wrap over her left leg. Skin no rashes or lesions noted General Skin Exam: no breakdown Neuro oriented x3, CN's II-XII intact bilaterally, no focal motor deficits and no sensory deficits noted Sensorium / Orientation: awake and alert Speech: speech normal Psych affect normal Const alert, oriented x3, no apparent distress and healthy appearing Constitutional Narrative: Patient appears younger than her stated age General Appearance: cooperative, well kempt and well developed Orientation / Consciousness: awake, oriented to person, oriented to place and oriented to time HEENT normocephalic, head/scalp atraumatic and moist oral mucous membranes Eyes PERRL, EOMs intact bilaterally and conjunctivae normal Neck supple, no JVD, thyroid normal and no carotid bruits General: trachea midline Resp normal respiratory effort, no retractions, no use of accessory muscles and clear to auscultation bilaterally Auscultation: Negative for rales, rhonchi or wheezes Cardio regular rate, regular rhythm, S1 normal heart sound, S2 normal heart sound, no murmurs, no rub and no gallops GI normal to inspection, nondistended, normoactive bowel sounds, soft to palpation, non-tender and non-distended Extremity Extremity Narrative: Patient's right leg is wrapped with Robin wrap, patient also has Robin wrap over her left leg. Skin no rashes or lesions noted General Skin Exam: no breakdown Neuro oriented x3, CN's II-XII intact bilaterally, no focal motor deficits and no sensory deficits noted Sensorium / Orientation: awake and alert Speech: speech normal Psych affect normal Assessment & Plan Assessment/Plan (1) Status post total right knee replacement: (2) Essential (primary) hypertension: PLAN: Plan 1. Essential hypertension-patient is currently on amlodipine, Cardura, lisinopril, Trandate, and hydrochlorothiazide for blood pressure-these will be continued #2 hyperlipidemia-patient is on a statin at home-this will be continued #3 hypothyroidism-patient is on Synthroid #4 type 2 diabetes-patient is on Glucophage-this will be continued #5 osteoarthritis-complicates care, medical management, recovery, and prognosis #6 asthma-patient will continue as needed albuterol aerosols, she will also be on budesonide aerosols #7 coronary artery disease-stable at this time-patient will remain on her present medications #8 postop day 1 minimally invasive right knee replacement due to osteoarthritis- PT and OT will see the patient, she will need to be placed for short-term rehab services and [facility] for Charges/Coding Visit Charges OBSV E&M: 17713 Subsequent observation care L2
[2022-03-30] MEDS: Glycerin/Hypromellose/PEG400 15 ml Bottle 1 DRP EACH EYE (21:50)
[2022-03-30] MEDS: Pravastatin 40 MG Tablet PO (21:51)
[2022-03-30] MEDS: Levothyroxine 75 MCG Tablet PO (21:51)
[2022-03-30] MEDS: Doxazosin 4 MG Tablet PO (21:51)
[2022-03-30] MEDS: oxyCODONE 5 MG Tablet PO (21:55)
[2022-03-31 03:30] VITALS: BP 174/81; PULSE 68; RESP 18; TEMP 36.4; O2SAT 96
[2022-03-31] MEDS: Calcium Carbonate 500 MG Tablet PO (03:43)
[2022-03-31] MEDS: Ketorolac 15 MG/ML Vial IV (03:44)
[2022-03-31] MEDS: 0.9% Saline Lock 10 ML Syringe IV (03:44)
[2022-03-31] MEDS: Ondansetron 4 MG/2 ML Vial IV ×2 (03:44→11:41)
[2022-03-31 05:18] LABS: Hematocrit 31.8 % (37-47); Hemoglobin 11.5 g/dL (12.0-15.0); Mean Corp Hgb Conc 36.2 g/dL (32-36); Mean Corpuscular Hgb 31.7 pg (27.0-32.0); Mean Corpuscular Volume 87.6 fL (81-99); Mean Platelet Vol. 9.3 fl (6.2-12.0); Platelet Count 252 K/mm3 (150-450); RBC Distribution Width CV 12.3 % (11.6-14.6); RBC Distribution Width SD 39.5 fl (35.1-43.9); Red Blood Count 3.63 M/mm3 (4.2-5.4); White Blood Count 9.7 K/mm3 (4.4-11.0)
[2022-03-31 05:50] LABS: Anion Gap 7 (5-15); BUN 18 mg/dL (7-18); BUN/Creat Ratio 22.7 RATIO (10-20); Calcium,Total 8.2 mg/dL (8.5-10.1); Chloride 93 mmol/L (98-107); Creatinine, Serum 0.79 mg/dL (0.55-1.02); EST Glomerular Filtration Rate 74 mL/min (>60); Est Glom Filt Rate - Afr Amer 89 mL/min (>60); Estimated Creatinine Clearance 38.36 ml/min; Glucose 119 mg/dL (74-106); Potassium 3.6 mmol/L (3.5-5.1); Sodium Level 127 mmol/L (136-145)
[2022-03-31] MEDS: proMETHazine 25 MG/ML Syringe 12.5 MG IM (06:43)
[2022-03-31 07:00] LABS: Bedside Glucose 127 mg/dL (74-106)
[2022-03-31] MEDS: Albuterol 2.5 MG/3 ML VIAL.NEB. INHALATION (07:13)
[2022-03-31] MEDS: Budesonide Respules 0.5 MG/2 ML AMPUL.NEB. INHALATION (07:13)
[2022-03-31 07:15] VITALS: PULSE 64; RESP 18; O2SAT 95
[2022-03-31 08:02] VITALS: O2SAT 96
[2022-03-31 08:43] VITALS: BP 140/90; PULSE 75; RESP 18; TEMP 36.3; O2SAT 97
[2022-03-31] MEDS: amLODIPine 10 MG Tablet PO (08:45)
[2022-03-31] MEDS: Multivitamins,Ther W-Minerals Tablet 1 TABLET PO (08:45)
[2022-03-31] MEDS: Methylcellulose 2 GM Bottle PO (08:45)
[2022-03-31] MEDS: Glycerin/Hypromellose/PEG400 15 ml Bottle 1 DRP EACH EYE (08:45)
[2022-03-31] MEDS: Senna/Docusate Sodium 1 Tablet 2 TABLET PO (08:45)
[2022-03-31] MEDS: Labetalol 100 MG Tablet 300 MG PO (08:45)
[2022-03-31] MEDS: Cholecalciferol (VIT D3) 25 MCG TABLET (1,000 UNITS) PO (08:45)
[2022-03-31] MEDS: Ascorbic Acid 500 MG Tablet PO (08:46)
[2022-03-31] MEDS: metFORMIN (XR) 500 MG Tablet PO (08:46)
[2022-03-31] MEDS: hydroCHLOROthiazide 25 MG Tablet PO (08:46)
[2022-03-31] MEDS: Aspirin 81 MG TAB.CHEW PO (08:46)
[2022-03-31] MEDS: Famotidine 20 MG Tablet PO (08:46)
[2022-03-31] MEDS: Lisinopril 40 MG Tablet PO (08:46)
--- NOTE | 2022-03-31 11:40 | PCM.PN.ORT ---
Subjective Subjective Patient is s/p right sided total knee arthroplasty with Dr. Arriola. Patient resting comfortably in bed. Rates pain 4/ 10 at rest. With movement 8 /10. States taking oxycodone and Tylenol as needed and ice help to relieve pain. Patient has been up with therapy. Walking with the assit of a walker. Afebrile, no chest pain, shortness of breath, negative calf pain/ erythema, and no other signs of DVT. Objective Data Objective Data Vital Signs: Vital Signs Temp Pulse Resp BP Pulse Ox O2 Del Method O2 Flow Rate 97.3 F L 75 18 140/90 H 97 Room Air 2 03/31/22 08:43 03/31/22 08:43 03/31/22 08:43 03/31/22 08:43 03/31/22 08:43 03/31/22 08:43 03/29/22 18:47 Oxygen Flow Rate (L/min) 2 Oxygen Delivery Method Room Air Weight: 101 kg Body Mass Index (BMI) 37.0 Intake & Output: Intake and Output for Last 24 Hours 03/29/22 03/30/22 03/31/22 23:59 23:59 23:59 Intake Total 2484 / 2484 50 / 50 Balance 2484 / 2484 50 / 50 Lab / Micro Data Result Diagrams: 03/31/22 04:35 03/31/22 04:35 Labs: Laboratory Results - last 24 hr 03/31/22 04:35: WBC 9.7, RBC 3.63 L, Hgb 11.5 L, Hct 31.8 L, MCV 87.6, MCH 31.7, MCHC 36.2 H, RDW Std Deviation 39.5, RDW Coeff of Braden 12.3, Plt Count 252, MPV 9.3 03/31/22 04:35: Sodium 127 L, Potassium 3.6, Chloride 93 L, Carbon Dioxide 27.0, Anion Gap 7, BUN 18, Creatinine 0.79, Estim Creat Clear Calc 38.36, Est GFR (MDRD) Af Amer 89, Est GFR (MDRD) Non-Af 74, BUN/Creatinine Ratio 22.7 H, Glucose 119 H, Calcium 8.2 L 03/31/22 06:39: POC Glucose 127 H Micro: Microbiology 03/29/22 10:36 Interface Orders SARS-CoV-2 Antigen (Rapid) - Final Physical Exam Narrative Patient resting comfortably in bed No signs of acute distress Satting well on room air Limb is warm to touch, Sensation intact throughout entire lower extremity, including saphenous, sural, superficial and deep peroneal, and tibial distribution. DP/PT pulses bounding. Full strength in dorsi and plantar flexion Negative Homans Dressing dressing intact clean and dry Calf nontender to palpation, no erythema, no edema. Negative Homans Assessment & Plan Assessment/Plan (1) Status post total right knee replacement: PLAN: 1. Will continue PT today. WBAT 2. ok for discharge from orthopaedic standpoint. awaiting SNF placement. 3. Patient will follow up for post op appointment on 04/13/22 with Slava Abad PA-C 5. WBC 9.7 acute reactive leukocytosis has resolved 6. H/H 11.01/24.8: post operavtive anemia secondary to acute blood loss intraoperatively. Patient is asymptomatic at this time. No intraoperative complications. will continue to monitor. no acute interventions. 7. DVT prophylaxis : Aspirin 81 mg twice daily x4 weeks 8. Pain control: patient instructed to take tylenol 500mg 2 tablets TID. and oxycodone 1-2 tablets every 4-6 hours only as needed for pain control. 9. Patient also given a prescription of meloxicam twice daily. 10. ok to remove post op dressing. post op day 5
[2022-03-31] MEDS: Acetaminophen 500 MG Tablet 1000 MG PO (11:41)
--- NOTE | 2022-03-31 11:59 | TREXTCAR_ITS ---
Diet Diet Order/Speech Therapy: 03/29/22 20:04 Diet: Regular - General Is pt able to select menu?: Yes Wound(s) RIGHT KNEE: Wound Type: Surgical Incision R THIGH: Wound Type: Surgical Incision R CONNOLLY: Wound Type: Surgical Incision Therapies Weight Bearing: Weight bearing as tolerated Problem/Diagnosis (1) Status post total right knee replacement: Status: Acute Code(s): Z96.651 - Presence of right artificial knee joint Plan: 1. Will continue PT today. WBAT 2. ok for discharge from orthopaedic standpoint. awaiting SNF placement. 3. Patient will follow up for post op appointment on 04/13/22 with Slava Abad PA-C 5. WBC 9.7 acute reactive leukocytosis has resolved 6. H/H 11.01/24.8: post operavtive anemia secondary to acute blood loss intraoperatively. Patient is asymptomatic at this time. No intraoperative complications. will continue to monitor. no acute interventions. 7. DVT prophylaxis : Aspirin 81 mg twice daily x4 weeks 8. Pain control: patient instructed to take tylenol 500mg 2 tablets TID. and oxycodone 1-2 tablets every 4-6 hours only as needed for pain control. 9. Patient also given a prescription of meloxicam twice daily. 10. ok to remove post op dressing. post op day 5 Allergies/Procedures Done in Hospital Allergies codeine Allergy (Verified 03/29/22 10:49) Hives Penicillins [PCN] Allergy (Verified 03/29/22 10:49) Hives shellfish derived Allergy (Verified 03/29/22 10:49) hives Crab only erythromycin base [Erythromycin Base] Adverse Reaction (Verified 03/29/22 10:49) Upset Stomach Type of Care/Length of Stay Estimated LOS: Convalescent Care Less Than 30 days Type of Care Needed: Skilled Rehab Potential: Good Prognosis: Good Additional Orders/Day of Discharge Day of Discharge: 03/31/22 Follow Up Care When: orthopaedics as scheduled. Discharge Plan Admission Admit Date/Time: 03/29/22 16:01 Attending Provider: Stephane Arriola Primary Care Provider: Ej Sims Consulting Providers: Alex Albarado Discharge Orders/Prescriptions Prescriptions: New acetaminophen 500 mg Tablet 1,000 mg PO Q8H Qty: 90 0RF aspirin 81 mg Tablet,Chewable 81 mg PO BIDCM Qty: 60 0RF calcium carbonate 200 mg calcium (500 mg) Tablet,Chewable 500 mg PO Q4H PRN PRN (Reason: Indigestion) Qty: 10 0RF famotidine 20 mg Tablet 20 mg PO DAILY Qty: 30 0RF sennosides-docusate sodium [Stool Softener-Stimulant Laxat] 8.6-50 mg Tablet 2 tab PO BID Qty: 20 0RF oxycodone 5 mg Tablet 5 - 10 mg PO .every 4-6 hours prn PRN (Reason: Pain Score 4-10) 7 Days Qty: 60 0RF meloxicam 15 mg tablet 15 mg PO DAILY Qty: 30 0RF Continued Centrum Silver 0.4-300-250 mg-mcg-mcg tablet 1 tab PO DAILY metformin 500 mg tablet extended release 24 hr 500 mg PO DAILY calcium carbonate-vitamin D3 500 mg-15 mcg (600 unit) tablet 1 tab PO Q OTHER DAY hydrochlorothiazide 25 mg tablet 25 mg PO DAILY Qty: 90 3RF albuterol sulfate 90 mcg/actuation HFA aerosol inhaler 2 puff INHALATION Q4H PRN (Reason: Wheezing) Qty: 8.5 6RF cholecalciferol (vitamin D3) 25 mcg (1,000 unit) tablet 25 mcg PO DAILY pravastatin 40 mg tablet 40 mg PO QHS nitroglycerin 0.4 mg tablet, sublingual 0.4 mg sublingual Q5-15M PRN (Reason: CP) clobetasol 0.05 % cream 1 applic topical BID PRN (Reason: psoriasis) ascorbic acid (vitamin C) 500 mg tablet 500 mg PO DAILY Label Comments: 1 tablet by mouth as directed levothyroxine 75 MCG tablet 75 mcg PO QHS fosinopril 40 MG tablet 40 mg PO DAILY amlodipine 10 mg tablet 10 mg PO DAILY doxazosin 4 mg tablet 4 mg PO QHS labetalol 300 mg tablet 300 mg PO BID budesonide-formoterol [Symbicort] 160-4.5 mcg/actuation HFA aerosol inhaler 2 puff INHALATION BID Citrucel 500 mg Tablet 1,000 mg PO DAILY Systane (PF) 0.4-0.3 % Dropperette 1 drp EACH EYE BID Discontinued aspirin 81 MG tablet,chewable 81 mg PO DAILY acetaminophen 500 mg Capsule 500 mg PO BID Referrals / Follow Up: Ej Sims MD [Primary Care Provider] - Disposition Disposition (needs filled in before D/C Order can be placed): Assisted Facility
--- NOTE | 2022-03-31 12:13 | DCINST_ITS ---
Discharge Instructions Diet Discharge Diet: No restrictions Activity Discharge Activity: May Not Drive and Use Walker May shower in (days): 1 Weight Bearing Status: Weight bearing as tolerated Keep extremity elevated above heart level: Operative Extremity Dressing / Incision Call your doctor if your incision/area has: Continuous Slow Oozing, Sudden Incre ased Bleeding, Increased Pain/ Swelling, Increased Redness, Foul Smelling Discharge and Swelling at the incision site Call your doctor if you observe: Fever of 101 or Higher, Coldness, Increased Pain, Numbness or Tingling, Dizziness, Chest pain and Calf discomfort Remove Dressing in: 5 days Cleanse incision/area with: Soap & Water and Keep Dressing Clean & Dry Follow Up Care Please Follow Up With: orthopaedics as scheduled When: as scheduled. Test Results: Test results from this visit will be discussed in further detail at your follow- up appointment, if applicable. Discharge Plan Admission Admit Date/Time: 03/29/22 16:01 Attending Provider: Stephane Arriola Primary Care Provider: Ej Sims Consulting Providers: Alex Albarado Discharge Orders/Prescriptions Prescriptions: New acetaminophen 500 mg Tablet 1,000 mg PO Q8H Qty: 90 0RF aspirin 81 mg Tablet,Chewable 81 mg PO BIDCM Qty: 60 0RF calcium carbonate 200 mg calcium (500 mg) Tablet,Chewable 500 mg PO Q4H PRN PRN (Reason: Indigestion) Qty: 10 0RF famotidine 20 mg Tablet 20 mg PO DAILY Qty: 30 0RF sennosides-docusate sodium [Stool Softener-Stimulant Laxat] 8.6-50 mg Tablet 2 tab PO BID Qty: 20 0RF oxycodone 5 mg Tablet 5 - 10 mg PO .every 4-6 hours prn PRN (Reason: Pain Score 4-10) 7 Days Qty: 60 0RF meloxicam 15 mg tablet 15 mg PO DAILY Qty: 30 0RF Continued Centrum Silver 0.4-300-250 mg-mcg-mcg tablet 1 tab PO DAILY metformin 500 mg tablet extended release 24 hr 500 mg PO DAILY calcium carbonate-vitamin D3 500 mg-15 mcg (600 unit) tablet 1 tab PO Q OTHER DAY hydrochlorothiazide 25 mg tablet 25 mg PO DAILY Qty: 90 3RF albuterol sulfate 90 mcg/actuation HFA aerosol inhaler 2 puff INHALATION Q4H PRN (Reason: Wheezing) Qty: 8.5 6RF cholecalciferol (vitamin D3) 25 mcg (1,000 unit) tablet 25 mcg PO DAILY pravastatin 40 mg tablet 40 mg PO QHS nitroglycerin 0.4 mg tablet, sublingual 0.4 mg sublingual Q5-15M PRN (Reason: CP) clobetasol 0.05 % cream 1 applic topical BID PRN (Reason: psoriasis) ascorbic acid (vitamin C) 500 mg tablet 500 mg PO DAILY Label Comments: 1 tablet by mouth as directed levothyroxine 75 MCG tablet 75 mcg PO QHS fosinopril 40 MG tablet 40 mg PO DAILY amlodipine 10 mg tablet 10 mg PO DAILY doxazosin 4 mg tablet 4 mg PO QHS labetalol 300 mg tablet 300 mg PO BID budesonide-formoterol [Symbicort] 160-4.5 mcg/actuation HFA aerosol inhaler 2 puff INHALATION BID Citrucel 500 mg Tablet 1,000 mg PO DAILY Systane (PF) 0.4-0.3 % Dropperette 1 drp EACH EYE BID Discontinued aspirin 81 MG tablet,chewable 81 mg PO DAILY acetaminophen 500 mg Capsule 500 mg PO BID Referrals / Follow Up: Ej Sims MD [Primary Care Provider] - Disposition Disposition (needs filled in before D/C Order can be placed): Home, Self Care
--- NOTE | 2022-03-31 13:50 | CASEMGMT ---
Addendum entered by Chela Jimenez 03/31/22 14:39: Social Work SW received call from [facility] and pt has been denied by insurance for SNF admission. SW met with pt and daughter and informed of denial by insurance for SNF. SW presented options of home health and outpatient therapy. Discussed return home with pt and dgt and both are agreeable to return home and would prefer home health services. SW provided list of home health providers including quality and resource use data and consistent with the patient's preferred geographic region, medical needs and insurance network. Pt and dgt would like a few minutes to review information and make choice. SW inquired if pt had needed DME at home and pt and dgt confirm they do. RNCM updated and to followup. TUSHAR Adan Original Note: Social Work SW placed phone call to [facility] admissions. Insurance Auth is still pending at this time. TCU - pending precert TUSHAR Adan
--- NOTE | 2022-03-31 15:06 | CASEMGMT ---
Addendum entered by Deedee Daugherty 03/31/22 16:00: AKANKSHA FUENTES in to pt room, pt dtr and pt aware that [facility] will be in touch to see pt tomorrow. Pt dtr asks about [facility] and where to purchase, discussed this. Pt and dtr deny further needs at this time. Addendum entered by Deedee Daugherty 03/31/22 15:23: Received confirmation back from [facility] that pt is accepted for [facility] and PT will see pt tomorrow. Original Note: AKANKSHA FUENTES in to pt room, pt has chosen 1. [facility] 2. [facility] 3. [facility]. TC to [facility], referral made to [facility], will await acceptance.
[2022-03-31 15:15] VITALS: BP 133/94; PULSE 71; RESP 18; TEMP 36.9; O2SAT 96
== END 2022-03-31 16:18 | disposition home health service (06) ==
LOC: SDC 16:02 → MS3 16:02
PROVIDERS: Physician Assistant Surgical; Admitting Provider Specialist; PCP Internal Medicine; Referring Provider Specialist; Visit Provider Specialist
PROC: 0SRC0JZ Replacement of Right Knee Joint with Synthetic Substitute, Open Approach (ICD-10-PCS; CPT 27447; principal; 2022-03-29 12:30)
DX: M17.11 Unilateral primary osteoarthritis, right knee (principal); I11.0 Hypertensive heart disease with heart failure; I50.9 Heart failure, unspecified; I27.21 Secondary pulmonary arterial hypertension; E11.9 Type 2 diabetes mellitus without complications; L40.9 Psoriasis, unspecified; E78.00 Pure hypercholesterolemia, unspecified; J45.909 Unspecified asthma, uncomplicated; E03.9 Hypothyroidism, unspecified; I25.10 Atherosclerotic heart disease of native coronary artery without angina pectoris; M21.161 Varus deformity, not elsewhere classified, right knee; I25.2 Old myocardial infarction; Z79.899 Other long term (current) drug therapy; Z79.82 Long term (current) use of aspirin; Z79.890 Hormone replacement therapy; Z79.51 Long term (current) use of inhaled steroids; E66.9 Obesity, unspecified; Z68.37 Body mass index [BMI] 37.0-37.9, adult
CPT/HCPCS: 27447; S2900; 01402; 64447; 36415; 73560; 80048; 82962; 85027; 87426; 88305; 88311; 94640; 96365; 96366; 96372; 96375; 96376; 97110; 97116; 97162; 97166; 97530; 99218; 99251; C1776; J7120; A4216; G0378; G0463; J2405

== ENCOUNTER → 2022-05-22 | Outpatient (CLI) | payer MEDICARE, SELFPAY ==
--- NOTE | 2022-05-22 10:45 | BI_ITS ---
MAMMOGRAPHY - BILATERAL SCREENING REASON FOR EXAM: Female, 81 years old. Routine annual screening examination. PERTINENT HISTORY: Non-contributory. Prior right stereotactic breast biopsy. TECHNIQUE: Digital bilateral breast jose roberto (3D mammographic acquisition) in the CC and MLO projections. 2-D mediolateral oblique (MLO) and craniocaudad (CC) views of both breasts were obtained. CAD: Full Field Digital Mammography with Computer Added Detection was performed. COMPARISON: Comparison is made with prior examination is 04/28/2021 and 04/19/2020. FINDINGS: Breast Composition: The breasts are heterogeneously dense, which may obscure small masses. There are no dominant masses or suspicious calcifications. Once again, 2 tissue markers are seen in the central and medial aspect of the right breast No other significant abnormalities are identified. There has been no significant change since the prior study. BI/SCRN MAMM (CAD)W/JOSE ROBERTO BILAT IMPRESSION: Stable bilateral screening mammogram. Yearly follow-up mammogram recommended. (A) ASSESSMENT CATEGORY: BIRADS Category 2: Benign. A letter regarding these results will be sent to the patient by the facility within 30 days. Approximately 10% of breast cancers are not detected by mammography. A normal mammogram should not delay biopsy of a clinically suspicious abnormality. [id number] Electronically Signed: Wale Medina MD at 12:12 EDT ,
== END | disposition home or self-care (01) ==
LOC: OPBI 10:44
PROVIDERS: PCP Internal Medicine; Visit Provider Surgery
DX: Z12.31 Encounter for screening mammogram for malignant neoplasm of breast (principal)
CPT/HCPCS: 77063; 77067

== ENCOUNTER → 2022-11-30 | Outpatient (CLI) | payer MEDICARE, SELFPAY ==
[2022-11-30 14:50] LABS: Absolute Lymphocyte Count 1.76 X10^3/uL (0.83-4.51); Absolute Neutrophil Count 5.9 X10^3/uL (2.0-7.7); Basophil# 0.13 X10^3/uL; Basophil% 1.5 % (0-1); Eosinophils% 3.4 % (0-5); Hematocrit 41.1 % (37-47); Hemoglobin 13.9 g/dL (12.0-15.0); Lymphocyte # 1.76 X10^3/ul (0.83-4.51); Lymphocyte % 19.7 % (19-41); Mean Corp Hgb Conc 33.8 g/dL (32-36); Mean Corpuscular Volume 88.8 fL (81-99); Mean Platelet Vol. 9.9 fl (6.2-12.0); Monocyte# 0.83 X10^3/uL; Monocyte% 9.3 % (0-10); NRBC Flagged by Analyzer 0 % (0-5); Neutrophil # 5.86 X10^3/uL (2.7-7.7); Neutrophil % 65.7 % (47-70); Platelet Count 295 K/mm3 (150-450); RBC Distribution Width CV 13.2 % (11.6-14.6); RBC Distribution Width SD 43.4 fl (35.1-43.9); Red Blood Count 4.63 M/mm3 (4.2-5.4); White Blood Count 8.9 K/mm3 (4.4-11.0)
[2022-11-30 15:06] LABS: BNP,B-Type NATRIURETIC PEPTIDE 14.4 pg/mL (0-100)
[2022-11-30 16:22] LABS: Anion Gap 9 (5-15); BUN 27 mg/dL (7-18); BUN/Creat Ratio 27.1 RATIO (10-20); Calcium,Total 9.7 mg/dL (8.5-10.1); Chloride 98 mmol/L (98-107); EST Glomerular Filtration Rate 56 mL/min (>60); Est Glom Filt Rate - Afr Amer 68 mL/min (>60); Glucose 96 mg/dL (74-106); Sodium Level 132 mmol/L (136-145)
== END | disposition home or self-care (01) ==
PROVIDERS: PCP Internal Medicine; Referring Provider Nurse Practitioner Gerontology; Visit Provider Nurse Practitioner Gerontology
DX: R06.00 Dyspnea, unspecified (principal)
CPT/HCPCS: 36415; 80048; 83880; 85025

== ENCOUNTER → 2023-01-01 | Outpatient (CLI) | payer MEDICARE, SELFPAY ==
--- NOTE | 2023-01-01 09:42 | STRESSREP ---
Stress Test Report Pharmacologic myocardial perfusion stress test. 82-year-old lady with a history of coronary artery disease Resting EKG demonstrates sinus rhythm with a rate of 73 bpm. Resting blood pressure is 148/80 mmHg. 0.4 mg of regadenoson was infused per usual protocol followed by rapid intravenous saline flush injection. Continuous EKG monitoring was performed. The maximum heart rate was 93 bpm which was 68% of max impacted heart rate the maximum workload was 1 metabolic equivalent. At rest there were no ST or T wave changes noted to suggest ischemia and at peak infusion nonspecific ST changes were noted which did not meet the criteria for ischemia. No clinical angina is noted. The final blood pressure was 140/76 mmHg. Myocardial perfusion protocol. 12 mCi of technetium 99m sestamibi was injected at rest. 0.4 mg of regadenoson was infused per usual protocol. At peak infusion 34.7 mCi of technetium 99m sestamibi was injected stress images were obtained stress and rest images were reconstructed and compared in the short axis vertical long and horizontal long axis. Gated images were also obtained. Perfusion SPECT analysis: Review of the stress images demonstrate normal uptake of tracer noted in all areas of the myocardium, except for the apex with reduced perfusion. The resting images similar demonstrated normal uptake of tracer noted in all areas of the myocardium. The above is suggestive of small area of apical ischemia. The above appears to be unchanged compared to previous. Gated SPECT analysis: The gated ejection fraction is 81. Conclusion: Mildly abnormal pharmacologic myocardial perfusion stress test. Preserved ejection fraction. Mild apical ischemia
== END | disposition home or self-care (01) ==
LOC: CVS 07:05
PROVIDERS: PCP Internal Medicine; Referring Provider Nurse Practitioner Gerontology; Visit Provider Nurse Practitioner Gerontology
DX: R07.9 Chest pain, unspecified (principal); R06.00 Dyspnea, unspecified
CPT/HCPCS: 78452; 93017; A9500; A4216; J2785

== ENCOUNTER 2023-01-10 17:30 | Inpatient (IN) | payer MEDICARE, SELFPAY ==
[2023-01-10 17:31] VITALS: BP 175/67; PULSE 96; RESP 18; TEMP 36.6; O2SAT 96; BMI 37.5
--- NOTE | 2023-01-10 19:15 | ED.VIS.LOWEX ---
HPI History of Present Illness Chief Complaint: Lower Extremity Injury Narrative Narrative: 82-year-old female with right knee pain. She states she had a total knee performed by Dr. Arriola last year. She states it was doing well. She states that over the last 2 days it started to hurt. She developed a rash over the right patella today. Her temperature was 100 ?F earlier. She states he only uses Tylenol for pain typically. He called Dr. Arriola's office and was sent to the ER. Patient does admit to chills and body aches. No nausea or vomiting. She states she cannot walk on her right leg. [facility] Medical History Abnormal mammogram of right breast Ambulates with cane Arthritis Asthma Atherosclerosis of coronary artery of [place] heart without angina pectoris Bilateral leg edema Cardiology follow-up encounter Cataracts, bilateral Dietary restriction Diverticulosis Dysmetabolic syndrome X Essential (primary) hypertension Gout History of echocardiogram History of edema History of heart attack History of stress test Hyperlipidemia Hypothyroidism Injury of back Non-smoker Obesity (BMI 30-39.9) Pancreatic cyst PONV (postoperative nausea and vomiting) Primary osteoarthritis of right knee Psoriasis Screening for malignant neoplasm of breast Secondary pulmonary arterial hypertension Shortness of breath on exertion Type 2 diabetes mellitus Wears glasses Wears partial dentures Home Medications fosinopril 40 mg tablet 40 mg PO DAILY BP 06/13/17 [History Last Taken 03/29/22 08:00] levothyroxine 75 mcg tablet 75 mcg PO QHS thyroid 06/13/17 [History Last Taken 08/02/18] uemohckq-knt-xowfb acid 0.4 mg-lycopene 300 mcg-lutein 250 mcg tablet (Centrum Silver) 1 tab PO DAILY supplement 07/02/18 [History Last Taken Unknown] ascorbic acid (vitamin C) 500 mg tablet 500 mg PO DAILY supplement 01/19/22 [History Last Taken Unknown] calcium carbonate 500 mg-vitamin D3 15 mcg (600 unit) tablet 1 tab PO Q OTHER DAY supplement 01/19/22 [History Last Taken Unknown] cholecalciferol (vitamin D3) 25 mcg (1,000 unit) tablet 25 mcg PO DAILY supplement 01/19/22 [History Last Taken Unknown] clobetasol 0.05 % topical cream 1 applic topical BID PRN psoriasis 01/19/22 [History Last Taken Unknown] metformin 500 mg tablet,extended release 24 hr 500 mg PO DAILY blood sugar 01/19/22 [History Last Taken Unknown] nitroglycerin 0.4 mg sublingual tablet 0.4 mg sublingual Q5-15M PRN CP 01/19/22 [History Last Taken Unknown] pravastatin 40 mg tablet 40 mg PO QHS cholesterol 01/19/22 [History Last Taken Unknown] albuterol sulfate 90 mcg/actuation aerosol inhaler 2 puff inhalation Q4H PRN Wheezing #8.5 grams 03/03/22 [Rx Last Taken Unknown] budesonide-formoterol HFA 160 mcg-4.5 mcg/actuation aerosol inhaler (Symbicort) 2 puff inhalation BID breathing 03/20/22 [History Last Taken 03/29/22 08:00] methylcellulose (laxative) 500 mg tablet (Citrucel) 1,000 mg PO DAILY constipation 03/20/22 [History Last Taken Unknown] peg 400-propylene glycol (PF) 0.4 %-0.3 % eye drops in a dropperette (Systane (PF)) 1 drp EACH EYE BID dry eyes 03/20/22 [History Last Taken Unknown] biotin 5,000 mcg disintegrating tablet 5,000 mcg PO DAILY Check with primary doctor 05/25/22 [History Last Taken Unknown] amlodipine 10 mg tablet 10 mg PO DAILY BP #90 tabs 07/25/22 [Rx Last Taken Unknown] doxazosin 4 mg tablet 4 mg PO QHS BP #90 tabs 07/25/22 [Rx Last Taken Unknown] labetalol 300 mg tablet 300 mg PO BID BP 11/30/22 [History Last Taken Unknown] acetaminophen 500 mg tablet 1,000 mg PO Q8H Check with primary doctor 01/10/23 [History Last Taken Unknown] aspirin 81 mg chewable tablet 81 mg PO BIDCM Check with primary doctor 01/10/23 [History Last Taken Unknown] hydrochlorothiazide 25 mg tablet 25 mg PO DAILY Check with primary doctor 01/10/23 [History Last Taken Unknown] Allergy/AdvReac Type Severity Reaction Status Date / Time clindamycin Allergy Rash Verified 01/10/23 17:30 codeine Allergy Hives Verified 01/10/23 17:30 Penicillins [PCN] Allergy Hives Verified 01/10/23 17:30 shellfish derived Allergy hives Verified 01/10/23 17:30 erythromycin base AdvReac Upset Verified 01/10/23 17:30 [Erythromycin Base] Stomach Family History Father Diabetes Hypertension Heart disease Mother Diabetes Hypertension Brother Heart disease Brother Diabetes Brother Hypertension Surgical History History of abdominal hysterectomy (~1968) History of appendectomy (~1968) History of cataract extraction History of colonoscopy History of dilatation and curettage History of left heart catheterization (08/02/18) History of tonsillectomy Status post right knee replacement (~03/29/22) Social History household members: none Smoking Status: Never smoker alcohol intake: current alcohol intake frequency: holidays/special occasions only substance use type: does not use caffeine: Yes Type: coffee Number of servings: 2 what type of physical activity do you participate in: other details: Physical therapy frequency: 1-2 times per week seatbelt use: always EXAM Physical Exam Const Vital Signs: 01/10/23 17:31 Temperature 97.8 F Temperature Source Temporal Pulse Rate 96 Respiratory Rate 18 Blood Pressure 175/67 H Blood Pressure Mean 103 Pulse Ox 96 Oxygen Delivery Method Room Air [facility] Lab Data Labs: Laboratory Results - last 24 hr 01/10/23 01/10/23 01/10/23 19:29 19:29 20:12 WBC 14.6 H RBC 4.59 Hgb 14.0 Hct 39.9 MCV 86.9 MCH 30.5 MCHC 35.1 RDW Std Deviation 40.7 RDW Coeff of Braden 12.9 Plt Count 261 MPV 8.9 Immature Gran % (Auto) 0.500 Neut % (Auto) 84.5 H Lymph % (Auto) 5.1 L Johnson % (Auto) 9.4 Eos % (Auto) 0.1 Baso % (Auto) 0.4 Absolute Neuts (auto) 12.4 H Absolute Lymphs (auto) 0.74 L Nucleated RBC % 0 ESR 54 H Sodium Cancelled Potassium Cancelled Chloride Cancelled Carbon Dioxide Cancelled Anion Gap Cancelled BUN Cancelled Creatinine Cancelled Estim Creat Clear Calc Cancelled Est GFR (MDRD) Af Amer Cancelled Est GFR (MDRD) Non-Af Cancelled BUN/Creatinine Ratio Cancelled Glucose Cancelled Calcium Cancelled C-React Prot Ext Range Cancelled POC Glucose 163 H Radiography Diagnostic Testing: Clinical Impression(s) from Imaging Studies Knee X-Ray 01/10/23 19:45 IMPRESSION: Right total knee arthroplasty without acute abnormality Electronically Signed: Oswaldo Feldman DO at 20:10 EDT Reading Location ID and State: [address] [place] [address] Tel [phone], Service support , Discharge Plan Triage Chief Complaint: Lower Extremity Injury ED Provider: Klaus Lerma Dx/Rx/DC Orders Primary Care Provider: Ej Sims
[2023-01-10] MEDS: Morphine 2 MG/ML Syringe IV (19:25)
[2023-01-10] MEDS: Ondansetron 4 MG/2 ML Vial IV (19:26)
[2023-01-10 19:31] LABS: Absolute Lymphocyte Count 0.74 X10^3/uL (0.83-4.51); Absolute Neutrophil Count 12.4 X10^3/uL (2.0-7.7); Basophil# 0.06 X10^3/uL; Basophil% 0.4 % (0-1); Eosinophil# 0.01 X10^3/uL; Eosinophils% 0.1 % (0-5); Hematocrit 39.9 % (37-47); Lymphocyte # 0.74 X10^3/ul (0.83-4.51); Lymphocyte % 5.1 % (19-41); Mean Corp Hgb Conc 35.1 g/dL (32-36); Mean Corpuscular Hgb 30.5 pg (27.0-32.0); Mean Corpuscular Volume 86.9 fL (81-99); Mean Platelet Vol. 8.9 fl (6.2-12.0); Monocyte# 1.37 X10^3/uL; Monocyte% 9.4 % (0-10); NRBC Flagged by Analyzer 0 % (0-5); Neutrophil # 12.37 X10^3/uL (2.7-7.7); Neutrophil % 84.5 % (47-70); Platelet Count 261 K/mm3 (150-450); RBC Distribution Width CV 12.9 % (11.6-14.6); RBC Distribution Width SD 40.7 fl (35.1-43.9); Red Blood Count 4.59 M/mm3 (4.2-5.4); White Blood Count 14.6 K/mm3 (4.4-11.0)
[2023-01-10 19:40] LABS: Erythrocyte Sedimentation Rate 54 mm/hr (0-30)
--- NOTE | 2023-01-10 19:45 | RAD_ITS ---
STUDY: X-RAY - RIGHT KNEE REASON FOR EXAM: Female, 82 years old. Pain. TECHNIQUE: 2 view(s) of the knee. COMPARISON: Right knee, March 29, 2022. FINDINGS: There is a total knee replacement. The prosthetic components are intact and articulate normally with each other. There is no evidence of loosening from the underlying bone. There is no evidence of osseous fracture or destructive osseous pathology. No joint effusion The soft tissue structures are unremarkable. The surgical clips and swelling as well as the soft tissue air is seen on the previous study have resolved. RAD/Knee 1 or 2 Views IMPRESSION: Right total knee arthroplasty without acute abnormality Electronically Signed: Oswaldo Feldman DO at 20:10 EDT Reading Location ID and State: [facility] Tel [phone], Service support ,
[2023-01-10 20:31] LABS: Bedside Glucose 163 mg/dL (74-106)
[2023-01-10 20:32] LABS: Anion Gap 8 (5-15); BUN 19 mg/dL (7-18); BUN/Creat Ratio 22.2 RATIO (10-20); Chloride 99 mmol/L (98-107); Creatinine, Serum 0.86 mg/dL (0.55-1.02); EST Glomerular Filtration Rate 67 mL/min (>60); Est Glom Filt Rate - Afr Amer 81 mL/min (>60); Estimated Creatinine Clearance 43.82 ml/min; Glucose 168 mg/dL (74-106); Potassium 3.8 mmol/L (3.5-5.1); Sodium Level 131 mmol/L (136-145)
--- NOTE | 2023-01-10 21:29 | ED.RN ---
CALL DR DIAZ WITH RESULTS OF ARTHROCENTESIS FLUID, PER DR KAYLYNN MARTINEZ AT [phone]
--- NOTE | 2023-01-10 21:32 | PCM.CONS.GEN ---
Assessment & Plan Assessment/Plan (1) Status post total right knee replacement: (2) Effusion, right knee: PLAN: Her diagnosis and treatment options were discussed with her as well as her family, case discussed with the ER physician. Case discussed with Dr. Arriola. Dr. Arriola did recommend to aspirate the knee. He recommended fluid be sent for cultures, sensitivity, cell count, crystal exam, Gram stain. Patient and her daughter were aware of the risks of aspirating and not aspirating the knee. They did wish to proceed. Appropriate consent was obtained. Procedure: After obtaining appropriate consent patient's right knee was prepped with Betadine. Also alcohol preps used. This was done under standard sterile technique while wearing a mask and gloves. I aspirated the knee from a superior lateral approach with an 18-gauge needle and obtained approximately 19 cc of cloudy orange/brown fluid. Some bleeding towards the end of the procedure. Sterile bandage was applied. Patient tolerated this well. Her daughter was present throughout. 4 x 4's and Robin wrap applied. (3) Cellulitis of right knee: PLAN: Patient will be admitted for pain control, IV antibiotics most likely. Dr. Arriola will follow her cultures and fluid results. The family understands she may benefit from IV antibiotics and/or knee irrigation and debridement depending upon clinical response, laboratory studies, etc. All of their questions answered. They agree with and understand our treatment plan. They understood I sent pictures of her knee clinical appearance as well as the fluid in the syringe. Family approved HPI Consult Data Date of Consult: 01/10/23 HPI Narrative Reason for Consultation: knee pain HPI Narrative: PEDRITO MONTANA, is a 82 F who presents with a 1 day history of right knee pain. She is status post right total knee replacement by Dr. Arriola in March 2022. She states she she has had some redness over the anterior knee for about 1 month. She has been seeing a regional sales executive for this. She has tried cream, ointments. She does have a history of psoriasis. She denies open skin wounds. Denies any dental concerns or kidney infections. She did have a temperature of 100 earlier today. She has had fevers and chills feeling this evening. She states her right knee pain is 10 out of 10. Right knee pain started this morning. She has not been able to walk on it because of pain. She denies any injury. Seen with her daughter present. Patient presented to the ER. I was consulted. Dr. Arriola is aware [facility] Medical History Abnormal mammogram of right breast Ambulates with cane Arthritis Asthma Atherosclerosis of coronary artery of [place] heart without angina pectoris Bilateral leg edema Cardiology follow-up encounter Cataracts, bilateral Dietary restriction Diverticulosis Dysmetabolic syndrome X Essential (primary) hypertension Gout History of echocardiogram History of edema History of heart attack History of stress test Hyperlipidemia Hypothyroidism Injury of back Non-smoker Obesity (BMI 30-39.9) Pancreatic cyst PONV (postoperative nausea and vomiting) Primary osteoarthritis of right knee Psoriasis Screening for malignant neoplasm of breast Secondary pulmonary arterial hypertension Shortness of breath on exertion Type 2 diabetes mellitus Wears glasses Wears partial dentures Home Medications fosinopril 40 mg tablet 40 mg PO DAILY BP 06/13/17 [History Last Taken 03/29/22 08:00] levothyroxine 75 mcg tablet 75 mcg PO QHS thyroid 06/13/17 [History Last Taken 08/02/18] cawoowvm-kln-fvyst acid 0.4 mg-lycopene 300 mcg-lutein 250 mcg tablet (Centrum Silver) 1 tab PO DAILY supplement 07/02/18 [History Last Taken Unknown] ascorbic acid (vitamin C) 500 mg tablet 500 mg PO DAILY supplement 01/19/22 [History Last Taken Unknown] calcium carbonate 500 mg-vitamin D3 15 mcg (600 unit) tablet 1 tab PO Q OTHER DAY supplement 01/19/22 [History Last Taken Unknown] cholecalciferol (vitamin D3) 25 mcg (1,000 unit) tablet 25 mcg PO DAILY supplement 01/19/22 [History Last Taken Unknown] clobetasol 0.05 % topical cream 1 applic topical BID PRN psoriasis 01/19/22 [History Last Taken Unknown] metformin 500 mg tablet,extended release 24 hr 500 mg PO DAILY blood sugar 01/19/22 [History Last Taken Unknown] nitroglycerin 0.4 mg sublingual tablet 0.4 mg sublingual Q5-15M PRN CP 01/19/22 [History Last Taken Unknown] pravastatin 40 mg tablet 40 mg PO QHS cholesterol 01/19/22 [History Last Taken Unknown] albuterol sulfate 90 mcg/actuation aerosol inhaler 2 puff inhalation Q4H PRN Wheezing #8.5 grams 03/03/22 [Rx Last Taken Unknown] budesonide-formoterol HFA 160 mcg-4.5 mcg/actuation aerosol inhaler (Symbicort) 2 puff inhalation BID breathing 03/20/22 [History Last Taken 03/29/22 08:00] methylcellulose (laxative) 500 mg tablet (Citrucel) 1,000 mg PO DAILY constipation 03/20/22 [History Last Taken Unknown] peg 400-propylene glycol (PF) 0.4 %-0.3 % eye drops in a dropperette (Systane (PF)) 1 drp EACH EYE BID dry eyes 03/20/22 [History Last Taken Unknown] acetaminophen 500 mg tablet 1,000 mg PO Q8H #90 tabs 03/31/22 [Rx Last Taken Unknown] aspirin 81 mg chewable tablet 81 mg PO BIDCM #60 tabs 03/31/22 [Rx Last Taken Unknown] biotin 5,000 mcg disintegrating tablet 5,000 mcg PO DAILY 05/25/22 [History Last Taken Unknown] amlodipine 10 mg tablet 10 mg PO DAILY BP #90 tabs 07/25/22 [Rx Last Taken Unknown] doxazosin 4 mg tablet 4 mg PO QHS BP #90 tabs 07/25/22 [Rx Last Taken Unknown] hydrochlorothiazide 25 mg tablet 25 mg PO DAILY #90 tabs 07/25/22 [Rx Last Taken Unknown] labetalol 300 mg tablet 300 mg PO BID BP 11/30/22 [History Last Taken Unknown] Allergy/AdvReac Type Severity Reaction Status Date / Time clindamycin Allergy Rash Verified 01/10/23 17:30 codeine Allergy Hives Verified 01/10/23 17:30 Penicillins [PCN] Allergy Hives Verified 01/10/23 17:30 shellfish derived Allergy hives Verified 01/10/23 17:30 erythromycin base AdvReac Upset Verified 01/10/23 17:30 [Erythromycin Base] Stomach Family History Father Diabetes Hypertension Heart disease Mother Diabetes Hypertension Brother Heart disease Brother Diabetes Brother Hypertension Surgical History History of abdominal hysterectomy (~1968) History of appendectomy (~1968) History of cataract extraction History of colonoscopy History of dilatation and curettage History of left heart catheterization (08/02/18) History of tonsillectomy Status post right knee replacement (~03/29/22) Social History household members: none Smoking Status: Never smoker alcohol intake: current alcohol intake frequency: holidays/special occasions only substance use type: does not use caffeine: Yes Type: coffee Number of servings: 2 what type of physical activity do you participate in: other details: Physical therapy frequency: 1-2 times per week seatbelt use: always Physical Exam Narrative Right knee has a area of redness about the patella and somewhat inferiorly. Right knee has a small effusion. She is not able to do a straight leg raise on the right because of pain. She can easily do a straight leg raise on the left. Right knee motion is 0 to 10 degrees before she stops me because of pain. She has no calf pain bilaterally. She has mild redness and swelling about the anterior right tirado which is not new. Distal pulses are intact. No pain on palpation about the hip. No sores about the knee or thigh. X-rays of the right knee showed no obvious fracture or dislocation. No severe swelling. Lab / Micro Data Attestation: I reviewed the patient's lab results. Result Diagrams: 01/10/23 19:29 01/10/23 Unknown Labs: Laboratory Results - last 24 hr 01/10/23 19:29: WBC 14.6 H, RBC 4.59, Hgb 14.0, Hct 39.9, MCV 86.9, MCH 30.5, MCHC 35.1, RDW Std Deviation 40.7, RDW Coeff of Braden 12.9, Plt Count 261, MPV 8.9, Immature Gran % (Auto) 0.500, Neut % (Auto) 84.5 H, Lymph % (Auto) 5.1 L, Mckenzie % (Auto) 9.4, Eos % (Auto) 0.1, Baso % (Auto) 0.4, Absolute Neuts (auto) 12.4 H, Absolute Lymphs (auto) 0.74 L, Nucleated RBC % 0, ESR 54 H 01/10/23 19:29: Sodium Cancelled, Potassium Cancelled, Chloride Cancelled, Carbon Dioxide Cancelled, Anion Gap Cancelled, BUN Cancelled, Creatinine Cancelled, Estim Creat Clear Calc Cancelled, Est GFR (MDRD) Af Amer Cancelled, Est GFR (MDRD) Non-Af Cancelled, BUN/Creatinine Ratio Cancelled, Glucose Cancelled, Calcium Cancelled, C-React Prot Ext Range Cancelled 01/10/23 20:12: POC Glucose 163 H 01/10/23 : Sodium 131 L, Potassium 3.8, Chloride 99, Carbon Dioxide 24.0, Anion Gap 8, BUN 19 H, Creatinine 0.86, Estim Creat Clear Calc 43.82, Est GFR (MDRD) Af Amer 81, Est GFR (MDRD) Non-Af 67, BUN/Creatinine Ratio 22.2 H, Glucose 168 H, Calcium 9.0, C-React Prot Ext Range 124.00 H Radiology Impression Knee X-Ray 01/10/23 19:45 IMPRESSION: Right total knee arthroplasty without acute abnormality Electronically Signed: Oswaldo Feldman DO at 20:10 EDT Reading Location ID and State: [address] [place] [address] Tel [phone], Service support ,
[2023-01-10 21:33] LABS: Pathologist Comment May follow
[2023-01-10] MEDS: Morphine 4 MG/ML Syringe IV (21:46)
[2023-01-10 22:19] VITALS: BP 138/69; PULSE 89; RESP 20; TEMP 36.6; O2SAT 92
--- NOTE | 2023-01-10 22:25 | HP.PCM.HOS_ITS ---
HPI - General General Date of Admission: 01/10/23 Date of Service: 01/10/23 Chief Complaint: R knee pain, redness, unable to move or bear weight. HPI Narrative The patient is an 82 y/o F w/ PMHx: Asthma, CAD, HTN, HLD, Gout, Hypothyroidism, Obesity, Diabetes mellitus type II who presents to the [facility] ED on 01/10/23 with history of onset increasing R knee pain over the last 48 hours with onset of redness over the right patellar region today with elevated T 100 at home with self administration of tylenol prompting call to Dr. Arriola's office who recommended ED evaluation. She has severe 10/10 pain, worse with any movement. She has been unable to bear weight as well. She notes associated fever and chills. She notes the pain became so severe only on day of presentation. In the ED Dr. Bates consulted per ED physician and aspiration obtained. Currently reports pain has decreased to 8 out of 10 but is still severe especially with any movement. She reports with onset she has had decreased appetite. She denies any current nausea or emesis but did have an antiemetic in the ED. She reports having previously been given cephalosporin antibiotic therapies without issue. Work-up in the ED included T97.8, heart rate 96, BP 175/67, respiratory rate 18, 96% on room air, CBC with WC 14.6, hemoglobin 14, platelet 261 with left shift and lymphopenia, ESR 54, CRP 124, BMP with sodium 131, BUN/creat 19/0.86, glucose 168, plain film of the right knee with evidence of right total knee arthroplasty without any acute abnormality. In the ED patient administered Zofran 4 mg IV x1, morphine 2 mg IV x1 and lidocaine/epinephrine injection and performed with aspiration per Dr. Miguelito Bates Orthopedic surgeon supervisor electron tube processing for Dr. Bates with pending right knee synovial fluid cultures at requested evaluation of patient. Bld Cx pending per ED x 2. Discussed presentation with ED physician and decision for administration of IV Rocephin and vancomycin. [facility] Medical History Abnormal mammogram of right breast Ambulates with cane Arthritis Asthma Atherosclerosis of coronary artery of three affiliated heart without angina pectoris Bilateral leg edema Cardiology follow-up encounter Cataracts, bilateral Dietary restriction Diverticulosis Dysmetabolic syndrome X Essential (primary) hypertension Gout History of echocardiogram History of edema History of heart attack History of stress test Hyperlipidemia Hypothyroidism Injury of back Non-smoker Obesity (BMI 30-39.9) Pancreatic cyst PONV (postoperative nausea and vomiting) Primary osteoarthritis of right knee Psoriasis Screening for malignant neoplasm of breast Secondary pulmonary arterial hypertension Shortness of breath on exertion Type 2 diabetes mellitus Wears glasses Wears partial dentures Home Medications fosinopril 40 mg tablet 40 mg PO DAILY BP 06/13/17 [History Last Taken 03/29/22 08:00] levothyroxine 75 mcg tablet 75 mcg PO QHS thyroid 06/13/17 [History Last Taken 08/02/18] hzzkwggi-uhx-fgaeh acid 0.4 mg-lycopene 300 mcg-lutein 250 mcg tablet (Centrum Silver) 1 tab PO DAILY supplement 07/02/18 [History Last Taken Unknown] ascorbic acid (vitamin C) 500 mg tablet 500 mg PO DAILY supplement 01/19/22 [History Last Taken Unknown] calcium carbonate 500 mg-vitamin D3 15 mcg (600 unit) tablet 1 tab PO Q OTHER DAY supplement 01/19/22 [History Last Taken Unknown] cholecalciferol (vitamin D3) 25 mcg (1,000 unit) tablet 25 mcg PO DAILY supplement 01/19/22 [History Last Taken Unknown] clobetasol 0.05 % topical cream 1 applic topical BID PRN psoriasis 01/19/22 [History Last Taken Unknown] metformin 500 mg tablet,extended release 24 hr 500 mg PO DAILY blood sugar 01/19/22 [History Last Taken Unknown] nitroglycerin 0.4 mg sublingual tablet 0.4 mg sublingual Q5-15M PRN CP 01/19/22 [History Last Taken Unknown] pravastatin 40 mg tablet 40 mg PO QHS cholesterol 01/19/22 [History Last Taken Unknown] albuterol sulfate 90 mcg/actuation aerosol inhaler 2 puff inhalation Q4H PRN Wheezing #8.5 grams 03/03/22 [Rx Last Taken Unknown] budesonide-formoterol HFA 160 mcg-4.5 mcg/actuation aerosol inhaler (Symbicort) 2 puff inhalation BID breathing 03/20/22 [History Last Taken 03/29/22 08:00] methylcellulose (laxative) 500 mg tablet (Citrucel) 1,000 mg PO DAILY constipation 03/20/22 [History Last Taken Unknown] peg 400-propylene glycol (PF) 0.4 %-0.3 % eye drops in a dropperette (Systane (PF)) 1 drp EACH EYE BID dry eyes 03/20/22 [History Last Taken Unknown] acetaminophen 500 mg tablet 1,000 mg PO Q8H #90 tabs 03/31/22 [Rx Last Taken Unknown] aspirin 81 mg chewable tablet 81 mg PO BIDCM #60 tabs 03/31/22 [Rx Last Taken Unknown] biotin 5,000 mcg disintegrating tablet 5,000 mcg PO DAILY 05/25/22 [History Last Taken Unknown] amlodipine 10 mg tablet 10 mg PO DAILY BP #90 tabs 07/25/22 [Rx Last Taken Unknown] doxazosin 4 mg tablet 4 mg PO QHS BP #90 tabs 07/25/22 [Rx Last Taken Unknown] hydrochlorothiazide 25 mg tablet 25 mg PO DAILY #90 tabs 07/25/22 [Rx Last Taken Unknown] labetalol 300 mg tablet 300 mg PO BID BP 11/30/22 [History Last Taken Unknown] Allergy/AdvReac Type Severity Reaction Status Date / Time clindamycin Allergy Rash Verified 01/10/23 17:30 codeine Allergy Hives Verified 01/10/23 17:30 Penicillins [PCN] Allergy Hives Verified 01/10/23 17:30 shellfish derived Allergy hives Verified 01/10/23 17:30 erythromycin base AdvReac Upset Verified 01/10/23 17:30 [Erythromycin Base] Stomach Family History Father Diabetes Hypertension Heart disease Mother Diabetes Hypertension Brother Heart disease Brother Diabetes Brother Hypertension Surgical History History of abdominal hysterectomy (~1968) History of appendectomy (~1968) History of cataract extraction History of colonoscopy History of dilatation and curettage History of left heart catheterization (08/02/18) History of tonsillectomy Status post right knee replacement (~03/29/22) Social History household members: none Smoking Status: Never smoker alcohol intake: current alcohol intake frequency: holidays/special occasions only substance use type: does not use caffeine: Yes Type: coffee Number of servings: 2 what type of physical activity do you participate in: other details: Physical therapy frequency: 1-2 times per week seatbelt use: always ROS ROS Narrative Admission Review of Systems: CONSTITUTIONAL: No weight loss, + fever, chills, weakness or fatigue. HEENT: Eyes: No visual loss, blurred vision, double vision or yellow sclerae. Ears, Nose, Throat: No hearing loss, sneezing, congestion, runny nose or sore throat. SKIN: + RLE redness, increased edema compared to prior. CARDIOVASCULAR: + Acute on Chronic peripheral BL LE edema, R>L. No chest pain, chest pressure or chest discomfort, palpitations, orthopnea, syncopal events. RESPIRATORY: No shortness of breath, cough or sputum, wheezing, hemoptysis. GASTROINTESTINAL: No anorexia, nausea, vomiting or diarrhea, abdominal pain, melena, BRBPR. GENITOURINARY: No dysuria, frequency, urgency or retention. NEUROLOGICAL: No headache, dizziness, syncope, paralysis, ataxia, numbness or tingling in the extremities, focal weakness, change in bowel or bladder control, seizure. MUSCULOSKELETAL: + muscle, back pain, joint pain or stiffness. HEMATOLOGIC: No anemia, bleeding or bruising. LYMPHATICS: No enlarged nodes. No history of splenectomy. PSYCHIATRIC: No history of depression or anxiety. ENDOCRINOLOGIC: No reports of sweating, cold or heat intolerance. No polyuria or polydipsia. ALLERGIES: No history of asthma, hives, eczema or rhinitis. Vital Signs Vital Signs Vital Signs: 01/10/23 17:31 Temperature 97.8 F Temperature Source Temporal Pulse Rate 96 Respiratory Rate 18 Blood Pressure 175/67 H Blood Pressure Mean 103 Pulse Ox 96 Oxygen Delivery Method Room Air Weight Weight: 225 lb 9.6 oz Body Mass Index (BMI) 37.5 Physical Exam Narrative Physical Examination: General: Awake, alert, oriented x 3 and cooperative, laying in the ED bed, reports pain improved, 8 out of 10 in severity, worse with any movement or manipulation of the right knee. Skin: Normal turgor, no icterus, no cyanosis except for notable right lower extremity distal ankle to knee petechial rash, mild erythema especially over the patellar region status post recent aspiration per orthopedic surgery, dressing replaced, warm to touch. HEENT: AT/NC, EOMI, PERRLA, dry MM, no carotid bruits or JVD noted. Lungs: CTA bilaterally, moderate effort, mild decrease BL bases, no rales, ronchi or wheezing. Heart: Currently regular rate and rhythm; no gallop, rub audible. Abdomen: Soft, obese, NTTP, ND, mildly hyperactive BS, no HSM. Extremities: No cyanosis, no clubbing, chronic peripheral edema however right lower extremity increased above her baseline, see skin Neurological: Patient awake, alert, oriented as noted cognitive function intact; pupils equally reactive to light and accommodation, cranial nerves II-XII grossly normal, moving all 4 extremities except extremely limited right lower e xtremity movement given severity of pain elicited, strength accordingly severely globally decreased. Psychiatric: Affect appears fatigued, uncomfortable with certain movement or examination, no acute evidence of depressive or anxiety feelings. Results Lab / Micro Data Result Diagrams: 01/10/23 19:29 01/10/23 Unknown Labs: Laboratory Results - last 24 hr 01/10/23 19:29: WBC 14.6 H, RBC 4.59, Hgb 14.0, Hct 39.9, MCV 86.9, MCH 30.5, MCHC 35.1, RDW Std Deviation 40.7, RDW Coeff of Braden 12.9, Plt Count 261, MPV 8.9, Immature Gran % (Auto) 0.500, Neut % (Auto) 84.5 H, Lymph % (Auto) 5.1 L, Arthur % (Auto) 9.4, Eos % (Auto) 0.1, Baso % (Auto) 0.4, Absolute Neuts (auto) 12.4 H, Absolute Lymphs (auto) 0.74 L, Nucleated RBC % 0, ESR 54 H 01/10/23 19:29: Sodium Cancelled, Potassium Cancelled, Chloride Cancelled, Carbon Dioxide Cancelled, Anion Gap Cancelled, BUN Cancelled, Creatinine Cancelled, Estim Creat Clear Calc Cancelled, Est GFR (MDRD) Af Amer Cancelled, Est GFR (MDRD) Non-Af Cancelled, BUN/Creatinine Ratio Cancelled, Glucose Cancel led, Calcium Cancelled, C-React Prot Ext Range Cancelled 01/10/23 20:12: POC Glucose 163 H 01/10/23 : Sodium 131 L, Potassium 3.8, Chloride 99, Carbon Dioxide 24.0, Anion Gap 8, BUN 19 H, Creatinine 0.86, Estim Creat Clear Calc 43.82, Est GFR (MDRD) Af Amer 81, Est GFR (MDRD) Non-Af 67, BUN/Creatinine Ratio 22.2 H, Glucose 168 H , Calcium 9.0, C-React Prot Ext Range 124.00 H Radiology Impression Knee X-Ray 01/10/23 19:45 IMPRESSION: Right total knee arthroplasty without acute abnormality Electronically Signed: Oswaldo FeldmanDO at 20:10 EDT Reading Location ID and State: [facility] / [place] Tel [phone], Service support , Assessment & Plan Assessment/Plan (1) Cellulitis of right knee: PLAN: Plan The patient is an 82 y/o F w/ PMHx: Asthma, CAD, HTN, HLD, Gout, Hypothyroidism, Obesity, Diabetes mellitus type II who presents to the [facility] ED on 01/10/23 with history of onset increasing R knee pain over the last 48 hours with onset of redness over the right patellar region today with elevated T 100 at home with self administration of tylenol prompting call to Dr. Arriola's office who recommended ED evaluation with slightly worsening pain, immobility secondary to severity of pain and even unable to bear weight. #1. Acute right knee pain, elevated inflammatory markers concerning for possible septic joint complicated by prior right total knee replacement, right lower extremity cellulitis: We will admit to medical surgical floor, will initiate and maintain on IV vancomycin as well as IV Rocephin pending synovial right knee fluid cultures obtained per orthopedic surgeon Dr. Bates on-call for Dr. Arriola group who performed the right knee replacement, will maintain on judicious hydration, maintain on fall precautions, orthopedic surgery consulted and following as noted, as needed IV and oral pain regimen as needed, de- escalate antibiotic therapy as able, PT/OT/case management consulted for disc harge planning. #2. CAD: s/p cardiac catheterization 2017 w/ EF 60%, apical akinesis, normal left main trunk, left anterior descending artery with mild luminal irregularities in circumflex and right coronary artery with no significant stenosis with distal LAD was occluded with medical therapy decision at that time. We will continue aspirin, statin, labetalol, lisinopril home regimen. #3. Chronic asthma: We will temporarily hold patient home inhaler and transition in the interim to ATC budesonide therapy, PRN albuterol, HOB, IS parameters. #4. Diabetes mellitus type II: Hold oral home regimen, continue home insulin regimen, ADA diet, accu checks w/ ISS. #5. Hypertension: Continue home regimen including labetalol, hydrochlorothiazide, doxazosin, amlodipine, fosinopril, PRN hydralazine. #6. Hyperlipidemia: We will continue patient on statin therapy. #7. Hypothyroidism: We will continue patient home levothyroxine regimen. #8. Obesity: Weight loss and lifestyle changes encouraged. #9. Gout: From most recent list not on chronic regimen, synovial fluid as noted obtained per ED, cultures pending. #10. DVT prophylaxis: SCDs, hold on chemoprophylaxis given pending cultures for possible or needs. #11. CODE status: Patient HCPRAHUL is her daughter who is present and living will is currently in place. Discussed CODE status at length including difference between FULL code, DNR-CCA and DNR-CC status. Following discussions about the differences in these status, requested DNR-CCA, no intubation. This was clarified several times with daughter x 2 present including HCPOA as her daughter initially reported Full Code but patient stated preference for DNR-CCA, no intubation. Eventually family and patient consistent in decision for patient status preference. Advanced Care Planning Face to Face Time: 16 minutes. Admission Evaluation Time spent evaluating chart, patient history, patient evaluation, care planning and discussion with specialists: 75 minutes. Charges/Coding Visit Charges Inpatient E&M: 91559 Init Hosp L3 Procedures Hospitalists Procedures: 29880 Advncd Care Plan 30 Min
--- NOTE | 2023-01-10 22:25 | ED.RN ---
ATTEMPTED TO CALL PHARMACY ABOUT ANTIBIOTICS, NO ANSWER
[2023-01-10 22:33] LABS: AUTO B FLUID DILUENT BKGD CT WBC <0.1 RBC <0.01 (W<.1,R<.01); CRYSTALS, BODY FLUID See PATH REV; Source- Body Fluid SYNOVIAL
[2023-01-10 22:34] LABS: Appearance /Synovial Fluid Cloudy (CLEAR); Color / Synovial Fluid Yellow (Pale Yellow); Source / Synovial Fluid RT KNEE
[2023-01-10 22:36] LABS: RBC /Synovial Fluid 0.008 10^6/uL (0); Synovial Fld Polynuclear WBC % 93.8 %
[2023-01-10 22:37] LABS: Body Fluid QC Type(s) BF1Q,BF2Q; Synovial Fld Mononuclear WBC # 0.869 10^3/ul; Synovial Fld Mononuclear WBC % 6.2 %
[2023-01-10] MEDS: Ceftriaxone 1 GM/50 ML BAG IV (22:38)
[2023-01-10 22:46] LABS: Monocyte /Synovial Fluid 2 %; Neutrophil 98 % (0-25)
[2023-01-10 23:03] VITALS: BMI 37.3
--- NOTE | 2023-01-10 23:06 | EDS_ITS ---
HPI History of Present Illness Chief Complaint: Lower Extremity Injury Narrative Narrative: 82-year-old female presenting with right knee pain. She states been a little achy for the last couple of days. Today she developed a rash over it and is very tender. She is unable to ambulate. She unable to bend her knee. She states she had a temperature of 100 ?F at home. She states he only takes Tylenol for pain typically. She states she does not do well with pain medication but is requesting some because she is in severe pain. He does admit to chills and achiness. PFSH [facility] Medical History Abnormal mammogram of right breast Ambulates with cane Arthritis Asthma Atherosclerosis of coronary artery of [place] heart without angina pectoris Bilateral leg edema Cardiology follow-up encounter Cataracts, bilateral Dietary restriction Diverticulosis Dysmetabolic syndrome X Essential (primary) hypertension Gout History of echocardiogram History of edema History of heart attack History of stress test Hyperlipidemia Hypothyroidism Injury of back Non-smoker Obesity (BMI 30-39.9) Pancreatic cyst PONV (postoperative nausea and vomiting) Primary osteoarthritis of right knee Psoriasis Screening for malignant neoplasm of breast Secondary pulmonary arterial hypertension Shortness of breath on exertion Type 2 diabetes mellitus Wears glasses Wears partial dentures Home Medications fosinopril 40 mg tablet 40 mg PO DAILY BP 06/13/17 [History Last Taken 03/29/22 08:00] levothyroxine 75 mcg tablet 75 mcg PO QHS thyroid 06/13/17 [History Last Taken 08/02/18] jvnwkoxk-ajm-vfwtr acid 0.4 mg-lycopene 300 mcg-lutein 250 mcg tablet (Centrum Silver) 1 tab PO DAILY supplement 07/02/18 [History Last Taken Unknown] ascorbic acid (vitamin C) 500 mg tablet 500 mg PO DAILY supplement 01/19/22 [History Last Taken Unknown] calcium carbonate 500 mg-vitamin D3 15 mcg (600 unit) tablet 1 tab PO Q OTHER DAY supplement 01/19/22 [History Last Taken Unknown] cholecalciferol (vitamin D3) 25 mcg (1,000 unit) tablet 25 mcg PO DAILY supplement 01/19/22 [History Last Taken Unknown] clobetasol 0.05 % topical cream 1 applic topical BID PRN psoriasis 01/19/22 [History Last Taken Unknown] metformin 500 mg tablet,extended release 24 hr 500 mg PO DAILY blood sugar 01/19/22 [History Last Taken Unknown] nitroglycerin 0.4 mg sublingual tablet 0.4 mg sublingual Q5-15M PRN CP 01/19/22 [History Last Taken Unknown] pravastatin 40 mg tablet 40 mg PO QHS cholesterol 01/19/22 [History Last Taken Unknown] albuterol sulfate 90 mcg/actuation aerosol inhaler 2 puff inhalation Q4H PRN Wheezing #8.5 grams 03/03/22 [Rx Last Taken Unknown] budesonide-formoterol HFA 160 mcg-4.5 mcg/actuation aerosol inhaler (Symbicort) 2 puff inhalation BID breathing 03/20/22 [History Last Taken 03/29/22 08:00] methylcellulose (laxative) 500 mg tablet (Citrucel) 1,000 mg PO DAILY constipation 03/20/22 [History Last Taken Unknown] peg 400-propylene glycol (PF) 0.4 %-0.3 % eye drops in a dropperette (Systane (PF)) 1 drp EACH EYE BID dry eyes 03/20/22 [History Last Taken Unknown] biotin 5,000 mcg disintegrating tablet 5,000 mcg PO DAILY Check with primary doctor 05/25/22 [History Last Taken Unknown] amlodipine 10 mg tablet 10 mg PO DAILY BP #90 tabs 07/25/22 [Rx Last Taken Unknown] doxazosin 4 mg tablet 4 mg PO QHS BP #90 tabs 07/25/22 [Rx Last Taken Unknown] labetalol 300 mg tablet 300 mg PO BID BP 11/30/22 [History Last Taken Unknown] acetaminophen 500 mg tablet 1,000 mg PO Q8H Check with primary doctor 01/10/23 [History Last Taken Unknown] aspirin 81 mg chewable tablet 81 mg PO BIDCM Check with primary doctor 01/10/23 [History Last Taken Unknown] hydrochlorothiazide 25 mg tablet 25 mg PO DAILY Check with primary doctor 01/10/23 [History Last Taken Unknown] Allergy/AdvReac Type Severity Reaction Status Date / Time clindamycin Allergy Rash Verified 01/10/23 17:30 codeine Allergy Hives Verified 01/10/23 17:30 Penicillins [PCN] Allergy Hives Verified 01/10/23 17:30 shellfish derived Allergy hives Verified 01/10/23 17:30 erythromycin base AdvReac Upset Verified 01/10/23 17:30 [Erythromycin Base] Stomach Family History Father Diabetes Hypertension Heart disease Mother Diabetes Hypertension Brother Heart disease Brother Diabetes Brother Hypertension Surgical History History of abdominal hysterectomy (~1968) History of appendectomy (~1968) History of cataract extraction History of colonoscopy History of dilatation and curettage History of left heart catheterization (08/02/18) History of tonsillectomy Status post right knee replacement (~03/29/22) Social History household members: none Smoking Status: Never smoker alcohol intake: current alcohol intake frequency: holidays/special occasions only substance use type: does not use caffeine: Yes Type: coffee Number of servings: 2 what type of physical activity do you participate in: other details: Physical therapy frequency: 1-2 times per week seatbelt use: always ROS ROS ED Constitutional Constitutional ED: Reports chills Eyes Eyes: Denies change in vision ENT ENT ED: Denies rhinorrhea or sore throat Cardiovascular Cardiovascular: Denies chest pain or palpitations Respiratory/Chest Respiratory/Chest: Denies cough or dyspnea Gastrointestinal Gastrointestinal: Denies abdominal pain, nausea or vomiting Genitourinary Genitourinary ED: Denies dysuria or hematuria Musculoskeletal Musculoskeletal: Reports myalgias Integumentary Reports rash Neurologic Neurologic: Denies headache(s) or paresthesias Psychiatric Psychiatric: Denies anxiety or depression EXAM Physical Exam Const Vital Signs: 01/10/23 17:31 Temperature 97.8 F Temperature Source Temporal Pulse Rate 96 Respiratory Rate 18 Blood Pressure 175/67 H Blood Pressure Mean 103 Pulse Ox 96 Oxygen Delivery Method Room Air Positive well nourished General Appearance ED: NAD HEENT Reports moist mucous membranes Chest Wall inspection of chest normal and palpation of chest normal Resp normal respiratory effort and no retractions Auscultation: Negative for rales, rhonchi or wheezes Cardio regular rate and regular rhythm Extremity Extremity Narrative: There is a cellulitis overlying the right patella. On examination the patient is exquisitely tender over the patellar region. I am unable to range her right knee. Positive for short arc range of motion pain. There is edema below this in the right calf. I believe this is dependent edema. Neuro oriented x3 and CN's II-XII intact bilaterally Sensorium / Orientation: alert Psych mental status grossly normal MDM MDM MDM Narrative Medical decision making narrative: Patient presenting with right knee pain. She has a history of right knee replacement last year by Dr. Arriola. I believe she has a septic joint. I am unable to range this. X-ray of the right knee on my interpretation shows no acute fracture or subluxation. There is no significant joint effusion. CBC was obtained to assess for white blood cell count and she does have an elevation in his 14.6 today. There is a left shift. Hemoglobin hematocrit are stable. BMP shows normal renal function and electrolytes with exception of a sodium of 131. ESR elevated at 54. CRP is elevated at 124. Discussed with Dr. Bates who spoke with Dr. Arriola. Dr. Bates states he will come in and aspirate the right knee. After doing so labs were sent. Patient has elevation in her synovial WBCs at 13.88, synovial RBCs at 0.008, synovial total cell count 13.948, synovial neutrophils 98. Awaiting Gram stain. Spoke with Dr. Rock regarding the findings and he states he already added on for the OR. Patient had blood cultures drawn. She was given vancomycin and Rocephin due to penicillin allergy. Admitted to the hospitalist in stable condition. Impression: 1. Right knee septic arthritis 2. Leukocytosis Lab Data Attestation: I reviewed the patient's lab results. Labs: Laboratory Results - last 24 hr 01/10/23 01/10/23 01/10/23 19:29 19:29 20:12 WBC 14.6 H RBC 4.59 Hgb 14.0 Hct 39.9 MCV 86.9 MCH 30.5 MCHC 35.1 RDW Std Deviation 40.7 RDW Coeff of Braden 12.9 Plt Count 261 MPV 8.9 Immature Gran % (Auto) 0.500 Neut % (Auto) 84.5 H Lymph % (Auto) 5.1 L Nobles % (Auto) 9.4 Eos % (Auto) 0.1 Baso % (Auto) 0.4 Absolute Neuts (auto) 12.4 H Absolute Lymphs (auto) 0.74 L Nucleated RBC % 0 ESR 54 H Sodium Cancelled Potassium Cancelled Chloride Cancelled Carbon Dioxide Cancelled Anion Gap Cancelled BUN Cancelled Creatinine Cancelled Estim Creat Clear Calc Cancelled Est GFR (MDRD) Af Amer Cancelled Est GFR (MDRD) Non-Af Cancelled BUN/Creatinine Ratio Cancelled Glucose Cancelled Calcium Cancelled C-React Prot Ext Range Cancelled Fluid Crystals Fluid Crystal Source Fl Crystal Path Review Synovial Source Synovial Color Synovial Appearance Synovial WBC Synovial RBC Synovial Tot Cell Ct Synov Polynuclear WBCs Synov Mononuclear WBCs Synovial Neutrophils Synovial Monocytes Synovial Polynuclear % Synovial Mononuclear % Synovial Path Comment POC Glucose 163 H 01/10/23 21:25 WBC RBC Hgb Hct MCV MCH MCHC RDW Std Deviation RDW Coeff of Braden Plt Count MPV Immature Gran % (Auto) Neut % (Auto) Lymph % (Auto) Nobles % (Auto) Eos % (Auto) Baso % (Auto) Absolute Neuts (auto) Absolute Lymphs (auto) Nucleated RBC % ESR Sodium Potassium Chloride Carbon Dioxide Anion Gap BUN Creatinine Estim Creat Clear Calc Est GFR (MDRD) Af Amer Est GFR (MDRD) Non-Af BUN/Creatinine Ratio Glucose Calcium C-React Prot Ext Range Fluid Crystals See PATH REV Fluid Crystal Source SYNOVIAL Fl Crystal Path Review Will follow Synovial Source RT KNEE Synovial Color Yellow Synovial Appearance Cloudy Synovial WBC 13.8800 H Synovial RBC 0.008 H Synovial Tot Cell Ct 13.9480 H Synov Polynuclear WBCs 13.059 Synov Mononuclear WBCs 0.869 Synovial Neutrophils 98 H Synovial Monocytes 2 Synovial Polynuclear % 93.8 Synovial Mononuclear % 6.2 Synovial Path Comment May follow POC Glucose Radiography Diagnostic Testing: Clinical Impression(s) from Imaging Studies Knee X-Ray 01/10/23 19:45 IMPRESSION: Right total knee arthroplasty without acute abnormality Electronically Signed: Oswaldo Feldman DO at 20:10 EDT Reading Location ID and State: [address] [place] [address] Tel [phone], Service support , Discharge Plan Disposition Disposition: Acute Care Hospital [facility] Discharge Date/Time: 01/10/23 22:45
[2023-01-10 23:16] VITALS: BP 144/51; BP 144/81; PULSE 91; RESP 18; TEMP 37.2; O2SAT 94
[2023-01-11] VITALS (15 sets, daily range): BP systolic 109–159; BP diastolic 49–88; PULSE 67–85; RESP 15–20; TEMP 36.6–37.6; O2SAT 93–100; BMI 37.9
[2023-01-11] MEDS: 0.9% Normal Saline 1,000 ML 125 ML IV (00:40)
[2023-01-11] MEDS: Doxazosin 4 MG Tablet PO ×2 (00:40→22:17)
[2023-01-11] MEDS: Levothyroxine 75 MCG Tablet PO ×2 (00:41→22:16)
[2023-01-11] MEDS: Labetalol 100 MG Tablet 300 MG PO ×2 (00:41→22:16)
[2023-01-11] MEDS: Pravastatin 40 MG Tablet PO ×2 (00:41→22:16)
[2023-01-11] MEDS: Famotidine 20 MG Tablet PO ×2 (00:43→22:16)
[2023-01-11 01:41] LABS: Bedside Glucose 159 mg/dL (74-106)
--- NOTE | 2023-01-11 02:36 | PCM.RX.CS ---
Consult Pharmacy has been consulted to manage selected antiobiotic: Vancomycin Type of Consult: New start Suspected Infection: Skin/Soft tissue Labs: Sodium 131 mmol/L (136-145) L 01/10/23 Unknown Potassium 3.8 mmol/L (3.5-5.1) 01/10/23 Unknown Chloride 99 mmol/L (98-107) 01/10/23 Unknown Carbon Dioxide 24.0 mmol/L (21.0-32.0) 01/10/23 Unknown Anion Gap 8 (5-15) 01/10/23 Unknown BUN 19 mg/dL (7-18) H 01/10/23 Unknown Creatinine 0.86 mg/dL (0.55-1.02) 01/10/23 Unknown Est GFR (MDRD) Af Amer 81 mL/min (>60) 01/10/23 Unknown Est GFR (MDRD) Non-Af 67 mL/min (>60) 01/10/23 Unknown BUN/Creatinine Ratio 22.2 RATIO (10-20) H 01/10/23 Unknown Glucose 168 mg/dL (74-106) H 01/10/23 Unknown Microbiology: Microbiology 01/10/23 21:25 Fluid - Synovial (joint) Gram Stain - Preliminary Goal Trough: 10-15 mcg/mL Pharmacy Plan for Drug Dosing: Pharmacy Service will continue to monitor and adjust dosing as required. Medications Vancomycin HCl (Vancomycin) 1,000 mg in 200 mls @ 200 mls/hr IV Q12H NADIYA Discontinued Medications Vancomycin HCl 2,000 mg/ (Sodium Chloride) 540 mls @ 250 mls/hr IV X1 ONE Stop: 01/11/23 00:00 Last Admin: 01/11/23 01:40 Dose: Infused Follow-Up Labs: Trough Vancomycin Labs to be done on [date and time ordered]: 01/12 @ 1100
[2023-01-11] MEDS: Acetaminophen 325 MG Tablet 650 MG PO ×3 (04:02→20:16)
[2023-01-11] MEDS: oxyCODONE 5 MG Tablet PO ×3 (04:03→20:15)
--- NOTE | 2023-01-11 06:00 | EKG12_ITS ---
Test Reason : AM EKG Blood Pressure : / mmHG Vent. Rate : 073 BPM Atrial Rate : 073 BPM P-R Int : 204 ms QRS Dur : 080 ms QT Int : 410 ms P-R-T Axes : 056 012 072 degrees QTc Int : 451 ms Normal sinus rhythm Low voltage QRS Borderline ECG When compared with ECG of 16-AUG-2006 08:06, MANUAL COMPARISON REQUIRED, DATA IS UNCONFIRMED Confirmed by MARIA GUADALUPE BUNN, EVELYN ([id number]), acquisitions editor NISHANT PRESTON ([id number]) on 01/12/2023 9:52:03 AM Referred By: MUKESH Confirmed By:EVELYN LERMA MD
[2023-01-11 06:28] LABS: Absolute Lymphocyte Count 1.13 X10^3/uL (0.83-4.51); Absolute Neutrophil Count 10.5 X10^3/uL (2.0-7.7); Basophil# 0.06 X10^3/uL; Basophil% 0.4 % (0-1); Eosinophil# 0.03 X10^3/uL; Eosinophils% 0.2 % (0-5); Hematocrit 32.3 % (37-47); Hemoglobin 11.3 g/dL (12.0-15.0); Lymphocyte # 1.13 X10^3/ul (0.83-4.51); Lymphocyte % 8.4 % (19-41); Mean Corpuscular Volume 88.7 fL (81-99); Mean Platelet Vol. 8.3 fl (6.2-12.0); Monocyte# 1.67 X10^3/uL; Monocyte% 12.5 % (0-10); NRBC Flagged by Analyzer 0 % (0-5); Neutrophil # 10.47 X10^3/uL (2.7-7.7); Neutrophil % 78.1 % (47-70); POSITIVE DIFFERENTIAL YES; Platelet Count 237 K/mm3 (150-450); RBC Distribution Width CV 13.3 % (11.6-14.6); RBC Distribution Width SD 43.8 fl (35.1-43.9); Red Blood Count 3.64 M/mm3 (4.2-5.4); White Blood Count 13.4 K/mm3 (4.4-11.0)
[2023-01-11 06:31] LABS: Differential Indicated SCAN CRITERIA MET
[2023-01-11 06:36] LABS: Bedside Glucose 139 mg/dL (74-106)
[2023-01-11 07:09] LABS: ALB/GLOB Ratio 0.8 RATIO (0.9-2.4); AST(SGOT) 8 U/L (15-37); Alanine Aminotransfer ALT/SGPT 14 U/L (13-56); Albumin, Serum 2.6 g/dL (3.2-5.0); Alkaline Phosphatase 54 U/L (45-117); Anion Gap 9 (5-15); BUN 20 mg/dL (7-18); BUN/Creat Ratio 18.5 RATIO (10-20); Calcium,Total 8.1 mg/dL (8.5-10.1); Chloride 100 mmol/L (98-107); Creatinine, Serum 1.08 mg/dL (0.55-1.02); EST Glomerular Filtration Rate 51 mL/min (>60); Est Glom Filt Rate - Afr Amer 62 mL/min (>60); Estimated Creatinine Clearance 34.89 ml/min; Globulin 3.3 g/dL (2.2-4.2); Glucose 140 mg/dL (74-106); Potassium 3.7 mmol/L (3.5-5.1); Protein, Total 5.9 g/dL (6.4-8.2); Sodium Level 131 mmol/L (136-145)
[2023-01-11 07:18] LABS: Thyroid Stim Hormone (TSH) 0.89 uIU/mL (0.358-3.74)
[2023-01-11] MEDS: Budesonide Respules 0.5 MG/2 ML AMPUL.NEB. INHALATION ×2 (07:31→16:56)
--- NOTE | 2023-01-11 10:06 | PN.HOSP_ITS ---
Reason for Visit Reason for Visit: Diagnoses Cellulitis of right lower limb (01/10/23) Effusion, right knee (01/10/23) Presence of right artificial knee joint (01/10/23) Subjective Subjective Follow-up for infected right knee joint Objective Data Objective Data Vital Signs: Vital Signs Temp Pulse Resp BP Pulse Ox O2 Del Method 98.3 F 75 18 118/55 L 97 Room Air 01/11/23 08:32 01/11/23 08:32 01/11/23 08:32 01/11/23 08:32 01/11/23 08:32 01/11/23 08:36 Oxygen Delivery Method Room Air Weight: 227 lb 11.8 oz Body Mass Index (BMI) 37.9 Intake & Output: Intake and Output for Last 24 Hours 01/09/23 01/10/23 01/11/23 23:59 23:59 23:59 Intake Total 50 / 50 548.33 / 548.33 Output Total 500 / 500 Balance 50 / 50 48.33 / 48.33 Lab / Micro Data Result Diagrams: 01/11/23 06:15 01/11/23 06:15 Labs: Laboratory Results - last 24 hr 01/10/23 19:29: WBC 14.6 H, RBC 4.59, Hgb 14.0, Hct 39.9, MCV 86.9, MCH 30.5, MCHC 35.1, RDW Std Deviation 40.7, RDW Coeff of Braden 12.9, Plt Count 261, MPV 8.9, Immature Gran % (Auto) 0.500, Neut % (Auto) 84.5 H, Lymph % (Auto) 5.1 L, [place] % (Auto) 9.4, Eos % (Auto) 0.1, Baso % (Auto) 0.4, Absolute Neuts (auto) 12.4 H, Absolute Lymphs (auto) 0.74 L, Nucleated RBC % 0, ESR 54 H 01/10/23 20:12: POC Glucose 163 H 01/10/23 21:25: Fluid Crystals See PATH REV, Fluid Crystal Source SYNOVIAL, Fl Crystal Path Review Will follow, Synovial Source RT KNEE, Synovial Color Yellow, Synovial Appearance Cloudy, Synovial WBC 13.8800 H, Synovial RBC 0.008 H, Synovial Tot Cell Ct 13.9480 H, Synov Polynuclear WBCs 13.059, Synov Mononuclear WBCs 0.869, Synovial Neutrophils 98 H, Synovial Monocytes 2, Synovial Polynuc lear % 93.8, Synovial Mononuclear % 6.2, Synovial Path Comment December01/10/23 23:24: POC Glucose 159 H 01/10/23 : Sodium 131 L, Potassium 3.8, Chloride 99, Carbon Dioxide 24.0, Anion Gap 8, BUN 19 H, Creatinine 0.86, Estim Creat Clear Calc 43.82, Est GFR (MDRD) Af Amer 81, Est GFR (MDRD) Non-Af 67, BUN/Creatinine Ratio 22.2 H, Glucose 168 H , Calcium 9.0, C-React Prot Ext Range 124.00 H 01/11/23 06:14: POC Glucose 139 H 01/11/23 06:15: WBC 13.4 H, RBC 3.64 L, Hgb 11.3 L, Hct 32.3 L, MCV 88.7, MCH 31.0, MCHC 35.0, RDW Std Deviation 43.8, RDW Coeff of Braden 13.3, Plt Count 237, MPV 8.3, Immature Gran % (Auto) 0.400, Neut % (Auto) 78.1 H, Lymph % (Auto) 8.4 L, [place] % (Auto) 12.5 H, Eos % (Auto) 0.2, Baso % (Auto) 0.4, Absolute Neuts (auto) 10.5 H, Absolute Lymphs (auto) 1.13, Nucleated RBC % 0, Diff Path Review December01/11/23 06:15: Sodium 131 L, Potassium 3.7, Chloride 100, Carbon Dioxide 22.0, Anion Gap 9, BUN 20 H, Creatinine 1.08 H, Estim Creat Clear Calc 34.89, Est GFR (MDRD) Af Amer 62, Est GFR (MDRD) Non-Af 51 L, BUN/Creatinine Ratio 18.5, Glucose 140 H, Calcium 8.1 L, Total Bilirubin 0.80, AST 8 L, ALT 14, Alkaline Phosphatase 54, Total Protein 5.9 L, Albumin 2.6 L, Globulin 3.3, Albumin/Globulin Ratio 0.8 L 01/11/23 06:15: TSH 0.89 01/11/23 06:15: Hemoglobin A1c 6.0 H Micro: Microbiology 01/10/23 21:25 Fluid - Synovial (joint) Gram Stain - Preliminary Radiography Diagnostic Testing: Radiology Impression Knee X-Ray 01/10/23 19:45 IMPRESSION: Right total knee arthroplasty without acute abnormality Electronically Signed: Oswaldo Feldman DO at 20:10 EDT Reading Location ID and State: [address] [place] [address] Tel [phone], Service support , Physical Exam Narrative Seen and examined. In the morning patient had right knee aspiration and was positive for infection therefore went for right hip irrigation and washout. In afternoon patient returned after surgery. Complain of pain over right knee. Physical exam General: Alert, Oriented x3, Cooperative HEENT: Atraumatic, PERRLA, EOMI, Normocephalic Oral: Oral mucosa moist. No Gingival or Mucosal Lesions/ Ulcerations Neck: Supple, No JVD, Negative Carotid Bruits Lungs: Air entry diminished in bilateral lung bases. No crepitation/rhonchi Cardiovascular: Regular rate, Regular Rhythm, Normal S1, Normal S2, No murmurs Abdomen: Bowel Sounds Present, Soft, Non Tender, Non-Distended : No renal angle tenderness. No suprapubic tenderness. Extremities: No edema, Capillary Refill Less than 3 Seconds Skin: No rashes, No breakdown Musculoskeletal: Right knee with dressing and Robin wrap bandage. GENEVA hose on. Bilateral hip and left knee arthritis. Neurological: Cranial nerves II-XII grossly intact, DTR 2+/4 and Symmetrical, Neuro grossly intact Psych/Mental Status: Flat affect. Assessment & Plan Assessment/Plan (1) Cellulitis of right knee: PLAN: Plan The patient is an 82 y/o F came to ER with right knee pain for last couple days. Temperature at home was 100 Fahrenheit.Patient had right TKR in March [address] Arriola. She has redness over right anterior knee for about 1 month and had seen contact center assistant, tried ointment cream with no improvement. She also has a history of psoriasis. Denies any open ulcer. No acute injury. #1. Acute right knee pain, effusion with concern of cellulitis/septic arthritis/prosthesis infection: Patient admitted on [facility] floor. She had bedside knee arthrocentesis about 19 mL cloudy orange/brown fluid aspirated by Dr. Miguelito Bates. Follow cell count, chemistry, crystal exam and culture and sensitivity. In meantime continue IV antibiotic vancomycin and Rocephin. Pain regimen. Limb elevation. PT and OT. Patient has leukocytosis mainly polymorphs. ESR and CRP high. Arthrocentesis f luid shows WBC about 14,000, 98% neutrophil, 2% monocyte. Negative for crystals and malignant cells. Acute inflammation. Patient had right knee irrigation but prosthesis is safe. ID is consulted. #2. CAD: Patient had cardiac catheterization 2018 w/ EF 60%, apical akinesis, normal left main trunk, left anterior descending artery with mild luminal irregularities in circumflex and right coronary artery with no significant stenosis with distal LAD was occluded with medical therapy decision at that time. continue aspirin, statin, labetalol, lisinopril home regimen. #3. Chronic asthma: budesonide therapy, PRN albuterol, #4. Diabetes mellitus type II: Hold oral home regimen, continue home insulin regimen, ADA diet, accu checks #5. Hypertension: Continue home regimen including labetalol, hydrochlorothiazide, doxazosin, amlodipine, fosinopril, PRN hydralazine. #6. Hyperlipidemia: We will continue patient on statin therapy. #7. Hypothyroidism: We will continue patient home levothyroxine regimen. #8. Obesity: Weight loss and lifestyle changes encouraged. #9. Gout: From most recent list not on chronic regimen, synovial fluid as noted obtained per ED, cultures pending. #10. DVT prophylaxis: SCDs, hold on chemoprophylaxis given pending cultures for possible or needs. #11. CODE status: Patient AINSLEY is her daughter who is present and living will is currently in place. DNRCC arrest with no intubation Charges/Coding Visit Charges Inpatient E&M: 66769 Subs Hosp L2
[2023-01-11] MEDS: Lactated Ringers 1,000 ML 15 ML IV (10:21)
--- NOTE | 2023-01-11 10:27 | PCM.PN.ORT ---
Subjective Subjective 82-year-old female is a patient known to me with a right total knee replacement done by myself in March 2022. Patient notes she had been recovering well without any issues and was happy with a total knee replacement. 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 She has been dealing with this for a couple of months per her report. She does note that a couple of days ago she started to get redness around her ankle. She had chronic swelling in the right ankle compared to the contralateral side. Yesterday 11:00 after she did morning errands she noted she had increased swelling and pain in her knee which progressed relatively rapidly. She presented to the emergency department after calling the office with redness and swelling. She has outlining around her knee that shows that the erythema has dissipated since beginning antibiotics last evening. She was aspirated by my partner and noted to have elevated synovial white blood cell count and synovial PMNs. This coupled with her elevated ESR and CRP meets criteria for infection under 2018 MSIS criteria. Patient reported 10 out of 10 pain last evening before my partner aspirated the knee. Objective Data Objective Data Vital Signs: Vital Signs Temp Pulse Resp BP Pulse Ox O2 Del Method 98.3 F 75 18 118/55 L 97 Room Air 01/11/23 08:32 01/11/23 08:32 01/11/23 08:32 01/11/23 08:32 01/11/23 08:32 01/11/23 08:36 Oxygen Delivery Method Room Air Weight: 227 lb 11.8 oz Body Mass Index (BMI) 37.9 Intake & Output: Intake and Output for Last 24 Hours 01/09/23 01/10/23 01/11/23 23:59 23:59 23:59 Intake Total 50 / 50 548.33 / 548.33 Output Total 500 / 500 Balance 50 / 50 48.33 / 48.33 Lab / Micro Data Attestation: I reviewed the patient's lab results. Result Diagrams: 01/11/23 06:15 01/11/23 06:15 Labs: Laboratory Results - last 24 hr 01/10/23 19:29: WBC 14.6 H, RBC 4.59, Hgb 14.0, Hct 39.9, MCV 86.9, MCH 30.5, MCHC 35.1, RDW Std Deviation 40.7, RDW Coeff of Braden 12.9, Plt Count 261, MPV 8.9, Immature Gran % (Auto) 0.500, Neut % (Auto) 84.5 H, Lymph % (Auto) 5.1 L, Taliaferro % (Auto) 9.4, Eos % (Auto) 0.1, Baso % (Auto) 0.4, Absolute Neuts (auto) 12.4 H, Absolute Lymphs (auto) 0.74 L, Nucleated RBC % 0, ESR 54 H 01/10/23 19:29: Sodium Cancelled, Potassium Cancelled, Chloride Cancelled, Carbon Dioxide Cancelled, Anion Gap Cancelled, BUN Cancelled, Creatinine Cancelled, Estim Creat Clear Calc Cancelled, Est GFR (MDRD) Af Amer Cancelled, Est GFR (MDRD) Non-Af Cancelled, BUN/Creatinine Ratio Cancelled, Glucose Cancelled, Calcium Cancelled, C-React Prot Ext Range Cancelled 01/10/23 20:12: POC Glucose 163 H 01/10/23 21:25: Fluid Crystals See PATH REV, Fluid Crystal Source SYNOVIAL, Fl Crystal Path Review Will follow, Synovial Source RT KNEE, Synovial Color Yellow, Synovial Appearance Cloudy, Synovial WBC 13.8800 H, Synovial RBC 0.008 H, Synovial Tot Cell Ct 13.9480 H, Synov Polynuclear WBCs 13.059, Synov Mononuclear WBCs 0.869, Synovial Neutrophils 98 H, Synovial Monocytes 2, Synovial Polynuclear % 93.8, Synovial Mononuclear % 6.2, Synovial Path Comment May follow 01/10/23 23:24: POC Glucose 159 H 01/10/23 : Sodium 131 L, Potassium 3.8, Chloride 99, Carbon Dioxide 24.0, Anion Gap 8, BUN 19 H, Creatinine 0.86, Estim Creat Clear Calc 43.82, Est GFR (MDRD) Af Amer 81, Est GFR (MDRD) Non-Af 67, BUN/Creatinine Ratio 22.2 H, Glucose 168 H, Calcium 9.0, C-React Prot Ext Range 124.00 H 01/11/23 06:14: POC Glucose 139 H 01/11/23 06:15: WBC 13.4 H, RBC 3.64 L, Hgb 11.3 L, Hct 32.3 L, MCV 88.7, MCH 31.0, MCHC 35.0, RDW Std Deviation 43.8, RDW Coeff of Braden 13.3, Plt Count 237, MPV 8.3, Immature Gran % (Auto) 0.400, Neut % (Auto) 78.1 H, Lymph % (Auto) 8.4 L, Taliaferro % (Auto) 12.5 H, Eos % (Auto) 0.2, Baso % (Auto) 0.4, Absolute Neuts (auto) 10.5 H, Absolute Lymphs (auto) 1.13, Nucleated RBC % 0, Diff Path Review December01/11/23 06:15: Sodium 131 L, Potassium 3.7, Chloride 100, Carbon Dioxide 22.0, Anion Gap 9, BUN 20 H, Creatinine 1.08 H, Estim Creat Clear Calc 34.89, Est GFR (MDRD) Af Amer 62, Est GFR (MDRD) Non-Af 51 L, BUN/Creatinine Ratio 18.5, Glucose 140 H, Calcium 8.1 L, Total Bilirubin 0.80, AST 8 L, ALT 14, Alkaline Phosphatase 54, Total Protein 5.9 L, Albumin 2.6 L, Globulin 3.3, Albumin/Globulin Ratio 0.8 L 01/11/23 06:15: TSH 0.89 01/11/23 06:15: Hemoglobin A1c 6.0 H Micro: Microbiology 01/10/23 21:25 Fluid - Synovial (joint) Gram Stain - Preliminary Radiography Diagnostic Testing: Radiology Impression Knee X-Ray 01/10/23 19:45 IMPRESSION: Right total knee arthroplasty without acute abnormality Electronically Signed: Oswaldo Feldman DO at 20:10 EDT Reading Location ID and State: [facility] / [place] Tel [phone], Service support , Physical Exam Const alert, oriented x3 and no apparent distress General Appearance: cooperative, comfortable and well kempt Orientation / Consciousness: awake HEENT normocephalic Extremity Extremity Narrative: Right lower extremity: Patient does have erythema over the anterior lateral knee with excoriations of the skin this is lateral to the incision. The outlined area shows dissipated erythema. She has swelling around the ankle with pitting edema and erythema around the ankle. The incision is clean and dry. Patient has pain with range of motion of the knee. Pain with weightbearing. She is sitting in the bed for the majority of the exam. Neurovascular intact distally. 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 I discussed irrigation debridement with retaining implants versus two-stage revision. Based on the acuity of the symptoms I do recommend irrigation debridement with retainment of implants. Patient demonstrates an understanding wish to proceed. She understands will be on IV antibiotics postoperatively at the direction of the infectious disease service likely for a total of 6 weeks. She will also likely require oral antibiotics for an extended period of time postoperatively. Risk of the procedure were discussed the patient including but not limited to blood loss, DVTs, PEs, nervous damage, infection, the risk of anesthesia. Patient is healthy and I did recommend surgical intervention as opposed to nonoperative treatment. Also recommended urgent surgical intervention as this improves the risk of success with retaining implants. Antibiotics will be ordered on-call to the operating room. She did receive Rocephin last night and vancomycin is scheduled on the floor. Postoperatively we will obtain an ID consult. The following diagnoses are also listed as they affect her medical comorbidities status and risk factors. These medical conditions are managed by the medicine service. [facility] Office: (2) Asthma: (3) Obesity (BMI 30-39.9): (4) Hyperlipidemia: QUALIFIERS: Hyperlipidemia type: unspecified hyperlipidemia Qualified Code(s): E78.5 - Hyperlipidemia, unspecified (5) Essential (primary) hypertension: (6) Secondary pulmonary arterial hypertension:
[2023-01-11] MEDS: Cefazolin 2 GM in 0.9% Normal Saline 100 ML IV (10:46)
[2023-01-11] MEDS: Vancomycin IV 1,000 MG/200 ML BAG 200 MG IV ×2 (11:30→23:38)
--- NOTE | 2023-01-11 11:56 | PCM.OPRPT ---
Report of Operation Date of Procedure: 01/11/23 Pre-Operative Diagnosis: Right knee periprosthetic joint infection Post-Operative Diagnosis: Right knee periprosthetic joint infection Surgery/Procedure Performed:: Irrigation debridement with retainment of implants and polyethylene exchange right knee total knee replacement Description of Surgical Findings:: Cloudy fluid consistent with acute infection Surgeon: Stephane Arriola wood sash and frame carpenter: Slava Franklin Type of Anesthesia: General Anesthesiologist: Abran Moreno Special Medications: ANCEF AND VANC Specimen's removed: 3 SEPARATE SPECIMENS SENT TO MICRO Estimated Blood Loss (mL): 100 Fluids Replaced: 500 mL crystalloid Description of Procedure: 82 yo F history of R TKA in presents with 48 hours of pain and swelling with redness of the right knee. Patient's aspiration consistent with infection based on 2018 MSIS criteria. Reviewed options were discussed the patient. Based on acuity of the symptoms and organism irrigation debridement with polyethylene exchange is recommended. Risks and benefits of the procedure were discussed with the patient including but not limited to blood loss, DVTs, PEs, neurovascular damage, infection, general risk of anesthesia including loss of life. Demonstrated understanding and was able to sign informed consent. On the date of procedure patient'sR lower extremity was marked in the preoperative area. The patient was then taken back to the operating room where the patient was placed on the table in the supine position. All bony prominences were identified a well-padded. Anesthesia assumed control of the C-spine and airway and remained controlled throughout the remainder of the procedure. A tourniquet was placed on the operative thigh and the leg was prepped in a sterile fashion. The surgeon then scrubbed at this time .Upon reentering the room left lower extremity was draped in a standard orthopedic fashion. A timeout was then called and everyone agreed upon the side, the site, the procedure to be performed, patient's identity and antibiotics given. A midline skin incision was made and sharp dissection was taken down through skin subcutaneous tissue and fat. Appropriate flaps were elevated medially and laterally. His arthrotomy was identified and the standard medial parapatellar incision was made and the patella was subluxed laterally. The standard deep MCL release was done. At this point an aggressive synovectomy commenced. Our attention was first turned towards the subpatellar pouch and all suspicious synovium and tissues were debrided. We then directed our attention towards medial lateral gutters were these tissues were aggressively debrided. Knee was then flexed up the polyethylene was removed. Once polyethylene was removed we did the remainder of the synovium in the medial and lateral gutters and along the lateral structures and MCL. We then debrided the posterior knee. Knee was flexed up and culture was taken from the femoral notch. And also there was a membrane beneath the tibial baseplate that was removed and sent for culture. He had completed our synovectomy and were happy with the joint. We then used a chlorahexadine scrub sponge and physically scrub the metal implants using a scrub sponge but nothing abrasive. We also scrubbed the remainder of the wound with chlorhexidine. 6 L of normal saline were then irrigated throughout the wound with low-pressure lavage. After this all participants regloved and gowned and new sterile drapes and instruments were opened. The wound was once again explored. All remaining tissue that was suspicious was seen in the wound was once again irrigated with normal saline. 11 mm polyethylene was then opened and put back into place after appropriate trialing. Tourniquet was let down and hemostasis was obtained as well as possible. Lateral drain was placed in 2 g of vancomycin powder were placed in the wound/joint. Once the final components were placed the wound was copiously irrigated with normal saline solution. The wound was closed in a layer chiu fashion using #1 vicryl interrupted sutures for the arthrotomy, 2-0 interrupted Vicryl for the subcuticular layer and faith for final skin closure. A sterile compressive dressing was then placed. The patient was then awakened from anesthesia, transferred to the [facility] and transferred to the PACU for recovery. Post op plan Infection: Infectious disease consulted. Antibiotics per infectious disease will require IV antibiotics for 6 weeks likely followed by chronic oral antibiotics DVT prophylaxis: Aspirin 81 mg twice daily for 4 weeks Therapy: Weightbearing as tolerated, range of motion and activity as tolerated Dressing: Maintain dressing for 5 days. If saturated change as needed. If excessive saturation will consider short-term use of incisional wound VAC My physician toll bridge operator (KEKE) was a vital part of this case. They were important in appropriate retraction during the case, and protection of soft tissues during bony cuts. Their intimate knowledge of the case and my steps aided in safe and expedient completion of the procedure as well as appropriate position of the leg during the case. They were also vital in assisting with closure under my direct supervision. Complications NONE Admit VTE Documentation VTE Present on Admission: No VTE Mechan Device Prophylaxis: SCD's and Thigh High GENEVA Hose VTE Pharm Prophylaxis ordered?: Yes
[2023-01-11 13:06] LABS: Pathologist Review Reviewed
--- NOTE | 2023-01-11 13:10 | RAD_ITS ---
STUDY: X-RAY - RIGHT KNEE REASON FOR EXAM: Female, 82 years old. Post op -- AP and Lateral xray of operative knee in PACU TECHNIQUE: 2 view(s) of the knee. COMPARISON: Comparison is made with prior study dated January 10, 2023. FINDINGS: Normal visualized distal femur. Normal visualized proximal tibia and fibula. Normal proximal tibiofibular articulation. The patient is status post total knee replacement. There is good alignment. Postoperative soft tissue changes. RAD/Knee 1 or 2 Views IMPRESSION: Status post total knee replacement. There is good alignment. Postoperative soft tissue changes. Electronically Signed: Wale Medina MD at 13:50 EDT ,
[2023-01-11 13:13] LABS: Pathologist Review Reviewed
[2023-01-11 14:10] LABS: Bedside Glucose 163 mg/dL (74-106)
--- NOTE | 2023-01-11 15:25 | CASEMGMT ---
AKANKSHA FUENTES Assessment: Face to Face with pt for initial transition planning/care coordination assessment. AKANKSHA FUENTES introduced self and role at [facility], pt voices understanding and consents to assessment. Pt is A/O x4 and answers all questions appropriately at this time. Pt lying in bed with 2 dtrs at bedside. Pt agreeable to assessment with dtrs present. Care providers, pharmacy, and demographics verified/updated. Admitting Dx: R knee cellulitis/suspected septic joint PCP:Levi Specialists:Jordi pulmaria del rosario; Marsha, cardio; Daniel, derm; Flako, ortho Preferred Pharmacy: [facility] [place] Insurance: [id number] Prescription Benefit: yes LNOK: Surekha Murphy, theor; Carina Murphy dtr Living Arrangements: Pt lives alone in a single story home with 3 steps to enter with a rail. Pt reports prior to surgery she was I in ADL's and denies concerns at home. Transportation: Pt drives self and denies concerns with transportation. Pt dtrs to transport pt post surgery. DME/HHC/SNF: Pt has a FWW, cane, BSC and w/c at home. Pt did not use AD prior to surgery. Pt has had [facility] in the past and denies SNF stays. Discussed with pt and dtrs the possibility of needing IV atb. Pt has not been up with therapy yet. Pt and family convey that if she does well with therapy and the IV atb are daily, they feel she can manage at home as her dtr is a nurse. If pt atb are more frequent than daily, pt would request SNF d/t no cg as her dtr lives a half hour away and still works. Pt made aware that we will see how the therapy session goes and discuss further tomorrow. Pt and family deny further needs. Updated SW on this plan. Pt states no further concerns/needs. CM to follow. Advised pt to ask CM if any further question/concerns/needs arise, voices understanding. Pt Goal: Home vs SNF Plan: Home vs SNF pending therapy evals and IV atb frequency.
[2023-01-11] MEDS: Aspirin 81 MG TAB.CHEW PO (16:36)
[2023-01-11] MEDS: Albuterol 2.5 MG/3 ML VIAL.NEB. INHALATION ×2 (16:55→20:23)
[2023-01-11 17:30] LABS: Bedside Glucose 152 mg/dL (74-106)
[2023-01-11] MEDS: DiphenhydrAMINE 25 MG Capsule PO (17:41)
[2023-01-11] MEDS: Cefazolin 1 GM/50 ML BAG IV (18:12)
[2023-01-11 22:51] LABS: Bedside Glucose 131 mg/dL (74-106)
[2023-01-12] VITALS (10 sets, daily range): BP systolic 90–151; BP diastolic 44–75; PULSE 72–88; RESP 16–20; TEMP 36.5–37.5; O2SAT 93–100; BMI 38.2
[2023-01-12] MEDS: Glycerin/Hypromellose/PEG400 15 ml Bottle 1 DRP EACH EYE ×3 (01:07→21:33)
[2023-01-12] MEDS: Cefazolin 1 GM/50 ML BAG IV (02:17)
[2023-01-12 05:13] LABS: Hematocrit 30.2 % (37-47); Hemoglobin 10.4 g/dL (12.0-15.0); Mean Corp Hgb Conc 34.4 g/dL (32-36); Mean Corpuscular Hgb 31.2 pg (27.0-32.0); Mean Corpuscular Volume 90.7 fL (81-99); Mean Platelet Vol. 8.4 fl (6.2-12.0); Platelet Count 228 K/mm3 (150-450); RBC Distribution Width CV 13.2 % (11.6-14.6); RBC Distribution Width SD 43.8 fl (35.1-43.9); Red Blood Count 3.33 M/mm3 (4.2-5.4); White Blood Count 11.6 K/mm3 (4.4-11.0)
[2023-01-12 05:40] LABS: Anion Gap 7 (5-15); BUN 22 mg/dL (7-18); BUN/Creat Ratio 20.2 RATIO (10-20); Calcium,Total 7.9 mg/dL (8.5-10.1); Chloride 96 mmol/L (98-107); Creatinine, Serum 1.09 mg/dL (0.55-1.02); EST Glomerular Filtration Rate 51 mL/min (>60); Est Glom Filt Rate - Afr Amer 61 mL/min (>60); Estimated Creatinine Clearance 34.57 ml/min; Glucose 135 mg/dL (74-106); Potassium 3.9 mmol/L (3.5-5.1); Sodium Level 128 mmol/L (136-145)
[2023-01-12] MEDS: Acetaminophen 325 MG Tablet 650 MG PO ×3 (06:19→20:09)
[2023-01-12] MEDS: oxyCODONE 5 MG Tablet PO ×3 (06:19→20:09)
[2023-01-12] MEDS: DiphenhydrAMINE 25 MG Capsule PO ×2 (06:20→14:44)
[2023-01-12] MEDS: Budesonide Respules 0.5 MG/2 ML AMPUL.NEB. INHALATION ×2 (06:54→19:51)
[2023-01-12] MEDS: Albuterol 2.5 MG/3 ML VIAL.NEB. INHALATION ×3 (06:54→19:51)
--- NOTE | 2023-01-12 06:54 | PN.ORTHO_ITS ---
Subjective Subjective The patient was sitting in bed upon examination. Patient denies any chest pain, shortness of breath, dizziness, lightheadedness, nausea or vomiting, or calf pain. Pain is controlled on medications. No adverse overnight events. Patient is reporting pain in the right knee but medications are helpful. Patient und erwent a irrigation debridement with polyethylene exchange yesterday by Stephane Arriola. Infectious disease has been consulted for management of antibiotics. Aspiration prior to surgery did reveal Staphylococcus aureus. Patient had a previous total knee replacement in March 2022. She was doing well until this week when she had sharp severe pain in the knee with redness in the lower leg. 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 She was seeing a ore roaster. There has not been any trauma or injury. She did well postoperatively until recently. Patient does report some wheezing but states the breathing treatment was very helpful. Objective Data Objective Data Vital Signs: Vital Signs Temp Pulse Resp BP Pulse Ox O2 Del Method O2 Flow Rate 98.9 F 85 19 H 151/68 H 93 Room Air 2 01/12/23 06:30 01/12/23 06:52 01/12/23 06:52 01/12/23 06:30 01/12/23 06:52 01/12/23 06:52 01/12/23 01:21 Oxygen Flow Rate (L/min) 2 Oxygen Delivery Method Room Air Weight: 104.3 kg Body Mass Index (BMI) 38.2 Intake & Output: Intake and Output for Last 24 Hours 01/10/23 01/11/23 01/12/23 23:59 23:59 23:59 Intake Total 50 / 50 2137.25 / 2137.25 750 / 750 Output Total 500 / 500 1100 / 1100 Balance 50 / 50 1637.25 / 1637.25 -350 / -350 Lab / Micro Data Result Diagrams: 01/12/23 04:45 01/12/23 04:45 Labs: Laboratory Results - last 24 hr 01/10/23 21:25: Fluid Crystals See PATH REV, Fluid Crystal Source SYNOVIAL, Fl Crystal Path Review Reviewed, Synovial Source RT KNEE, Synovial Color Yellow, Synovial Appearance Cloudy, Synovial WBC 13.8800 H, Synovial RBC 0.008 H, Synovial Tot Cell Ct 13.9480 H, Synov Polynuclear WBCs 13.059, Synov Mononuclear WBCs 0.869, Synovial Neutrophils 98 H, Synovial Monocytes 2, Synovial Polynucl ear % 93.8, Synovial Mononuclear % 6.2, Synovial Path Comment May follow 01/11/23 06:15: Diff Path Review Reviewed 01/11/23 06:15: Sodium 131 L, Potassium 3.7, Chloride 100, Carbon Dioxide 22.0, Anion Gap 9, BUN 20 H, Creatinine 1.08 H, Estim Creat Clear Calc 34.89, Est GFR (MDRD) Af Amer 62, Est GFR (MDRD) Non-Af 51 L, BUN/Creatinine Ratio 18.5, G lucose 140 H, Calcium 8.1 L, Total Bilirubin 0.80, AST 8 L, ALT 14, Alkaline Phosphatase 54, Total Protein 5.9 L, Albumin 2.6 L, Globulin 3.3, Albumin/Globulin Ratio 0.8 L 01/11/23 06:15: TSH 0.89 01/11/23 06:15: Hemoglobin A1c 6.0 H 01/11/23 13:49: POC Glucose 163 H 01/11/23 16:34: POC Glucose 152 H 01/11/23 22:20: POC Glucose 131 H 01/12/23 04:45: WBC 11.6 H, RBC 3.33 L, Hgb 10.4 L, Hct 30.2 L, MCV 90.7, MCH 31.2, MCHC 34.4, RDW Std Deviation 43.8, RDW Coeff of Braden 13.2, Plt Count 228, MPV 8.4 01/12/23 04:45: Sodium 128 L, Potassium 3.9, Chloride 96 L, Carbon Dioxide 25.0, Anion Gap 7, BUN 22 H, Creatinine 1.09 H, Estim Creat Clear Calc 34.57, Est GFR (MDRD) Af Amer 61, Est GFR (MDRD) Non-Af 51 L, BUN/Creatinine Ratio 20.2 H, Glucose 135 H, Calcium 7.9 L Micro: Microbiology 01/10/23 22:04 Blood Culture (Wb) - No Site/Description Given Blood Culture - Preliminary 01/10/23 21:25 Fluid - Synovial (joint) Gram Stain - Final 01/10/23 21:25 Fluid - Synovial (joint) Body Fluid Culture - Preliminary Staphylococcus aureus Radiography Diagnostic Testing: Radiology Impression Knee X-Ray 05/18/23 13:10 IMPRESSION: Status post total knee replacement. There is good alignment. Postoperative soft tissue changes. Electronically Signed: Wale Medina MD at 13:50 EDT , Physical Exam Narrative Vital signs stable and afebrile. SCDs and GENEVA hose are in place bilaterally Patient is able to plantarflex and dorsiflex actively. Sensation is intact to light touch to saphenous, sural, superficial and deep per anand, and tibial distribution. Dressing is clean dry and intact. Negative Homans bilaterally, negative signs and symptoms of DVT. 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 S/P irrigation debridement with retainment of implants and polyethylene exchange right total knee POD #1 2. Continue Pain Medications: Tylenol and oxycodone 3. DVT Prophylaxis: Recommend aspirin 81 mg twice daily for 4 weeks postoperatively 4. PT/OT: Weightbearing as tolerated with walker 5. H & H: 10.4/30.2, asymptomatic. Postoperative anemia secondary to acute blood loss from surgery without any intra operative complications. Preoperative ly patient did have drop in hemoglobin and hematocrit at 11.3/32.3 6. Consultation to infectious disease: Appreciate recommendations for postoperative management of the right total knee infection. Patient is currently on vancomycin and ceftriaxone. Microbiology specimens were reviewed and are currently pending. Preoperatively patient had aspiration which did reveal Staphylococcus aureus. 7. Dressing: Mepilex dressing is currently clean dry and intact. If drainage does occur we will consider placing an incisional wound VAC on. Mepilex dressing will be in place for 5 days postoperatively if this remains. 8. Continue postoperative management per medicine 9. Encouraged Incentive Spirometry 10. Disposition: Patient currently is doing well orthopedically. She does have pain but pain is controlled on medications. We will require consultation by infectious disease for appropriate management and discharge planning for antibiotics. Preoperatively patient had aspiration with staph coccus aureus. We are awaiting cultures from intraoperative specimens. Patient will continue with physical therapy while in the hospital. She is weightbearing as tolerated with walker. She will continue with pain medications above. Patient will also require 2-week follow-up with [facility] [place]. Case management will be involved for appropriate discharge planning. Also recommend patient following with her ore roaster for her psoriasis. I have reviewed the [place] Automated Rx Reporting System (OARRS) report for this patient for refill pattern and other prescriber involvement as part of the appropriate surveillance for the provision of acute and chronic controlled medications. The report was requested and reviewed on the date of this entry and was considered in the prescribing process. This dictation was created using voice recognition software. Phonetic and/or grammatical errors may exist. (2) Cellulitis of right knee:
[2023-01-12 07:05] LABS: Bedside Glucose 126 mg/dL (74-106)
[2023-01-12] MEDS: Aspirin 81 MG TAB.CHEW PO ×2 (07:53→16:42)
[2023-01-12] MEDS: 0.9% Normal Saline 1,000 ML 75 ML IV (10:20)
--- NOTE | 2023-01-12 10:58 | ECHOD_ITS ---
Reason For Study: MURMUR Procedure This was a 2D Doppler, Color Flow transthoracic echocardiogram. Exam performed portable in patient room. Left Ventricle Normal left ventricle. The estimated ejection fraction is 60-65 %. Right Ventricle Normal right ventricle. Normal systolic function. Atria Normal left atrium. Normal right atrium. Mitral Valve There is mild mitral annular calcification. Trivial mitral valve insufficiency. Tricuspid Valve Normal tricuspid valve. Trivial tricuspid valve insufficiency. Aortic Valve Mild diffuse aortic valve calcification. No aortic valve insufficiency. Pulmonic Valve The pulmonic valve is not well visualized. Great Vessels Normal aortic root. Pericardium/Pleural No pericardial effusion. MMode/2D Measurements & Calculations LVIDd: 4.2 cm IVSd: 1.1 cm Ao root diam: 2.8 cm LVIDs: 2.4 cm LVPWd: 0.86 cm FS: 44.2 % LAV(MOD-bp): 31.9 ml LVAd ap4: 27.2 cm2 SV(MOD-sp4): 50.6 ml LAV(MOD-bp) Indexed: 15.3 ml/m2 LVLd ap4: 8.6 cm LAV(MOD-sp2): 39.6 ml EDV(MOD-sp4): 69.8 ml LAV(MOD-sp4): 27.1 ml EDV(sp4-el): 73.2 ml LVAs ap4: 11.9 cm2 LVLs ap4: 6.6 cm ESV(MOD-sp4): 19.2 ml ESV(sp4-el): 18.3 ml EF(MOD-sp4): 72.4 % EF(sp4-el): 75.1 % SV(sp4-el): 54.9 ml LA A4 area: 13.3 cm2 LA dimension(2D): 3.9 cm RA A4 area: 9.5 cm2 Time Measurements MV dec time: 0.14 sec Doppler Measurements & Calculations MV E max darren: 118.0 cm/sec Lat Peak E' Darren: 7.9 cm/sec Med Peak E' Darren: 10.5 cm/sec MV A max darren: 147.1 cm/sec E/E' lat: 14.9 E/E' med: 11.3 MV E/A: 0.80 MV V2 max: 143.1 cm/sec Ao V2 max: 215.2 cm/sec MV max P.2 mmHg MV dec slope: 854.9 cm/sec2 Ao max P.6 mmHg MV V2 mean: 98.5 cm/sec Ao V2 mean: 155.4 cm/sec MV mean P.2 mmHg Ao mean P.9 mmHg MV V2 VTI: 41.2 cm Ao V2 VTI: 45.5 cm AV (velocity ratio): 0.61 LV V1 max: 130.7 cm/sec TR max darren: 353.9 cm/sec LV V1 max P.9 mmHg TR max P.1 mmHg LV V1 mean P.3 mmHg LV V1 mean: 98.2 cm/sec LV V1 VTI: 27.9 cm ECHO/Echo Complete Interpretation Summary The estimated ejection fraction is 60-65 %. Normal LV systolic function. Grade 1 diastolic dysfunction No significant valvular abnormality No change noted compared to previous echocardiogram done and February 13 to Ordering Physician: Robb Shrestha Referring Physician: Ej Sims M.D. Performed By: Claudia Wallis RCS
[2023-01-12] MEDS: Vancomycin IV 1,000 MG/200 ML BAG 200 MG IV (11:06)
[2023-01-12 11:43] LABS: Vancomycin, Trough Level 18.6 ug/mL (5.0-15.0)
[2023-01-12 11:46] LABS: Bedside Glucose 121 mg/dL (74-106)
--- NOTE | 2023-01-12 12:08 | CON.PCM.ID_ITS ---
Assessment & Plan Assessment/Plan (1) Infection of prosthetic right knee joint: (2) Bacteremia: PLAN: staph aureus bacteremia with mSSA R knee PJI - taken to OR 01/11/[address] Arriola for I&D and poly exchange. H/o hives with PCN, tolerated cefazolin and ceftriaxone here. On vanc. Will order repeat bcx for next few days, TTE. On vanc, will add cefazolin. If bcx show MSSA, ok to stop vanc. No picc until bcx clear 72 hours. No sign of metastatic infection on exam. Suspect skin disruption as source of infection. Will follow, thank you HPI Consult Data Date of Consult: 01/12/23 HPI Narrative Reason for Consultation: PJI HPI Narrative: PEDRITO MONTANA, is a 82 F with R knee replacement 03/2022, was doing well until past few weeks with some flare of her psoriasis including over R knee. Saw derm. On 01/10, sudden severe R knee pain with some swelling and redness, associated fever/chills. No other joint pain. No h/o skin abscess. Has not been scratching her legs. Came to ED, taken to OR by Dr. Arriola, pain improved today. Full ROS performed and neg except as noted above. [facility] Medical History Abnormal mammogram of right breast Ambulates with cane Arthritis Asthma Atherosclerosis of coronary artery of [place] without angina pectoris Bilateral leg edema Cardiology follow-up encounter Cataracts, bilateral Dietary restriction Diverticulosis Dysmetabolic syndrome X Essential (primary) hypertension Gout History of echocardiogram History of edema History of heart attack History of stress test Hyperlipidemia Hypothyroidism Injury of back Non-smoker Obesity (BMI 30-39.9) Pancreatic cyst PONV (postoperative nausea and vomiting) Primary osteoarthritis of right knee Psoriasis Screening for malignant neoplasm of breast Secondary pulmonary arterial hypertension Shortness of breath on exertion Type 2 diabetes mellitus Wears glasses Wears partial dentures Home Medications fosinopril 40 mg tablet 40 mg PO DAILY BP 06/13/17 [History Last Taken 01/10/23] levothyroxine 75 mcg tablet 75 mcg PO QHS thyroid 06/13/17 [History Last Taken 01/09/23] wkpefbyr-psy-xwpnj acid 0.4 mg-lycopene 300 mcg-lutein 250 mcg tablet (Centrum Silver) 1 tab PO DAILY supplement 07/02/18 [History Last Taken 01/10/23] ascorbic acid (vitamin C) 500 mg tablet 500 mg PO DAILY supplement 01/19/22 [History Last Taken Unknown] calcium carbonate 500 mg-vitamin D3 15 mcg (600 unit) tablet 1 tab PO Q OTHER DAY supplement 01/19/22 [History Last Taken 01/10/23] cholecalciferol (vitamin D3) 25 mcg (1,000 unit) tablet 25 mcg PO DAILY supplement 01/19/22 [History Last Taken 01/10/23] clobetasol 0.05 % topical cream 1 applic topical BID PRN psoriasis 01/19/22 [History Last Taken Unknown] metformin 500 mg tablet,extended release 24 hr 500 mg PO DAILY blood sugar 01/19/22 [History Last Taken 01/10/23] nitroglycerin 0.4 mg sublingual tablet 0.4 mg sublingual Q5-15M PRN CP 01/19/22 [History Last Taken Unknown] pravastatin 40 mg tablet 40 mg PO QHS cholesterol 01/19/22 [History Last Taken 01/09/23] albuterol sulfate 90 mcg/actuation aerosol inhaler 2 puff inhalation Q4H PRN Wheezing #8.5 grams 03/03/22 [Rx Last Taken Unknown] budesonide-formoterol HFA 160 mcg-4.5 mcg/actuation aerosol inhaler (Symbicort) 2 puff inhalation BID breathing 03/20/22 [History Last Taken 01/10/23] methylcellulose (laxative) 500 mg tablet (Citrucel) 1,000 mg PO DAILY constipation 03/20/22 [History Last Taken Unknown] peg 400-propylene glycol (PF) 0.4 %-0.3 % eye drops in a dropperette (Systane (PF)) 1 drp EACH EYE BID dry eyes 03/20/22 [History Last Taken 01/10/23] biotin 5,000 mcg disintegrating tablet 5,000 mcg PO DAILY Check with primary doctor 05/25/22 [History Last Taken 01/10/23] amlodipine 10 mg tablet 10 mg PO DAILY BP #90 tabs 07/25/22 [Rx Last Taken 01/09/23] doxazosin 4 mg tablet 4 mg PO QHS BP #90 tabs 07/25/22 [Rx Last Taken 01/09/23] labetalol 300 mg tablet 300 mg PO BID BP 11/30/22 [History Last Taken 01/10/23] acetaminophen 500 mg tablet 1,000 mg PO Q8H Check with primary doctor 01/10/23 [History Last Taken 01/10/23] aspirin 81 mg chewable tablet 81 mg PO BIDCM Check with primary doctor 01/10/23 [History Last Taken 01/10/23] hydrochlorothiazide 25 mg tablet 25 mg PO DAILY Check with primary doctor 01/10/23 [History Last Taken 01/10/23] Allergy/AdvReac Type Severity Reaction Status Date / Time clindamycin Allergy Rash Verified 01/10/23 17:30 codeine Allergy Hives Verified 01/10/23 17:30 Penicillins [PCN] Allergy Hives Verified 01/10/23 17:30 shellfish derived Allergy hives Verified 01/10/23 17:30 erythromycin base AdvReac Upset Verified 01/10/23 17:30 [Erythromycin Base] Stomach Family History Father Diabetes Hypertension Heart disease Mother Diabetes Hypertension Brother Heart disease Brother Diabetes Brother Hypertension Surgical History History of abdominal hysterectomy (~1968) History of appendectomy (~1968) History of cataract extraction History of colonoscopy History of dilatation and curettage History of left heart catheterization (08/02/18) History of tonsillectomy Status post right knee replacement (~03/29/22) Social History household members: none Smoking Status: Never smoker alcohol intake: current alcohol intake frequency: holidays/special occasions only substance use type: does not use caffeine: Yes Type: coffee Number of servings: 2 what type of physical activity do you participate in: other details: Physical therapy frequency: 1-2 times per week seatbelt use: always Physical Exam Const alert, oriented x3 and no apparent distress General Appearance: cooperative HEENT normocephalic and head/scalp atraumatic Eyes PERRL and EOMs intact bilaterally Neck supple and No nodes Resp normal air movement and clear to auscultation bilaterally Cardio regular rate and regular rhythm Heart Sounds: murmur GI soft to palpation, non-tender and non-distended Extremity Extremity Narrative: No spine tenderness. No other joint swelling/pain General Extremity: edema Skin Skin Narrative: R knee wrapped. Fingernails and toenails painted. Neuro CN's II-XII intact bilaterally Lab / Micro Data Attestation: I reviewed the patient's lab results. Result Diagrams: 01/12/23 04:45 01/12/23 04:45 Labs: Laboratory Results - last 24 hr 01/10/23 21:25: Fluid Crystals See PATH REV, Fluid Crystal Source SYNOVIAL, Fl Crystal Path Review Reviewed, Synovial Source RT KNEE, Synovial Color Yellow, Synovial Appearance Cloudy, Synovial WBC 13.8800 H, Synovial RBC 0.008 H, Synovial Tot Cell Ct 13.9480 H, Synov Polynuclear WBCs 13.059, Synov Mononuclear WBCs 0.869, Synovial Neutrophils 98 H, Synovial Monocytes 2, Synovial Polynuclear % 93.8, Synovial Mononuclear % 6.2, Synovial Path Comment May follow 01/11/23 06:15: Diff Path Review Reviewed 01/11/23 13:49: POC Glucose 163 H 01/11/23 16:34: POC Glucose 152 H 01/11/23 22:20: POC Glucose 131 H 01/12/23 04:45: WBC 11.6 H, RBC 3.33 L, Hgb 10.4 L, Hct 30.2 L, MCV 90.7, MCH 31.2, MCHC 34.4, RDW Std Deviation 43.8, RDW Coeff of Braden 13.2, Plt Count 228, MPV 8.4 01/12/23 04:45: Sodium 128 L, Potassium 3.9, Chloride 96 L, Carbon Dioxide 25.0, Anion Gap 7, BUN 22 H, Creatinine 1.09 H, Estim Creat Clear Calc 34.57, Est GFR (MDRD) Af Amer 61, Est GFR (MDRD) Non-Af 51 L, BUN/Creatinine Ratio 20.2 H, Glucose 135 H, Calcium 7.9 L 01/12/23 06:14: POC Glucose 126 H 01/12/23 11:03: Vancomycin Trough 18.6 H 01/12/23 11:22: POC Glucose 121 H Micro: Microbiology 01/11/23 11:59 Tissue - Knee Gram Stain - Final 01/11/23 11:33 Tissue - Knee Gram Stain - Final 01/11/23 11:27 Tissue - Knee Gram Stain - Final 01/10/23 21:25 Fluid - Synovial (joint) Gram Stain - Final 01/10/23 21:25 Fluid - Synovial (joint) Body Fluid Culture - Preliminary Staphylococcus aureus 01/10/23 22:32 Blood Culture (Wb) - Right Wrist Blood Culture - Preliminary Staphylococcus aureus 01/10/23 22:04 Blood Culture (Wb) - No Site/Description Given Blood Culture - Preliminary Staphylococcus aureus Radiology Impression Knee X-Ray 01/11/23 13:10 IMPRESSION: Status post total knee replacement. There is good alignment. Postoperative soft tissue changes. Electronically Signed: Wale Medina MD at 13:50 EDT ,
--- NOTE | 2023-01-12 13:14 | PCM.RX.CS ---
Consult Pharmacy has been consulted to manage selected antiobiotic: Vancomycin Type of Consult: Follow-up Prior Doses of Antibiotics Received/Current Regimen: current dose is 1000mg IV q12h Labs: Sodium 128 mmol/L (136-145) L 01/12/23 04:45 Potassium 3.9 mmol/L (3.5-5.1) 01/12/23 04:45 Chloride 96 mmol/L (98-107) L 01/12/23 04:45 Carbon Dioxide 25.0 mmol/L (21.0-32.0) 01/12/23 04:45 Anion Gap 7 (5-15) 01/12/23 04:45 BUN 22 mg/dL (7-18) H 01/12/23 04:45 Creatinine 1.09 mg/dL (0.55-1.02) H 01/12/23 04:45 Est GFR (MDRD) Af Amer 61 mL/min (>60) 01/12/23 04:45 Est GFR (MDRD) Non-Af 51 mL/min (>60) L 01/12/23 04:45 BUN/Creatinine Ratio 20.2 RATIO (10-20) H 01/12/23 04:45 Glucose 135 mg/dL (74-106) H 01/12/23 04:45 Vancomycin Trough 18.6 ug/mL (5.0-15.0) H 01/12/23 11:03 Microbiology: Microbiology 01/11/23 11:59 Tissue - Knee Gram Stain - Final 01/11/23 11:59 Tissue - Knee Wound Culture - Preliminary Staphylococcus aureus 01/11/23 11:33 Tissue - Knee Gram Stain - Final 01/11/23 11:33 Tissue - Knee Wound Culture - Preliminary Staphylococcus aureus 01/11/23 11:27 Tissue - Knee Gram Stain - Final 01/11/23 11:27 Tissue - Knee Wound Culture - Preliminary Staphylococcus aureus 01/10/23 21:25 Fluid - Synovial (joint) Gram Stain - Final 01/10/23 21:25 Fluid - Synovial (joint) Body Fluid Culture - Preliminary Staphylococcus aureus 01/10/23 22:32 Blood Culture (Wb) - Right Wrist Blood Culture - Preliminary Staphylococcus aureus 01/10/23 22:04 Blood Culture (Wb) - No Site/Description Given Blood Culture - Preliminary Staphylococcus aureus Weight used for dosin.3 kg Estimated Creatinine Clearance: 46 ml/min Goal Trough: 10-15 mcg/mL Pharmacy Plan for Drug Dosing: The vanc trough drawn at 11:03 today (approx 11.5 hrs after the previous dose) was 18.6. The goal is 10-15 so will decrease the next dose to 750mg q12h. This morning's dose of 1000mg was already given so will wait 18 hours after that to start the 750mg q12h. Repeat a trough before the 4th new dose. The patient's CrCl of 46 was calculated using an adjusted body weight of 75.9kg. Pharmacy Service will continue to monitor and adjust dosing as required. Follow-Up Labs: Trough Vancomycin Labs to be done on [date and time ordered]: 01/14/23 16:30
--- NOTE | 2023-01-12 13:40 | CASEMGMT ---
AKANKSHA FUENTES into pt room, pt two dtrs present. Discussed how pt did with therapy today. Spoke with ID, pt will be here likely until midweek next week. Pt and family aware AKANKSHA FUENTES will cont to follow. Dtr again states she is able to do IV atb if daily but works. Discussed with pt to see if she would be able/willing to perform on own, pt is unsure at this time. Discussed administration of IV and possibilities. Pt and family deny further questions.
--- NOTE | 2023-01-12 13:45 | PCM.PN.HOSP ---
Reason for Visit Reason for Visit: Diagnoses Obesity, unspecified (01/10/23) Hyperlipidemia, unspecified (01/10/23) Essential (primary) hypertension (01/10/23) Secondary pulmonary arterial hypertension (01/10/23) Unspecified asthma, uncomplicated (01/10/23) Cellulitis of right lower limb (01/10/23) Effusion, right knee (01/10/23) Bacteremia (01/10/23) Infection and inflammatory reaction due to internal right knee prosthesis, initial encounter (01/10/23) Presence of right artificial knee joint (01/10/23) Subjective Subjective Follow-up for infected right knee prosthetic joint with MSSA bacteremia, right knee JI Objective Data Objective Data Vital Signs: Vital Signs Temp Pulse Resp BP Pulse Ox O2 Del Method O2 Flow Rate 98.9 F 78 18 90/75 94 Room Air 2 01/12/23 08:00 01/12/23 08:00 01/12/23 08:00 01/12/23 10:00 01/12/23 08:00 01/12/23 08:00 01/12/23 01:21 Oxygen Flow Rate (L/min) 2 Oxygen Delivery Method Room Air Weight: 229 lb 15.074 oz Body Mass Index (BMI) 38.2 Intake & Output: Intake and Output for Last 24 Hours 01/10/23 01/11/23 01/12/23 23:59 23:59 23:59 Intake Total 50 / 50 2137.25 / 2137.25 1200 / 1200 Output Total 500 / 500 1200 / 1200 Balance 50 / 50 1637.25 / 1637.25 0 / 0 Lab / Micro Data Result Diagrams: 01/12/23 04:45 01/12/23 04:45 Labs: Laboratory Results - last 24 hr 01/11/23 13:49: POC Glucose 163 H 01/11/23 16:34: POC Glucose 152 H 01/11/23 22:20: POC Glucose 131 H 01/12/23 04:45: WBC 11.6 H, RBC 3.33 L, Hgb 10.4 L, Hct 30.2 L, MCV 90.7, MCH 31.2, MCHC 34.4, RDW Std Deviation 43.8, RDW Coeff of Braden 13.2, Plt Count 228, MPV 8.4 01/12/23 04:45: Sodium 128 L, Potassium 3.9, Chloride 96 L, Carbon Dioxide 25.0, Anion Gap 7, BUN 22 H, Creatinine 1.09 H, Estim Creat Clear Calc 34.57, Est GFR (MDRD) Af Amer 61, Est GFR (MDRD) Non-Af 51 L, BUN/Creatinine Ratio 20.2 H, Glucose 135 H, Calcium 7.9 L 01/12/23 06:14: POC Glucose 126 H 01/12/23 11:03: Vancomycin Trough 18.6 H 01/12/23 11:22: POC Glucose 121 H Micro: Microbiology 01/11/23 11:59 Tissue - Knee Gram Stain - Final 01/11/23 11:59 Tissue - Knee Wound Culture - Preliminary Staphylococcus aureus 01/11/23 11:33 Tissue - Knee Gram Stain - Final 01/11/23 11:33 Tissue - Knee Wound Culture - Preliminary Staphylococcus aureus 01/11/23 11:27 Tissue - Knee Gram Stain - Final 01/11/23 11:27 Tissue - Knee Wound Culture - Preliminary Staphylococcus aureus 01/10/23 21:25 Fluid - Synovial (joint) Gram Stain - Final 01/10/23 21:25 Fluid - Synovial (joint) Body Fluid Culture - Preliminary Staphylococcus aureus 01/10/23 22:32 Blood Culture (Wb) - Right Wrist Blood Culture - Preliminary Staphylococcus aureus 01/10/23 22:04 Blood Culture (Wb) - No Site/Description Given Blood Culture - Preliminary Staphylococcus aureus Radiography Diagnostic Testing: Radiology Impression Knee X-Ray 01/11/23 13:10 IMPRESSION: Status post total knee replacement. There is good alignment. Postoperative soft tissue changes. Electronically Signed: Wale Medina MD at 13:50 EDT , Physical Exam Narrative Seen and examined. Patient right knee pain is better. Blood pressure was on lower side therefore antihypertensive medications held. Patient on pain medications. Seen by ID. Physical exam General: Alert, Oriented x3, Cooperative HEENT: Atraumatic, PERRLA, EOMI, Normocephalic Oral: Oral mucosa moist. No Gingival or Mucosal Lesions/ Ulcerations Neck: Supple, No JVD, Negative Carotid Bruits Lungs: Air entry diminished in bilateral lung bases. No crepitation/rhonchi Cardiovascular: Regular rate, Regular Rhythm, Normal S1, Normal S2, No murmurs Abdomen: Bowel Sounds Present, Soft, Non Tender, Non-Distended : No renal angle tenderness. No suprapubic tenderness. Extremities: No edema, Capillary Refill Less than 3 Seconds Skin: No rashes, No breakdown Musculoskeletal: Right knee with dressing and Robin wrap bandage. GENEVA hose on. Bilateral hip and left knee arthritis. No other joint replacement other than right knee. Neurological: Cranial nerves II-XII grossly intact, DTR 2+/4 and Symmetrical, Neuro grossly intact Psych/Mental Status: Flat affect. Assessment & Plan Assessment/Plan (1) Cellulitis of right knee: PLAN: Plan The patient is an 82 y/o F came to ER with right knee pain for last couple days. Temperature at home was 100 Fahrenheit.Patient had right TKR in March [address] Arriola. She has redness over right anterior knee for about 1 month and had seen fitness plan coordinator, tried ointment cream with no improvement. She also has a history of psoriasis. Denies any open ulcer. No acute injury. #1. Acute right prosthetic joint infection with MSSA bacteremia with contiguous cellulitis probably due to skin disruption as source of infection: Patient admitted on MedSurg floor. She had bedside knee arthrocentesis about 19 mL cloudy orange/brown fluid aspirated by Dr. Miguelito Bates. Follow cell count, chemistry, crystal exam and culture and sensitivity. In meantime continue IV antibiotic vancomycin and Rocephin. Pain regimen. Limb elevation. PT and OT. Patient has leukocytosis mainly polymorphs. ESR and CRP high. Arthrocentesis fluid shows WBC about 14,000, 98% neutrophil, 2% monocyte. Negative for crystals and malignant cells. Acute inflammation. Patient had right knee irrigation but prosthesis is saved. ID is consulted. 01/12: Synovial fluid culture from 01/10 shows MSSA bacteremia 1+. Blood culture shows GPC in clusters in both aerobic and anaerobic bottle. 01/11 surgical culture also shows 4+ WBC 1+ intracellular gram-positive cocci, Staph aureus 3+. ID consult reviewed discussed and appreciated. Patient had incision and drainage and probably exchange. Patient tolerating ceftriaxone and cefazolin. Blood culture shows MSSA. Will need repeat blood culture in next few days. TTE ordered. Ceftriaxone changed to cefazolin. No PICC line until blood cultures clear 72 hours. #2. CAD: Patient had cardiac catheterization 2017 w/ EF 60%, apical akinesis, normal left main trunk, left anterior descending artery with mild luminal irregularities in circumflex and right coronary artery with no significant stenosis with distal LAD was occluded with medical therapy decision at that time. continue aspirin, statin, labetalol, lisinopril home regimen. #3. Chronic asthma: budesonide therapy, PRN albuterol, incentive spirometry. #4. Diabetes mellitus type II: Hold oral home regimen, continue home insulin regimen, ADA diet, accu checks 01/12 glucoses controlled in the 120 to 150 mg/dL. #5. Hypertension: Continue home regimen including labetalol, hydrochlorothiazide, doxazosin, amlodipine, fosinopril, PRN hydralazine. 01/12 patient blood pressure low probably due to opioids pain. For now discontinue hydrochlorothiazide, amlodipine and lisinopril. Continue labetalol with holding parameter. #6. Hyperlipidemia: We will continue patient on statin therapy. #7. Hypothyroidism: We will continue patient home levothyroxine regimen. #8. Obesity: Weight loss and lifestyle changes encouraged. #9. Gout: From most recent list not on chronic regimen, synovial fluid as noted obtained per ED, cultures pending. #10. DVT prophylaxis: SCDs, hold on chemoprophylaxis given pending cultures for possible or needs. #11. CODE status: Patient AINSLEY is her daughter who is present and living will is currently in place. DNRCC arrest with no intubation Charges/Coding Visit Charges Inpatient E&M: 90388 Subs Hosp L2
[2023-01-12] MEDS: Cefazolin 2 GM in 0.9% Normal Saline 100 ML IV ×2 (14:14→21:37)
[2023-01-12 17:10] LABS: Bedside Glucose 146 mg/dL (74-106)
[2023-01-12] MEDS: Pravastatin 40 MG Tablet PO (21:35)
[2023-01-12] MEDS: Famotidine 20 MG Tablet PO (21:35)
[2023-01-12] MEDS: Levothyroxine 75 MCG Tablet PO (21:36)
[2023-01-12] MEDS: Doxazosin 4 MG Tablet PO (21:36)
[2023-01-12] MEDS: Labetalol 100 MG Tablet 300 MG PO (21:37)
[2023-01-12 22:30] LABS: Bedside Glucose 149 mg/dL (74-106)
[2023-01-13] VITALS (10 sets, daily range): BP systolic 132–151; BP diastolic 54–66; PULSE 81–91; RESP 16–19; TEMP 36.6–37.2; O2SAT 93–98; BMI 37.9
[2023-01-13] MEDS: 0.9% Normal Saline 1,000 ML 75 ML IV (00:35)
[2023-01-13 05:31] LABS: Absolute Lymphocyte Count 0.81 X10^3/uL (0.83-4.51); Absolute Neutrophil Count 7.5 X10^3/uL (2.0-7.7); Basophil# 0.05 X10^3/uL; Basophil% 0.5 % (0-1); Eosinophil# 0.45 X10^3/uL; Eosinophils% 4.4 % (0-5); Hematocrit 28.7 % (37-47); Hemoglobin 9.8 g/dL (12.0-15.0); Lymphocyte # 0.81 X10^3/ul (0.83-4.51); Mean Corp Hgb Conc 34.1 g/dL (32-36); Mean Corpuscular Hgb 30.5 pg (27.0-32.0); Mean Corpuscular Volume 89.4 fL (81-99); Mean Platelet Vol. 8.9 fl (6.2-12.0); Monocyte# 1.25 X10^3/uL; Monocyte% 12.3 % (0-10); NRBC Flagged by Analyzer 0 % (0-5); Neutrophil # 7.49 X10^3/uL (2.7-7.7); Platelet Count 264 K/mm3 (150-450); RBC Distribution Width CV 12.7 % (11.6-14.6); RBC Distribution Width SD 41.6 fl (35.1-43.9); Red Blood Count 3.21 M/mm3 (4.2-5.4); White Blood Count 10.1 K/mm3 (4.4-11.0)
[2023-01-13] MEDS: Cefazolin 2 GM in 0.9% Normal Saline 100 ML IV ×3 (06:18→21:03)
[2023-01-13 06:40] LABS: Anion Gap 7 (5-15); BUN 16 mg/dL (7-18); BUN/Creat Ratio 17.9 RATIO (10-20); Chloride 99 mmol/L (98-107); Creatinine, Serum 0.89 mg/dL (0.55-1.02); EST Glomerular Filtration Rate 64 mL/min (>60); Est Glom Filt Rate - Afr Amer 77 mL/min (>60); Estimated Creatinine Clearance 42.34 ml/min; Glucose 150 mg/dL (74-106); Potassium 3.6 mmol/L (3.5-5.1); Sodium Level 129 mmol/L (136-145)
[2023-01-13 06:45] LABS: Bedside Glucose 141 mg/dL (74-106)
[2023-01-13] MEDS: Albuterol 2.5 MG/3 ML VIAL.NEB. INHALATION ×3 (07:11→19:23)
[2023-01-13] MEDS: Budesonide Respules 0.5 MG/2 ML AMPUL.NEB. INHALATION ×2 (07:15→19:23)
[2023-01-13] MEDS: Lactated Ringers 1,000 ML 15 ML IV (08:00)
[2023-01-13] MEDS: Aspirin 81 MG TAB.CHEW PO ×2 (09:05→17:23)
[2023-01-13] MEDS: Glycerin/Hypromellose/PEG400 15 ml Bottle 1 DRP EACH EYE ×2 (09:05→21:03)
--- NOTE | 2023-01-13 09:10 | PN.HOSP_ITS ---
Reason for Visit Reason for Visit: Diagnoses Obesity, unspecified (01/10/23) Hyperlipidemia, unspecified (01/10/23) Essential (primary) hypertension (01/10/23) Secondary pulmonary arterial hypertension (01/10/23) Unspecified asthma, uncomplicated (01/10/23) Cellulitis of right lower limb (01/10/23) Effusion, right knee (01/10/23) Bacteremia (01/10/23) Infection and inflammatory reaction due to internal right knee prosthesis, initial encounter (01/10/23) Presence of right artificial knee joint (01/10/23) Subjective Subjective Follow-up for right knee prosthetic joint infection with MSSA bacteremia. Objective Data Objective Data Vital Signs: Vital Signs Temp Pulse Resp BP Pulse Ox O2 Del Method O2 Flow Rate 98.9 F 91 18 151/54 H 95 Room Air 2 01/13/23 09:08 01/13/23 09:08 01/13/23 09:08 01/13/23 09:08 01/13/23 09:08 01/13/23 09:08 01/12/23 01:21 Oxygen Flow Rate (L/min) 2 Oxygen Delivery Method Room Air Weight: 227 lb 11.8 oz Body Mass Index (BMI) 37.9 Intake & Output: Intake and Output for Last 24 Hours 01/11/23 01/12/23 01/13/23 23:59 23:59 23:59 Intake Total 2137.25 / 2137.25 2268.75 / 2268.75 1078.75 / 1078.75 Output Total 500 / 500 1400 / 1800 1200 / 1200 Balance 1637.25 / 1637.25 868.75 / 468.75 -121.25 / -121.25 Lab / Micro Data Result Diagrams: 01/13/23 04:59 01/13/23 04:59 Labs: Laboratory Results - last 24 hr 01/12/23 11:03: Vancomycin Trough 18.6 H 01/12/23 11:22: POC Glucose 121 H 01/12/23 16:39: POC Glucose 146 H 01/12/23 21:32: POC Glucose 149 H 01/13/23 04:59: WBC 10.1, RBC 3.21 L, Hgb 9.8 L, Hct 28.7 L, MCV 89.4, MCH 30.5, MCHC 34.1, RDW Std Deviation 41.6, RDW Coeff of Braden 12.7, Plt Count 264, MPV 8.9, Immature Gran % (Auto) 0.800, Neut % (Auto) 74.0 H, Lymph % (Auto) 8.0 L, [place] % (Auto) 12.3 H, Eos % (Auto) 4.4, Baso % (Auto) 0.5, Absolute Neuts (auto) 7.5, Absolute Lymphs (auto) 0.81 L, Nucleated RBC % 0 01/13/23 04:59: Sodium 129 L, Potassium 3.6, Chloride 99, Carbon Dioxide 23.0, Anion Gap 7, BUN 16, Creatinine 0.89, Estim Creat Clear Calc 42.34, Est GFR (MDRD) Af Amer 77, Est GFR (MDRD) Non-Af 64, BUN/Creatinine Ratio 17.9, Glucose 150 H, Calcium 8.0 L 01/13/23 06:22: POC Glucose 141 H Micro: Microbiology 01/10/23 21:25 Fluid - Synovial (joint) Gram Stain - Final 01/10/23 21:25 Fluid - Synovial (joint) Body Fluid Culture - Final Staphylococcus aureus 01/11/23 11:59 Tissue - Knee Gram Stain - Final 01/11/23 11:59 Tissue - Knee Wound Culture - Final Staphylococcus aureus 01/11/23 11:59 Tissue - Knee Anaerobic Culture - Final 01/11/23 11:33 Tissue - Knee Gram Stain - Final 01/11/23 11:33 Tissue - Knee Wound Culture - Final Staphylococcus aureus 01/11/23 11:33 Tissue - Knee Anaerobic Culture - Final 01/11/23 11:27 Tissue - Knee Gram Stain - Final 01/11/23 11:27 Tissue - Knee Wound Culture - Final Staphylococcus aureus 01/11/23 11:27 Tissue - Knee Anaerobic Culture - Final 01/10/23 22:04 Blood Culture (Wb) - No Site/Description Given Blood Culture - Final Staphylococcus aureus 01/10/23 22:32 Blood Culture (Wb) - Right Wrist Blood Culture - Final Staphylococcus aureus Radiography Diagnostic Testing: Radiology Impression Echocardiogram 01/12/23 10:58 Interpretation Summary The estimated ejection fraction is 60-65 %. Normal LV systolic function. Grade 1 diastolic dysfunction No significant valvular abnormality No change noted compared to previous echocardiogram done and February 13 Ordering Physician: Robb Shrestha Referring Physician: Ej Sims M.D. Performed By: Claudia Wallis RCS Physical Exam Narrative Seen and examined. Patient right knee pain is better. 131/66 and 151/54 patient on pain medications. Seen by ID. Physical exam General: Alert, Oriented x3, Cooperative HEENT: Atraumatic, PERRLA, EOMI, Normocephalic Oral: Oral mucosa moist. No Gingival or Mucosal Lesions/ Ulcerations Neck: Supple, No JVD, Negative Carotid Bruits Lungs: Air entry diminished in bilateral lung bases. No crepitation/rhonchi Cardiovascular: Regular rate, Regular Rhythm, Normal S1, Normal S2, No murmurs Abdomen: Bowel Sounds Present, Soft, Non Tender, Non-Distended : No renal angle tenderness. No suprapubic tenderness. Extremities: No edema, Capillary Refill Less than 3 Seconds Skin: No rashes, No breakdown Musculoskeletal: Right knee with dressing and Robni wrap bandage. GENEVA hose on. Bilateral hip and left knee arthritis. No other joint replacement other than right knee. Neurological: Cranial nerves II-XII grossly intact, DTR 2+/4 and Symmetrical, Neuro grossly intact Psych/Mental Status: Flat affect. Assessment & Plan Assessment/Plan (1) Cellulitis of right knee: PLAN: Plan The patient is an 82 y/o F came to ER with right knee pain for last couple days. Temperature at home was 100 Fahrenheit.Patient had right TKR in March [address] Arriola. She has redness over right anterior knee for about 1 month and had seen jewelry sales, tried ointment cream with no improvement. She also has a history of psoriasis. Denies any open ulcer. No acute injury. #1. 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 She had bedside knee arthrocentesis about 19 mL cloudy orange/brown fluid aspirated by Dr. Miguelito Bates. Follow cell count, chemistry, crystal exam and culture and sensitivity. In meantime continue IV antibiotic vancomycin and Rocephin. Pain regimen. Limb elevation. PT and OT. Patient has leukocytosis mainly polymorphs. ESR and CRP high. Arthrocentesis fluid shows WBC about 14,000, 98% neutrophil, 2% monocyte. Negative for crystals and malignant cells. Acute inflammation. Patient had right knee irrigation but prosthesis is saved. ID is consulted. 01/12: Synovial fluid culture from 01/10 shows MSSA bacteremia 1+. Blood culture shows GPC in clusters in both aerobic and anaerobic bottle. 01/11 surgical culture also shows 4+ WBC 1+ intracellular gram-positive cocci, Staph aureus 3+. ID consult reviewed discussed and appreciated. Patient had incision and cathryn inage and probably exchange. Patient tolerating ceftriaxone and cefazolin. Blood culture shows MSSA. Will need repeat blood culture in next few days. TTE ordered. Ceftriaxone changed to cefazolin. No PICC line until blood cultures clear 72 hours. 01/13: Operative culture from right knee shows Staph aureus. Blood culture from 01/12 is pending. Cefazolin and vancomycin. #2. CAD: Patient had cardiac catheterization 2017 w/ EF 60%, apical akinesis, normal left main trunk, left anterior descending artery with mild luminal irregularities in circumflex and right coronary artery with no significant stenosis with distal LAD was occluded with medical therapy decision at that time. continue aspirin, statin, labetalol, lisinopril home regimen. #3. Chronic asthma: budesonide therapy, PRN albuterol, incentive spirometry. #4. Diabetes mellitus type II: Hold oral home regimen, continue home insulin regimen, ADA diet, accu checks 01/12 glucoses controlled in the 120 to 150 mg/dL. Leukosis controlled #5. Hypertension: Continue home regimen including labetalol, hydrochlorothiazide, doxazosin, amlodipine, fosinopril, PRN hydralazine. 01/12 patient blood pressure low probably due to opioids pain. For now discontinue hydrochlorothiazide, amlodipine and lisinopril. Continue labetalol with holding parameter. 01/13: BP is elevated about 150s therefore lisinopril 10 mg p.o. twice daily dose. #6. Hyperlipidemia: We will continue patient on statin therapy. #7. Hypothyroidism: We will continue patient home levothyroxine regimen. #8. Obesity: Weight loss and lifestyle changes encouraged. #9. Gout: From most recent list not on chronic regimen, synovial fluid as noted obtained per ED, cultures pending. #10. DVT prophylaxis: SCDs, hold on chemoprophylaxis given pending cultures for possible or needs. #11. CODE status: Patient AINSLEY is her daughter who is present and living will is currently in place. DNRCC arrest with no intubation Charges/Coding Visit Charges Inpatient E&M: 59555 Subs Hosp L2
[2023-01-13] MEDS: oxyCODONE 5 MG Tablet PO (10:52)
[2023-01-13] MEDS: Acetaminophen 325 MG Tablet 650 MG PO (10:53)
[2023-01-13] MEDS: Methylcellulose 2 GM Bottle PO (11:07)
[2023-01-13] MEDS: DiphenhydrAMINE 25 MG Capsule PO (11:08)
[2023-01-13] MEDS: Senna/Docusate Sodium 1 Tablet 2 TABLET PO (11:08)
[2023-01-13] MEDS: Labetalol 100 MG Tablet 300 MG PO ×2 (11:18→21:03)
[2023-01-13] MEDS: Lisinopril 10 MG Tablet PO ×2 (11:19→21:03)
[2023-01-13 13:05] LABS: Bedside Glucose 152 mg/dL (74-106)
[2023-01-13] MEDS: Mupirocin Ointment 22gm Tube 1 APPLIC TOPICAL ×2 (16:35→21:02)
[2023-01-13 17:15] LABS: Bedside Glucose 109 mg/dL (74-106)
[2023-01-13] MEDS: Levothyroxine 75 MCG Tablet PO (21:03)
[2023-01-13] MEDS: Doxazosin 4 MG Tablet PO (21:03)
[2023-01-13] MEDS: Pravastatin 40 MG Tablet PO (21:03)
[2023-01-13] MEDS: Famotidine 20 MG Tablet PO (21:03)
[2023-01-13 22:00] LABS: Bedside Glucose 186 mg/dL (74-106)
[2023-01-14 03:23] VITALS: BP 132/59; PULSE 77; RESP 18; TEMP 36.6; O2SAT 96
[2023-01-14] MEDS: Albuterol 2.5 MG/3 ML VIAL.NEB. INHALATION (03:50)
[2023-01-14 03:51] VITALS: PULSE 83; RESP 16
[2023-01-14 05:01] VITALS: BMI 38.9
[2023-01-14 06:15] LABS: Absolute Lymphocyte Count 0.93 X10^3/uL (0.83-4.51); Absolute Neutrophil Count 5.7 X10^3/uL (2.0-7.7); Basophil# 0.05 X10^3/uL; Basophil% 0.6 % (0-1); Eosinophil# 0.39 X10^3/uL; Eosinophils% 4.7 % (0-5); Hematocrit 26.8 % (37-47); Hemoglobin 9.4 g/dL (12.0-15.0); Lymphocyte # 0.93 X10^3/ul (0.83-4.51); Lymphocyte % 11.2 % (19-41); Mean Corp Hgb Conc 35.1 g/dL (32-36); Mean Corpuscular Hgb 31.1 pg (27.0-32.0); Mean Corpuscular Volume 88.7 fL (81-99); Mean Platelet Vol. 8.1 fl (6.2-12.0); Monocyte# 1.13 X10^3/uL; Monocyte% 13.6 % (0-10); NRBC Flagged by Analyzer 0 % (0-5); Neutrophil # 5.71 X10^3/uL (2.7-7.7); Neutrophil % 69.1 % (47-70); Platelet Count 303 K/mm3 (150-450); RBC Distribution Width CV 13.1 % (11.6-14.6); RBC Distribution Width SD 42.5 fl (35.1-43.9); Red Blood Count 3.02 M/mm3 (4.2-5.4); White Blood Count 8.3 K/mm3 (4.4-11.0)
[2023-01-14] MEDS: Cefazolin 2 GM in 0.9% Normal Saline 100 ML IV ×3 (06:39→21:08)
[2023-01-14 06:47] LABS: Anion Gap 7 (5-15); BUN 12 mg/dL (7-18); BUN/Creat Ratio 16.9 RATIO (10-20); Calcium,Total 8.2 mg/dL (8.5-10.1); Chloride 104 mmol/L (98-107); Creatinine, Serum 0.71 mg/dL (0.55-1.02); EST Glomerular Filtration Rate 83 mL/min (>60); Est Glom Filt Rate - Afr Amer 101 mL/min (>60); Estimated Creatinine Clearance 37.68 ml/min; Glucose 147 mg/dL (74-106); Potassium 3.6 mmol/L (3.5-5.1); Sodium Level 134 mmol/L (136-145)
[2023-01-14] MEDS: Budesonide Respules 0.5 MG/2 ML AMPUL.NEB. INHALATION (06:57)
[2023-01-14 06:59] VITALS: PULSE 90; RESP 18; O2SAT 93
--- NOTE | 2023-01-14 07:00 | CPS ---
Patient has concern that the aerosols are making her cough. She uses inhalers at home and states that since she has been using the aerosols she has been coughing more. I attempted to give patient the albuterol along with the pulmicort, but she declined it.
[2023-01-14 07:56] LABS: Bedside Glucose 144 mg/dL (74-106)
[2023-01-14 09:05] VITALS: BP 138/54; PULSE 86; RESP 18; TEMP 36.8; O2SAT 94
[2023-01-14] MEDS: Mupirocin Ointment 22gm Tube 1 APPLIC TOPICAL ×2 (09:11→21:08)
[2023-01-14] MEDS: Polyethylene Glycol 3350 17 GM PACKET PO (09:12)
[2023-01-14] MEDS: Glycerin/Hypromellose/PEG400 15 ml Bottle 1 DRP EACH EYE ×2 (09:12→21:07)
[2023-01-14] MEDS: Aspirin 81 MG TAB.CHEW PO ×2 (09:12→17:24)
[2023-01-14] MEDS: Famotidine 20 MG Tablet PO ×2 (09:13→21:10)
[2023-01-14] MEDS: Senna/Docusate Sodium 1 Tablet 2 TABLET PO (09:14)
[2023-01-14] MEDS: Ascorbic Acid 500 MG Tablet PO (09:14)
[2023-01-14] MEDS: Labetalol 100 MG Tablet 300 MG PO ×2 (09:14→21:13)
[2023-01-14] MEDS: Lisinopril 10 MG Tablet PO ×2 (09:15→21:14)
[2023-01-14] MEDS: Methylcellulose 2 GM Bottle PO (09:15)
--- NOTE | 2023-01-14 09:34 | PCM.PN.ORT ---
Subjective Subjective The patient was sitting in bedside chair upon examination. Patient denies any chest pain, shortness of breath, dizziness, lightheadedness, nausea or vomiting, or calf pain. Pain is controlled on medications. No adverse overnight events. Patient reports she has been doing well with physical therapy. Her pain has continued to prove day-to-day. We have been following the cultures. Patient had a positive blood culture on January 10, 2023. PICC line is not able to be placed until negative on blood culture. Continue with recommendations from infectious disease. Objective Data Objective Data Vital Signs: Vital Signs Temp Pulse Resp BP Pulse Ox O2 Del Method O2 Flow Rate 98.2 F 86 18 138/54 H 94 Room Air 2 01/14/23 09:05 01/14/23 09:05 01/14/23 09:05 01/14/23 09:05 01/14/23 09:05 01/14/23 09:06 01/12/23 01:21 Oxygen Flow Rate (L/min) 2 Oxygen Delivery Method Room Air Weight: 106.1 kg Body Mass Index (BMI) 38.9 Intake & Output: Intake and Output for Last 24 Hours 01/12/23 01/13/23 01/14/23 23:59 23:59 23:59 Intake Total 2268.75 / 2268.75 2956.75 / 2956.75 983.25 / 983.25 Output Total 1400 / 1800 1500 / 1500 450 / 450 Balance 868.75 / 468.75 1456.75 / 1456.75 533.25 / 533.25 Lab / Micro Data Result Diagrams: 01/14/23 05:53 01/14/23 05:53 Labs: Laboratory Results - last 24 hr 01/13/23 12:32: POC Glucose 152 H 01/13/23 16:55: POC Glucose 109 H 01/13/23 20:54: POC Glucose 186 H 01/14/23 05:53: WBC 8.3, RBC 3.02 L, Hgb 9.4 L, Hct 26.8 L, MCV 88.7, MCH 31.1, MCHC 35.1, RDW Std Deviation 42.5, RDW Coeff of Braden 13.1, Plt Count 303, MPV 8.1, Immature Gran % (Auto) 0.800, Neut % (Auto) 69.1, Lymph % (Auto) 11.2 L, Bledsoe % (Auto) 13.6 H, Eos % (Auto) 4.7, Baso % (Auto) 0.6, Absolute Neuts (auto) 5.7, Absolute Lymphs (auto) 0.93, Nucleated RBC % 0 01/14/23 05:53: Sodium 134 L, Potassium 3.6, Chloride 104, Carbon Dioxide 23.0, Anion Gap 7, BUN 12, Creatinine 0.71, Estim Creat Clear Calc 37.68, Est GFR (MDRD) Af Amer 101, Est GFR (MDRD) Non-Af 83, BUN/Creatinine Ratio 16.9, Glucose 147 H, Calcium 8.2 L 01/14/23 06:38: POC Glucose 144 H Micro: Microbiology 01/10/23 21:25 Fluid - Synovial (joint) Gram Stain - Final 01/10/23 21:25 Fluid - Synovial (joint) Body Fluid Culture - Final Staphylococcus aureus 01/10/23 21:25 Fluid - Synovial (joint) Anaerobic Culture - Final No anaerobic bacteria isolated. 01/11/23 11:59 Tissue - Knee Gram Stain - Final 01/11/23 11:59 Tissue - Knee Wound Culture - Final Staphylococcus aureus 01/11/23 11:59 Tissue - Knee Anaerobic Culture - Final 01/11/23 11:33 Tissue - Knee Gram Stain - Final 01/11/23 11:33 Tissue - Knee Wound Culture - Final Staphylococcus aureus 01/11/23 11:33 Tissue - Knee Anaerobic Culture - Final 01/11/23 11:27 Tissue - Knee Gram Stain - Final 01/11/23 11:27 Tissue - Knee Wound Culture - Final Staphylococcus aureus 01/11/23 11:27 Tissue - Knee Anaerobic Culture - Final 01/10/23 22:04 Blood Culture (Wb) - No Site/Description Given Blood Culture - Final Staphylococcus aureus 01/10/23 22:32 Blood Culture (Wb) - Right Wrist Blood Culture - Final Staphylococcus aureus Physical Exam Narrative Vital signs stable and afebrile. GENEVA hose are in place. SCDs are currently off as patient just went to bedside chair. Erythema has continued to improve in the right lower extremity Patient is able to plantarflex and dorsiflex actively. Sensation is intact to light touch to saphenous, sural, superficial and deep peroneal, and tibial distribution. Dressing is clean dry and intact. Negative Homans bilaterally, negative signs and symptoms of DVT. Const alert, oriented x3 and no apparent distress General Appearance: cooperative, comfortable and well kempt Orientation / Consciousness: awake HEENT normocephalic Extremity Extremity Narrative: Right lower extremity: Patient does have erythema over the anterior lateral knee with excoriations of the skin this is lateral to the incision. The outlined area shows dissipated erythema. She has swelling around the ankle with pitting edema and erythema around the ankle. The incision is clean and dry. Patient has pain with range of motion of the knee. Pain with weightbearing. She is sitting in the bed for the majority of the exam. Neurovascular intact distally. Assessment & Plan Assessment/Plan (1) Infection of prosthetic right knee joint: PLAN: 1. S/P irrigation debridement with retainment of implants and polyethylene exchange right total knee POD #3 2. Continue Pain Medications: Tylenol and oxycodone 3. DVT Prophylaxis: Recommend aspirin 81 mg twice daily for 4 weeks postoperatively 4. PT/OT: Weightbearing as tolerated with walker 5. H & H: 9.4/26.8, asymptomatic. Postoperative anemia secondary to acute blood loss from surgery without any intra operative complications. Preoperatively patient did have drop in hemoglobin and hematocrit at 11.3/32.3. Continue recommendations per medicine 6. Consultation to infectious disease: Microbiology specimens are positive for Staphylococcus aureus in all 3 specimens. There is also a positive blood culture for Staphylococcus aureus on January 10, 2023. Infectious disease is waiting for PICC placement until blood cultures are negative. Orders for repeat blood cultures in place. Patient is currently on cefazolin and vancomycin. Continue recommendations per infectious disease. Patient will require IV PICC line prior to discharge with appropriate antibiotic medications. This was discussed in great detail with the patient today. 7. Dressing: Mepilex dressing is currently clean dry and intact. If drainage does occur we will consider placing an incisional wound VAC on. Mepilex dressing will be in place for 5 days postoperatively if this remains. 8. Continue postoperative management per medicine: Case was discussed with medicine today. 9. Encouraged Incentive Spirometry 10. Disposition: Patient currently is doing well orthopedically. Overall orthopedically patient is doing well. Her pain is being controlled. She has been tolerating therapy. At this time we are awaiting final recommendations from infectious disease for discharge planning and IV antibiotics. PICC line cannot be placed until negative blood cultures. Patient will continue with physical therapy while in the hospital. She is weightbearing as tolerated with walker. She will continue with pain medications above. Patient will also require 2-week follow-up with [facility]. Case management will be involved for appropriate discharge planning. Also recommend patient following with her fiber heel piece shaper for her psoriasis. Patient did report today that early in December 2022 she was getting nail/foot care for her diabetes in which she had nail trimming's. She does not recall any abrasions or wounds from that. At this time since patient is orthopedically stable I would have medicine contact orthopedics with any concerns or questions. We are awaiting appropriate discharge planning and IV antibiotics. Appreciate consultation and care in the management of this patient. I have reviewed the [place] Automated Rx Reporting System (OARRS) report for this patient for refill pattern and other prescriber involvement as part of the appropriate surveillance for the provision of acute and chronic controlled medications. The report was requested and reviewed on the date of this entry and was considered in the prescribing process. This dictation was created using voice recognition software. Phonetic and/or grammatical errors may exist. (2) Cellulitis of right knee:
--- NOTE | 2023-01-14 11:36 | PN.HOSP_ITS ---
Reason for Visit Reason for Visit: Diagnoses Obesity, unspecified (01/10/23) Hyperlipidemia, unspecified (01/10/23) Essential (primary) hypertension (01/10/23) Secondary pulmonary arterial hypertension (01/10/23) Unspecified asthma, uncomplicated (01/10/23) Cellulitis of right lower limb (01/10/23) Effusion, right knee (01/10/23) Bacteremia (01/10/23) Infection and inflammatory reaction due to internal right knee prosthesis, initial encounter (01/10/23) Presence of right artificial knee joint (01/10/23) Subjective Subjective Follow-up for infected right prosthetic knee joint with bacteremia. Objective Data Objective Data Vital Signs: Vital Signs Temp Pulse Resp BP Pulse Ox O2 Del Method O2 Flow Rate 98.2 F 86 18 138/54 H 94 Room Air 2 01/14/23 09:05 01/14/23 09:05 01/14/23 09:05 01/14/23 09:05 01/14/23 09:05 01/14/23 09:06 01/12/23 01:21 Oxygen Flow Rate (L/min) 2 Oxygen Delivery Method Room Air Weight: 233 lb 14.567 oz Body Mass Index (BMI) 38.9 Intake & Output: Intake and Output for Last 24 Hours 01/12/23 01/13/23 01/14/23 23:59 23:59 23:59 Intake Total 2268.75 / 2268.75 2956.75 / 2956.75 983.25 / 983.25 Output Total 1400 / 1800 1500 / 1500 450 / 450 Balance 868.75 / 468.75 1456.75 / 1456.75 533.25 / 533.25 Lab / Micro Data Result Diagrams: 01/14/23 05:53 01/14/23 05:53 Labs: Laboratory Results - last 24 hr 01/13/23 12:32: POC Glucose 152 H 01/13/23 16:55: POC Glucose 109 H 01/13/23 20:54: POC Glucose 186 H 01/14/23 05:53: WBC 8.3, RBC 3.02 L, Hgb 9.4 L, Hct 26.8 L, MCV 88.7, MCH 31.1, MCHC 35.1, RDW Std Deviation 42.5, RDW Coeff of Braden 13.1, Plt Count 303, MPV 8.1, Immature Gran % (Auto) 0.800, Neut % (Auto) 69.1, Lymph % (Auto) 11.2 L, Pima % (Auto) 13.6 H, Eos % (Auto) 4.7, Baso % (Auto) 0.6, Absolute Neuts (auto) 5.7, Absolute Lymphs (auto) 0.93, Nucleated RBC % 0 01/14/23 05:53: Sodium 134 L, Potassium 3.6, Chloride 104, Carbon Dioxide 23.0, Anion Gap 7, BUN 12, Creatinine 0.71, Estim Creat Clear Calc 37.68, Est GFR (MDRD) Af Amer 101, Est GFR (MDRD) Non-Af 83, BUN/Creatinine Ratio 16.9, Glucose 147 H, Calcium 8.2 L 01/14/23 06:38: POC Glucose 144 H Micro: Microbiology 01/10/23 21:25 Fluid - Synovial (joint) Gram Stain - Final 01/10/23 21:25 Fluid - Synovial (joint) Body Fluid Culture - Final Staphylococcus aureus 01/10/23 21:25 Fluid - Synovial (joint) Anaerobic Culture - Final No anaerobic bacteria isolated. 01/11/23 11:59 Tissue - Knee Gram Stain - Final 01/11/23 11:59 Tissue - Knee Wound Culture - Final Staphylococcus aureus 01/11/23 11:59 Tissue - Knee Anaerobic Culture - Final 01/11/23 11:33 Tissue - Knee Gram Stain - Final 01/11/23 11:33 Tissue - Knee Wound Culture - Final Staphylococcus aureus 01/11/23 11:33 Tissue - Knee Anaerobic Culture - Final 01/11/23 11:27 Tissue - Knee Gram Stain - Final 01/11/23 11:27 Tissue - Knee Wound Culture - Final Staphylococcus aureus 01/11/23 11:27 Tissue - Knee Anaerobic Culture - Final 01/10/23 22:04 Blood Culture (Wb) - No Site/Description Given Blood Culture - Final Staphylococcus aureus 01/10/23 22:32 Blood Culture (Wb) - Right Wrist Blood Culture - Final Staphylococcus aureus Physical Exam Narrative Seen and examined. Patient right knee pain is better. Blood pressure is reasonably controlled. Blood culture from 01/12 to 01/14 still pending. Discussed with orthopedic PA. Physical exam General: Alert, Oriented x3, Cooperative HEENT: Atraumatic, PERRLA, EOMI, Normocephalic Oral: Oral mucosa moist. No Gingival or Mucosal Lesions/ Ulcerations Neck: Supple, No JVD, Negative Carotid Bruits Lungs: Air entry diminished in bilateral lung bases. No crepitation/rhonchi Cardiovascular: Regular rate, Regular Rhythm, Normal S1, Normal S2, No murmurs Abdomen: Bowel Sounds Present, Soft, Non Tender, Non-Distended : No renal angle tenderness. No suprapubic tenderness. Extremities: No edema, Capillary Refill Less than 3 Seconds Skin: Right knee surgical incision for irrigation and drainage. Musculoskeletal: Right knee with dressing and Robin wrap bandage. Tenderness much improved. GENEVA hose on. No other joint replacement other than right knee. Neurological: Cranial nerves II-XII grossly intact, DTR 2+/4 and Symmetrical, Neuro grossly intact Psych/Mental Status: Flat affect. Assessment & Plan Assessment/Plan (1) Cellulitis of right knee: PLAN: Plan The patient is an 82 y/o F came to ER with right knee pain for last couple days. Temperature at home was 100 Fahrenheit.Patient had right TKR in March [address] Arriola. She has redness over right anterior knee for about 1 month and had seen pharmacy operations manager, tried ointment cream with no improvement. She also has a history of psoriasis. Denies any open ulcer. No acute injury. #1. Acute right prosthetic joint infection with MSSA bacteremia with contiguous cellulitis probably due to skin disruption as source of infection: Patient admitted on [facility] floor. She had bedside knee arthrocentesis about 19 mL cloudy orange/brown fluid aspirated by Dr. Miguelito Bates. Follow cell count, chemistry, crystal exam and culture and sensitivity. In meantime continue IV antibiotic vancomycin and Rocephin. Pain regimen. Limb elevation. PT and OT. Patient has leukocytosis mainly polymorphs. ESR and CRP high. Arthrocentesis fluid shows WBC about 14,000, 98% neutrophil, 2% monocyte. Negative for crystals and malignant cells. Acute inflammation. Patient had right knee irrigation but prosthesis is saved. ID is consulted. 01/12: Synovial fluid culture from 01/10 shows MSSA bacteremia 1+. Blood culture shows GPC in clusters in both aerobic and anaerobic bottle. 01/11 surgical culture also shows 4+ WBC 1+ intracellular gram-positive cocci, Staph aureus 3+. ID consult reviewed discussed and appreciated. Patient had incision and drainage and probably exchange. Patient tolerating ceftriaxone and cefazolin. Blood culture shows MSSA. Will need repeat blood culture in next few days. TTE ordered. Ceftriaxone changed to cefazolin. No PICC line until blood cultures clear 72 hours. 01/13: Operative culture from right knee shows Staph aureus. Blood culture from 01/12 is pending. Cefazolin and vancomycin. 01/14: Blood culture from 01/12 to 01/14 are still pending. Rest as mentioned above. Continue IV antibiotics. The patient feels improvement on the right knee pain. PT and OT on board. Discussed with orthopedic PA. Further plan of care discussed with patient that if repeat blood culture remains clear/free of bacteria for 72 hours PICC line will be ordered and then discharge planning on IV antibiotics for duration as determined by ID #2. CAD: Patient had cardiac catheterization 2017 w/ EF 60%, apical akinesis, normal left main trunk, left anterior descending artery with mild luminal irregularities in circumflex and right coronary artery with no significant stenosis with distal LAD was occluded with medical therapy decision at that time. continue aspirin, statin, labetalol, lisinopril home regimen. #3. Chronic asthma: budesonide therapy, PRN albuterol, incentive spirometry. #4. Diabetes mellitus type II: Hold oral home regimen, continue home insulin regimen, ADA diet, accu checks 01/12 glucoses controlled in the 120 to 150 mg/dL. Leukosis controlled #5. Hypertension: Continue home regimen including labetalol, hydrochlorothiazide, doxazosin, amlodipine, fosinopril, PRN hydralazine. 01/12 patient blood pressure low probably due to opioids pain. For now discontinue hydrochlorothiazide, amlodipine and lisinopril. Continue labetalol with holding parameter. 01/13: BP is elevated about 150s therefore lisinopril 10 mg p.o. twice daily dose. 01/14: Blood pressure is much better controlled in the 130s today. #6. Hyperlipidemia: We will continue patient on statin therapy. #7. Hypothyroidism: We will continue patient home levothyroxine regimen. #8. Obesity: Weight loss and lifestyle changes encouraged. #9. Gout: From most recent list not on chronic regimen, synovial fluid as noted obtained per ED, cultures pending. #10. DVT prophylaxis: SCDs, hold on chemoprophylaxis given pending cultures for possible or needs. #11. CODE status: Patient AINSLEY is her daughter who is present and living will is currently in place. DNRCC arrest with no intubation Charges/Coding Visit Charges Inpatient E&M: 97934 Subs Hosp L2
[2023-01-14 15:46] VITALS: BP 156/63; PULSE 82; RESP 18; TEMP 36.8; O2SAT 98
[2023-01-14 16:40] LABS: Bedside Glucose 97 mg/dL (74-106)
[2023-01-14 17:38] LABS: Vancomycin, Trough Level 13.9 ug/mL (5.0-15.0)
--- NOTE | 2023-01-14 19:02 | PCM.RX.CS ---
Consult Pharmacy has been consulted to manage selected antiobiotic: Vancomycin Labs: Sodium 134 mmol/L (136-145) L 01/14/23 05:53 Potassium 3.6 mmol/L (3.5-5.1) 01/14/23 05:53 Chloride 104 mmol/L (98-107) 01/14/23 05:53 Carbon Dioxide 23.0 mmol/L (21.0-32.0) 01/14/23 05:53 Anion Gap 7 (5-15) 01/14/23 05:53 BUN 12 mg/dL (7-18) 01/14/23 05:53 Creatinine 0.71 mg/dL (0.55-1.02) 01/14/23 05:53 Est GFR (MDRD) Af Amer 101 mL/min (>60) 01/14/23 05:53 Est GFR (MDRD) Non-Af 83 mL/min (>60) 01/14/23 05:53 BUN/Creatinine Ratio 16.9 RATIO (10-20) 01/14/23 05:53 Glucose 147 mg/dL (74-106) H 01/14/23 05:53 Vancomycin Trough 13.9 ug/mL (5.0-15.0) 01/14/23 16:25 Microbiology: Microbiology 01/12/23 11:27 Blood Culture (Wb) - Anticubital Left Blood Culture - Preliminary No growth in 48 hours. 01/10/23 21:25 Fluid - Synovial (joint) Gram Stain - Final 01/10/23 21:25 Fluid - Synovial (joint) Body Fluid Culture - Final Staphylococcus aureus 01/10/23 21:25 Fluid - Synovial (joint) Anaerobic Culture - Final No anaerobic bacteria isolated. 01/11/23 11:59 Tissue - Knee Gram Stain - Final 01/11/23 11:59 Tissue - Knee Wound Culture - Final Staphylococcus aureus 01/11/23 11:59 Tissue - Knee Anaerobic Culture - Final 01/11/23 11:33 Tissue - Knee Gram Stain - Final 01/11/23 11:33 Tissue - Knee Wound Culture - Final Staphylococcus aureus 01/11/23 11:33 Tissue - Knee Anaerobic Culture - Final 01/11/23 11:27 Tissue - Knee Gram Stain - Final 01/11/23 11:27 Tissue - Knee Wound Culture - Final Staphylococcus aureus 01/11/23 11:27 Tissue - Knee Anaerobic Culture - Final 01/10/23 22:04 Blood Culture (Wb) - No Site/Description Given Blood Culture - Final Staphylococcus aureus 01/10/23 22:32 Blood Culture (Wb) - Right Wrist Blood Culture - Final Staphylococcus aureus Goal Trough: 10-15 mcg/mL Pharmacy Plan for Drug Dosing: VANCOMYCIN LEVEL RECEIVED Current Vancomycin Dose: 750mg q12h (,) Number of Doses Received: Vancomycin Level: 13.9 Hours Since Last Dose: 11.5 Renal Function: SrCr 0.71 Renal Function Trend: continuing to improve Lab/Micro: Vancomycin Plan/Comments: resulted trough of 13.9 is within the ordered goal trough range of 10-15. recommend continuing current dose. Pharmacy Service will continue to monitor and adjust dosing as required. Follow-Up Labs: Trough Vancomycin - 01/17/23 at 1630
[2023-01-14 20:49] VITALS: BP 173/71; PULSE 88; RESP 18; TEMP 37.1; O2SAT 97
[2023-01-14] MEDS: oxyCODONE 5 MG Tablet PO (21:09)
[2023-01-14] MEDS: Acetaminophen 325 MG Tablet 650 MG PO (21:09)
[2023-01-14] MEDS: Doxazosin 4 MG Tablet PO (21:10)
[2023-01-14] MEDS: Pravastatin 40 MG Tablet PO (21:12)
[2023-01-14] MEDS: Levothyroxine 75 MCG Tablet PO (21:12)
[2023-01-14] MEDS: Budesonide/Formoterol Fumarate 10.2 GM Inhaler 2 PUFF INHALATION (21:13)
[2023-01-14 22:06] LABS: Bedside Glucose 135 mg/dL (74-106)
[2023-01-14 23:46] LABS: Bedside Glucose 126 mg/dL (74-106)
[2023-01-15 03:07] VITALS: BP 139/59; PULSE 74; RESP 18; TEMP 36.4; O2SAT 96
[2023-01-15 05:57] VITALS: BMI 39.1
[2023-01-15] MEDS: Cefazolin 2 GM in 0.9% Normal Saline 100 ML IV ×2 (06:38→21:06)
[2023-01-15 07:00] LABS: Anion Gap 7 (5-15); BUN 10 mg/dL (7-18); BUN/Creat Ratio 16.1 RATIO (10-20); Calcium,Total 8.6 mg/dL (8.5-10.1); Chloride 104 mmol/L (98-107); Creatinine, Serum 0.62 mg/dL (0.55-1.02); EST Glomerular Filtration Rate 97 mL/min (>60); Est Glom Filt Rate - Afr Amer 118 mL/min (>60); Estimated Creatinine Clearance 37.68 ml/min; Glucose 133 mg/dL (74-106); Potassium 3.5 mmol/L (3.5-5.1); Sodium Level 136 mmol/L (136-145)
[2023-01-15 07:11] LABS: Bedside Glucose 121 mg/dL (74-106)
[2023-01-15 07:17] VITALS: O2SAT 93
--- NOTE | 2023-01-15 07:34 | PN.HOSP_ITS ---
Reason for Visit Reason for Visit: Right knee pain Subjective Subjective Mrs. Murphy is an 82-year-old white female who presented to the emergency d epartment at [facility] on 01/10/2023 with right knee pain, redness, and inability to move or bear weight on her right lower extremity. The patient has a history of psoriasis and had 48 hours of redness over the right patellar region which resulted in her calling Dr. Arriola's office who recommended ED evaluation. Severe pain was noted upon presentation and she complained of fever and chills. Aspiration of the joint was obtained. Vital signs were stable on presentation however she was noted to have a leukocytosis with a left shift. An ESR 54, CRP of 124. She had a right total knee replacement which was performed on 03/29/2022. She was admitted to the medical floor after cultures were obtained and started on empiric antibiotics. Orthopedic surgery and infectious disease have been consulted. She was found to have MSSA bacteremia with MSSA right knee P JI and was taken to the OR on 01/11/[address] Abraham for I&D and poly exchange. Repeat blood cultures were obtained and a TTE was performed. TTE was negative for any noted vegetation. Repeat cultures from 01/14/2022 are still pending. There was a culture on 01/12/2023 which is no growth to date. Patient will require PICC line placement and either discharge home versus skilled facility. PICC cannot be placed until cultures are negative for 72 hours. Patient states she is feeling well. Very adamant that she would like to go home however her daughter's opinion differs. I discussed that we will see how she does with therapy and see what their recommendations are today. She will require a PICC line to be placed once clearance cultures are negative at 72 hours. Awaiting further ID input for antibiotics to be continued at discharge. Will likely need 6 weeks of IV antibiotics based on infection. Objective Data Objective Data Vital Signs: Vital Signs Temp Pulse Resp BP Pulse Ox O2 Del Method O2 Flow Rate 97.6 F L 74 18 139/59 H 96 Room Air 2 01/15/23 03:07 01/15/23 03:07 01/15/23 03:07 01/15/23 03:07 01/15/23 03:07 01/15/23 03:14 01/12/23 01:21 Oxygen Flow Rate (L/min) 2 Oxygen Delivery Method Room Air Weight: 106.5 kg Body Mass Index (BMI) 39.1 Intake & Output: Intake and Output for Last 24 Hours 01/13/23 01/14/23 01/15/23 23:59 23:59 23:59 Intake Total 2956.75 / 2956.75 1468.25 / 1468.25 765 / 765 Output Total 1500 / 1500 450 / 450 800 / 800 Balance 1456.75 / 1456.75 1018.25 / 1018.25 -35 / -35 Lab / Micro Data Result Diagrams: 01/14/23 05:53 01/15/23 05:45 Labs: Laboratory Results - last 24 hr 01/14/23 06:38: POC Glucose 144 H 01/14/23 11:32: POC Glucose 135 H 01/14/23 16:03: POC Glucose 97 01/14/23 16:25: Vancomycin Trough 13.9 01/14/23 21:06: POC Glucose 126 H 01/15/23 05:45: Sodium 136, Potassium 3.5, Chloride 104, Carbon Dioxide 25.0, Anion Gap 7, BUN 10, Creatinine 0.62, Estim Creat Clear Calc 37.68, Est GFR (MDRD) Af Amer 118, Est GFR (MDRD) Non-Af 97, BUN/Creatinine Ratio 16.1, Glucose 133 H, Calcium 8.6 01/15/23 06:36: POC Glucose 121 H Micro: Microbiology 01/12/23 11:27 Blood Culture (Wb) - Anticubital Left Blood Culture - Preliminary No growth in 48 hours. 01/10/23 21:25 Fluid - Synovial (joint) Gram Stain - Final 01/10/23 21:25 Fluid - Synovial (joint) Body Fluid Culture - Final Staphylococcus aureus 01/10/23 21:25 Fluid - Synovial (joint) Anaerobic Culture - Final No anaerobic bacteria isolated. 01/11/23 11:59 Tissue - Knee Gram Stain - Final 01/11/23 11:59 Tissue - Knee Wound Culture - Final Staphylococcus aureus 01/11/23 11:59 Tissue - Knee Anaerobic Culture - Final 01/11/23 11:33 Tissue - Knee Gram Stain - Final 01/11/23 11:33 Tissue - Knee Wound Culture - Final Staphylococcus aureus 01/11/23 11:33 Tissue - Knee Anaerobic Culture - Final 01/11/23 11:27 Tissue - Knee Gram Stain - Final 01/11/23 11:27 Tissue - Knee Wound Culture - Final Staphylococcus aureus 01/11/23 11:27 Tissue - Knee Anaerobic Culture - Final 01/10/23 22:04 Blood Culture (Wb) - No Site/Description Given Blood Culture - Final Staphylococcus aureus 01/10/23 22:32 Blood Culture (Wb) - Right Wrist Blood Culture - Final Staphylococcus aureus Physical Exam Const alert, oriented x3, no apparent distress and well nourished Constitutional Narrative: Obese, extremely pleasant, elderly white female, sitting up in chair at the bedside, daughter at bedside, patient appears comfortable and nontoxic HEENT head/scalp atraumatic and moist oral mucous membranes HEENT Narrative: Dentures in place, Mallampati 2, no thrush Head and Scalp: normocephalic Resp normal respiratory effort, no retractions, no use of accessory muscles and clear to auscultation bilaterally Auscultation: Negative for rales, rhonchi or wheezes Cardio regular rate, regular rhythm, S1 normal heart sound, S2 normal heart sound, no rub, no gallops and no clicks; Negative for no murmurs Cardio Narrative: 3 out of 6 systolic murmur loudest at right upper sternal border GI normal to inspection, nondistended, normoactive bowel sounds and soft to palpation Extremity no clubbing, cyanosis or edema Neuro oriented x3, CN's II-XII intact bilaterally and no focal motor deficits Neuro Narrative: Decreased movement right lower extremity due to pain Speech: speech normal Psych affect normal Psych Narrative: Very pleasant, appropriate, eye contact is good Assessment & Plan Assessment/Plan (1) Infection of prosthetic right knee joint: (2) Bacteremia: (3) Cellulitis of right knee: PLAN: Plan MSSA bacteremia -Initial cultures positive on 01/10/2023 -Repeat cultures obtained on 01/12/2023 and 01/14/2023 -No growth to date from 01/12/2023 -Cultures from 01/14/2023 are still pending -Once clearance cultures are negative at 72 hours we will obtain PICC line for suspected 6 weeks of IV antibiotic therapy -Continue Ancef as ordered currently -Await ID input for discharge antibiotic recommendations -Patient seems to do doing okay with therapy and may be able to go home as long as she is able to do antibiotics independently and does not need inpatient therapy Right PJI -Total knee arthroplasty done on 2021 -Operative cultures show Staph aureus consistent with bacteremia -Postop day 4 from I&D with retainment of implant and polyurethane exchange of the right total knee arthroplasty -DVT prophylaxis with aspirin 81 mg p.o. twice daily for 4 weeks recommended -Patient okay for weightbearing as tolerated with range of motion and activity as tolerated -Dressing to be maintained for another 24 hours and then can be removed -Patient will need follow-up in 2 weeks with [facility] after discharge Cellulitis of the right knee -See above History of psoriasis -Recommend continued outpatient follow-up CAD/HTN/HPL -cardiac catheterization 2017 w/ EF 60%, apical akinesis, normal left main trun k, left anterior descending artery with mild luminal irregularities in circumflex and right coronary artery with no significant stenosis with distal LAD was occluded with medical therapy decision at that time -Continue statin -Continue antihypertensives as ordered -We will restart all home medications at discharge -Continue to trend blood pressures -Continue aspirin -Echo performed with MSSA bacteremia shows an EF of 60 to 65% with normal LV systolic function, grade 1 diastolic dysfunction and no significant valvular abnormalities Hypothyroidism -Continue home levothyroxine Gout -Not on any chronic medication -Monitor clinically History of asthma -Continue budesonide therapy -As needed albuterol -I-S DM-2 -Blood sugars are currently controlled -Continue to hold home oral regimen -Continue sliding scale -Continue Accu-Cheks as ordered DVT prophylaxis -SCDs -Aspirin 81 mg p.o. twice daily as orthopedic surgery has recommended -We will utilize enoxaparin until discharged CODE STATUS -DNR CCA without intubation Charges/Coding Visit Charges Inpatient E&M: 29943 Subs Hosp L2
[2023-01-15 10:00] VITALS: BP 156/57; PULSE 76; RESP 18; TEMP 36.9; O2SAT 96
[2023-01-15] MEDS: Methylcellulose 2 GM Bottle PO (10:10)
[2023-01-15] MEDS: Ascorbic Acid 500 MG Tablet PO (10:10)
[2023-01-15] MEDS: Labetalol 100 MG Tablet 300 MG PO ×2 (10:10→20:58)
[2023-01-15] MEDS: Famotidine 20 MG Tablet PO ×2 (10:10→20:55)
[2023-01-15] MEDS: Aspirin 81 MG TAB.CHEW PO ×2 (10:10→18:44)
[2023-01-15] MEDS: Glycerin/Hypromellose/PEG400 15 ml Bottle 1 DRP EACH EYE ×2 (10:10→20:56)
[2023-01-15] MEDS: Mupirocin Ointment 22gm Tube 1 APPLIC TOPICAL ×2 (10:11→20:57)
[2023-01-15] MEDS: Budesonide/Formoterol Fumarate 10.2 GM Inhaler 2 PUFF INHALATION ×2 (10:12→18:41)
[2023-01-15] MEDS: Lisinopril 10 MG Tablet PO ×2 (10:14→20:58)
[2023-01-15] MEDS: oxyCODONE 5 MG Tablet PO (11:55)
[2023-01-15] MEDS: Acetaminophen 325 MG Tablet 650 MG PO (12:04)
[2023-01-15 12:20] VITALS: O2SAT 97
[2023-01-15 12:55] LABS: Bedside Glucose 140 mg/dL (74-106)
[2023-01-15] MEDS: rifAMPin 300 MG Capsule PO ×2 (13:37→20:55)
--- NOTE | 2023-01-15 13:39 | CASEMGMT ---
Addendum entered by Deedee Daugherty 01/15/23 15:28: [facility] is unable to accept pt. Addendum entered by Deedee Daugherty 01/15/23 15:22: [facility] is unable to staff pt for services. Addendum entered by Deedee Daugherty 01/15/23 15:12: [facility] is unable to accept pt d/t infusion. Referral sent to choices 4 and 5 at this time via [facility]. Addendum entered by Deedee Daugherty 01/15/23 14:53: Pt has chosen 1. [facility] 2. [facility] 3. [facility] 5.[facility]. Referrals sent to [facility] 3 at this time. Addendum entered by Deedee Daugherty 01/15/23 14:28: Received tc back from Esha at [facility], they are unable to accept pt due to staffing until Sunday. Patient was provided a list of [facility] providers including quality and resource use data and consistent with the patient?s preferred geographic region, medical needs, and insurance network were provided from the [facility]. Pt to review and RN CM to check back. Original Note: Spoke with on pt IV atb. Pt ready for dc after picc inserted. RN CM called [facility], med will be IV push over 3-5 minutes. RN CM into pt room. Pt present with two dtrs and two friends. Pt agreeable to discussion with all present in room. Pt would like to go home. She states she would like [facility] again and declines need for [facility]. Pt would like [facility] for infusion. Pt plans to complete on own with extension tubing. Pt dtrs agreeable with this plan. Pt anxious to return home. Discussed expectations of [facility]. Pt asked if she has to be homebound for the entire 6 weeks. Made her aware that should she not be homebound and the physician is ok with it, she may be able to be set up for her labs and picc dressing change at [facility] and continue the atb with outpt therapy. TC to Esha at [facility], referral made. DC assistant teacher to send referral to [facility].
--- NOTE | 2023-01-15 13:42 | PCM.PN.ID ---
Physical Exam Narrative Feeling well, no fever, no n/v/d. Const alert and no apparent distress General Appearance: cooperative Resp normal air movement and clear to auscultation bilaterally Cardio regular rate and regular rhythm GI soft to palpation, non-tender and non-distended Skin Skin Narrative: no new rash ID ID: Route of nutrition/ use of supplements: [] Nutritional Intake: [] IV Site: [] Quesada Catheter: [] Assessment & Plan Assessment/Plan (1) Infection of prosthetic right knee joint: (2) Bacteremia: PLAN: MSSA bacteremia with R knee PJI - taken to OR 01/11/[address] Arriola for I&D and poly exchange. H/o hives with PCN, tolerated cefazolin and ceftriaxone here. Narrowed abx to cefazolin. Repeat bcx cleared rapidly by 01/12. TTE showed no veg. Will order picc, plan on 6 weeks iv cefazolin, stop date 02/22/23 and weekly labs, with po rifampin for biofilm penetration. Counseled her re: potential side effects from rifampin. ID followup in 2 weeks. Will follow, wrote rx, d/w case management director
--- NOTE | 2023-01-15 14:17 | CASEMGMT ---
Discharge Planning Referral sent to I via [facility]. Ashley Dee
[2023-01-15] MEDS: DiphenhydrAMINE 25 MG Capsule PO (15:03)
[2023-01-15] MEDS: Enoxaparin 40 MG/0.4 ML Syringe SC (15:03)
[2023-01-15 16:00] VITALS: BP 176/83; PULSE 98; RESP 18; TEMP 36.8; O2SAT 95
[2023-01-15 17:15] LABS: Bedside Glucose 113 mg/dL (74-106)
[2023-01-15] MEDS: Pravastatin 40 MG Tablet PO (20:55)
[2023-01-15] MEDS: Doxazosin 4 MG Tablet PO (20:55)
[2023-01-15] MEDS: Levothyroxine 75 MCG Tablet PO (20:59)
[2023-01-15 21:00] VITALS: BP 173/84; PULSE 89; RESP 15; TEMP 36.7; O2SAT 97
[2023-01-15 21:35] LABS: Bedside Glucose 168 mg/dL (74-106)
[2023-01-16 03:37] VITALS: BMI 39.1
[2023-01-16 04:00] VITALS: BP 170/81; PULSE 83; RESP 16; TEMP 36.3; O2SAT 97
[2023-01-16] MEDS: Acetaminophen 325 MG Tablet 650 MG PO ×2 (04:09→10:11)
[2023-01-16] MEDS: Cefazolin 2 GM in 0.9% Normal Saline 100 ML IV ×2 (06:06→13:44)
[2023-01-16] MEDS: 0.9% Saline Lock 10 ML Syringe IV ×2 (06:07→14:50)
[2023-01-16 06:30] LABS: Bedside Glucose 131 mg/dL (74-106)
[2023-01-16 06:45] LABS: Absolute Lymphocyte Count 1.16 X10^3/uL (0.83-4.51); Absolute Neutrophil Count 5.3 X10^3/uL (2.0-7.7); Basophil# 0.08 X10^3/uL; Eosinophil# 0.64 X10^3/uL; Eosinophils% 7.7 % (0-5); Hematocrit 26.9 % (37-47); Hemoglobin 9.5 g/dL (12.0-15.0); Lymphocyte # 1.16 X10^3/ul (0.83-4.51); Lymphocyte % 13.9 % (19-41); Mean Corp Hgb Conc 35.3 g/dL (32-36); Mean Corpuscular Hgb 31.1 pg (27.0-32.0); Mean Corpuscular Volume 88.2 fL (81-99); Mean Platelet Vol. 7.5 fl (6.2-12.0); Monocyte# 1.08 X10^3/uL; Monocyte% 12.9 % (0-10); NRBC Flagged by Analyzer 0 % (0-5); Neutrophil # 5.26 X10^3/uL (2.7-7.7); Neutrophil % 63.1 % (47-70); Platelet Count 346 K/mm3 (150-450); RBC Distribution Width CV 13.2 % (11.6-14.6); RBC Distribution Width SD 42.2 fl (35.1-43.9); Red Blood Count 3.05 M/mm3 (4.2-5.4); White Blood Count 8.3 K/mm3 (4.4-11.0)
[2023-01-16 07:30] VITALS: O2SAT 95
[2023-01-16] MEDS: Senna/Docusate Sodium 1 Tablet 2 TABLET PO (08:47)
[2023-01-16] MEDS: Ascorbic Acid 500 MG Tablet PO (08:47)
[2023-01-16] MEDS: Famotidine 20 MG Tablet PO (08:47)
[2023-01-16] MEDS: Labetalol 100 MG Tablet 300 MG PO (08:47)
[2023-01-16] MEDS: Budesonide/Formoterol Fumarate 10.2 GM Inhaler 2 PUFF INHALATION (08:48)
[2023-01-16] MEDS: Lisinopril 10 MG Tablet PO (08:49)
[2023-01-16] MEDS: Glycerin/Hypromellose/PEG400 15 ml Bottle 1 DRP EACH EYE (08:49)
[2023-01-16] MEDS: rifAMPin 300 MG Capsule PO (08:50)
[2023-01-16] MEDS: Polyethylene Glycol 3350 17 GM PACKET PO (08:50)
[2023-01-16] MEDS: Methylcellulose 2 GM Bottle PO (08:50)
[2023-01-16] MEDS: Mupirocin Ointment 22gm Tube 1 APPLIC TOPICAL (08:51)
[2023-01-16] MEDS: Aspirin 81 MG TAB.CHEW PO (08:52)
--- NOTE | 2023-01-16 08:54 | CASEMGMT ---
Addendum entered by Deedee Daugherty 01/16/23 14:36: ID ok with pt dc after 2pm dose and resume atb in the morning with [facility]. Addendum entered by Deedee Daugherty 01/16/23 10:16: RN ALFREDO into pt room, pt dtr present. Pt is aware of cost of med and that [facility] has accepted pt. She is agreeable to proceed with this agency and not await other responses. Addendum entered by Deedee Daugherty 01/16/23 09:55: Per [facility], insurance verified, deductible $150 met, oop $1,500 - $299 met, has 4% responsibility until met,Drug copay $20,Total cost per week $39.32. [facility] has accepted agency for care if pt chooses. [facility] and [facility] have declined. Addendum entered by Deedee Daugherty 01/16/23 09:45: Received tc back from [place], they are unable to accept pt. Referral sent to multiple agencies via [facility] and will notify pt of accepting agencies. Original Note: TC to [facility], left message requesting returned call. [facility], they are unable to accept pt d/t billing Mike DE LA CRUZ.
[2023-01-16] MEDS: Enoxaparin 40 MG/0.4 ML Syringe SC (09:09)
[2023-01-16 09:27] VITALS: BP 174/75; PULSE 88; RESP 16; TEMP 36.9; O2SAT 100
[2023-01-16 10:13] VITALS: O2SAT 97
--- NOTE | 2023-01-16 10:30 | CASEMGMT ---
Discharge Planning PICC report, HH information, and patient contact information sent to [facility] via [employer]. Ashley Dee
--- NOTE | 2023-01-16 10:31 | CASEMGMT ---
Discharge Planning [facility]ified [facility]. Ashley Dee
[2023-01-16 11:45] LABS: Bedside Glucose 183 mg/dL (74-106)
--- NOTE | 2023-01-16 11:52 | DS.PCM_ITS ---
Providers Date of Admission: 01/10/23 Primary Care Physician: Dr. Ej Sims MD Consultations 01/10/23 23:08 Consult: Orthopedics Routine Consulting Provider: Miguelito Bates Reason for Consult: R knee cellulitis, possible septic joint. EMERGENT Consult: No Notified: Yes Date Notified: 01/10/23 Time Notified: 21:47 Method of Notification: ED Physician Initiated 01/11/23 11:49 Consult: Infectious Disease Routine Consulting Provider: Robb Shrestha Reason for Consult: R KNEE PJI EMERGENT Consult: No Notified: Yes Date Notified: 01/11/23 Time Notified: 20:41 Method of Notification: Answering Service Reason For Visit: R KNEE CELLULITIS/SUSPECTED SEPTIC JOINT Diagnosis Discharge Diagnosis (1) Infection of prosthetic right knee joint: Status: Acute Code(s): T84.53XA - Infection and inflammatory reaction due to internal right knee prosthesis, initial encounter (2) Bacteremia: Status: Acute Code(s): R78.81 - Bacteremia Plan MSSA bacteremia -Initial cultures positive on 01/10/2023 -Repeat cultures obtained on 01/12/2023 and 01/14/2023 -No growth to date from 01/12/2023 -Cultures from 01/14/2023 are still pending -Once clearance cultures are negative at 72 hours we will obtain PICC line for suspected 6 weeks of IV antibiotic therapy -Continue Ancef as ordered currently -Await ID input for discharge antibiotic recommendations -Patient seems to do doing okay with therapy and may be able to go home as long as she is able to do antibiotics independently and does not need inpatient therapy Right PJI -Total knee arthroplasty done on 2021 -Operative cultures show Staph aureus consistent with bacteremia -Postop day 4 from I&D with retainment of implant and polyurethane exchange of the right total knee arthroplasty -DVT prophylaxis with aspirin 81 mg p.o. twice daily for 4 weeks recommended -Patient okay for weightbearing as tolerated with range of motion and activity as tolerated -Dressing to be maintained for another 24 hours and then can be removed -Patient will need follow-up in 2 weeks with [facility] after discharge Cellulitis of the right knee -See above History of psoriasis -Recommend continued outpatient follow-up CAD/HTN/HPL -cardiac catheterization 2017 w/ EF 60%, apical akinesis, normal left main trunk, left anterior descending artery with mild luminal irregularities in circumflex and right coronary artery with no significant stenosis with distal LAD was occluded with medical therapy decision at that time -Continue statin -Continue antihypertensives as ordered -We will restart all home medications at discharge -Continue to trend blood pressures -Continue aspirin -Echo performed with KANU bacteremia shows an EF of 60 to 65% with normal LV systolic function, grade 1 diastolic dysfunction and no significant valvular abnormalities Hypothyroidism -Continue home levothyroxine Gout -Not on any chronic medication -Monitor clinically History of asthma -Continue budesonide therapy -As needed albuterol -I-S DM-2 -Blood sugars are currently controlled -Continue to hold home oral regimen -Continue sliding scale -Continue Accu-Cheks as ordered DVT prophylaxis -SCDs -Aspirin 81 mg p.o. twice daily as orthopedic surgery has recommended -We will utilize enoxaparin until discharged CODE STATUS -DNR CCA without intubation Medications at Discharge Home Medications fosinopril 40 mg tablet 40 mg PO DAILY BP 06/13/17 levothyroxine 75 mcg tablet 75 mcg PO QHS thyroid 06/13/17 imjiyqxc-ilp-mgiik acid 0.4 mg-lycopene 300 mcg-lutein 250 mcg tablet (Centrum Silver) 1 tab PO DAILY supplement 07/02/18 ascorbic acid (vitamin C) 500 mg tablet 500 mg PO DAILY supplement 01/19/22 calcium carbonate 500 mg-vitamin D3 15 mcg (600 unit) tablet 1 tab PO Q OTHER DAY supplement 01/19/22 cholecalciferol (vitamin D3) 25 mcg (1,000 unit) tablet 25 mcg PO DAILY supplement 01/19/22 clobetasol 0.05 % topical cream 1 applic topical BID PRN psoriasis 01/19/22 metformin 500 mg tablet,extended release 24 hr 500 mg PO DAILY blood sugar 01/19/22 nitroglycerin 0.4 mg sublingual tablet 0.4 mg sublingual Q5-15M PRN CP 01/19/22 pravastatin 40 mg tablet 40 mg PO QHS cholesterol 01/19/22 albuterol sulfate 90 mcg/actuation aerosol inhaler 2 puff inhalation Q4H PRN Wheezing #8.5 grams 03/03/22 budesonide-formoterol HFA 160 mcg-4.5 mcg/actuation aerosol inhaler (Symbicort) 2 puff inhalation BID breathing 03/20/22 methylcellulose (laxative) 500 mg tablet (Citrucel) 1,000 mg PO DAILY constipation 03/20/22 peg 400-propylene glycol (PF) 0.4 %-0.3 % eye drops in a dropperette (Systane (PF)) 1 drp EACH EYE BID dry eyes 03/20/22 biotin 5,000 mcg disintegrating tablet 5,000 mcg PO DAILY Check with primary doctor 05/25/22 amlodipine 10 mg tablet 10 mg PO DAILY BP #90 tabs 07/25/22 doxazosin 4 mg tablet 4 mg PO QHS BP #90 tabs 07/25/22 labetalol 300 mg tablet 300 mg PO BID BP 11/30/22 acetaminophen 500 mg tablet 1,000 mg PO Q8H Check with primary doctor 01/10/23 aspirin 81 mg chewable tablet 81 mg PO BIDCM Check with primary doctor 01/10/23 hydrochlorothiazide 25 mg tablet 25 mg PO DAILY Check with primary doctor 01/10/23 betamethasone, augmented 0.05 % topical cream 1 applic topical BID psoriasis 01/15/23 cefazolin 2 gram intravenous solution 2 g IV Q8H #117 ea 01/15/23 rifampin 300 mg capsule 300 mg PO BID 40 days #80 caps 01/15/23 Weight / BMI Weight Weight: 106.5 kg Body Mass Index (BMI) 39.1 ABG / Lab / Microbiology Data Result Diagrams: 01/16/23 06:38 01/15/23 05:45 Laboratory: Laboratory Results - last 24 hr 01/15/23 11:59: POC Glucose 140 H 01/15/23 16:55: POC Glucose 113 H 01/15/23 21:08: POC Glucose 168 H 01/16/23 06:04: POC Glucose 131 H 01/16/23 06:38: WBC 8.3, RBC 3.05 L, Hgb 9.5 L, Hct 26.9 L, MCV 88.2, MCH 31.1, MCHC 35.3, RDW Std Deviation 42.2, RDW Coeff of Braden 13.2, Plt Count 346, MPV 7.5, Immature Gran % (Auto) 1.400 H, Neut % (Auto) 63.1, Lymph % (Auto) 13.9 L, [place] % (Auto) 12.9 H, Eos % (Auto) 7.7 H, Baso % (Auto) 1.0, Absolute Neuts (auto) 5.3, Absolute Lymphs (auto) 1.16, Nucleated RBC % 0 01/16/23 11:27: POC Glucose 183 H Microbiology: Microbiology 01/13/23 09:40 Blood Culture (Wb) - Anticubital Right Blood Culture - Preliminary No growth in 48 hours. 01/14/23 09:56 Blood Culture (Wb) - Anticubital Right Blood Culture - Preliminary No growth in 48 hours. 01/12/23 11:27 Blood Culture (Wb) - Anticubital Left Blood Culture - Preliminary No growth in 48 hours. 01/10/23 21:25 Fluid - Synovial (joint) Gram Stain - Final 01/10/23 21:25 Fluid - Synovial (joint) Body Fluid Culture - Final Staphylococcus aureus 01/10/23 21:25 Fluid - Synovial (joint) Anaerobic Culture - Final No anaerobic bacteria isolated. 01/11/23 11:59 Tissue - Knee Gram Stain - Final 01/11/23 11:59 Tissue - Knee Wound Culture - Final Staphylococcus aureus 01/11/23 11:59 Tissue - Knee Anaerobic Culture - Final 01/11/23 11:33 Tissue - Knee Gram Stain - Final 01/11/23 11:33 Tissue - Knee Wound Culture - Final Staphylococcus aureus 01/11/23 11:33 Tissue - Knee Anaerobic Culture - Final 01/11/23 11:27 Tissue - Knee Gram Stain - Final 01/11/23 11:27 Tissue - Knee Wound Culture - Final Staphylococcus aureus 01/11/23 11:27 Tissue - Knee Anaerobic Culture - Final 01/10/23 22:04 Blood Culture (Wb) - No Site/Description Given Blood Culture - Final Staphylococcus aureus 01/10/23 22:32 Blood Culture (Wb) - Right Wrist Blood Culture - Final Staphylococcus aureus Discharge Plan Admission Admit Date/Time: 01/10/23 21:44 Primary Reason for Your Visit: right knee pain, redness, and inability to move or bear weight on her right Attending Provider: Erica Zaragoza Primary Care Provider: Ej Sims Consulting Providers: Miguelito Bates ; Wen Cummings ; Robb Shrestha ; Rui Spaulding Discharge Orders/Prescriptions Prescriptions: New cefazolin 2 gram recon soln 2 g IV Q8H Qty: 117 0RF Rx Instructions: stop date 02/22/23 dx: MSSA prosthetic joint infection weekly bmp, cbc, LFT, and esr. Fax to [phone] routine picc care rifampin 300 mg Capsule 300 mg PO BID 40 Days Qty: 80 0RF No Action Centrum Silver 0.4-300-250 mg-mcg-mcg tablet 1 tab PO DAILY metformin 500 mg tablet extended release 24 hr 500 mg PO DAILY calcium carbonate-vitamin D3 500 mg-15 mcg (600 unit) tablet 1 tab PO Q OTHER DAY albuterol sulfate 90 mcg/actuation HFA aerosol inhaler 2 puff INHALATION Q4H PRN (Reason: Wheezing) Qty: 8.5 6RF cholecalciferol (vitamin D3) 25 mcg (1,000 unit) tablet 25 mcg PO DAILY pravastatin 40 mg tablet 40 mg PO QHS nitroglycerin 0.4 mg tablet, sublingual 0.4 mg sublingual Q5-15M PRN (Reason: CP) clobetasol 0.05 % cream 1 applic topical BID PRN (Reason: psoriasis) ascorbic acid (vitamin C) 500 mg tablet 500 mg PO DAILY Label Comments: 1 tablet by mouth as directed biotin 5,000 mcg tablet,disintegrating 5,000 mcg PO DAILY levothyroxine 75 MCG tablet 75 mcg PO QHS fosinopril 40 MG tablet 40 mg PO DAILY budesonide-formoterol [Symbicort] 160-4.5 mcg/actuation HFA aerosol inhaler 2 puff INHALATION BID Citrucel 500 mg Tablet 1,000 mg PO DAILY Systane (PF) 0.4-0.3 % Dropperette 1 drp EACH EYE BID labetalol 300 mg tablet 300 mg PO BID Label Comments: 150mg in the AM, and 300mg in the PM acetaminophen 500 mg tablet 1,000 mg PO Q8H aspirin 81 mg tablet,chewable 81 mg PO BIDCM hydrochlorothiazide 25 mg tablet 25 mg PO DAILY betamethasone, augmented 0.05 % cream 1 applic TOPICAL BID amlodipine 10 mg tablet 10 mg PO DAILY Qty: 90 3RF doxazosin 4 mg tablet 4 mg PO QHS Qty: 90 3RF Referrals / Follow Up: Robb Shrestha MD [Med Staff - Active Staff] - Within 2 Weeks (Call to make appt for hospital follow-up) Stephane Arriola MD [Med Staff - Active Staff] - Within 2 Weeks (Call for appt ) Ej Sims MD [Primary Care Provider] - Within 1 Month Disposition Disposition (needs filled in before D/C Order can be placed): Home Health Service Charges/Coding Visit Charges Inpatient E&M: 55151 Disch Hosp >30min
--- NOTE | 2023-01-16 11:52 | PCM.DC.SUM ---
Providers Date of Admission: 01/10/23 Date of Discharge: 01/16/23 Primary Care Physician: Dr. Ej Sims MD Consultations 01/10/23 23:08 Consult: Orthopedics Routine Consulting Provider: Miguelito Bates Reason for Consult: R knee cellulitis, possible septic joint. EMERGENT Consult: No Notified: Yes Date Notified: 01/10/23 Time Notified: 21:47 Method of Notification: ED Physician Initiated 01/11/23 11:49 Consult: Infectious Disease Routine Consulting Provider: Robb Shrestha Reason for Consult: R KNEE PJI EMERGENT Consult: No Notified: Yes Date Notified: 01/11/23 Time Notified: 20:41 Method of Notification: Answering Service Reason For Visit: R KNEE CELLULITIS/SUSPECTED SEPTIC JOINT Diagnosis Discharge Diagnosis (1) Infection of prosthetic right knee joint: Status: Acute Code(s): T84.53XA - Infection and inflammatory reaction due to internal right knee prosthesis, initial encounter (2) Bacteremia: Status: Acute Code(s): R78.81 - Bacteremia Medications at Discharge Home Medications fosinopril 40 mg tablet 40 mg PO DAILY BP 06/13/17 levothyroxine 75 mcg tablet 75 mcg PO QHS thyroid 06/13/17 kstxswdm-ibj-pjlou acid 0.4 mg-lycopene 300 mcg-lutein 250 mcg tablet (Centrum Silver) 1 tab PO DAILY supplement 07/02/18 ascorbic acid (vitamin C) 500 mg tablet 500 mg PO DAILY supplement 01/19/22 calcium carbonate 500 mg-vitamin D3 15 mcg (600 unit) tablet 1 tab PO Q OTHER DAY supplement 01/19/22 cholecalciferol (vitamin D3) 25 mcg (1,000 unit) tablet 25 mcg PO DAILY supplement 01/19/22 clobetasol 0.05 % topical cream 1 applic topical BID PRN psoriasis 01/19/22 metformin 500 mg tablet,extended release 24 hr 500 mg PO DAILY blood sugar 01/19/22 nitroglycerin 0.4 mg sublingual tablet 0.4 mg sublingual Q5-15M PRN CP 01/19/22 pravastatin 40 mg tablet 40 mg PO QHS cholesterol 01/19/22 albuterol sulfate 90 mcg/actuation aerosol inhaler 2 puff inhalation Q4H PRN Wheezing #8.5 grams 03/03/22 budesonide-formoterol HFA 160 mcg-4.5 mcg/actuation aerosol inhaler (Symbicort) 2 puff inhalation BID breathing 03/20/22 methylcellulose (laxative) 500 mg tablet (Citrucel) 1,000 mg PO DAILY constipation 03/20/22 peg 400-propylene glycol (PF) 0.4 %-0.3 % eye drops in a dropperette (Systane (PF)) 1 drp EACH EYE BID dry eyes 03/20/22 biotin 5,000 mcg disintegrating tablet 5,000 mcg PO DAILY Check with primary doctor 05/25/22 amlodipine 10 mg tablet 10 mg PO DAILY BP #90 tabs 07/25/22 doxazosin 4 mg tablet 4 mg PO QHS BP #90 tabs 07/25/22 labetalol 300 mg tablet 300 mg PO BID BP 11/30/22 acetaminophen 500 mg tablet 1,000 mg PO Q8H Check with primary doctor 01/10/23 aspirin 81 mg chewable tablet 81 mg PO BIDCM Check with primary doctor 01/10/23 hydrochlorothiazide 25 mg tablet 25 mg PO DAILY Check with primary doctor 01/10/23 betamethasone, augmented 0.05 % topical cream 1 applic topical BID psoriasis 01/15/23 cefazolin 2 gram intravenous solution 2 g IV Q8H #117 ea 01/15/23 rifampin 300 mg capsule 300 mg PO BID 40 days #80 caps 01/15/23 aspirin 81 mg chewable tablet 81 mg PO BIDCM #30 tabs 01/16/23 oxycodone 5 mg tablet 5 mg PO Q6H PRN pain 7 days #28 tabs 01/16/23 polyethylene glycol 3350 17 gram oral powder packet 17 g PO DAILY #0 ea 01/16/23 Hospital Course Operations total knee replacement Procedures 2-D Echocardiogram and EKG Summary of Care Provided Minutes Spent on Discharge: 38 Hospital Course: Mrs. Murphy is an 82-year-old white female who presented to the emergency department at [facility] on 01/10/2023 with right knee pain, redness, and inability to move or bear weight on her right lower extremity.? The patient has a history of psoriasis and had 48 hours of redness over the right patellar region which resulted in her calling Dr. Arriola's office who recommended ED evaluation.? Severe pain was noted upon presentation and she complained of fever and chills.? Aspiration of the joint was obtained.? Vital signs were stable on presentation however she was noted to have a leukocytosis with a left shift.? Her ESR and CRP with both elevated at 54 and 128 respectively.? She had a right total knee replacement which was performed on 03/29/[address] Arriola.? She was admitted to the medical floor after cultures were obtained and started on empiric antibiotics.? Orthopedic surgery and infectious disease were consulted.? She was found to have MSSA bacteremia with MSSA right knee PJI and was taken to the OR on 01/11/[address] Arriola for I&D and poly exchange.? Repeat blood cultures were obtained and a TTE was performed.? TTE was negative for any noted vegetation.? Repeat cultures cleared quickly and have no growth to date and have been negative for 72 hours. PICC line was ordered by infectious disease and placed on 01/15/2023. She was evaluated by therapy and did quite well. They indicated she was stable to go home with home health. She will receive IV and oral antibiotics in the form of cefazolin and rifampin for biofilm penetration for the next 6 weeks. She is to follow-up with infectious disease for checkup in 2 weeks as well as orthopedic surgery in 2 weeks for postoperative follow-up. She will have home health with nursing, physical therapy, and Occupational Therapy after discharge. She has been directed not to drive for the next 6 weeks and until cleared by orthopedic surgery. She will remain on aspirin 81 mg p.o. twice daily for 4 weeks for DVT prophylaxis following total knee arthroplasty. She is to call for appointment with ID and orthopedic surgery after discharge. I have asked her to follow-up with a primary care physician within the next month. She was discharged home in stable condition on 01/16/2023. Discharge diagnoses: MSSA bacteremia Right PJI Right knee cellulitis History of psoriasis CAD Hypertension Hyperlipidemia Hypothyroidism Gout History of asthma Diabetes type 2 Obesity Osteoarthritis Physical Exam Narrative Patient states she is feeling okay. States she fatigue as she did not sleep well last night. Anxious to be able to go home. Would like to drive however we discussed while that should not happen for some time Const alert, oriented x3, no apparent distress and well nourished Constitutional Narrative: Obese, extremely pleasant, elderly white female, sitting up in chair at the bedside, daughter at bedside, patient appears comfortable and nontoxic General Appearance: cooperative, comfortable, well kempt and well developed Orientation / Consciousness: awake, oriented to person, oriented to place and oriented to time Exam Limitations: no limitations Nutritional Appearance: obese HEENT normocephalic, head/scalp atraumatic and moist oral mucous membranes HEENT Narrative: Mild hearing impairment, Mallampati 3, no thrush Eyes PERRL, EOMs intact bilaterally and conjunctivae normal Eyes Narrative: No scleral icterus Neck no lymphadenopathy, supple and no JVD Neck Narrative: Trachea midline line no thyroid enlargement Resp normal respiratory effort, no retractions, no use of accessory muscles and clear to auscultation bilaterally Auscultation: Negative for rales, rhonchi or wheezes Cardio regular rate, regular rhythm, S1 normal heart sound, S2 normal heart sound, no rub, no gallops and no clicks; Negative for no murmurs Cardio Narrative: 3 out of 6 systolic murmur loudest at right upper sternal border GI normal to inspection, nondistended, normoactive bowel sounds and soft to palpation Extremity no clubbing, cyanosis or edema Extremity Narrative: Right knee with scattered ecchymosis postoperatively, postoperative dressing is clean dry and intact Skin No no rashes or lesions noted, No no wounds, skin turgor normal and no jaundice Skin Narrative: Few scattered dry patches, postoperative wound as noted above Neuro oriented x3, CN's II-XII intact bilaterally and no focal motor deficits Neuro Narrative: Decreased movement right lower extremity due to pain Speech: speech normal Psych affect normal Psych Narrative: Very pleasant, appropriate, eye contact is good Weight / BMI Weight Weight: 106.5 kg Body Mass Index (BMI) 39.1 ABG / Lab / Microbiology Data Result Diagrams: 01/16/23 06:38 01/15/23 05:45 Laboratory: Laboratory Results - last 24 hr 01/15/23 11:59: POC Glucose 140 H 01/15/23 16:55: POC Glucose 113 H 01/15/23 21:08: POC Glucose 168 H 01/16/23 06:04: POC Glucose 131 H 01/16/23 06:38: WBC 8.3, RBC 3.05 L, Hgb 9.5 L, Hct 26.9 L, MCV 88.2, MCH 31.1, MCHC 35.3, RDW Std Deviation 42.2, RDW Coeff of Braden 13.2, Plt Count 346, MPV 7.5, Immature Gran % (Auto) 1.400 H, Neut % (Auto) 63.1, Lymph % (Auto) 13.9 L, [place] % (Auto) 12.9 H, Eos % (Auto) 7.7 H, Baso % (Auto) 1.0, Absolute Neuts (auto) 5.3, Absolute Lymphs (auto) 1.16, Nucleated RBC % 0 01/16/23 11:27: POC Glucose 183 H Microbiology: Microbiology 01/13/23 09:40 Blood Culture (Wb) - Anticubital Right Blood Culture - Preliminary No growth in 48 hours. 01/14/23 09:56 Blood Culture (Wb) - Anticubital Right Blood Culture - Preliminary No growth in 48 hours. 01/12/23 11:27 Blood Culture (Wb) - Anticubital Left Blood Culture - Preliminary No growth in 48 hours. 01/10/23 21:25 Fluid - Synovial (joint) Gram Stain - Final 01/10/23 21:25 Fluid - Synovial (joint) Body Fluid Culture - Final Staphylococcus aureus 01/10/23 21:25 Fluid - Synovial (joint) Anaerobic Culture - Final No anaerobic bacteria isolated. 01/11/23 11:59 Tissue - Knee Gram Stain - Final 01/11/23 11:59 Tissue - Knee Wound Culture - Final Staphylococcus aureus 01/11/23 11:59 Tissue - Knee Anaerobic Culture - Final 01/11/23 11:33 Tissue - Knee Gram Stain - Final 01/11/23 11:33 Tissue - Knee Wound Culture - Final Staphylococcus aureus 01/11/23 11:33 Tissue - Knee Anaerobic Culture - Final 01/11/23 11:27 Tissue - Knee Gram Stain - Final 01/11/23 11:27 Tissue - Knee Wound Culture - Final Staphylococcus aureus 01/11/23 11:27 Tissue - Knee Anaerobic Culture - Final 01/10/23 22:04 Blood Culture (Wb) - No Site/Description Given Blood Culture - Final Staphylococcus aureus 01/10/23 22:32 Blood Culture (Wb) - Right Wrist Blood Culture - Final Staphylococcus aureus D/C Instructions Discharge Diet: 1800 Calorie Control Diet Discharge Activity: May Not Drive (6 weeks and released by Orthopedics), May Shower and Use Walker Meaningful Use Info Meaningful Use Diagnoses (Choose all that apply): None applicable Discharge Plan Admission Admit Date/Time: 01/10/23 21:44 Primary Reason for Your Visit: right knee pain, redness, and inability to move or bear weight on her right Attending Provider: Erica Zaragoza Primary Care Provider: Ej Sims Consulting Providers: Miguelito Bates ; Wen Cummings ; Robb Shrestha ; Rui Spaulding Discharge Orders/Prescriptions Prescriptions: New cefazolin 2 gram recon soln 2 g IV Q8H Qty: 117 0RF Rx Instructions: stop date 02/22/23 dx: MSSA prosthetic joint infection weekly bmp, cbc, LFT, and esr. Fax to [phone] routine picc care rifampin 300 mg Capsule 300 mg PO BID 40 Days Qty: 80 0RF polyethylene glycol 3350 17 gram Powder In Packet 17 g PO DAILY Qty: 0 0RF aspirin 81 mg Tablet,Chewable 81 mg PO BIDCM Qty: 30 0RF Rx Instructions: take for 4 weeks after surgery with stop date 02/08/2023 oxycodone 5 mg Tablet 5 mg PO Q6H PRN (Reason: pain) 7 Days Qty: 28 0RF Continued Centrum Silver 0.4-300-250 mg-mcg-mcg tablet 1 tab PO DAILY metformin 500 mg tablet extended release 24 hr 500 mg PO DAILY calcium carbonate-vitamin D3 500 mg-15 mcg (600 unit) tablet 1 tab PO Q OTHER DAY albuterol sulfate 90 mcg/actuation HFA aerosol inhaler 2 puff INHALATION Q4H PRN (Reason: Wheezing) Qty: 8.5 6RF cholecalciferol (vitamin D3) 25 mcg (1,000 unit) tablet 25 mcg PO DAILY pravastatin 40 mg tablet 40 mg PO QHS nitroglycerin 0.4 mg tablet, sublingual 0.4 mg sublingual Q5-15M PRN (Reason: CP) clobetasol 0.05 % cream 1 applic topical BID PRN (Reason: psoriasis) ascorbic acid (vitamin C) 500 mg tablet 500 mg PO DAILY Label Comments: 1 tablet by mouth as directed biotin 5,000 mcg tablet,disintegrating 5,000 mcg PO DAILY levothyroxine 75 MCG tablet 75 mcg PO QHS fosinopril 40 MG tablet 40 mg PO DAILY budesonide-formoterol [Symbicort] 160-4.5 mcg/actuation HFA aerosol inhaler 2 puff INHALATION BID Citrucel 500 mg Tablet 1,000 mg PO DAILY Systane (PF) 0.4-0.3 % Dropperette 1 drp EACH EYE BID labetalol 300 mg tablet 300 mg PO BID Label Comments: 150mg in the AM, and 300mg in the PM acetaminophen 500 mg tablet 1,000 mg PO Q8H aspirin 81 mg tablet,chewable 81 mg PO BIDCM hydrochlorothiazide 25 mg tablet 25 mg PO DAILY betamethasone, augmented 0.05 % cream 1 applic TOPICAL BID amlodipine 10 mg tablet 10 mg PO DAILY Qty: 90 3RF doxazosin 4 mg tablet 4 mg PO QHS Qty: 90 3RF Referrals / Follow Up: Robb Shrestha MD [Med Staff - Active Staff] - Within 2 Weeks (Call to make appt for hospital follow-up) Stephane Arriola MD [Med Staff - Active Staff] - Within 2 Weeks (Call for appt ) Ej Sims MD [Primary Care Provider] - Within 1 Month Disposition Disposition (needs filled in before D/C Order can be placed): Home Health Service Charges/Coding Visit Charges Inpatient E&M: 90839 Disch Hosp >30min
--- NOTE | 2023-01-16 12:34 | CASEMGMT ---
Discharge Planning Discharge orders sent to [facility] via [facility]. Ashley Dee
[2023-01-16 13:59] VITALS: BP 174/81; PULSE 88; RESP 18; TEMP 36.9; O2SAT 98
[2023-01-16] MEDS: 0.9 % NaCl (Sterile) Posiflush 10 mL IV (15:21)
--- NOTE | 2023-01-16 15:30 | NURSING ---
Jaelyn Hunter RN in to change patients Picc line dressing.
== END 2023-01-16 15:50 | disposition home health service (06) | DRG 486 ==
LOC: ED 21:58 → MS3 21:59
PROVIDERS: Anesthesiology; Internal Medicine; Internal Medicine Infectious Disease; Specialist; Admitting Provider Family Medicine; Emergency Provider Student in an Organized Health Care Education/Training Program; PCP Internal Medicine; Visit Provider Internal Medicine
PROC: 0SPC09Z Removal of Liner from Right Knee Joint, Open Approach (ICD-10-PCS; CPT 27487; principal; 2023-01-11 10:40)
DX: T84.53XA Infection and inflammatory reaction due to internal right knee prosthesis, initial encounter (principal); M00.9 Pyogenic arthritis, unspecified; R78.81 Bacteremia; D62 Acute posthemorrhagic anemia; L03.115 Cellulitis of right lower limb; T84.84XA Pain due to internal orthopedic prosthetic devices, implants and grafts, initial encounter; E11.9 Type 2 diabetes mellitus without complications; E03.9 Hypothyroidism, unspecified; E78.5 Hyperlipidemia, unspecified; I25.10 Atherosclerotic heart disease of native coronary artery without angina pectoris; M10.9 Gout, unspecified; J45.909 Unspecified asthma, uncomplicated; I10 Essential (primary) hypertension; L40.9 Psoriasis, unspecified; M19.90 Unspecified osteoarthritis, unspecified site; B95.61 Methicillin susceptible Staphylococcus aureus infection as the cause of diseases classified elsewhere; Z66 Do not resuscitate; Z96.651 Presence of right artificial knee joint; Z79.84 Long term (current) use of oral hypoglycemic drugs; Z79.51 Long term (current) use of inhaled steroids; Z79.82 Long term (current) use of aspirin; Z79.891 Long term (current) use of opiate analgesic; E66.9 Obesity, unspecified
CPT/HCPCS: 36415; 36569; 73560; 80048; 80053; 80202; 82962; 83036; 84443; 85025; 85027; 85652; 86140; 87015; 87040; 87070; 87075; 87077; 87102; 87116; 87176; 87186; 87205; 87206; 89050; 89051; 89060; 93005; 93306; 94640; 94668; 97110; 97116; 97162; 97166; 97530; 97535; 99252; 99283; C1776; J7030; J7040; J7050; J7120; A4216; G0463; J0696; J2405

== ENCOUNTER 2023-02-11 10:14 | Inpatient (IN) | payer MEDICARE, SELFPAY ==
[2023-02-11] VITALS (11 sets, daily range): BP systolic 146–188; BP diastolic 74–105; PULSE 91–105; RESP 16–20; TEMP 36.4–37.2; O2SAT 94–97; BMI 36.6; BMI 35.9
--- NOTE | 2023-02-11 10:55 | RAD_ITS ---
STUDY: X-RAY - RIGHT SHOULDER REASON FOR EXAM: Female, 82 years old. PAIN TECHNIQUE: 3 view(s) of the shoulder. COMPARISON: None. FINDINGS: There is moderate degenerative arthrosis of the glenohumeral articulation. Normal acromioclavicular joint. Normal acromion. Normal humeral head and visualized proximal humerus. The soft tissue structures are unremarkable. Normal visualized pulmonary apex. RAD/Shoulder min 2 Views IMPRESSION: No acute fracture or dislocation. Moderate glenohumeral joint arthrosis Electronically Signed: Ralph Jay MD at 12:31 EDT ,
--- NOTE | 2023-02-11 10:58 | EX.ED.DYSGE1 ---
HPI History of Present Illness Chief Complaint: Weakness Narrative Narrative: 82-year-old female admitted recently for septic joint in her right knee. Dr. Arriola is orthopedic surgeon. She was admitted had a hardware cleaned out. She was bacteremic. She is on antibiotics. She saw infectious disease and they were able to narrow down her antibiotics to cefazolin and rifampin. She states that she is have been having trouble doing physical therapy because she just feels weak. She does not think that her knee is the problem. She is able to ambulate and move the knee. She has not had any fevers or chills. She reports to me that she has been nauseous this whole time. She has not seen anybody for the nausea. She has been taking some [id number] supplements for nausea but she is not eating and drinking well. Her family reports that when she is doing her physical therapy her blood pressure goes down. She also complains that she overdid it and injured her right shoulder. Her PICC line is in the right arm and there is no redness or swelling. She denies any symptoms when she is getting infused with antibiotics. [facility] Medical History Abnormal mammogram of right breast Ambulates with cane Arthritis Asthma Asthma Atherosclerosis of coronary artery of [place] heart without angina pectoris Bilateral leg edema Cardiology follow-up encounter Cataracts, bilateral Dietary restriction Diverticulosis Dysmetabolic syndrome X Essential (primary) hypertension Gout History of echocardiogram History of edema History of heart attack History of stress test Hyperlipidemia Hypothyroidism Injury of back Non-smoker Obesity (BMI 30-39.9) Pancreatic cyst PONV (postoperative nausea and vomiting) Primary osteoarthritis of right knee Psoriasis Screening for malignant neoplasm of breast Secondary pulmonary arterial hypertension Shortness of breath on exertion Type 2 diabetes mellitus Wears glasses Wears partial dentures Home Medications fosinopril 40 mg tablet 40 mg PO DAILY BP 06/13/17 [History Last Taken 02/11/23] levothyroxine 75 mcg tablet 75 mcg PO QHS thyroid 06/13/17 [History Last Taken 02/10/23] saskcppe-tra-xlaoe acid 0.4 mg-lycopene 300 mcg-lutein 250 mcg tablet (Centrum Silver) 1 tab PO DAILY supplement 07/02/18 [History Last Taken 02/11/23] cholecalciferol (vitamin D3) 25 mcg (1,000 unit) tablet 25 mcg PO DAILY supplement 01/19/22 [History Last Taken 02/11/23] clobetasol 0.05 % topical cream 1 applic topical BID PRN psoriasis 01/19/22 [History Last Taken Unknown] metformin 500 mg tablet,extended release 24 hr 500 mg PO DAILY blood sugar 01/19/22 [History Last Taken 02/11/23] nitroglycerin 0.4 mg sublingual tablet 0.4 mg sublingual Q5-15M PRN CP 01/19/22 [History Last Taken Unknown] pravastatin 40 mg tablet 40 mg PO QHS cholesterol 01/19/22 [History Last Taken 02/10/23] albuterol sulfate 90 mcg/actuation aerosol inhaler 2 puff inhalation Q4H PRN Wheezing #8.5 grams 03/03/22 [Rx Last Taken 02/10/23] budesonide-formoterol HFA 160 mcg-4.5 mcg/actuation aerosol inhaler (Symbicort) 2 puff inhalation BID breathing 03/20/22 [History Last Taken 02/11/23] peg 400-propylene glycol (PF) 0.4 %-0.3 % eye drops in a dropperette (Systane (PF)) 1 drp EACH EYE BID dry eyes 03/20/22 [History Last Taken 02/10/23] amlodipine 10 mg tablet 10 mg PO DAILY BP #90 tabs 07/25/22 [Rx Last Taken 02/10/23] acetaminophen 500 mg tablet 1,000 mg PO Q8H Check with primary doctor 01/10/23 [History Last Taken 02/11/23] hydrochlorothiazide 25 mg tablet 25 mg PO DAILY Check with primary doctor 01/10/23 [History Last Taken 02/11/23] betamethasone, augmented 0.05 % topical cream 1 applic topical BID psoriasis 01/15/23 [History Last Taken Unknown] cefazolin 2 gram intravenous solution 2 g IV Q8H #117 ea 01/15/23 [Rx Last Taken 02/10/23] rifampin 300 mg capsule 300 mg PO BID 40 days #80 caps 01/15/23 [Rx Last Taken 02/11/23] oxycodone 5 mg tablet 5 mg PO Q6H PRN pain 7 days #28 tabs 01/16/23 [Rx Last Taken 2 Weeks Ago ~01/28/23] polyethylene glycol 3350 17 gram oral powder packet 17 g PO DAILY #0 ea 01/16/23 [Rx Last Taken Unknown] doxazosin 4 mg tablet 5 mg PO QHS BP 02/11/23 [History Last Taken 02/10/23] famotidine 20 mg tablet 20 mg PO BID STOMACH 02/11/23 [History Last Taken 02/11/23] Allergy/AdvReac Type Severity Reaction Status Date / Time clindamycin Allergy Rash Verified 01/10/23 17:30 codeine Allergy Hives Verified 01/10/23 17:30 Penicillins [PCN] Allergy Hives Verified 01/10/23 17:30 shellfish derived Allergy hives Verified 01/10/23 17:30 erythromycin base AdvReac Upset Verified 01/10/23 17:30 [Erythromycin Base] Stomach Family History Father Diabetes Hypertension Heart disease Mother Diabetes Hypertension Brother Heart disease Brother Diabetes Brother Hypertension Surgical History History of abdominal hysterectomy (~1968) History of appendectomy (~1968) History of cataract extraction History of colonoscopy History of dilatation and curettage History of left heart catheterization (08/02/18) History of tonsillectomy Status post right knee replacement (~03/29/22) Social History household members: none Smoking Status: Never smoker alcohol intake: current alcohol intake frequency: holidays/special occasions only substance use type: does not use caffeine: Yes Type: coffee Number of servings: 2 what type of physical activity do you participate in: other details: Physical therapy frequency: 1-2 times per week seatbelt use: always EXAM Physical Exam Const Vital Signs: 02/11/23 10:14 02/11/23 10:33 02/11/23 10:35 Temperature 97.9 F 97.9 F Temperature Source Temporal Oral Pulse Rate 96 96 Pulse Rate [Lying] Pulse Rate [Sitting (for 1 minute prior to obtaining)] Pulse Rate [Standing (for 1 minute prior to obtaining)] Respiratory Rate 16 16 Respiratory Effort Normal Respiratory Pattern Normal Blood Pressure 152/82 H 152/82 H Blood Pressure [Lying] Blood Pressure [Sitting (for 1 minute prior to obtaining)] Blood Pressure [Standing (for 1 minute prior to obtaining)] Blood Pressure Mean 105 105 Blood Pressure Mean [Lying] Blood Pressure Mean [Sitting (for 1 minute prior to obtaining)] Blood Pressure Mean [Standing (for 1 minute prior to obtaining)] Pulse Ox 95 95 Oxygen Delivery Method Room Air Room Air 02/11/23 11:17 02/11/23 11:19 02/11/23 14:17 Temperature Temperature Source Pulse Rate 100 Pulse Rate [Lying] 92 Pulse Rate [Sitting (for 1 minute prior to obtaining)] 98 Pulse Rate [Standing (for 1 minute prior to obtaining)] 105 H Respiratory Rate 16 Respiratory Effort Respiratory Pattern Blood Pressure 186/84 H Blood Pressure [Lying] 158/74 H Blood Pressure [Sitting (for 1 minute prior to obtaining)] 169/105 H Blood Pressure [Standing (for 1 minute prior to obtaining)] 161/95 H Blood Pressure Mean 118 Blood Pressure Mean [Lying] 102 Blood Pressure Mean [Sitting (for 1 minute prior to obtaining)] 126 Blood Pressure Mean [Standing (for 1 minute prior to obtaining)] 117 Pulse Ox 95 Oxygen Delivery Method Room Air Room Air 02/11/23 14:00 Temperature 97.5 F L Temperature Source Oral Pulse Rate 98 Pulse Rate [Lying] Pulse Rate [Sitting (for 1 minute prior to obtaining)] Pulse Rate [Standing (for 1 minute prior to obtaining)] Respiratory Rate 20 H Respiratory Effort Respiratory Pattern Blood Pressure 146/84 H Blood Pressure [Lying] Blood Pressure [Sitting (for 1 minute prior to obtaining)] Blood Pressure [Standing (for 1 minute prior to obtaining)] Blood Pressure Mean 104 Blood Pressure Mean [Lying] Blood Pressure Mean [Sitting (for 1 minute prior to obtaining)] Blood Pressure Mean [Standing (for 1 minute prior to obtaining)] Pulse Ox 96 Oxygen Delivery Method Room Air General Appearance ED: Negative for pallor HEENT Reports normocephalic, head/scalp atraumatic and moist mucous membranes Eyes PERRL and EOMs intact bilaterally Neck no lymphadenopathy and supple Chest Wall inspection of chest normal and palpation of chest normal Resp normal respiratory effort and clear to auscultation bilaterally Auscultation: Negative for rales, rhonchi or wheezes Cardio regular rate and regular rhythm GI normal to inspection, nondistended, normoactive bowel sounds and non-distended Auscultation: normoactive bowel sounds Palpation: soft Narrative: Deferred Back/Spine no CVA tenderness General Back: Negative for CVA tenderness Cervical Spine: Negative for cervical spine tenderness Extremity Extremity Narrative: Right shoulder: Tenderness to palpation over the right shoulder joint anteriorly near the bicipital groove. Flexion, extension, abduction, abduction well-maintained although she has pain with range of motion. No edema, erythema, bruising. The PICC line in this area looks well-maintained. There is no surrounding induration or erythema. General Extremety ED: Yes edema and tenderness General Extremity: edema Neuro oriented x3 and CN's II-XII intact bilaterally Sensorium / Orientation: alert Motor Exam: strength 5/5 throughout Psych mental status grossly normal Attitude: No agitated Skin no rashes or lesions noted and no wounds General Skin Exam: Negative for jaundice or pallor MDM MDM MDM Narrative Medical decision making narrative: Patient presenting with generalized weakness. She is not eating very well at home because she has nausea. She has not been following up with her regular doctor as well for the nausea. She has been getting IV antibiotics at home however she has been overdoing it with her physical therapy. Her blood pressure is dropping per family when she does physical therapy and when she stands so they been withholding her most of her blood pressure medications and have only been giving her positive PERRL today. Her blood pressure is elevated today orthostatics are normal. Patient has not had any fevers. She feels her right knee is doing well. It appeared to have decent range of motion I do not have concern for septic joint. I examined her PICC line area and this does not appear to be infected either. She does have some tenderness in the right shoulder when I ranges. I do not think it is associated with her PICC line. Differential includes pneumonia, UTI, dehydration, electrolyte abnormalities, right shoulder strain, CHF, ACS, anemia,orthostatic hypotension, PE. CBC to assess white blood cell count, hemoglobin, platelets, CMP to assess liver function, renal function, glucose, electrolytes. BNP to assess for CHF. High-sensitivity troponin and EKG obtained to rule out ischemic sources. Chest x-ray to rule out pneumonia or CHF. Urinalysis to assess for UTI. Patient was given. IV fluids and Zofran. CBC shows a leukocytosis of 12.0. Hemoglobin stable at 10.2. Platelets are normal. Patient's creatinine and GFR are normal however she does have some prerenal azotemia. Her sodium is down to 123. Potassium 2.8. Potassium was repleted orally with 40 mill equivalents. Urinalysis was negative for infection. Orthostatic vital signs were negative. Right shoulder x-ray on my interpretation does not show any acute fracture or subluxation. Chest x-ray my interpretation does not show any acute cardiopulmonary process. Radiologist states there might be pulmonary nodules versus shadowing. Recommended CT. I did follow-up with a CTA of the chest that we could rule out PE as well. This does not show any evidence of infection or PE. There is no dissection. Given the patient's failure to thrive as an outpatient and her electrolyte abnormalities I discussed with the hospitalist for admission for she would benefit from hydration and electrolyte repletion. I do also believe she would benefit from getting her blood pressure medicines arranged as well. Patient family amenable to this. Impression: 1. Nausea 2. Failure to thrive 3. Weakness 4. Hypokalemia 5. Hyponatremia 6. Dehydration Lab Data Labs: Laboratory Results - last 24 hr 02/11/23 02/11/23 02/11/23 11:07 11:07 11:07 WBC 12.0 H RBC 3.35 L Hgb 10.2 L Hct 28.9 L MCV 86.3 MCH 30.4 MCHC 35.3 RDW Std Deviation 40.7 RDW Coeff of Braden 13.2 Plt Count 332 MPV 8.2 Immature Gran % (Auto) 1.200 H Neut % (Auto) 77.3 H Lymph % (Auto) 6.4 L [place] % (Auto) 10.3 H Eos % (Auto) 4.2 Baso % (Auto) 0.6 Absolute Neuts (auto) 9.3 H Absolute Lymphs (auto) 0.77 L Nucleated RBC % 0 Sodium 123 L Potassium 2.8 L Chloride 86 L Carbon Dioxide 28.0 Anion Gap 9 BUN 28 H Creatinine 0.90 Estim Creat Clear Calc 41.87 Est GFR (MDRD) Af Amer 76 Est GFR (MDRD) Non-Af 63 BUN/Creatinine Ratio 31.0 H Glucose 194 H Calcium 9.0 Phosphorus Magnesium 1.6 Total Bilirubin 0.30 AST 14 L ALT 7 L Alkaline Phosphatase 84 Troponin I High Sens 17 B-Natriuretic Peptide 74.4 Total Protein 6.4 Albumin 2.3 L Globulin 4.1 Albumin/Globulin Ratio 0.6 L Urine Color Urine Clarity Urine pH Ur Specific [place] Urine Protein Urine Glucose (UA) Urine Ketones Urine Occult Blood Urine Nitrite Urine Bilirubin Urine Urobilinogen Ur Leukocyte Esterase Urine RBC Urine WBC Ur Squamous Epith Cells Urine Bacteria Urine Mucus 02/11/23 02/11/23 02/11/23 11:07 12:22 14:16 WBC RBC Hgb Hct MCV MCH MCHC RDW Std Deviation RDW Coeff of [place] Plt Count MPV Immature Gran % (Auto) Neut % (Auto) Lymph % (Auto) [place] % (Auto) Eos % (Auto) Baso % (Auto) Absolute Neuts (auto) Absolute Lymphs (auto) Nucleated RBC % Sodium Potassium Chloride Carbon Dioxide Anion Gap BUN Creatinine Estim Creat Clear Calc Est GFR (MDRD) Af Amer Est GFR (MDRD) Non-Af BUN/Creatinine Ratio Glucose Calcium Phosphorus 2.3 L Magnesium 1.6 Total Bilirubin AST ALT Alkaline Phosphatase Troponin I High Sens 17 B-Natriuretic Peptide Total Protein Albumin Globulin Albumin/Globulin Ratio Urine Color Yellow Urine Clarity Clear Urine pH 7.0 Ur Specific [place] 1.005 Urine Protein 30 H Urine Glucose (UA) Normal Urine Ketones Negative Urine Occult Blood Negative Urine Nitrite Negative Urine Bilirubin Negative Urine Urobilinogen Normal Ur Leukocyte Esterase Negative Urine RBC 0 SEEN Urine WBC 0 SEEN Ur Squamous Epith Cells 0-5 SEEN Urine Bacteria 0 SEEN Urine Mucus 0 SEEN Radiography Diagnostic Testing: Clinical Impression(s) from Imaging Studies Shoulder X-Ray 02/11/23 10:55 IMPRESSION: No acute fracture or dislocation. Moderate glenohumeral joint arthrosis Electronically Signed: Ralph Jay MD at 12:31 EDT , Chest X-Ray 02/11/23 11:10 IMPRESSION: Indeterminate nodular opacities within the lower lungs which may be secondary to accomplish the shadows however cannot exclude pulmonary nodules, recommend PA and lateral images or chest CT for further characterization. Electronically Signed: Liudmila Gusman MD at 12:32 EDT , Chest CTA 02/11/23 13:03 IMPRESSION: No demonstrated pulmonary embolism or arterial dissection. Minimal dependent atelectasis within the lower lobes associated with bibasilar atelectasis and or scarring. Atherosclerosis. Electronically Signed: Liudmila Gusman MD at 14:18 EDT , Discharge Plan Disposition Disposition: Acute Care Hospital [facility] Discharge Date/Time: 02/11/23 15:11
--- NOTE | 2023-02-11 11:10 | RAD_ITS ---
INDICATION: chest pain EXAMINATION/TECHNIQUE: X-RAY - XR Chest 1 View COMPARISON: June 30, 2014 and right shoulder dated February 11, 2023 FINDINGS: LINES/DEVICES: There is a right-sided central venous catheter in place terminating within the expected region of the superior vena cava. LUNGS: There are ill-defined nodular opacities within the lower lungs. MEDIASTINUM AND CARDIOVASCULAR STRUCTURES: Cardiac silhouette not enlarged. Central airways and mediastinal contour are unremarkable. BONES AND SOFT TISSUES: Unremarkable. RAD/Chest 1 View (Portable) IMPRESSION: Indeterminate nodular opacities within the lower lungs which may be secondary to accomplish the shadows however cannot exclude pulmonary nodules, recommend PA and lateral images or chest CT for further characterization. Electronically Signed: Liudmila Gusman MD at 12:32 EDT ,
[2023-02-11 11:13] LABS: Absolute Lymphocyte Count 0.77 X10^3/uL (0.83-4.51); Absolute Neutrophil Count 9.3 X10^3/uL (2.0-7.7); Basophil# 0.07 X10^3/uL; Basophil% 0.6 % (0-1); Eosinophils% 4.2 % (0-5); Hematocrit 28.9 % (37-47); Hemoglobin 10.2 g/dL (12.0-15.0); Lymphocyte # 0.77 X10^3/ul (0.83-4.51); Lymphocyte % 6.4 % (19-41); Mean Corp Hgb Conc 35.3 g/dL (32-36); Mean Corpuscular Hgb 30.4 pg (27.0-32.0); Mean Corpuscular Volume 86.3 fL (81-99); Mean Platelet Vol. 8.2 fl (6.2-12.0); Monocyte# 1.24 X10^3/uL; Monocyte% 10.3 % (0-10); NRBC Flagged by Analyzer 0 % (0-5); Neutrophil # 9.31 X10^3/uL (2.7-7.7); Neutrophil % 77.3 % (47-70); Platelet Count 332 K/mm3 (150-450); RBC Distribution Width CV 13.2 % (11.6-14.6); RBC Distribution Width SD 40.7 fl (35.1-43.9); Red Blood Count 3.35 M/mm3 (4.2-5.4)
[2023-02-11 11:42] LABS: ALB/GLOB Ratio 0.6 RATIO (0.9-2.4); AST(SGOT) 14 U/L (15-37); Alanine Aminotransfer ALT/SGPT 7 U/L (13-56); Albumin, Serum 2.3 g/dL (3.2-5.0); Alkaline Phosphatase 84 U/L (45-117); Anion Gap 9 (5-15); BUN 28 mg/dL (7-18); Chloride 86 mmol/L (98-107); EST Glomerular Filtration Rate 63 mL/min (>60); Est Glom Filt Rate - Afr Amer 76 mL/min (>60); Estimated Creatinine Clearance 41.87 ml/min; Globulin 4.1 g/dL (2.2-4.2); Glucose 194 mg/dL (74-106); Magnesium 1.6 mg/dL (1.6-2.6); Potassium 2.8 mmol/L (3.5-5.1); Protein, Total 6.4 g/dL (6.4-8.2); Sodium Level 123 mmol/L (136-145); Troponin-I HS (w/2H Reflex) 17 pg/mL (3.0-54.0)
[2023-02-11] MEDS: 0.9% Normal Saline 1,000 ML 999 ML IV (11:42)
[2023-02-11] MEDS: Ondansetron 4 MG/2 ML Vial IV (11:44)
[2023-02-11 12:02] LABS: BNP,B-Type NATRIURETIC PEPTIDE 74.4 pg/mL (0-100)
[2023-02-11 12:26] LABS: Bacteria 0 SEEN /hpf (None Seen); Mucous, Urine 0 SEEN /hpf (<or=2+); Red Blood Cells-Urine 0 SEEN /hpf (0-5); White Blood Cells 0 SEEN /hpf (0-5)
[2023-02-11 12:27] LABS: Color, Urine Yellow (Yellow); Glucose, Dipstick Normal (Normal); Ketone-Dipstick Negative (Negative); Leukocyte Esterase-Dipstick Negative /ul (Negative); Nitrite-Dipstick Negative (Negative); Occult Blood-Urine Negative /ul (Negative); Protein-Dipstick 30 mg/dl (Negative); Specific Gravity, Urine 1.005 (1.002-1.030); Urine Bilirubin Dipstick Negative (Negative); Urine Clarity Clear (Clear); Urine Urobilinogen Normal (Normal)
[2023-02-11 12:32] LABS: Squamous Epithelial Cells - UA 0-5 SEEN /hpf (5-10)
--- NOTE | 2023-02-11 13:03 | CT_ITS ---
STUDY: CTA CHEST REASON FOR EXAM: Female, 82 years old. Abnormal chest x-ray RADIATION DOSAGE (If Supplied By Facility): CTDIvol = ( 11.46 ) mGy, DLP = ( 432.79 ) mGycm TECHNIQUE: The examination was performed with the intravenous administration of IV 100mL [id number]-[id number]. Post-processing of the angiographic images was performed, with multiplanar reformation and 3D reconstruction. Individualized dose optimization techniques were used for this CT. COMPARISON: FINDINGS: There is minimal dependent atelectasis within the lower lobes associated with bibasilar atelectasis and/or scarring. Normal enhancement of the main pulmonary artery and right and left pulmonary arteries. Normal enhancement of the bilateral peripheral pulmonary arteries. There is no demonstrated pulmonary embolism. There is atherosclerotic calcification of the aortic arch and descending thoracic aorta. There is no demonstrated aortic dissection. There are calcifications of the coronary arteries. There is a right-sided central venous catheter in place terminating within the superior vena cava. Normal hilar regions. Normal visualized trachea and bronchi. Normal chest wall structures. There are degenerative changes of thoracic spine. Normal visualized upper abdomen. CT/CTA Chest W/WO Contrast IMPRESSION: No demonstrated pulmonary embolism or arterial dissection. Minimal dependent atelectasis within the lower lobes associated with bibasilar atelectasis and or scarring. Atherosclerosis. Electronically Signed: Liudmila Gusman MD at 14:18 EDT ,
[2023-02-11 13:10] LABS: Reflex Troponin-HS? (from REC) Y
[2023-02-11 14:40] LABS: Troponin-I HS 17 pg/mL (3.0-54.0)
[2023-02-11 14:55] LABS: Magnesium 1.6 mg/dL (1.6-2.6); Phosphorus 2.3 mg/dL (2.5-4.9)
--- NOTE | 2023-02-11 15:00 | PCM.HP.STD ---
HPI - General General Date of Admission: 02/11/23 Date of Service: 02/11/23 Chief Complaint: Generalized weakness, fatigue. Electrolyte abnormality HPI Narrative PEDRITO MONTANA, is a 82 F with recent admission in December 2022 for acute right prosthetic joint infection with MSSA bacteremia and cellulitis came to ED for generalized weakness, fatigue, aches and pain and electrolyte abnormality was found on the lab test. Patient was discharged on 01/16/2023 with a right arm PICC line on IV cefazolin and rifampin with 2 weeks ID follow-up as recommended by ID. Patient feels that she is not getting sufficient physical therapy, does not have good appetite and hurting her right shoulder. About a week ago she hurt her left wrist and Right shoulder without fall or major injury but probably she overdid her PT. She feels sore all over in the back. Right knee does not have much pain, redness or signs of infection. She also has her blood pressure not controlled at home and sometimes it is in 200s and sometimes it bottoms down. Her POA daughter is managing her antihypertensive medications. Initial BP 152/82 in ED but most recent systolic 200 on the monitor. Twelve-lead EKG shows normal sinus rhythm at 90 bpm. QTc 464 ms. She had chest x-ray shoulder x-ray and chest CT which did not show any acute abnormality. [facility] Medical History Abnormal mammogram of right breast Ambulates with cane Arthritis Asthma Asthma Atherosclerosis of coronary artery of [place] heart without angina pectoris Bilateral leg edema Cardiology follow-up encounter Cataracts, bilateral Dietary restriction Diverticulosis Dysmetabolic syndrome X Essential (primary) hypertension Gout History of echocardiogram History of edema History of heart attack History of stress test Hyperlipidemia Hypothyroidism Injury of back Non-smoker Obesity (BMI 30-39.9) Pancreatic cyst PONV (postoperative nausea and vomiting) Primary osteoarthritis of right knee Psoriasis Screening for malignant neoplasm of breast Secondary pulmonary arterial hypertension Shortness of breath on exertion Type 2 diabetes mellitus Wears glasses Wears partial dentures Home Medications fosinopril 40 mg tablet 40 mg PO DAILY BP 06/13/17 [History Last Taken 02/11/23] levothyroxine 75 mcg tablet 75 mcg PO QHS thyroid 06/13/17 [History Last Taken 02/10/23] uncdbbyo-btg-kvrxn acid 0.4 mg-lycopene 300 mcg-lutein 250 mcg tablet (Centrum Silver) 1 tab PO DAILY supplement 07/02/18 [History Last Taken 02/11/23] cholecalciferol (vitamin D3) 25 mcg (1,000 unit) tablet 25 mcg PO DAILY supplement 01/19/22 [History Last Taken 02/11/23] clobetasol 0.05 % topical cream 1 applic topical BID PRN psoriasis 01/19/22 [History Last Taken Unknown] metformin 500 mg tablet,extended release 24 hr 500 mg PO DAILY blood sugar 01/19/22 [History Last Taken 02/11/23] nitroglycerin 0.4 mg sublingual tablet 0.4 mg sublingual Q5-15M PRN CP 01/19/22 [History Last Taken Unknown] pravastatin 40 mg tablet 40 mg PO QHS cholesterol 01/19/22 [History Last Taken 02/10/23] albuterol sulfate 90 mcg/actuation aerosol inhaler 2 puff inhalation Q4H PRN Wheezing #8.5 grams 03/03/22 [Rx Last Taken 02/10/23] budesonide-formoterol HFA 160 mcg-4.5 mcg/actuation aerosol inhaler (Symbicort) 2 puff inhalation BID breathing 03/20/22 [History Last Taken 02/11/23] peg 400-propylene glycol (PF) 0.4 %-0.3 % eye drops in a dropperette (Systane (PF)) 1 drp EACH EYE BID dry eyes 03/20/22 [History Last Taken 02/10/23] amlodipine 10 mg tablet 10 mg PO DAILY BP #90 tabs 07/25/22 [Rx Last Taken 02/10/23] acetaminophen 500 mg tablet 1,000 mg PO Q8H Check with primary doctor 01/10/23 [History Last Taken 02/11/23] hydrochlorothiazide 25 mg tablet 25 mg PO DAILY Check with primary doctor 01/10/23 [History Last Taken 02/11/23] betamethasone, augmented 0.05 % topical cream 1 applic topical BID psoriasis 01/15/23 [History Last Taken Unknown] cefazolin 2 gram intravenous solution 2 g IV Q8H #117 ea 01/15/23 [Rx Last Taken 02/10/23] rifampin 300 mg capsule 300 mg PO BID 40 days #80 caps 01/15/23 [Rx Last Taken 02/11/23] oxycodone 5 mg tablet 5 mg PO Q6H PRN pain 7 days #28 tabs 01/16/23 [Rx Last Taken 2 Weeks Ago ~01/28/23] polyethylene glycol 3350 17 gram oral powder packet 17 g PO DAILY #0 ea 01/16/23 [Rx Last Taken Unknown] doxazosin 4 mg tablet 5 mg PO QHS BP 02/11/23 [History Last Taken 02/10/23] famotidine 20 mg tablet 20 mg PO BID STOMACH 02/11/23 [History Last Taken 02/11/23] Allergy/AdvReac Type Severity Reaction Status Date / Time clindamycin Allergy Rash Verified 01/10/23 17:30 codeine Allergy Hives Verified 01/10/23 17:30 Penicillins [PCN] Allergy Hives Verified 01/10/23 17:30 shellfish derived Allergy hives Verified 01/10/23 17:30 erythromycin base AdvReac Upset Verified 01/10/23 17:30 [Erythromycin Base] Stomach Family History Father Diabetes Hypertension Heart disease Mother Diabetes Hypertension Brother Heart disease Brother Diabetes Brother Hypertension Surgical History History of abdominal hysterectomy (~1968) History of appendectomy (~1968) History of cataract extraction History of colonoscopy History of dilatation and curettage History of left heart catheterization (08/02/18) History of tonsillectomy Status post right knee replacement (~03/29/22) Social History household members: none Smoking Status: Never smoker alcohol intake: current alcohol intake frequency: holidays/special occasions only substance use type: does not use caffeine: Yes Type: coffee Number of servings: 2 what type of physical activity do you participate in: other details: Physical therapy frequency: 1-2 times per week seatbelt use: always ROS ROS Narrative Constitutional: Reports fatigue and weakness. No fever. HEENT: Reports systems reviewed and no addt'l complaints, except as documented Respiratory/Chest: No acute shortness of breath or respiratory distress or wheezing. COPD on inhaler. CVS: No chest pressure or tightness. Gastrointestinal: Denies coffee ground emesis, hematemesis or vomiting. On protein supplement Genitourinary: Mild burning micturition otherwise no acute lower urinary tract symptoms. Musculoskeletal: Chronic joint pain. No recent fall. Rest as mentioned in HPI Neurologic: Denies seizure-like symptoms. No acute strokelike symptoms. skin: No ulcer. No rash Endocrinology: Reports systems reviewed and no addt'l complaints, except as documented Hematologic/Lymphatic: Reports systems reviewed and no addt'l complaints, except as documented Rest 14 ROS are negative except as mentioned in HPI Vital Signs Vital Signs Vital Signs: 02/11/23 10:14 02/11/23 10:33 02/11/23 10:35 Temperature 97.9 F 97.9 F Temperature Source Temporal Oral Pulse Rate 96 96 Pulse Rate [Lying] Pulse Rate [Sitting (for 1 minute prior to obtaining)] Pulse Rate [Standing (for 1 minute prior to obtaining)] Respiratory Rate 16 16 Respiratory Effort Normal Respiratory Pattern Normal Blood Pressure 152/82 H 152/82 H Blood Pressure [Lying] Blood Pressure [Sitting (for 1 minute prior to obtaining)] Blood Pressure [Standing (for 1 minute prior to obtaining)] Blood Pressure Mean 105 105 Blood Pressure Mean [Lying] Blood Pressure Mean [Sitting (for 1 minute prior to obtaining)] Blood Pressure Mean [Standing (for 1 minute prior to obtaining)] Pulse Ox 95 95 Oxygen Delivery Method Room Air Room Air 02/11/23 11:17 02/11/23 11:19 02/11/23 14:17 Temperature Temperature Source Pulse Rate 100 Pulse Rate [Lying] 92 Pulse Rate [Sitting (for 1 minute prior to obtaining)] 98 Pulse Rate [Standing (for 1 minute prior to obtaining)] 105 H Respiratory Rate 16 Respiratory Effort Respiratory Pattern Blood Pressure 186/84 H Blood Pressure [Lying] 158/74 H Blood Pressure [Sitting (for 1 minute prior to obtaining)] 169/105 H Blood Pressure [Standing (for 1 minute prior to obtaining)] 161/95 H Blood Pressure Mean 118 Blood Pressure Mean [Lying] 102 Blood Pressure Mean [Sitting (for 1 minute prior to obtaining)] 126 Blood Pressure Mean [Standing (for 1 minute prior to obtaining)] 117 Pulse Ox 95 Oxygen Delivery Method Room Air Room Air Weight Weight: 220 lb Body Mass Index (BMI) 36.6 Physical Exam Narrative General: Alert, Oriented x3, Cooperative, morbid obesity BMI 36.6 kg/m?. HEENT: Atraumatic, PERRLA, EOMI, Normocephalic Oral: Oral mucosa dry. No Gingival or Mucosal Lesions/ Ulcerations Neck: Supple, No JVD, Negative Carotid Bruits Lungs: Air entry diminished in bilateral lung bases. No crepitation/rhonchi Cardiovascular: Regular rate, Regular Rhythm, Normal S1, Normal S2, No murmurs Abdomen: Bowel Sounds Present, Soft, Non Tender, Non-Distended : No renal angle tenderness. No suprapubic tenderness. Extremities: No edema, Capillary Refill Less than 3 Seconds Skin: Right TKR skin healing well. Isolated petechial rash over dorsum of right foot otherwise no other rash in the body Musculoskeletal: No acute tenderness or redness over right prosthetic joint knee. No acute signs history of infection. Neurological: Cranial nerves II-XII grossly intact, DTR 2+/4, neuro grossly intact Psych/Mental Status: Normal Affect, Appropriate. Results Lab / Micro Data Result Diagrams: 02/11/23 11:07 02/11/23 11:07 Labs: Laboratory Results - last 24 hr 02/11/23 11:07: WBC 12.0 H, RBC 3.35 L, Hgb 10.2 L, Hct 28.9 L, MCV 86.3, MCH 30.4, MCHC 35.3, RDW Std Deviation 40.7, RDW Coeff of Braden 13.2, Plt Count 332, MPV 8.2, Immature Gran % (Auto) 1.200 H, Neut % (Auto) 77.3 H, Lymph % (Auto) 6.4 L, [place] % (Auto) 10.3 H, Eos % (Auto) 4.2, Baso % (Auto) 0.6, Absolute Neuts (auto) 9.3 H, Absolute Lymphs (auto) 0.77 L, Nucleated RBC % 0 02/11/23 11:07: Sodium 123 L, Potassium 2.8 L, Chloride 86 L, Carbon Dioxide 28.0, Anion Gap 9, BUN 28 H, Creatinine 0.90, Estim Creat Clear Calc 41.87, Est GFR (MDRD) Af Amer 76, Est GFR (MDRD) Non-Af 63, BUN/Creatinine Ratio 31.0 H, Glucose 194 H, Calcium 9.0, Magnesium 1.6, Total Bilirubin 0.30, AST 14 L, ALT 7 L, Alkaline Phosphatase 84, Troponin I High Sens 17, Total Protein 6.4, Albumin 2.3 L, Globulin 4.1, Albumin/Globulin Ratio 0.6 L 02/11/23 11:07: B-Natriuretic Peptide 74.4 02/11/23 11:07: Phosphorus 2.3 L, Magnesium 1.6 02/11/23 12:22: Urine Color Yellow, Urine Clarity Clear, Urine pH 7.0, Ur Specific [place] 1.005, Urine Protein 30 H, Urine Glucose (UA) Normal, Urine Ketones Negative, Urine Occult Blood Negative, Urine Nitrite Negative, Urine Bilirubin Negative, Urine Urobilinogen Normal, Ur Leukocyte Esterase Negative, Urine RBC 0 SEEN, Urine WBC 0 SEEN, Ur Squamous Epith Cells 0-5 SEEN, Urine Bacteria 0 SEEN, Urine Mucus 0 SEEN 02/11/23 14:16: Troponin I High Sens 17 Radiology Impression Shoulder X-Ray 02/11/23 10:55 IMPRESSION: No acute fracture or dislocation. Moderate glenohumeral joint arthrosis Electronically Signed: Ralph Jay MD at 12:31 EDT , Chest X-Ray 02/11/23 11:10 IMPRESSION: Indeterminate nodular opacities within the lower lungs which may be secondary to accomplish the shadows however cannot exclude pulmonary nodules, recommend PA and lateral images or chest CT for further characterization. Electronically Signed: Liudmila Gusman MD at 12:32 EDT , Chest CTA 02/11/23 13:03 IMPRESSION: No demonstrated pulmonary embolism or arterial dissection. Minimal dependent atelectasis within the lower lobes associated with bibasilar atelectasis and or scarring. Atherosclerosis. Electronically Signed: Liudmila Gusman MD at 14:18 EDT , Assessment & Plan Assessment/Plan (1) Failure to thrive: (2) Hyponatremia: (3) Hypokalemia: PLAN: Plan The patient is an 82 y/o F came to ED for generalized weakness, inadequate diet, not able to do adequate PT and electrolyte abnormality. 1. Generalized weakness, failure to thrive and electrolyte abnormality: Patient is being admitted to PCU on cardiac telemetry. Serum sodium is 123 suspected hypotonic isovolumetric hyponatremia. Patient does not have history of hypovolemia/loss of fluid. Hypokalemia, potassium 2.8. I think her electrolyte abnormality is due to supplemental protein formula, Ensure and milk chocolate. Her sugars are also high. PT and OT and cabinet mounter and dependency case manager consult for discharge planning. IV fluid normal saline with IV potassium replacement. Serum magnesium and phosphorus ordered. #1. Recent acute right prosthetic joint infection with MSSA bacteremia with cellulitis : Patient has mild leukocytosis 12,000 otherwise no fever or acute signs and symptoms of history of active infection. Right knee does not have tenderness or features suggestive of cellulitis or infection. Continue IV cefazolin and rifampin. ID consult as patient did not had outpatient follow-up. Patient has mild purpura over right dorsal foot. Does not have other regions of purpura or ecchymosis or other signs of bleeding. She had extensive work-up including echo for MSSA bacteremia during previous admission. #2.? CAD: Patient had cardiac catheterization 2018 w/ EF 60%, apical akinesis, normal left main trunk, left anterior descending artery with mild luminal irregularities in circumflex and right coronary artery with no significant stenosis with distal LAD was occluded with medical therapy decision at that time. ? continue aspirin, statin, labetalol, lisinopril home regimen. #3.? Chronic asthma: ? budesonide therapy, PRN albuterol, incentive spirometry. #4.? Diabetes mellitus type II with uncontrolled hyperglycemia: Glucose in BMP is 194. Continue metformin. Accu-Cheks before meals and cover with Humalog sliding scale. Glucose elevated probably due to high glucose content in protein shake. #5.? Hypertension with uncontrolled blood pressure/labile hypertension: Hold HCTZ. Continue amlodipine fosinopril and doxazosin and labetalol. No monitor BP and titrate the dose of antihypertensive accordingly. #6.? Hyperlipidemia: continue patient on statin therapy. #7.? Hypothyroidism:continue patient home levothyroxine regimen. TSH tomorrow AM #8.? Obesity: Weight loss and lifestyle changes encouraged. #9.?? DVT prophylaxis: SCDs, hold on chemoprophylaxis given pending cultures for possible or needs. #10.? CODE status: Living will/advanced directive/end of life care: Patient's daughter present in ED is POA. Patient does not have living will or advanced directive. After discussion of benefits/risks procedures involved with full code, DNR CC arrest and DNR CC, the patient opted for full code. Patient does want artificial life support including intubation, tube feed, ventilator and/chest compression, central venous catheter, vasopressor and DC shock if needed Total time spent in [id number] encounter in discussion of advanced directive 17 minutes. Clinical Impression(s) from Imaging Studies Shoulder X-Ray 02/11/23 10:55 IMPRESSION: No acute fracture or dislocation. Moderate glenohumeral joint arthrosis Chest X-Ray 02/11/23 11:10 IMPRESSION: Indeterminate nodular opacities within the lower lungs which may be secondary to accomplish the shadows however cannot exclude pulmonary nodules, recommend PA and lateral images or chest CT for further characterization. Chest CTA 02/11/23 13:03 IMPRESSION: No demonstrated pulmonary embolism or arterial dissection. Minimal dependent atelectasis within the lower lobes associated with bibasilar atelectasis and or scarring. Atherosclerosis. Charges/Coding Visit Charges Inpatient E&M: 61047 Init Hosp L3 Procedures Hospitalists Procedures: 27006 Advncd Care Plan 30 Min
[2023-02-11] MEDS: Potassium Chloride 10mEq/100mL 10 MEQ/100 ML IV.SOLN. 100 MEQ IV BOLUS ×4 (15:13→18:51)
[2023-02-11] MEDS: amLODIPine 10 MG Tablet PO (17:50)
[2023-02-11] MEDS: Budesonide Respules 0.5 MG/2 ML AMPUL.NEB. INHALATION (19:42)
[2023-02-11] MEDS: Albuterol 2.5 MG/3 ML VIAL.NEB. INHALATION (19:42)
[2023-02-11] MEDS: Cefazolin 2 GM in 0.9% Normal Saline 100 ML IV (22:57)
[2023-02-11] MEDS: Doxazosin 4 MG Tablet PO (22:58)
[2023-02-11] MEDS: Pravastatin 40 MG Tablet PO (22:59)
--- NOTE | 2023-02-11 23:00 | NURSING ---
Pt refused her HS labetolol 300mg because she stated she had been taking the labetolol and cardura at home and her blood pressure would drop low. She stated it dropped to 80/50 last week at home.
[2023-02-11] MEDS: rifAMPin 300 MG Capsule PO (23:05)
[2023-02-11] MEDS: Acetaminophen 500 MG Tablet 1000 MG PO (23:05)
[2023-02-12] VITALS (11 sets, daily range): BP systolic 146–214; BP diastolic 70–98; PULSE 88–98; RESP 16–20; TEMP 36.4–36.9; O2SAT 94–98
[2023-02-12] MEDS: Cefazolin 2 GM in 0.9% Normal Saline 100 ML IV ×3 (05:04→22:08)
[2023-02-12] MEDS: guaiFENesin Dm 10 ML UDC PO ×3 (05:04→17:33)
[2023-02-12] MEDS: Levothyroxine 75 MCG Tablet PO (05:05)
[2023-02-12] MEDS: Acetaminophen 500 MG Tablet 1000 MG PO ×3 (05:05→21:42)
[2023-02-12 06:01] LABS: Absolute Lymphocyte Count 0.73 X10^3/uL (0.83-4.51); Absolute Neutrophil Count 6.7 X10^3/uL (2.0-7.7); Basophil# 0.08 X10^3/uL; Basophil% 0.8 % (0-1); Eosinophil# 0.85 X10^3/uL; Hematocrit 28.5 % (37-47); Hemoglobin 9.7 g/dL (12.0-15.0); Lymphocyte # 0.73 X10^3/ul (0.83-4.51); Lymphocyte % 7.7 % (19-41); Mean Corpuscular Hgb 29.9 pg (27.0-32.0); Monocyte# 1.02 X10^3/uL; Monocyte% 10.8 % (0-10); NRBC Flagged by Analyzer 0 % (0-5); Neutrophil # 6.66 X10^3/uL (2.7-7.7); Neutrophil % 70.5 % (47-70); Platelet Count 318 K/mm3 (150-450); RBC Distribution Width CV 13.3 % (11.6-14.6); RBC Distribution Width SD 42.7 fl (35.1-43.9); Red Blood Count 3.24 M/mm3 (4.2-5.4); White Blood Count 9.5 K/mm3 (4.4-11.0)
[2023-02-12 06:38] LABS: Anion Gap 9 (5-15); BUN 17 mg/dL (7-18); BUN/Creat Ratio 22.2 RATIO (10-20); Calcium,Total 8.8 mg/dL (8.5-10.1); Chloride 93 mmol/L (98-107); Creatinine, Serum 0.77 mg/dL (0.55-1.02); EST Glomerular Filtration Rate 76 mL/min (>60); Est Glom Filt Rate - Afr Amer 92 mL/min (>60); Estimated Creatinine Clearance 37.68 ml/min; Glucose 185 mg/dL (74-106); Potassium 3.4 mmol/L (3.5-5.1); Sodium Level 126 mmol/L (136-145); Thyroid Stim Hormone (TSH) 2.42 uIU/mL (0.358-3.74)
[2023-02-12] MEDS: Budesonide Respules 0.5 MG/2 ML AMPUL.NEB. INHALATION ×2 (06:50→19:18)
[2023-02-12] MEDS: Albuterol 2.5 MG/3 ML VIAL.NEB. INHALATION ×2 (06:51→11:47)
[2023-02-12] MEDS: amLODIPine 10 MG Tablet PO (09:02)
[2023-02-12] MEDS: Multivitamins,Ther W-Minerals Tablet 1 TABLET PO (09:03)
[2023-02-12] MEDS: Cholecalciferol (VIT D3) 25 MCG TABLET (1,000 UNITS) PO (09:03)
[2023-02-12] MEDS: metFORMIN (XR) 500 MG Tablet PO (09:03)
[2023-02-12] MEDS: Lisinopril 40 MG Tablet PO (09:04)
[2023-02-12] MEDS: Aspirin 81 MG TAB.CHEW PO (09:05)
[2023-02-12] MEDS: rifAMPin 300 MG Capsule PO (09:16)
[2023-02-12] MEDS: Glycerin/Hypromellose/PEG400 15 ml Bottle 1 DRP EACH EYE (09:17)
[2023-02-12] MEDS: Potassium Chloride Oral Tablet 20 MEQ 60 MEQ PO (09:17)
[2023-02-12] MEDS: Triamcinolone 0.5% Cream 1 APPLIC TOPICAL ×2 (09:17→21:41)
[2023-02-12] MEDS: Famotidine 20 MG Tablet PO ×2 (09:17→21:40)
[2023-02-12] MEDS: hydrALAZINE 25 MG Tablet PO (13:43)
--- NOTE | 2023-02-12 14:34 | PCM.CONS.GEN ---
Assessment & Plan Assessment/Plan (1) Infection of prosthetic right knee joint: PLAN: MSSA bacteremia with R knee PJI - taken to OR 01/11/[address] Arriola for I&D and poly exchange.? H/o hives with PCN, tolerated cefazolin.? Repeat bcx cleared rapidly by 01/12.? TTE showed no veg. Discharged on 6 weeks iv cefazolin, stop date 02/22/23 and weekly labs, with po rifampin for biofilm penetration.? Will stop rifampin to see if it was contributing to nausea and abnormal labs. Once IV abx are complete, plan will be for long course po doxy 100mg bid. Will follow. Thank you. HPI Consult Data Date of Consult: 02/12/23 HPI Narrative Reason for Consultation: PJI HPI Narrative: PEDRITO MONTANA, is a 82 F who was admitted 12/2022 with MSSA bacteremia complicated by R knee PJI. Taken to OR 01/11/[address] Arriola for I&D and poly exchange. Discharged on iv cefazolin and po rifampin, planned IV stop date 02/22/23. Knee improved, incision healed well, but admitted due to poor appetite, nausea, not feeling well at home, has lost 10lbs. Labs showed some electrolyte abnormalities. Feeling better here with meds and IV fluids. No fever. No issues with picc. Full ROS performed and neg except as noted above. [facility] Medical History Abnormal mammogram of right breast Ambulates with cane Arthritis Asthma Asthma Atherosclerosis of coronary artery of [place] heart without angina pectoris Bilateral leg edema Cardiology follow-up encounter Cataracts, bilateral Dietary restriction Diverticulosis Dysmetabolic syndrome X Essential (primary) hypertension Gout History of echocardiogram History of edema History of heart attack History of stress test Hyperlipidemia Hypothyroidism Injury of back Non-smoker Obesity (BMI 30-39.9) Pancreatic cyst PONV (postoperative nausea and vomiting) Primary osteoarthritis of right knee Psoriasis Screening for malignant neoplasm of breast Secondary pulmonary arterial hypertension Shortness of breath on exertion Type 2 diabetes mellitus Wears glasses Wears partial dentures Home Medications fosinopril 40 mg tablet 40 mg PO DAILY BP 06/13/17 [History Last Taken 02/11/23] levothyroxine 75 mcg tablet 75 mcg PO QHS thyroid 06/13/17 [History Last Taken 02/10/23] liapdkjh-zil-jplry acid 0.4 mg-lycopene 300 mcg-lutein 250 mcg tablet (Centrum Silver) 1 tab PO DAILY supplement 07/02/18 [History Last Taken 02/11/23] cholecalciferol (vitamin D3) 25 mcg (1,000 unit) tablet 25 mcg PO DAILY supplement 01/19/22 [History Last Taken 02/11/23] clobetasol 0.05 % topical cream 1 applic topical BID PRN psoriasis 01/19/22 [History Last Taken Unknown] metformin 500 mg tablet,extended release 24 hr 500 mg PO DAILY blood sugar 01/19/22 [History Last Taken 02/11/23] nitroglycerin 0.4 mg sublingual tablet 0.4 mg sublingual Q5-15M PRN CP 01/19/22 [History Last Taken Unknown] pravastatin 40 mg tablet 40 mg PO QHS cholesterol 01/19/22 [History Last Taken 02/10/23] albuterol sulfate 90 mcg/actuation aerosol inhaler 2 puff inhalation Q4H PRN Wheezing #8.5 grams 03/03/22 [Rx Last Taken 02/10/23] budesonide-formoterol HFA 160 mcg-4.5 mcg/actuation aerosol inhaler (Symbicort) 2 puff inhalation BID breathing 03/20/22 [History Last Taken 02/11/23] peg 400-propylene glycol (PF) 0.4 %-0.3 % eye drops in a dropperette (Systane (PF)) 1 drp EACH EYE BID dry eyes 03/20/22 [History Last Taken 02/10/23] amlodipine 10 mg tablet 10 mg PO DAILY BP #90 tabs 07/25/22 [Rx Last Taken 02/10/23] acetaminophen 500 mg tablet 1,000 mg PO Q8H Check with primary doctor 01/10/23 [History Last Taken 02/11/23] hydrochlorothiazide 25 mg tablet 25 mg PO DAILY Check with primary doctor 01/10/23 [History Last Taken 02/11/23] betamethasone, augmented 0.05 % topical cream 1 applic topical BID psoriasis 01/15/23 [History Last Taken Unknown] cefazolin 2 gram intravenous solution 2 g IV Q8H #117 ea 01/15/23 [Rx Last Taken 02/10/23] rifampin 300 mg capsule 300 mg PO BID 40 days #80 caps 01/15/23 [Rx Last Taken 02/11/23] oxycodone 5 mg tablet 5 mg PO Q6H PRN pain 7 days #28 tabs 01/16/23 [Rx Last Taken 2 Weeks Ago ~01/28/23] polyethylene glycol 3350 17 gram oral powder packet 17 g PO DAILY #0 ea 01/16/23 [Rx Last Taken Unknown] doxazosin 4 mg tablet 5 mg PO QHS BP 02/11/23 [History Last Taken 02/10/23] famotidine 20 mg tablet 20 mg PO BID STOMACH 02/11/23 [History Last Taken 02/11/23] Allergy/AdvReac Type Severity Reaction Status Date / Time clindamycin Allergy Rash Verified 01/10/23 17:30 codeine Allergy Hives Verified 01/10/23 17:30 Penicillins [PCN] Allergy Hives Verified 01/10/23 17:30 shellfish derived Allergy hives Verified 01/10/23 17:30 erythromycin base AdvReac Upset Verified 01/10/23 17:30 [Erythromycin Base] Stomach Family History Father Diabetes Hypertension Heart disease Mother Diabetes Hypertension Brother Heart disease Brother Diabetes Brother Hypertension Surgical History History of abdominal hysterectomy (~1968) History of appendectomy (~1968) History of cataract extraction History of colonoscopy History of dilatation and curettage History of left heart catheterization (08/02/18) History of tonsillectomy Status post right knee replacement (~03/29/22) Social History household members: none Smoking Status: Never smoker alcohol intake: current alcohol intake frequency: holidays/special occasions only substance use type: does not use caffeine: Yes Type: coffee Number of servings: 2 what type of physical activity do you participate in: other details: Physical therapy frequency: 1-2 times per week seatbelt use: always Physical Exam Const alert, oriented x3 and no apparent distress General Appearance: cooperative HEENT normocephalic and head/scalp atraumatic Eyes PERRL and EOMs intact bilaterally Neck supple and No nodes Resp normal air movement and clear to auscultation bilaterally Cardio regular rate and regular rhythm GI soft to palpation, non-tender and non-distended Extremity General Extremity: Negative for edema Skin Skin Narrative: Mild R knee swelling, no redness or drainage from incision Neuro CN's II-XII intact bilaterally Lab / Micro Data Attestation: I reviewed the patient's lab results. Result Diagrams: 02/12/23 05:51 02/12/23 05:51 Labs: Laboratory Results - last 24 hr 02/11/23 11:07: Phosphorus 2.3 L, Magnesium 1.6 02/11/23 14:16: Troponin I High Sens 17 02/12/23 05:51: WBC 9.5, RBC 3.24 L, Hgb 9.7 L, Hct 28.5 L, MCV 88.0, MCH 29.9, MCHC 34.0, RDW Std Deviation 42.7, RDW Coeff of Braden 13.3, Plt Count 318, MPV 8.0, Immature Gran % (Auto) 1.200 H, Neut % (Auto) 70.5 H, Lymph % (Auto) 7.7 L, Gem % (Auto) 10.8 H, Eos % (Auto) 9.0 H, Baso % (Auto) 0.8, Absolute Neuts (auto) 6.7, Absolute Lymphs (auto) 0.73 L, Nucleated RBC % 0 02/12/23 05:51: Sodium 126 L, Potassium 3.4 L, Chloride 93 L, Carbon Dioxide 24.0, Anion Gap 9, BUN 17, Creatinine 0.77, Estim Creat Clear Calc 37.68, Est GFR (MDRD) Af Amer 92, Est GFR (MDRD) Non-Af 76, BUN/Creatinine Ratio 22.2 H, Glucose 185 H, Calcium 8.8, TSH 2.42
--- NOTE | 2023-02-12 16:10 | CASEMGMT ---
AKANKSHA FUENTES in to complete [employer]LE[employer] form with patient, patient sleeping daughter Surekha at bedside. AKANKSAH FUENTES explained [employer]LE[employer] Form to daughter, daughter voiced understanding. Daughter signed [employer]LE[employer] form and filed in chart. Patient provided with copy of signed [employer] Form. Discharge plan discussed with daughter, plan is for patient to return home with resumption of HHC and IV ATBs. Daughter had no further questions or concerns at this time .
--- NOTE | 2023-02-12 16:32 | PN.HOSP_ITS ---
Reason for Visit Reason for Visit: Generalized weakness/fatigue Subjective Subjective Mrs. Murphy is an 82-year-old white female who had a recent admission from 01/10/2023 through 01/16/2022 at which time she presented with right knee pain, redness and the inability to move or bear weight on her right lower extremity. 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 At discharge she was placed on IV cefazolin and rifampin for biofilm penetration for a total of 6 weeks and was able to be discharged home in stable condition on 01/16/2023. She represented to the emergency department on 02/11/2023 with generalized weakness and fatigue. She evidently was doing quite well but over the last 2 days prior to admission she had decreased po intake, weakness and fatigue. She was found to have hypona tremia with a Na 123 and a potassium 2.8. She is on hydrochlorothiazide which was actually held during her last hospitalization while she was here as she had some postoperative hypotension. Her blood pressures have also been somewhat labile at home per discussion with the daughter. She has not had any low pressures here and is on all her antihypertensive medications sans the hydrochlorothiazide due to her presentation with hyponatremia and hypokalemia. Patient states she is feeling stronger and better today. I would like to give another 24 more hours off the hydrochlorothiazide and replace her potassium further. Her sodium is tending up as is her potassium however neither are normalized as of yet. ID did evaluate the patient and discontinued her rifampin to see if it is contributing to her nausea and abnormal labs and the plan for antibiotic therapy after her IV course is completed is doxycycline 100 mg p.o. twice daily. Objective Data Objective Data Vital Signs: Vital Signs Temp Pulse Resp BP Pulse Ox O2 Del Method 97.6 F L 98 18 181/79 H 98 Room Air 02/12/23 16:30 02/12/23 16:30 02/12/23 16:30 02/12/23 16:30 02/12/23 16:30 02/12/23 16:30 Oxygen Delivery Method Room Air Weight: 98.061 kg Body Mass Index (BMI) 35.9 Intake & Output: Intake and Output for Last 24 Hours 02/10/23 02/11/23 02/12/23 23:59 23:59 23:59 Intake Total 1750 / 1750 1715 / 1715 Balance 1750 / 1750 1715 / 1715 Lab / Micro Data Result Diagrams: 02/12/23 05:51 02/12/23 05:51 Labs: Laboratory Results - last 24 hr 02/12/23 05:51: WBC 9.5, RBC 3.24 L, Hgb 9.7 L, Hct 28.5 L, MCV 88.0, MCH 29.9, MCHC 34.0, RDW Std Deviation 42.7, RDW Coeff of Braden 13.3, Plt Count 318, MPV 8.0, Immature Gran % (Auto) 1.200 H, Neut % (Auto) 70.5 H, Lymph % (Auto) 7.7 L, Addison % (Auto) 10.8 H, Eos % (Auto) 9.0 H, Baso % (Auto) 0.8, Absolute Neuts (auto) 6.7, Absolute Lymphs (auto) 0.73 L, Nucleated RBC % 0 02/12/23 05:51: Sodium 126 L, Potassium 3.4 L, Chloride 93 L, Carbon Dioxide 24.0, Anion Gap 9, BUN 17, Creatinine 0.77, Estim Creat Clear Calc 37.68, Est GFR (MDRD) Af Amer 92, Est GFR (MDRD) Non-Af 76, BUN/Creatinine Ratio 22.2 H, Glucose 185 H, Calcium 8.8, TSH 2.42 Physical Exam Const alert, oriented x3, no apparent distress and well nourished Constitutional Narrative: Obese, elderly, white female, sitting up in bed, appears comfortable nontoxic, family at bedside HEENT head/scalp atraumatic HEENT Narrative: Mucous membranes are moist, Mallampati is 2-3, no thrush Head and Scalp: normocephalic Resp normal respiratory effort, no retractions, no use of accessory muscles and clear to auscultation bilaterally Auscultation: Negative for rales, rhonchi or wheezes Cardio regular rate, regular rhythm, S1 normal heart sound, S2 normal heart sound, no murmurs, no rub and no gallops GI normal to inspection, nondistended, normoactive bowel sounds, soft to palpation and non-tender Extremity no clubbing, cyanosis or edema Extremity Narrative: PICC right upper extremity-dressing intact, clean dry and dry, no significant rash on right knee Neuro oriented x3, CN's II-XII intact bilaterally, moves all extremities and no focal motor deficits Speech: speech normal Psych affect normal Psych Narrative: Very pleasant, appropriate Assessment & Plan Assessment/Plan (1) Hypokalemia: (2) Hyponatremia: (3) Generalized weakness: PLAN: Plan Hyponatremia -Suspect this was related to her HCTZ along with decreased p.o. intake -Continue to hold hydrochlorothiazide and will discontinue at discharge -Sodium is trending up -We will discontinue IV fluids -Repeat lab in a.m. -Discontinue HCTZ at discharge and will place as an allergy with hyponatremia Hypokalemia -Potassium is 3.4 today and improved from 2.8 on admission -60 mill equivalents redosed -Repeat lab in a.m. 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 twice daily following -With right upper extremity PICC line in place -He has evaluated the patient here and discontinued her rifampin as he is concerned that it might be contributing to her nausea and decreased oral intake -Continue physical therapy -We will continue with home health after discharge History of psoriasis -Recommend continued outpatient follow-up CAD/HTN/HPL -cardiac catheterization 2017 w/ EF 60%, apical akinesis, normal left main trunk, left anterior descending artery with mild luminal irregularities in circumflex and right coronary artery with no significant stenosis with distal LAD was occluded with medical therapy decision at that time -Continue statin -Continue antihypertensives as ordered -Will stop HCTZ at discharge -Hydralazine 25 mg 3 times daily added but blood pressures are still elevated above where I would like to see them so we will increase to 50 3 times daily -Continue to trend blood pressures -Continue aspirin 81 mg p.o. twice daily for DVT prophylaxis and then after 4 weeks from 01/11/2023 patient okay to go back to 81 mg daily -Echo performed with MSSA bacteremia shows an EF of 60 to 65% with normal LV systolic function, grade 1 diastolic dysfunction and no significant valvular abnormalities Hypothyroidism -Continue home levothyroxine Gout -Not on any chronic medication -Monitor clinically History of asthma -Continue budesonide therapy -As needed albuterol -I-S DM-2 -Blood sugars are currently controlled -Continue to hold home oral regimen -Continue sliding scale -Continue Accu-Cheks as ordered DVT prophylaxis -Aspirin 81 mg p.o. twice daily as orthopedic surgery has recommended -We will utilize enoxaparin until discharged CODE STATUS -DNR CCA without intubation Charges/Coding Visit Charges Inpatient E&M: 94527 Subs Hosp L2
[2023-02-12] MEDS: Enoxaparin 40 MG/0.4 ML Syringe SC (17:29)
--- NOTE | 2023-02-12 19:22 | CPS ---
Addendum entered and electronically signed by Albino Bates 02/12/23 21:56: Patient also refused Albuterol Tx Original Note: Patient refused med after Pulmicort was opened.
[2023-02-12] MEDS: 0.9% Saline Lock 10 ML Syringe IV ×2 (19:34→22:04)
[2023-02-12] MEDS: BUDESONIDE/FORMOTEROL 160/4.5 1 PUFF INHALER INHALATION (20:42)
[2023-02-12] MEDS: Pravastatin 40 MG Tablet PO (21:39)
[2023-02-12] MEDS: Doxazosin 4 MG Tablet PO (21:40)
[2023-02-13] VITALS (11 sets, daily range): BP systolic 143–195; BP diastolic 55–96; PULSE 94–107; RESP 16–20; TEMP 36.5–37.1; O2SAT 95–98
[2023-02-13] MEDS: hydrALAZINE 25 MG Tablet 50 MG PO ×4 (00:06→20:45)
[2023-02-13] MEDS: hydrOXYzine 10 MG Tablet PO (03:00)
[2023-02-13] MEDS: guaiFENesin Dm 10 ML UDC PO ×2 (04:14→20:54)
[2023-02-13] MEDS: Levothyroxine 75 MCG Tablet PO (05:31)
[2023-02-13] MEDS: Acetaminophen 500 MG Tablet 1000 MG PO ×3 (05:31→20:39)
[2023-02-13] MEDS: Cefazolin 2 GM in 0.9% Normal Saline 100 ML IV ×3 (05:51→21:00)
[2023-02-13] MEDS: 0.9% Saline Lock 10 ML Syringe IV ×5 (05:56→20:50)
[2023-02-13 07:52] LABS: Anion Gap 5 (5-15); BUN 9 mg/dL (7-18); BUN/Creat Ratio 15.1 RATIO (10-20); Calcium,Total 8.7 mg/dL (8.5-10.1); Chloride 92 mmol/L (98-107); EST Glomerular Filtration Rate 102 mL/min (>60); Est Glom Filt Rate - Afr Amer 123 mL/min (>60); Estimated Creatinine Clearance 37.68 ml/min; Glucose 153 mg/dL (74-106); Potassium 4.2 mmol/L (3.5-5.1); Sodium Level 124 mmol/L (136-145)
[2023-02-13] MEDS: Ondansetron 4 MG/2 ML Vial IV (09:01)
[2023-02-13] MEDS: Aspirin 81 MG TAB.CHEW PO ×2 (09:18→17:38)
[2023-02-13] MEDS: metFORMIN (XR) 500 MG Tablet PO (09:18)
[2023-02-13] MEDS: Ascorbic Acid 500 MG Tablet PO (09:19)
[2023-02-13] MEDS: Lisinopril 40 MG Tablet PO (09:19)
[2023-02-13] MEDS: Cholecalciferol (VIT D3) 25 MCG TABLET (1,000 UNITS) PO (09:19)
[2023-02-13] MEDS: Famotidine 20 MG Tablet PO ×2 (09:20→20:37)
[2023-02-13] MEDS: Polyethylene Glycol 3350 17 GM PACKET PO (09:22)
[2023-02-13] MEDS: Multivitamins,Ther W-Minerals Tablet 1 TABLET PO (09:22)
[2023-02-13] MEDS: Enoxaparin 40 MG/0.4 ML Syringe SC (09:22)
[2023-02-13] MEDS: Glycerin/Hypromellose/PEG400 15 ml Bottle 1 DRP EACH EYE (09:23)
[2023-02-13] MEDS: amLODIPine 10 MG Tablet PO (09:24)
[2023-02-13] MEDS: BUDESONIDE/FORMOTEROL 160/4.5 1 PUFF INHALER INHALATION (09:25)
[2023-02-13] MEDS: Triamcinolone 0.5% Cream 1 APPLIC TOPICAL ×2 (09:27→20:39)
--- NOTE | 2023-02-13 10:29 | PCM.PN.ID ---
Physical Exam Narrative Feeling a little worse today, trouble sleeping, didn't eat much breakfast Const alert and no apparent distress General Appearance: cooperative Resp normal air movement and clear to auscultation bilaterally Cardio regular rate and regular rhythm GI soft to palpation, non-tender and non-distended Skin no rashes or lesions noted ID ID: Route of nutrition/ use of supplements: [] Nutritional Intake: [] IV Site: [] Quesada Catheter: [] Assessment & Plan Assessment/Plan (1) Infection of prosthetic right knee joint: PLAN: MSSA bacteremia with R knee PJI - taken to OR 01/11/[address] Arriola for I&D and poly exchange.? H/o hives with PCN, tolerated cefazolin.? Repeat bcx cleared rapidly by 01/12.? TTE showed no veg. Discharged on 6 weeks iv cefazolin, stop date 02/22/23 and weekly labs, with po rifampin for biofilm penetration.? 02/12 stopped rifampin to see if it was contributing to nausea and abnormal labs. Once IV abx are complete, plan will be for long course po doxy 100mg bid. ID followup in 2 weeks. Wrote for updated outpt iv abx and labs. Will follow. D/w correctional casework specialist
--- NOTE | 2023-02-13 11:02 | CASEMGMT ---
Discharge Planning Resumption of services sent to both [facility] an [facility] via [facility]. Ashley Dee, Discharge Planning Asst.
[2023-02-13] MEDS: Albuterol IH (6.7 GM) 1 PUFF INHALER 2 PUFF INHALATION (13:01)
[2023-02-13] MEDS: 0.9% Normal Saline 1,000 ML 100 ML IV (13:06)
--- NOTE | 2023-02-13 13:20 | RAD_ITS ---
EXAM: XR RIGHT HAND COMPLETE, 3 OR MORE VIEWS CLINICAL INDICATION: pain TECHNIQUE: Frontal, lateral and oblique views of the right hand. COMPARISON: No relevant prior studies available. FINDINGS: BONES/JOINTS: There are degenerative changes with narrowing of the first carpometacarpal joint. There are also degenerative changes with narrowing of the distal interphalangeal joints of the fingers. No acute fracture. No subluxation. Normal alignment. No sclerotic or destructive changes observed. SOFT TISSUES: Unremarkable. No soft tissue swelling or gas. No radiopaque foreign body. RAD/Hand Min 3 Views IMPRESSION: 1. No acute osseous abnormalities. 2. Degenerative changes with narrowing sclerosis of the first carpometacarpal joint as well as the interphalangeal joints. Electronically Signed: Timbo Diehl MD at 17:25 EDT ,
[2023-02-13] MEDS: Haloperidol Lactate 5 MG/ML Vial 1 MG IV (13:21)
[2023-02-13] MEDS: predniSONE 20 MG Tablet PO (13:24)
[2023-02-13 13:59] LABS: Osmolality, Urine 464 mOsm/KG
[2023-02-13 13:59] LABS: Anion Gap 9 (5-15); BUN 10 mg/dL (7-18); Chloride 89 mmol/L (98-107); Creatinine, Serum 0.77 mg/dL (0.55-1.02); EST Glomerular Filtration Rate 76 mL/min (>60); Est Glom Filt Rate - Afr Amer 92 mL/min (>60); Estimated Creatinine Clearance 37.68 ml/min; Glucose 158 mg/dL (74-106); Osmolality, Serum 255 mOsm/KG (280-301); Potassium 4.3 mmol/L (3.5-5.1); Sodium Level 122 mmol/L (136-145); Uric Acid 3.3 mg/dL (2.6-6.0)
--- NOTE | 2023-02-13 15:18 | PCM.PN.HOSP ---
Reason for Visit Reason for Visit: Generalized weakness/fatigue Subjective Subjective Patient stated she was feeling really good yesterday and now feeling worse today. Sodium has dropped again since discontinuing IV fluids. P.o. intake has been 4 and patient has had ongoing nausea. Further work-up is currently pending for her hyponatremia. She also is complaining of right hand pain. She states has been ongoing for a while and feels like her previous episodes of gout. Objective Data Objective Data Vital Signs: Vital Signs Temp Pulse Resp BP Pulse Ox O2 Del Method O2 Flow Rate 97.7 F L 107 H 19 H 146/55 H 95 Room Air 0 02/13/23 13:11 02/13/23 13:25 02/13/23 13:11 02/13/23 13:25 02/13/23 13:11 02/13/23 13:11 02/13/23 13:11 Oxygen Flow Rate (L/min) 0 Oxygen Delivery Method Room Air Weight: 98.061 kg Body Mass Index (BMI) 35.9 Intake & Output: Intake and Output for Last 24 Hours 02/11/23 02/12/23 02/13/23 23:59 23:59 23:59 Intake Total 1750 / 1750 2970 / 3270 1120 / 1120 Balance 1750 / 1750 2970 / 3270 1120 / 1120 Lab / Micro Data Result Diagrams: 02/12/23 05:51 02/13/23 12:45 Labs: Laboratory Results - last 24 hr 02/13/23 06:00: Sodium 124 L, Potassium 4.2, Chloride 92 L, Carbon Dioxide 27.0, Anion Gap 5, BUN 9, Creatinine 0.60, Estim Creat Clear Calc 37.68, Est GFR (MDRD) Af Amer 123, Est GFR (MDRD) Non-Af 102, BUN/Creatinine Ratio 15.1, Glucose 153 H, Calcium 8.7 02/13/23 12:45: Serum Osmolality 255 L 02/13/23 12:45: Sodium 122 L, Potassium 4.3, Chloride 89 L, Carbon Dioxide 24.0, Anion Gap 9, BUN 10, Creatinine 0.77, Estim Creat Clear Calc 37.68, Est GFR (MDRD) Af Amer 92, Est GFR (MDRD) Non-Af 76, BUN/Creatinine Ratio 13.0, Glucose 158 H, Uric Acid 3.3, Calcium 9.0 02/13/23 12:59: Urine Osmolality 464 Physical Exam Const alert, oriented x3, no apparent distress and well nourished Constitutional Narrative: Obese, elderly, white female, sitting up in bed, appears comfortable nontoxic, family at bedside HEENT head/scalp atraumatic and moist oral mucous membranes HEENT Narrative: Mallampati 3, no thrush Head and Scalp: normocephalic Resp normal respiratory effort, no retractions, no use of accessory muscles and clear to auscultation bilaterally Auscultation: Negative for rales, rhonchi or wheezes Cardio regular rate, regular rhythm, S1 normal heart sound, S2 normal heart sound, no murmurs, no rub and no gallops GI normal to inspection, nondistended, normoactive bowel sounds, soft to palpation and non-tender Extremity Extremity Narrative: Right hand swelling and tenderness with no erythema or wounds, predominant tenderness is at the first and second metacarpal, decreased active and passive range of motion, no cyanosis or clubbing, pedal pulse is her to 2+, no lower extremity edema Neuro oriented x3, moves all extremities and no focal motor deficits Speech: speech normal Psych affect normal Psych Narrative: Very pleasant, appropriate Assessment & Plan Assessment/Plan (1) Right hand pain: (2) Hypokalemia: (3) Hyponatremia: (4) Generalized weakness: PLAN: Plan Hyponatremia -Improved and now trending down again--> has been off HCTZ but p.o. intake has been poor -We will restart IV fluids with normal saline x1 L and reassess her sodium while she is getting IV fluids if marked improvement it may be related to hypovolemia and decreased solute intake if no significant change or only slight improvement may be SIADH -She does have hyperosmolality with a serum sodium of 255/urine osmolality is 464/uric acid is normal -Urine sodium is pending -Depending on sodium with fluid administration may need to fluid restrict and add sodium tablets -Discontinue Haldol for nausea as this can exacerbate hyponatremia -Continue to hold hydrochlorothiazide and will discontinue at discharge -Repeat lab in a.m. 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 twice daily following -With right upper extremity PICC line in place -He has evaluated the patient here and discontinued her rifampin as he is concerned that it might be contributing to her nausea and decreased oral intake -Continue physical therapy -We will continue with home health after discharge History of psoriasis -Recommend continued outpatient follow-up CAD/HTN/HPL -cardiac catheterization 2017 w/ EF 60%, apical akinesis, normal left main trunk, left anterior descending artery with mild luminal irregularities in circumflex and right coronary artery with no significant stenosis with distal LAD was occluded with medical therapy decision at that time -Continue statin -Continue antihypertensives as ordered -Will stop HCTZ at discharge -Continue hydralazine -Discontinue labetalol and start Coreg 25 p.o. twice daily -Continue to trend blood pressures -Continue aspirin 81 mg p.o. twice daily for DVT prophylaxis and then after 4 weeks from 01/11/2023 patient okay to go back to 81 mg daily -Echo performed with MSSA bacteremia shows an EF of 60 to 65% with normal LV systolic function, grade 1 diastolic dysfunction and no significant valvular abnormalities Hypothyroidism -Continue home levothyroxine Gout -Not on any chronic medication -Monitor clinically History of asthma -Continue budesonide therapy -As needed albuterol -I-S DM-2 -Blood sugars are currently controlled -Continue to hold home oral regimen -Continue sliding scale -Continue Accu-Cheks as ordered DVT prophylaxis -Aspirin 81 mg p.o. twice daily as orthopedic surgery has recommended -We will utilize enoxaparin until discharged CODE STATUS -DNR CCA without intubation
[2023-02-13 15:30] LABS: Urine Sodium 62 mmol/L (Not Establ.)
[2023-02-13 18:25] LABS: Anion Gap 7 (5-15); BUN 10 mg/dL (7-18); BUN/Creat Ratio 14.6 RATIO (10-20); Chloride 90 mmol/L (98-107); Creatinine, Serum 0.68 mg/dL (0.55-1.02); EST Glomerular Filtration Rate 87 mL/min (>60); Est Glom Filt Rate - Afr Amer 105 mL/min (>60); Estimated Creatinine Clearance 37.68 ml/min; Glucose 156 mg/dL (74-106); Potassium 4.4 mmol/L (3.5-5.1); Sodium Level 121 mmol/L (136-145)
[2023-02-13] MEDS: Sodium Chloride 1 GM Tablet PO (20:35)
[2023-02-13] MEDS: Doxazosin 4 MG Tablet PO (20:37)
[2023-02-13] MEDS: Pravastatin 40 MG Tablet PO (20:40)
[2023-02-13] MEDS: Carvedilol 25 MG Tablet PO (20:45)
[2023-02-13 23:23] LABS: Anion Gap 8 (5-15); BUN 10 mg/dL (7-18); Calcium,Total 8.7 mg/dL (8.5-10.1); Chloride 91 mmol/L (98-107); Creatinine, Serum 0.77 mg/dL (0.55-1.02); EST Glomerular Filtration Rate 76 mL/min (>60); Est Glom Filt Rate - Afr Amer 91 mL/min (>60); Estimated Creatinine Clearance 37.68 ml/min; Glucose 130 mg/dL (74-106); Potassium 4.5 mmol/L (3.5-5.1); Sodium Level 123 mmol/L (136-145)
[2023-02-14] VITALS (11 sets, daily range): BP systolic 136–177; BP diastolic 66–93; PULSE 87–98; RESP 16–17; TEMP 35.6–36.6; O2SAT 95–97
[2023-02-14 05:48] LABS: Absolute Neutrophil Count 7.2 X10^3/uL (2.0-7.7); Basophil# 0.11 X10^3/uL; Basophil% 1.1 % (0-1); Eosinophil# 0.77 X10^3/uL; Eosinophils% 7.5 % (0-5); Hematocrit 30.4 % (37-47); Hemoglobin 10.5 g/dL (12.0-15.0); Lymphocyte % 8.8 % (19-41); Mean Corp Hgb Conc 34.5 g/dL (32-36); Mean Corpuscular Hgb 29.7 pg (27.0-32.0); Mean Corpuscular Volume 85.9 fL (81-99); Mean Platelet Vol. 9.5 fl (6.2-12.0); Monocyte# 1.03 X10^3/uL; Monocyte% 10.1 % (0-10); NRBC Flagged by Analyzer 0 % (0-5); Neutrophil # 7.24 X10^3/uL (2.7-7.7); Neutrophil % 70.7 % (47-70); Platelet Count 383 K/mm3 (150-450); RBC Distribution Width CV 13.5 % (11.6-14.6); RBC Distribution Width SD 42.3 fl (35.1-43.9); Red Blood Count 3.54 M/mm3 (4.2-5.4); White Blood Count 10.2 K/mm3 (4.4-11.0)
[2023-02-14] MEDS: Cefazolin 2 GM in 0.9% Normal Saline 100 ML IV (06:01)
[2023-02-14] MEDS: 0.9% Saline Lock 10 ML Syringe IV (06:02)
[2023-02-14] MEDS: BUDESONIDE/FORMOTEROL 160/4.5 1 PUFF INHALER INHALATION ×2 (06:02→18:38)
[2023-02-14] MEDS: Sodium Chloride 1 GM Tablet PO (06:03)
[2023-02-14] MEDS: Levothyroxine 75 MCG Tablet PO (06:03)
[2023-02-14] MEDS: Acetaminophen 500 MG Tablet 1000 MG PO ×3 (06:04→22:05)
[2023-02-14] MEDS: hydrALAZINE 25 MG Tablet 50 MG PO ×3 (06:10→22:03)
[2023-02-14 06:21] LABS: Anion Gap 8 (5-15); BUN 9 mg/dL (7-18); Chloride 91 mmol/L (98-107); Creatinine, Serum 0.64 mg/dL (0.55-1.02); EST Glomerular Filtration Rate 94 mL/min (>60); Est Glom Filt Rate - Afr Amer 113 mL/min (>60); Estimated Creatinine Clearance 37.68 ml/min; Glucose 134 mg/dL (74-106); Potassium 4.4 mmol/L (3.5-5.1); Sodium Level 123 mmol/L (136-145)
[2023-02-14] MEDS: Calcium Carb/Vitamin D 1 TABLET Tablet PO (10:15)
[2023-02-14] MEDS: Lisinopril 40 MG Tablet PO (10:15)
[2023-02-14] MEDS: Cholecalciferol (VIT D3) 25 MCG TABLET (1,000 UNITS) PO (10:15)
[2023-02-14] MEDS: Aspirin 81 MG TAB.CHEW PO (10:15)
[2023-02-14] MEDS: Multivitamins,Ther W-Minerals Tablet 1 TABLET PO (10:15)
[2023-02-14] MEDS: amLODIPine 10 MG Tablet PO (10:15)
[2023-02-14] MEDS: metFORMIN (XR) 500 MG Tablet PO (10:15)
[2023-02-14] MEDS: Famotidine 20 MG Tablet PO (10:16)
[2023-02-14] MEDS: Enoxaparin 40 MG/0.4 ML Syringe SC (10:16)
[2023-02-14] MEDS: Glycerin/Hypromellose/PEG400 15 ml Bottle 1 DRP EACH EYE ×2 (10:16→22:04)
[2023-02-14] MEDS: predniSONE 20 MG Tablet PO (10:17)
[2023-02-14] MEDS: Triamcinolone 0.5% Cream 1 APPLIC TOPICAL ×2 (10:17→22:06)
[2023-02-14] MEDS: Carvedilol 25 MG Tablet PO ×2 (10:18→22:04)
[2023-02-14] MEDS: Albuterol IH (6.7 GM) 1 PUFF INHALER 2 PUFF INHALATION (10:24)
[2023-02-14 10:44] LABS: Bedside Glucose 218 mg/dL (74-106)
--- NOTE | 2023-02-14 11:40 | CASEMGMT ---
RN ALFREDO Face to Face with patient for initial transition planning/care coordination assessment. RN CM introduced self and role at [facility]. Patient lying in bed, alert and oriented, daughter at bedside. Patient willing to participate in assessment and is able to answer all questions appropriately. Care providers, pharmacy, and demographics verified. Patient wishes to discharge home with resumption of HHC with [facility] and IV ATBs with [facility]. Patient states she has no further needs or concerns at this time. CM to follow for discharge planning needs that may arise. PCP: Levi Specialists: Jordi, ball truing machine operator; Marsha, maintenance fitter; Flako, ortho; MARY Shrestha [facility]erred Pharmacy: [facility] Insurance: [employer] Prescription Benefit: yes Living Will/HPOA: yes, daughter Surekha Murphy LNOK: daughters Living Arrangements: Patient lives alone in a single story home with 3 steps and railing. Daughter has been staying with patient to assist with care. Patient states she is mostly independent at home, daughter assists at times. Transportation: daughter DME/HHC: Patient has shower chair, BSC, cane, walker, wheelchair, and glucometer with supplies at home. Patient has had [facility] in the past and currently is active with [facility] and [facility]. No previous SNF. Disposition Plan: Patient to discharge home with resumption of HHC, IV ATBs, family support, and follow-up plans in place. Fanny MERCER, RN, CM
--- NOTE | 2023-02-14 12:13 | PCM.CONS.R ---
Documented by User: DANISH Valentino 02/14/23 12:32 Assessment & Plan Assessment/Plan (1) Hyponatremia: (2) Hypokalemia: (3) Infection of prosthetic right knee joint: PLAN: Plan This is a pleasant 82-year-old female with past medical history significant for hypertension, gout, diabetes mellitus type 2, who was recently hospital mid December for MSSA bacteremia with right knee prosthetic joint infection, who was discharged from the hospital to home on IV antibiotics. Patient returned back to the hospital on 02/11 for evaluation of weakness and hyponatremia. On February 11 sodium was 123. Patient was started on IV fluids. On February 12 sodium improved to 126 and IV fluids stopped. Sodium then dropped to 121 on February 13 and patient was restarted back on gentle IV fluids and sodium improved to 123. She was started on salt tablets yesterday. IVF have been stopped altogether. Today patient's sodium is again 123. Serum Osmo low at 255, urine Osmo 464. Urine sodium 62 on February 13 (collected after patient had received IV fluids). TSH is normal. Continue on salt tablets as ordered for now. Patient appears mildly hypovolemic to near euvolemic on exam. She does report appetite is still very poor with low solute intake. We will change diet to regular, encouraged patient to try to increase solute intake. Continue holding hydrochlorothiazide. Currently patient is asymptomatic from hyponatremia. In reviewing past sodium trends, patient has had few episodes of low sodium levels. On 11/30/2022 sodium 132, 03/31/2022 sodium 127. Patient is not on any antidepressants. Patient was noted to be hypokalemia with potassium of 2.8 on admission. Likely from diuretic and poor oral intake. Potassium levels improved and normalized. Further orders forthcoming as hospitalization evolves, thank you for allowing us participate in care of Ms. [place] HPI Consult Data Date of Consult: 02/14/23 HPI Narrative HPI Narrative: PEDRITO MONTANA, is a 82 F with past medical history significant for hypertension, gout, hypothyroidism, diabetes mellitus type 2 who was recently hospitalized in December for acute right prosthetic joint infection with MSSA bacteremia and cellulitis who was discharged to home on January 16 with PICC line and IV antibiotics, cefazolin and rifampin for 2 weeks. Home health care team has been going to patient's home, labs were obtained and patient was found to have a low sodium therefore she was encouraged to go to the emergency room for further evaluation and treatment. On 02/11 serum sodium 123. Patient was admitted to the hospital for further evaluation and treatment. She was started on IV fluids. Today patient's sodium is 123. Nephrology consulted for hyponatremia. Patient reports that her appetite at home has been very poor, she lost 10 pounds. Patient reports she had been nauseated but no vomiting or diarrhea despite feeling unwell patient continued to take her medications which included hydrochlorothiazide. [facility] Medical History Abnormal mammogram of right breast Ambulates with cane Arthritis Asthma Asthma Atherosclerosis of coronary artery of [place] heart without angina pectoris Bilateral leg edema Cardiology follow-up encounter Cataracts, bilateral Dietary restriction Diverticulosis Dysmetabolic syndrome X Essential (primary) hypertension Gout History of echocardiogram History of edema History of heart attack History of stress test Hyperlipidemia Hypothyroidism Injury of back Non-smoker Obesity (BMI 30-39.9) Pancreatic cyst PONV (postoperative nausea and vomiting) Primary osteoarthritis of right knee Psoriasis Screening for malignant neoplasm of breast Secondary pulmonary arterial hypertension Shortness of breath on exertion Type 2 diabetes mellitus Wears glasses Wears partial dentures Home Medications fosinopril 40 mg tablet 40 mg PO DAILY BP 06/13/17 [History Last Taken 02/11/23] levothyroxine 75 mcg tablet 75 mcg PO QHS thyroid 06/13/17 [History Last Taken 02/10/23] mvralhjt-rag-lhmmm acid 0.4 mg-lycopene 300 mcg-lutein 250 mcg tablet (Centrum Silver) 1 tab PO DAILY supplement 07/02/18 [History Last Taken 02/11/23] cholecalciferol (vitamin D3) 25 mcg (1,000 unit) tablet 25 mcg PO DAILY supplement 01/19/22 [History Last Taken 02/11/23] clobetasol 0.05 % topical cream 1 applic topical BID PRN psoriasis 01/19/22 [History Last Taken Unknown] metformin 500 mg tablet,extended release 24 hr 500 mg PO DAILY blood sugar 01/19/22 [History Last Taken 02/11/23] nitroglycerin 0.4 mg sublingual tablet 0.4 mg sublingual Q5-15M PRN CP 01/19/22 [History Last Taken Unknown] pravastatin 40 mg tablet 40 mg PO QHS cholesterol 05/26/22 [History Last Taken 02/10/23] albuterol sulfate 90 mcg/actuation aerosol inhaler 2 puff inhalation Q4H PRN Wheezing #8.5 grams 03/03/22 [Rx Last Taken 02/10/23] budesonide-formoterol HFA 160 mcg-4.5 mcg/actuation aerosol inhaler (Symbicort) 2 puff inhalation BID breathing 03/20/22 [History Last Taken 02/11/23] peg 400-propylene glycol (PF) 0.4 %-0.3 % eye drops in a dropperette (Systane (PF)) 1 drp EACH EYE BID dry eyes 03/20/22 [History Last Taken 02/10/23] amlodipine 10 mg tablet 10 mg PO DAILY BP #90 tabs 07/25/22 [Rx Last Taken 02/10/23] acetaminophen 500 mg tablet 1,000 mg PO Q8H Check with primary doctor 01/10/23 [History Last Taken 02/11/23] hydrochlorothiazide 25 mg tablet 25 mg PO DAILY Check with primary doctor 01/10/23 [History Last Taken 02/11/23] betamethasone, augmented 0.05 % topical cream 1 applic topical BID psoriasis 01/15/23 [History Last Taken Unknown] oxycodone 5 mg tablet 5 mg PO Q6H PRN pain 7 days #28 tabs 01/16/23 [Rx Last Taken 2 Weeks Ago ~01/28/23] polyethylene glycol 3350 17 gram oral powder packet 17 g PO DAILY #0 ea 01/16/23 [Rx Last Taken Unknown] doxazosin 4 mg tablet 5 mg PO QHS BP 02/11/23 [History Last Taken 02/10/23] famotidine 20 mg tablet 20 mg PO BID STOMACH 02/11/23 [History Last Taken 02/11/23] cefazolin 2 gram intravenous solution 2 g IV Q8H #27 ea 02/13/23 [Rx Last Taken Unknown] Allergy/AdvReac Type Severity Reaction Status Date / Time clindamycin Allergy Rash Verified 01/10/23 17:30 codeine Allergy Hives Verified 01/10/23 17:30 Penicillins [PCN] Allergy Hives Verified 01/10/23 17:30 shellfish derived Allergy hives Verified 01/10/23 17:30 erythromycin base AdvReac Upset Verified 01/10/23 17:30 [Erythromycin Base] Stomach Family History Father Diabetes Hypertension Heart disease Mother Diabetes Hypertension Brother Heart disease Brother Diabetes Brother Hypertension Surgical History History of abdominal hysterectomy (~1968) History of appendectomy (~1968) History of cataract extraction History of colonoscopy History of dilatation and curettage History of left heart catheterization (08/02/18) History of tonsillectomy Status post right knee replacement (~03/29/22) Social History household members: none Smoking Status: Never smoker alcohol intake: current alcohol intake frequency: holidays/special occasions only substance use type: does not use caffeine: Yes Type: coffee Number of servings: 2 what type of physical activity do you participate in: other details: Physical therapy frequency: 1-2 times per week seatbelt use: always ROS ROS Narrative As in HPI and past medical history Lab / Micro Data Result Diagrams: 02/14/23 05:05 02/14/23 11:55 Labs: Laboratory Results - last 24 hr 02/13/23 12:45: Serum Osmolality 255 L 02/13/23 12:45: Sodium 122 L, Potassium 4.3, Chloride 89 L, Carbon Dioxide 24.0, Anion Gap 9, BUN 10, Creatinine 0.77, Estim Creat Clear Calc 37.68, Est GFR (MDRD) Af Amer 92, Est GFR (MDRD) Non-Af 76, BUN/Creatinine Ratio 13.0, Glucose 158 H, Uric Acid 3.3, Calcium 9.0 02/13/23 12:59: Urine Osmolality 464 02/13/23 12:59: Ur Random Sodium 62 02/13/23 17:25: Sodium 121 L, Potassium 4.4, Chloride 90 L, Carbon Dioxide 24.0, Anion Gap 7, BUN 10, Creatinine 0.68, Estim Creat Clear Calc 37.68, Est GFR (MDRD) Af Amer 105, Est GFR (MDRD) Non-Af 87, BUN/Creatinine Ratio 14.6, Glucose 156 H, Calcium 9.0 02/13/23 22:55: Sodium 123 L, Potassium 4.5, Chloride 91 L, Carbon Dioxide 24.0, Anion Gap 8, BUN 10, Creatinine 0.77, Estim Creat Clear Calc 37.68, Est GFR (MDRD) Af Amer 91, Est GFR (MDRD) Non-Af 76, BUN/Creatinine Ratio 13.0, Glucose 130 H, Calcium 8.7 02/14/23 05:05: WBC 10.2, RBC 3.54 L, Hgb 10.5 L, Hct 30.4 L, MCV 85.9, MCH 29.7, MCHC 34.5, RDW Std Deviation 42.3, RDW Coeff of Braden 13.5, Plt Count 383, MPV 9.5, Immature Gran % (Auto) 1.800 H, Neut % (Auto) 70.7 H, Lymph % (Auto) 8.8 L, [place] % (Auto) 10.1 H, Eos % (Auto) 7.5 H, Baso % (Auto) 1.1 H, Absolute Neuts (auto) 7.2, Absolute Lymphs (auto) 0.90, Nucleated RBC % 0 02/14/23 05:05: Sodium 123 L, Potassium 4.4, Chloride 91 L, Carbon Dioxide 24.0, Anion Gap 8, BUN 9, Creatinine 0.64, Estim Creat Clear Calc 37.68, Est GFR (MDRD) Af Amer 113, Est GFR (MDRD) Non-Af 94, BUN/Creatinine Ratio 14.0, Glucose 134 H, Calcium 9.0 02/14/23 10:12: POC Glucose 218 H Radiology Impression Hand X-Ray 02/13/23 13:20 IMPRESSION: 1. No acute osseous abnormalities. 2. Degenerative changes with narrowing sclerosis of the first carpometacarpal joint as well as the interphalangeal joints. Electronically Signed: Timbo Diehl MD at 17:25 EDT , Documented by User: Dr. Regan Stevens MD 02/14/23 13:43 Assessment & Plan Assessment/Plan (1) Hyponatremia: (2) Hypokalemia: (3) Infection of prosthetic right knee joint: PLAN: Plan This is a pleasant 82-year-old female with past medical history significant for hypertension, gout, diabetes mellitus type 2, who was recently hospital mid December for MSSA bacteremia with right knee prosthetic joint infection, who was discharged from the hospital to home on IV antibiotics. Patient returned back to the hospital on 02/11 for evaluation of weakness and hyponatremia. On February 11 sodium was 123. Patient was started on IV fluids. On February 12 sodium improved to 126 and IV fluids stopped. Sodium then dropped to 121 on February 13 and patient was restarted back on gentle IV fluids and sodium improved to 123. She was started on salt tablets yesterday. IVF have been stopped altogether. Today patient's sodium is again 123. Serum Osmo low at 255, urine Osmo 464. Urine sodium 62 on February 13 (collected after patient had received IV fluids). TSH is normal. Continue on salt tablets as ordered for now. Patient appears mildly hypovolemic to near euvolemic on exam. She does report appetite is still very poor with low solute intake. We will change diet to regular, encouraged patient to try to increase solute intake. Continue holding hydrochlorothiazide. Currently patient is asymptomatic from hyponatremia. In reviewing past sodium trends, patient has had few episodes of low sodium levels. On 11/30/2022 sodium 132, 03/31/2022 sodium 127. Patient is not on any antidepressants. Patient was noted to be hypokalemia with potassium of 2.8 on admission. Likely from diuretic and poor oral intake. Potassium levels improved and normalized. Further orders forthcoming as hospitalization evolves, thank you for allowing us participate in care of Ms. [place] SEEN And examined independently. On review of all data, it seems she had hyponatremia for a long time on and off. Sodium has ranged between 1 27-1 33. She was on hydrochlorothiazide prior to admission, this has been discontinued. Urine sodium and urine osmolality are high. TSH is normal. salt tablets for today. Will hold hydrochlorothiazide at the time of discharge. HPI Consult Data Date of Consult: 02/14/23 [facility] Medical History Abnormal mammogram of right breast Ambulates with cane Arthritis Asthma Asthma Atherosclerosis of coronary artery of [place] heart without angina pectoris Bilateral leg edema Cardiology follow-up encounter Cataracts, bilateral Dietary restriction Diverticulosis Dysmetabolic syndrome X Essential (primary) hypertension Gout History of echocardiogram History of edema History of heart attack History of stress test Hyperlipidemia Hypothyroidism Injury of back Non-smoker Obesity (BMI 30-39.9) Pancreatic cyst PONV (postoperative nausea and vomiting) Primary osteoarthritis of right knee Psoriasis Screening for malignant neoplasm of breast Secondary pulmonary arterial hypertension Shortness of breath on exertion Type 2 diabetes mellitus Wears glasses Wears partial dentures Home Medications fosinopril 40 mg tablet 40 mg PO DAILY BP 06/13/17 [History Last Taken 02/11/23] levothyroxine 75 mcg tablet 75 mcg PO QHS thyroid 06/13/17 [History Last Taken 02/10/23] zdkzpaop-xvh-guoyn acid 0.4 mg-lycopene 300 mcg-lutein 250 mcg tablet (Centrum Silver) 1 tab PO DAILY supplement 07/02/18 [History Last Taken 02/11/23] cholecalciferol (vitamin D3) 25 mcg (1,000 unit) tablet 25 mcg PO DAILY supplement 01/19/22 [History Last Taken 02/11/23] clobetasol 0.05 % topical cream 1 applic topical BID PRN psoriasis 01/19/22 [History Last Taken Unknown] metformin 500 mg tablet,extended release 24 hr 500 mg PO DAILY blood sugar 01/19/22 [History Last Taken 02/11/23] nitroglycerin 0.4 mg sublingual tablet 0.4 mg sublingual Q5-15M PRN CP 01/19/22 [History Last Taken Unknown] pravastatin 40 mg tablet 40 mg PO QHS cholesterol 01/19/22 [History Last Taken 02/10/23] albuterol sulfate 90 mcg/actuation aerosol inhaler 2 puff inhalation Q4H PRN Wheezing #8.5 grams 03/03/22 [Rx Last Taken 02/10/23] budesonide-formoterol HFA 160 mcg-4.5 mcg/actuation aerosol inhaler (Symbicort) 2 puff inhalation BID breathing 03/20/22 [History Last Taken 02/11/23] peg 400-propylene glycol (PF) 0.4 %-0.3 % eye drops in a dropperette (Systane (PF)) 1 drp EACH EYE BID dry eyes 03/20/22 [History Last Taken 02/10/23] amlodipine 10 mg tablet 10 mg PO DAILY BP #90 tabs 07/25/22 [Rx Last Taken 02/10/23] acetaminophen 500 mg tablet 1,000 mg PO Q8H Check with primary doctor 01/10/23 [History Last Taken 02/11/23] hydrochlorothiazide 25 mg tablet 25 mg PO DAILY Check with primary doctor 01/10/23 [History Last Taken 02/11/23] betamethasone, augmented 0.05 % topical cream 1 applic topical BID psoriasis 01/15/23 [History Last Taken Unknown] oxycodone 5 mg tablet 5 mg PO Q6H PRN pain 7 days #28 tabs 01/16/23 [Rx Last Taken 2 Weeks Ago ~01/28/23] polyethylene glycol 3350 17 gram oral powder packet 17 g PO DAILY #0 ea 01/16/23 [Rx Last Taken Unknown] doxazosin 4 mg tablet 5 mg PO QHS BP 02/11/23 [History Last Taken 02/10/23] famotidine 20 mg tablet 20 mg PO BID STOMACH 02/11/23 [History Last Taken 02/11/23] cefazolin 2 gram intravenous solution 2 g IV Q8H #27 ea 02/13/23 [Rx Last Taken Unknown] Allergy/AdvReac Type Severity Reaction Status Date / Time clindamycin Allergy Rash Verified 01/10/23 17:30 codeine Allergy Hives Verified 01/10/23 17:30 Penicillins [PCN] Allergy Hives Verified 01/10/23 17:30 shellfish derived Allergy hives Verified 01/10/23 17:30 erythromycin base AdvReac Upset Verified 01/10/23 17:30 [Erythromycin Base] Stomach Family History Father Diabetes Hypertension Heart disease Mother Diabetes Hypertension Brother Heart disease Brother Diabetes Brother Hypertension Surgical History History of abdominal hysterectomy (~1968) History of appendectomy (~1968) History of cataract extraction History of colonoscopy History of dilatation and curettage History of left heart catheterization (08/02/18) History of tonsillectomy Status post right knee replacement (~03/29/22) Social History household members: none Smoking Status: Never smoker alcohol intake: current alcohol intake frequency: holidays/special occasions only substance use type: does not use caffeine: Yes Type: coffee Number of servings: 2 what type of physical activity do you participate in: other details: Physical therapy frequency: 1-2 times per week seatbelt use: always Lab / Micro Data Result Diagrams: 02/14/23 05:05 02/14/23 11:55
--- NOTE | 2023-02-14 12:18 | PCM.PN.HOSP ---
Reason for Visit Reason for Visit: Generalized weakness and fatigue Subjective Subjective Patient reports she is feeling a bit better today. Was able to tolerate more breakfast. Still some mild nausea however she states this seems to be better. States hand is feeling better today. Seems to be doing well with therapy. Unfortunately her sodium is still low. 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 She voiced understanding and was appreciative. Blood pressures are overall better with medication changes. Objective Data Objective Data Vital Signs: Vital Signs Temp Pulse Resp BP Pulse Ox O2 Del Method O2 Flow Rate 97.1 F L 97 16 141/68 H 97 Room Air 0 02/14/23 10:01 02/14/23 10:01 02/14/23 10:01 02/14/23 10:01 02/14/23 10:01 02/14/23 10:03 02/13/23 13:11 Oxygen Flow Rate (L/min) 0 Oxygen Delivery Method Room Air Weight: 98.061 kg Body Mass Index (BMI) 35.9 Intake & Output: Intake and Output for Last 24 Hours 02/12/23 02/13/23 02/14/23 23:59 23:59 23:59 Intake Total 2970 / 3270 2321.67 / 2421.67 285 / 285 Output Total 450 / 450 Balance 2970 / 3270 1871.67 / 1971.67 285 / 285 Lab / Micro Data Result Diagrams: 02/14/23 05:05 02/14/23 05:05 Labs: Laboratory Results - last 24 hr 02/13/23 12:45: Serum Osmolality 255 L 02/13/23 12:45: Sodium 122 L, Potassium 4.3, Chloride 89 L, Carbon Dioxide 24.0, Anion Gap 9, BUN 10, Creatinine 0.77, Estim Creat Clear Calc 37.68, Est GFR (MDRD) Af Amer 92, Est GFR (MDRD) Non-Af 76, BUN/Creatinine Ratio 13.0, Glucose 158 H, Uric Acid 3.3, Calcium 9.0 02/13/23 12:59: Urine Osmolality 464 02/13/23 12:59: Ur Random Sodium 62 02/13/23 17:25: Sodium 121 L, Potassium 4.4, Chloride 90 L, Carbon Dioxide 24.0, Anion Gap 7, BUN 10, Creatinine 0.68, Estim Creat Clear Calc 37.68, Est GFR (MDRD) Af Amer 105, Est GFR (MDRD) Non-Af 87, BUN/Creatinine Ratio 14.6, Glucose 156 H, Calcium 9.0 02/13/23 22:55: Sodium 123 L, Potassium 4.5, Chloride 91 L, Carbon Dioxide 24.0, Anion Gap 8, BUN 10, Creatinine 0.77, Estim Creat Clear Calc 37.68, Est GFR (MDRD) Af Amer 91, Est GFR (MDRD) Non-Af 76, BUN/Creatinine Ratio 13.0, Glucose 130 H, Calcium 8.7 02/14/23 05:05: WBC 10.2, RBC 3.54 L, Hgb 10.5 L, Hct 30.4 L, MCV 85.9, MCH 29.7, MCHC 34.5, RDW Std Deviation 42.3, RDW Coeff of Braden 13.5, Plt Count 383, MPV 9.5, Immature Gran % (Auto) 1.800 H, Neut % (Auto) 70.7 H, Lymph % (Auto) 8.8 L, [place] % (Auto) 10.1 H, Eos % (Auto) 7.5 H, Baso % (Auto) 1.1 H, Absolute Neuts (auto) 7.2, Absolute Lymphs (auto) 0.90, Nucleated RBC % 0 02/14/23 05:05: Sodium 123 L, Potassium 4.4, Chloride 91 L, Carbon Dioxide 24.0, Anion Gap 8, BUN 9, Creatinine 0.64, Estim Creat Clear Calc 37.68, Est GFR (MDRD) Af Amer 113, Est GFR (MDRD) Non-Af 94, BUN/Creatinine Ratio 14.0, Glucose 134 H, Calcium 9.0 02/14/23 10:12: POC Glucose 218 H Radiography Diagnostic Testing: Radiology Impression Hand X-Ray 02/13/23 13:20 IMPRESSION: 1. No acute osseous abnormalities. 2. Degenerative changes with narrowing sclerosis of the first carpometacarpal joint as well as the interphalangeal joints. Electronically Signed: Timbo Diehl MD at 17:25 EDT , Physical Exam Const alert, oriented x3, no apparent distress and well nourished Constitutional Narrative: Obese, elderly, white female, sitting up in a chair at the bedside, daughter at bedside, appears comfortable nontoxic HEENT head/scalp atraumatic and moist oral mucous membranes HEENT Narrative: Mallampati 3, no thrush Head and Scalp: normocephalic Resp normal respiratory effort, no retractions, no use of accessory muscles and clear to auscultation bilaterally Auscultation: Negative for rales, rhonchi or wheezes Cardio regular rate, regular rhythm, S1 normal heart sound, S2 normal heart sound, no murmurs, no rub and no gallops GI normal to inspection, nondistended, normoactive bowel sounds, soft to palpation and non-tender Extremity no clubbing, cyanosis or edema Extremity Narrative: Right hand swelling and tenderness with no erythema or wounds--> swelling seems a bit better today, predominant tenderness is at the first and second metacarpal, decreased active and passive range of motion however patient is able to close her hand into a fist more today with less pain, no cyanosis or clubbing, pedal pulse is her to 2+, no lower extremity edema Neuro oriented x3, moves all extremities and no focal motor deficits Speech: speech normal Psych affect normal Psych Narrative: Very pleasant, appropriate Assessment & Plan Assessment/Plan (1) Right hand pain: (2) Hypokalemia: (3) Hyponatremia: (4) Generalized weakness: PLAN: Plan Hyponatremia -Acute on chronic patient has had hyponatremia intermittently since 2014 but has not been below 127 -Initially improved with IV fluids and holding her HCTZ but dropped after I discontinued IV fluids -Labs appear more consistent with SIADH -Continue fluid restriction at 1500 cc and salt tablets 3 times daily 1 g -Continue to hold hydrochlorothiazide and will discontinue at discharge -Repeat lab in a.m. -Repeat BMP at 1200 -Consult nephrology Right hand pain -X-rays showed only osteoarthritis -Uric acid is unremarkable -Etiology is unclear -Better today with improved mobility and decreased pain and swelling -Continue prednisone 20 mg a day x5 days Generalized weakness/fatigue -Improved overall -PT/OT following however patient did fairly well yesterday and should be able to discharge back to home health Nausea -Suspect related to antibiotics -Continue as needed antiemetics -Liberalize diet to encourage p.o. intake without change in fluid restriction -Discontinue famotidine and add Protonix 40 mg p.o. 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 twice daily following -With right upper extremity PICC line in place -He has evaluated the patient here and discontinued her rifampin as he is concerned that it might be contributing to her nausea and decreased oral intake -Continue physical therapy -We will continue with home health after discharge History of psoriasis -Recommend continued outpatient follow-up CAD/HTN/HPL -cardiac catheterization 2017 w/ EF 60%, apical akinesis, normal left main trunk, left anterior descending artery with mild luminal irregularities in circumflex and right coronary artery with no significant stenosis with distal LAD was occluded with medical therapy decision at that time -Continue statin -Continue antihypertensives as ordered -Will stop HCTZ at discharge -Continue hydralazine -Continue Coreg 25 p.o. twice daily -Blood pressures are overall much better with changes made -We will transition back to aspirin 81 mg daily -Echo performed with MSSA bacteremia shows an EF of 60 to 65% with normal LV systolic function, grade 1 diastolic dysfunction and no significant valvular abnormalities Hypothyroidism -Continue home levothyroxine Gout -Not on any chronic medication -Monitor clinically History of asthma -Continue budesonide therapy -As needed albuterol -I-S DM-2 -Blood sugars are currently controlled -Continue to hold home oral regimen -Continue sliding scale -Continue Accu-Cheks as ordered DVT prophylaxis -Enoxaparin 40 mg daily CODE STATUS -DNR CCA without intubation
--- NOTE | 2023-02-14 13:00 | PN.ID_ITS ---
Physical Exam Narrative Still some nausea, poor po intake. No fever, knee doing fine. Const alert and no apparent distress General Appearance: cooperative Resp normal air movement and clear to auscultation bilaterally Cardio regular rate and regular rhythm GI soft to palpation, non-tender and non-distended Skin no rashes or lesions noted ID ID: Route of nutrition/ use of supplements: [] Nutritional Intake: [] IV Site: [] Quesada Catheter: [] Assessment & Plan Assessment/Plan (1) Infection of prosthetic right knee joint: PLAN: MSSA bacteremia with R knee PJI - taken to [place] 01/11/[address] Arriola for I&D and poly exchange.? H/o hives with PCN, tolerated cefazolin.? Repeat bcx cleared rapidly by 01/12.? TTE showed no veg. Discharged on 6 weeks iv cefazolin , stop date 02/22/23 and weekly labs, with po rifampin for biofilm penetration.? 02/12 stopped rifampin to see if it was contributing to nausea and abnormal labs. Once IV abx are complete, plan will be for long course po doxy 100mg bid. ID followup in 2 weeks. Wrote for updated outpt iv abx and labs. Will change to cefepime for now to see if this makes a difference in nausea/appetite. Will follow
[2023-02-14 13:38] LABS: Anion Gap 7 (5-15); BUN 11 mg/dL (7-18); BUN/Creat Ratio 17.6 RATIO (10-20); Calcium,Total 9.3 mg/dL (8.5-10.1); Chloride 91 mmol/L (98-107); Creatinine, Serum 0.63 mg/dL (0.55-1.02); EST Glomerular Filtration Rate 96 mL/min (>60); Est Glom Filt Rate - Afr Amer 116 mL/min (>60); Estimated Creatinine Clearance 37.68 ml/min; Glucose 168 mg/dL (74-106); Sodium Level 123 mmol/L (136-145)
[2023-02-14] MEDS: Pantoprazole Sodium 40 MG Tablet PO ×2 (14:31→22:04)
[2023-02-14] MEDS: Sodium Chloride 1 GM Tablet 2 GM PO ×2 (14:32→22:05)
[2023-02-14] MEDS: proCHLORPERazine 10 MG/2 ML Vial 5 MG IV (18:44)
[2023-02-14] MEDS: Pravastatin 40 MG Tablet PO (22:03)
[2023-02-14] MEDS: Doxazosin 4 MG Tablet PO (22:03)
[2023-02-14] MEDS: hydrOXYzine 10 MG Tablet PO (22:05)
[2023-02-15] VITALS (13 sets, daily range): BP systolic 123–187; BP diastolic 59–100; PULSE 76–95; RESP 17–18; TEMP 36.2–36.6; O2SAT 95–97
[2023-02-15] MEDS: proCHLORPERazine 10 MG/2 ML Vial 5 MG IV (00:44)
[2023-02-15] MEDS: Levothyroxine 75 MCG Tablet PO (05:11)
[2023-02-15] MEDS: hydrALAZINE 25 MG Tablet 50 MG PO ×3 (05:11→21:10)
[2023-02-15] MEDS: Sodium Chloride 1 GM Tablet 2 GM PO ×3 (05:11→21:10)
[2023-02-15] MEDS: Acetaminophen 500 MG Tablet 1000 MG PO ×3 (05:12→21:11)
[2023-02-15 07:13] LABS: Absolute Lymphocyte Count 1.03 X10^3/uL (0.83-4.51); Absolute Neutrophil Count 5.4 X10^3/uL (2.0-7.7); Basophil# 0.09 X10^3/uL; Basophil% 1.1 % (0-1); Eosinophil# 0.53 X10^3/uL; Eosinophils% 6.6 % (0-5); Hematocrit 29.2 % (37-47); Lymphocyte # 1.03 X10^3/ul (0.83-4.51); Lymphocyte % 12.9 % (19-41); Mean Corp Hgb Conc 34.2 g/dL (32-36); Mean Corpuscular Hgb 29.9 pg (27.0-32.0); Mean Corpuscular Volume 87.4 fL (81-99); Mean Platelet Vol. 9.1 fl (6.2-12.0); Monocyte# 0.86 X10^3/uL; Monocyte% 10.7 % (0-10); NRBC Flagged by Analyzer 0 % (0-5); Neutrophil # 5.36 X10^3/uL (2.7-7.7); Platelet Count 408 K/mm3 (150-450); RBC Distribution Width CV 13.7 % (11.6-14.6); RBC Distribution Width SD 43.5 fl (35.1-43.9); Red Blood Count 3.34 M/mm3 (4.2-5.4)
[2023-02-15 07:44] LABS: Anion Gap 8 (5-15); BUN 12 mg/dL (7-18); BUN/Creat Ratio 21.7 RATIO (10-20); Calcium,Total 8.6 mg/dL (8.5-10.1); Chloride 94 mmol/L (98-107); Creatinine, Serum 0.55 mg/dL (0.55-1.02); EST Glomerular Filtration Rate 111 mL/min (>60); Est Glom Filt Rate - Afr Amer 135 mL/min (>60); Estimated Creatinine Clearance 37.68 ml/min; Glucose 163 mg/dL (74-106); Potassium 3.9 mmol/L (3.5-5.1); Sodium Level 124 mmol/L (136-145)
[2023-02-15] MEDS: Aspirin 81 MG TAB.CHEW PO (08:27)
[2023-02-15] MEDS: BUDESONIDE/FORMOTEROL 160/4.5 1 PUFF INHALER INHALATION ×2 (08:27→20:05)
[2023-02-15] MEDS: Multivitamins,Ther W-Minerals Tablet 1 TABLET PO (08:27)
[2023-02-15] MEDS: metFORMIN (XR) 500 MG Tablet PO (08:27)
[2023-02-15] MEDS: predniSONE 20 MG Tablet PO (08:27)
--- NOTE | 2023-02-15 09:58 | PN.ID_ITS ---
Physical Exam Narrative Sleeping this AM, family reports appetite better Const no apparent distress Resp normal air movement and clear to auscultation bilaterally Cardio regular rate and regular rhythm GI soft to palpation, non-tender and non-distended Skin no rashes or lesions noted ID ID: Route of nutrition/ use of supplements: [] Nutritional Intake: [] IV Site: [] Quesada Catheter: [] Assessment & Plan Assessment/Plan (1) Infection of prosthetic right knee joint: PLAN: MSSA bacteremia with R knee PJI - taken to [place] 01/11/[address] Arriola for I&D and poly exchange.? H/o hives with PCN, tolerated cefazolin.? Repeat bcx cleared rapidly by 01/12.? TTE showed no veg. Discharged on 6 weeks iv cefazolin, stop date 02/22/23 and weekly labs, with po rifampin for biofilm penetration.? 02/12 stopped rifampin to see if it was contributing to nausea and abnormal labs. Once IV abx are complete, plan will be for long course po doxy 100mg bid. ID followup in 2 weeks. Wrote for updated outpt iv abx and labs. 02/14 changed to cefepime to see if this makes a difference in nausea/appetite. Sx improved this AM per family. Will follow, d/w social work case manager.
[2023-02-15] MEDS: Enoxaparin 40 MG/0.4 ML Syringe SC (11:09)
[2023-02-15] MEDS: Glycerin/Hypromellose/PEG400 15 ml Bottle 1 DRP EACH EYE ×2 (11:09→21:11)
[2023-02-15] MEDS: Pantoprazole Sodium 40 MG Tablet PO ×2 (11:10→21:12)
[2023-02-15] MEDS: Triamcinolone 0.5% Cream 1 APPLIC TOPICAL ×2 (11:10→21:10)
[2023-02-15] MEDS: Cholecalciferol (VIT D3) 25 MCG TABLET (1,000 UNITS) PO (11:10)
[2023-02-15] MEDS: Lisinopril 40 MG Tablet PO (11:11)
[2023-02-15] MEDS: amLODIPine 10 MG Tablet PO (11:11)
[2023-02-15] MEDS: Carvedilol 25 MG Tablet PO ×2 (11:12→21:12)
[2023-02-15] MEDS: Ascorbic Acid 500 MG Tablet PO (11:12)
[2023-02-15] MEDS: Polyethylene Glycol 3350 17 GM PACKET PO (11:13)
[2023-02-15] MEDS: Albuterol IH (6.7 GM) 1 PUFF INHALER 2 PUFF INHALATION (11:16)
--- NOTE | 2023-02-15 11:42 | PCM.PN.HOSP ---
Reason for Visit Reason for Visit: Generalized weakness Subjective Subjective Patient with some confusion and delirium overnight having hallucinations. This may be related to her steroids. Per her daughter things are much better this morning. Patient is alert and oriented x3 now. Nausea is much improved. Antibiotics changed yesterday to cefepime to see if it helps with nausea and appetite. Seemingly thus far it has. Blood pressures are improved overall. Unfortunately sodium is trending up but is trending up very slowly. Patient is also not sleeping well at night. We will trial melatonin and some low-dose Risperdal tonight to see if this helps her sleep. This too could be contributing to her delirium that she had last evening. Objective Data Objective Data Vital Signs: Vital Signs Temp Pulse Resp BP Pulse Ox O2 Del Method O2 Flow Rate 97.9 F 88 18 149/76 H 97 Room Air 0 02/15/23 10:14 02/15/23 10:14 02/15/23 10:14 02/15/23 10:14 02/15/23 10:14 02/15/23 10:14 02/13/23 13:11 Oxygen Flow Rate (L/min) 0 Oxygen Delivery Method Room Air Weight: 98.061 kg Body Mass Index (BMI) 35.9 Intake & Output: Intake and Output for Last 24 Hours 02/13/23 02/14/23 02/15/23 23:59 23:59 23:59 Intake Total 2321.67 / 2421.67 1235 / 1485 550 / 550 Output Total 450 / 450 Balance 1871.67 / 1971.67 1235 / 1485 550 / 550 Lab / Micro Data Result Diagrams: 02/15/23 07:00 02/15/23 07:00 Labs: Laboratory Results - last 24 hr 02/14/23 11:55: Sodium 123 L, Potassium 4.0, Chloride 91 L, Carbon Dioxide 25.0, Anion Gap 7, BUN 11, Creatinine 0.63, Estim Creat Clear Calc 37.68, Est GFR (MDRD) Af Amer 116, Est GFR (MDRD) Non-Af 96, BUN/Creatinine Ratio 17.6, Glucose 168 H, Calcium 9.3 02/15/23 07:00: Sodium 124 L, Potassium 3.9, Chloride 94 L, Carbon Dioxide 22.0, Anion Gap 8, BUN 12, Creatinine 0.55, Estim Creat Clear Calc 37.68, Est GFR (MDRD) Af Amer 135, Est GFR (MDRD) Non-Af 111, BUN/Creatinine Ratio 21.7 H, Glucose 163 H, Calcium 8.6 02/15/23 07:00: WBC 8.0, RBC 3.34 L, Hgb 10.0 L, Hct 29.2 L, MCV 87.4, MCH 29.9, MCHC 34.2, RDW Std Deviation 43.5, RDW Coeff of Braden 13.7, Plt Count 408, MPV 9.1, Immature Gran % (Auto) 1.700 H, Neut % (Auto) 67.0, Lymph % (Auto) 12.9 L, [place] % (Auto) 10.7 H, Eos % (Auto) 6.6 H, Baso % (Auto) 1.1 H, Absolute Neuts (auto) 5.4, Absolute Lymphs (auto) 1.03, Nucleated RBC % 0 Physical Exam Const alert, oriented x3, no apparent distress and well nourished Constitutional Narrative: Obese, elderly, white female, sitting up in a chair at the bedside, daughter at bedside, appears comfortable and nontoxic, but appears fatigued this morning HEENT head/scalp atraumatic and moist oral mucous membranes Resp normal respiratory effort, no retractions, no use of accessory muscles and clear to auscultation bilaterally Auscultation: Negative for rales, rhonchi or wheezes Cardio regular rate, regular rhythm, S1 normal heart sound, S2 normal heart sound, no murmurs, no rub and no gallops GI normal to inspection, nondistended, normoactive bowel sounds, soft to palpation and non-tender Extremity no clubbing, cyanosis or edema Extremity Narrative: Right hand swelling and tenderness with no erythema or wounds--> swelling seems a bit better today, predominant tenderness is at the first and second metacarpal, decreased active and passive range of motion however patient is able to close her hand into a fist more today with less pain, no cyanosis or clubbing, pedal pulse is her to 2+, no lower extremity edema Neuro oriented x3, CN's II-XII intact bilaterally, moves all extremities and no focal motor deficits Speech: speech normal Psych affect normal Psych Narrative: Very pleasant, appropriate Assessment & Plan Assessment/Plan (1) Right hand pain: (2) Hypokalemia: (3) Hyponatremia: (4) Generalized weakness: PLAN: Plan Hyponatremia -Acute on chronic patient has had hyponatremia intermittently since 2014 but has not been below 127 -Initially improved with IV fluids and holding her HCTZ but dropped after I discontinued IV fluids -Labs appear more consistent with SIADH -Continue fluid restriction at 1500 cc and salt tablets 3 times daily 1 g -Continue to hold hydrochlorothiazide and will discontinue at discharge -Repeat lab in a.m. -Nephrology following-appreciate input--> awaiting note for today to see if we need to make any new changes -We will discharge once sodium is 127 or higher Right hand pain -X-rays showed only osteoarthritis -Uric acid is unremarkable -Etiology is unclear but suspect pseudogout -Better today with improved mobility and decreased pain and swelling -Continue prednisone 20 mg a day we will stop prednisone tomorrow as this may be contributing to her delirium she experienced overnight Generalized weakness/fatigue -Improved overall -PT/OT following however patient did fairly well with therapy services and should be able to discharge back to home health Nausea -Improved with no nausea today and appetite seems to be improved -Ancef changed to cefepime and rifampin discontinued -Continue Protonix 40 mg p.o. twice daily Recent MSSA bacteremia secondary to right PJI -Status post I&D with retainment of implant and polyurethane exchange of the right total knee arthroplasty 01/11/2023 -Initial cultures positive on 01/10/2023 -Repeat cultures from 01/12/2023 were cleared -Once clearance cultures are negative at 72 hours we will obtain PICC line for suspected 6 weeks of IV antibiotic therapy -Continue with antibiotic as switched to Ancef yesterday due to nausea and decreased p.o. intake as ordered currently plan is to complete 4 a total of 6 weeks with follow-up doxycycline 100 mg p.o. twice daily following -With right upper extremity PICC line in place -He has evaluated the patient here and discontinued her rifampin as he is concerned that it might be contributing to her nausea and decreased oral intake -Continue physical therapy -We will continue with home health after discharge History of psoriasis -Recommend continued outpatient follow-up CAD/HTN/HPL -cardiac catheterization 2017 w/ EF 60%, apical akinesis, normal left main trunk, left anterior descending artery with mild luminal irregularities in circumflex and right coronary artery with no significant stenosis with distal LAD was occluded with medical therapy decision at that time -Continue statin -Continue antihypertensives as ordered -Will stop HCTZ at discharge -Continue hydralazine -Continue Coreg 25 p.o. twice daily -Blood pressures are overall much better with changes made -Continue aspirin 81 mg daily -Echo performed with MSSA bacteremia shows an EF of 60 to 65% with normal LV systolic function, grade 1 diastolic dysfunction and no significant valvular abnormalities Hypothyroidism -Continue home levothyroxine History of gout -Not on any chronic medication -Monitor clinically History of asthma -Continue budesonide therapy -As needed albuterol -I-S DM-2 -Blood sugars are currently controlled -Continue to hold home oral regimen -Continue sliding scale -Continue Accu-Cheks as ordered DVT prophylaxis -Enoxaparin 40 mg daily CODE STATUS -DNR CCA without intubation Charges/Coding Visit Charges Inpatient E&M: 83734 Subs Hosp L2
--- NOTE | 2023-02-15 14:01 | PN.RENAL_ITS ---
Subjective Subjective Sitting in chair. Daughter at bedside. Patient reports trying to increase solute intake. Objective Data Objective Data Vital Signs: Vital Signs Temp Pulse Resp BP Pulse Ox O2 Del Method O2 Flow Rate 97.9 F 88 18 149/76 H 97 Room Air 0 02/15/23 10:14 02/15/23 10:14 02/15/23 10:14 02/15/23 10:14 02/15/23 10:14 02/15/23 10:14 02/13/23 13:11 Oxygen Flow Rate (L/min) 0 Oxygen Delivery Method Room Air Weight: 98.061 kg Body Mass Index (BMI) 35.9 Intake & Output: Intake and Output for Last 24 Hours 02/13/23 02/14/23 02/15/23 23:59 23:59 23:59 Intake Total 2321.67 / 2421.67 1235 / 1485 550 / 550 Output Total 450 / 450 Balance 1871.67 / 1971.67 1235 / 1485 550 / 550 Lab / Micro Data Result Diagrams: 02/15/23 07:00 02/15/23 07:00 Labs: Laboratory Results - last 24 hr 02/15/23 07:00: Sodium 124 L, Potassium 3.9, Chloride 94 L, Carbon Dioxide 22.0, Anion Gap 8, BUN 12, Creatinine 0.55, Estim Creat Clear Calc 37.68, Est GFR (M DRD) Af Amer 135, Est GFR (MDRD) Non-Af 111, BUN/Creatinine Ratio 21.7 H, Glucose 163 H, Calcium 8.6 02/15/23 07:00: WBC 8.0, RBC 3.34 L, Hgb 10.0 L, Hct 29.2 L, MCV 87.4, MCH 29.9, MCHC 34.2, RDW Std Deviation 43.5, RDW Coeff of Braden 13.7, Plt Count 408, MPV 9.1 , Immature Gran % (Auto) 1.700 H, Neut % (Auto) 67.0, Lymph % (Auto) 12.9 L, [place] % (Auto) 10.7 H, Eos % (Auto) 6.6 H, Baso % (Auto) 1.1 H, Absolute Neuts (auto) 5.4, Absolute Lymphs (auto) 1.03, Nucleated RBC % 0 Physical Exam Narrative Alert and oriented x3, no apparent distress S1, S2, RRR Lung sounds clear anteriorly and posteriorly. No wheezes, rhonchi rales noted Abdomen soft, nontender, positive bowel sounds No significant edema noted bilateral lower legs, feet or arms Assessment & Plan Assessment/Plan (1) Hyponatremia: (2) Hypokalemia: (3) Infection of prosthetic right knee joint: PLAN: Plan This is a pleasant 82-year-old female with past medical history significant for hypertension, gout, diabetes mellitus type 2, who was recently hospital mid December for MSSA bacteremia with right knee prosthetic joint infection, who was discharged from the hospital to home on IV antibiotics. Patient returned back to the hospital on 02/11 for evaluation of weakness and hyponatremia. Nephrology consulted for hyponatremia. -Acute on chronic hyponatremia; 02/11 sodium 123 and patient was started on IV fluids. On February 12 sodium improved to 126, IV fluids stopped. Sodium then dropped to 121 on February 13 and patient was restarted back on gentle IV fluids and sodium improved to 123. She was started on salt tablets 02/14. IVF have been stopped altogether. Sodium 123 02/13, 02/14. Increased salt tablets to 2 g 3 times daily, sodium 124 today. Continue on salt tablets 2 g 3 times daily. Serum Osmo low at 255, urine Osmo 464. Urine sodium 62 on February 13 (collected after patient had received IV fluids). TSH is normal. Continue on regular diet, encouraged patient to try to increase solute intake. Continue holding hydrochlorothiazide. Currently patient is asymptomatic from hyponatremia. If sodium is 125 or better tomorrow okay for discharge per renal standpoint (on salt tabs, off hydrochlorothiazide) and patient to follow-up in [place] office - past sodium trends, patient has had few episodes of low sodium levels. Sodium as low as 129 in June 2015. In 2021 sodium ranging 127-134. Sodium was low during last hospitalization, sodium matthew 128. Patient is not on any antidepressants. - hypokalemia with potassium of 2.8 on admission. Likely from diuretic and poor oral intake. Potassium levels improved and normalized. -Discussed nephrology plan with Dr. Zaragoza
[2023-02-15] MEDS: guaiFENesin Dm 10 ML UDC PO (21:09)
[2023-02-15] MEDS: Pravastatin 40 MG Tablet PO (21:11)
[2023-02-15] MEDS: MELATONIN 10 MG TABLET PO (21:12)
[2023-02-15] MEDS: Doxazosin 4 MG Tablet PO (21:12)
[2023-02-15] MEDS: RisperiDONE 0.5 MG Tablet PO (21:27)
[2023-02-16] VITALS (8 sets, daily range): BP systolic 129–187; BP diastolic 59–89; PULSE 76–96; RESP 16–17; TEMP 36.1–36.5; O2SAT 95–96
[2023-02-16] MEDS: Acetaminophen 500 MG Tablet 1000 MG PO ×2 (05:33→14:19)
[2023-02-16] MEDS: Sodium Chloride 1 GM Tablet 2 GM PO ×2 (05:34→14:20)
[2023-02-16] MEDS: Levothyroxine 75 MCG Tablet PO (05:35)
[2023-02-16] MEDS: hydrALAZINE 25 MG Tablet 50 MG PO ×2 (05:35→14:20)
[2023-02-16 06:08] LABS: Anion Gap 8 (5-15); BUN 14 mg/dL (7-18); BUN/Creat Ratio 25.1 RATIO (10-20); Calcium,Total 8.5 mg/dL (8.5-10.1); Chloride 94 mmol/L (98-107); Creatinine, Serum 0.56 mg/dL (0.55-1.02); EST Glomerular Filtration Rate 110 mL/min (>60); Est Glom Filt Rate - Afr Amer 133 mL/min (>60); Estimated Creatinine Clearance 37.68 ml/min; Glucose 150 mg/dL (74-106); Sodium Level 125 mmol/L (136-145)
[2023-02-16] MEDS: Multivitamins,Ther W-Minerals Tablet 1 TABLET PO (08:49)
[2023-02-16] MEDS: Calcium Carb/Vitamin D 1 TABLET Tablet PO (08:49)
[2023-02-16] MEDS: Aspirin 81 MG TAB.CHEW PO (08:49)
[2023-02-16] MEDS: Pantoprazole Sodium 40 MG Tablet PO (08:50)
[2023-02-16] MEDS: predniSONE 20 MG Tablet PO (08:50)
[2023-02-16] MEDS: Cholecalciferol (VIT D3) 25 MCG TABLET (1,000 UNITS) PO (08:50)
[2023-02-16] MEDS: metFORMIN (XR) 500 MG Tablet PO (08:50)
[2023-02-16] MEDS: Ascorbic Acid 500 MG Tablet PO (08:50)
[2023-02-16] MEDS: Glycerin/Hypromellose/PEG400 15 ml Bottle 1 DRP EACH EYE (08:51)
[2023-02-16] MEDS: Enoxaparin 40 MG/0.4 ML Syringe SC (08:51)
[2023-02-16] MEDS: Polyethylene Glycol 3350 17 GM PACKET PO (08:51)
[2023-02-16] MEDS: BUDESONIDE/FORMOTEROL 160/4.5 1 PUFF INHALER INHALATION (08:52)
[2023-02-16] MEDS: Triamcinolone 0.5% Cream 1 APPLIC TOPICAL (08:52)
[2023-02-16] MEDS: amLODIPine 10 MG Tablet PO (08:55)
[2023-02-16] MEDS: Carvedilol 25 MG Tablet PO (08:55)
--- NOTE | 2023-02-16 10:32 | CASEMGMT ---
RN CM updated that patient will be discharging today. Discharge strategic planning analyst to updated [facility] of discharge. RN CM to patient's room, daughter at bedside. Patient denies further needs at discharge. Patient and daughter had no further questions or concerns at this time.
--- NOTE | 2023-02-16 10:32 | CASEMGMT ---
Discharge Planning Discharge updates sent to both [facility] and [facility] via [employer]. Ashley Dee, Discharge Planning Asst.
--- NOTE | 2023-02-16 11:06 | DS.PCM_ITS ---
Providers Date of Admission: 02/13/23 Date of Discharge: 02/16/23 Primary Care Physician: Dr. Ej Sims MD Consultations 02/11/23 15:30 Consult: Infectious Disease Routine Consulting Provider: Robb Shrestha Reason for Consult: Recent MSSA Right letty PJI EMERGENT Consult: No Notified: Yes Date Notified: 02/11/23 Time Notified: 15:31 Method of Notification: Text 02/14/23 07:12 Consult: Nephrology Routine Consulting Provider: Regan Stevens Reason for Consult: hyponatremia ? SIADH EMERGENT Consult: No Notified: Yes Date Notified: 02/14/23 Time Notified: 07:50 Method of Notification: Answering Service Reason For Visit: ELECTOLYTE ABMORMALITY Diagnosis Discharge Diagnosis (1) Hyponatremia: Status: Acute Code(s): E87.1 - Hypo-osmolality and hyponatremia (2) Hypokalemia: Status: Acute Code(s): E87.6 - Hypokalemia (3) Infection of prosthetic right knee joint: Status: Acute Code(s): T84.53XA - Infection and inflammatory reaction due to internal right knee prosthesis, initial encounter Medications at Discharge Home Medications fosinopril 40 mg tablet 40 mg PO DAILY BP 06/13/17 levothyroxine 75 mcg tablet 75 mcg PO QHS thyroid 06/13/17 ogijuypm-hkh-thtpl acid 0.4 mg-lycopene 300 mcg-lutein 250 mcg tablet (Centrum Silver) 1 tab PO DAILY supplement 07/02/18 cholecalciferol (vitamin D3) 25 mcg (1,000 unit) tablet 25 mcg PO DAILY lew pplement 01/19/22 clobetasol 0.05 % topical cream 1 applic topical BID PRN psoriasis 01/19/22 metformin 500 mg tablet,extended release 24 hr 500 mg PO DAILY blood sugar 01/19/22 nitroglycerin 0.4 mg sublingual tablet 0.4 mg sublingual Q5-15M PRN CP 01/19/22 pravastatin 40 mg tablet 40 mg PO QHS cholesterol 01/19/22 albuterol sulfate 90 mcg/actuation aerosol inhaler 2 puff inhalation Q4H PRN W heezing #8.5 grams 03/03/22 budesonide-formoterol HFA 160 mcg-4.5 mcg/actuation aerosol inhaler (Symbicort) 2 puff inhalation BID breathing 03/20/22 peg 400-propylene glycol (PF) 0.4 %-0.3 % eye drops in a dropperette (Systane (PF)) 1 drp EACH EYE BID dry eyes 03/20/22 amlodipine 10 mg tablet 10 mg PO DAILY BP #90 tabs 07/25/22 acetaminophen 500 mg tablet 1,000 mg PO Q8H Check with primary doctor 01/10/23 betamethasone, augmented 0.05 % topical cream 1 applic topical BID psoriasis 01/15/23 oxycodone 5 mg tablet 5 mg PO Q6H PRN pain 7 days #28 tabs 01/16/23 polyethylene glycol 3350 17 gram oral powder packet 17 g PO DAILY #0 ea 01/16/23 doxazosin 4 mg tablet 5 mg PO QHS BP 02/11/23 famotidine 20 mg tablet 20 mg PO BID STOMACH 02/11/23 cefepime 2 gram solution for injection 2 g IV Q12 8 days #16 ea 02/15/23 aspirin 81 mg chewable tablet 81 mg PO DAILYCM #30 tabs 02/16/23 carvedilol 25 mg tablet 25 mg PO BID #60 tabs 02/16/23 hydralazine 25 mg tablet 50 mg PO TID #180 tabs 02/16/23 sodium chloride 1,000 mg soluble tablet 2,000 mg PO TID #180 tabs 02/16/23 Hospital Course Operations None Procedures - (Shoulder x-ray, chest x-ray, CTA chest, hand x-ray) Summary of Care Provided Minutes Spent on Discharge: 39 Hospital Course: Mrs. Murphy is an 82-year-old white female who had a recent admission from 01/10/2023 through 01/16/2023 at which time she presented with right knee pain, redness, and the inability to move or bear weight on her right lower extremity. She was found to have a prosthetic joint infection and taken to the OR by Dr. Arriola on 01/11/2023 for an I&D and poly exchange. At discharge she was placed on IV cefazolin and rifampin for biofilm penetration for total of 6 weeks. She was receiving home health at the time of discharge. She presented to the emergency department on 02/11/2023 with generalized weakness and fatigue with intermittent nausea and decreased p.o. intake. She had been doing quite well but over approximately 2 to 3 days prior to admission she had decreased oral intake, nausea, weakness, and fatigue. She was found to have hyponatremia with a sodium of 123 and a potassium of 2.8. Upon review of her previous sodium levels, it looks like she has chronic hyponatremia with her lowest sodium being 127 and her range being 1 27-1 34. She is on chronic hydrochlorothiazide for her hypertension. It was held during her last hospitalization as she had postoperative hypotension but restarted at discharge. Her daughter reported that her blood pressures had also been somewhat labile. Patient also complained of right arm and hand pain during her hospitalization. Shoulder x-rays were performed and were unremarkable. Hand x-rays were performed and showed osteoarthritis with some swelling at the first second and third MCP. Initially felt she had gout however her uric acid was not elevated. I suspect she had pseudogout and was placed on low-dose prednisone for 3 days which dramatically improved her hand symptoms and she was able to utilize this hand as well as the swelling and tenderness had resolved by the time of discharge. Initially thought her hyponatremia was related to her hydrochlorothiazide and decreased p.o. intake. She was given IV fluids and her hydrochlorothiazide was held. She initially had a trend up in her sodium however when her IV fluids were discontinued her sodium trended back down. She was given more fluids and further work-up with serum osmolality, urine sodium, urine osmolality were performed. She had hypoosmolar hyponatremia with a urine sodium of 68. 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 We placed her on salt tablets, fluid restricted her to 1500 cc/day, and consulted nephrology. It is questionable whether SIADH was caused by her current antibiotic use. Sodium did trend up to 125 at discharge and she will be followed up as an outpatient with Dr. Stevens from nephrology. Repeat BMP is to be done on Sunday and patient is call office to obtain an order. Her nausea improved with transition from Ancef to cefepime. She was also taken off oral rifampin. Oral intake had improved dramatically by discharge. We have also recommended that she continue her p.o. oral supplements for nutrition at this time until her oral intake is back to her baseline. Her blood pressure was also problematic during her hospital course and noted to be elevated. She reported she had been on labetalol and we transition this to Coreg 25 mg p.o. twice daily. We also, as noted above, discontinued the hydrochlorothiazide due to hyponatremia and started hydralazine. She ended up requiring 50 mg 3 times daily. New prescriptions for her Coreg, salt tablets, and hydralazine were sent to her local pharmacy prior to discharge. She was seen by physical and Occupational Therapy during her stay due to her generalized weakness. She actually did quite well with physical and Occupational Therapy and they recommended ongoing home health care services. Home health will be following her after discharge. The patient was able to be discharged home in stable condition on 02/16/2023. She is to follow-up with her primary care physician within 1 week, she will follow-up with nephrology-Dr. Stevens and their office will call to arrange appointment, she is to follow-up with Dr. Hendrickson in 2 weeks, and ongoing follow-up with Dr. Arriola as previously directed. Discharge diagnoses: Acute on chronic hyponatremia-improving Hypokalemia-resolved Generalized weakness/fatigue-Improved Nausea-resolved Right hand pain-resolved Recent MSSA bacteremia secondary to right P JI History of psoriasis CAD Hypertension Hyperlipidemia Hypothyroidism Gout History of asthma DM-2 Physical Exam Narrative Patient states she is feeling well. Still did not sleep well last night despite medication to help her sleep. Anxious to go home if possible. I did discuss with her that her sodium is improved but not quite normalized for her yet and nephrology felt she was safe to go home. She was anxious to leave. Const alert, oriented x3, no apparent distress and well nourished Constitutional Narrative: Obese, elderly, white female, sitting up in a chair at the bedside, daughters at bedside, appears comfortable and nontoxic, appears much less fatigued General Appearance: cooperative, comfortable, well kempt and well developed Orientation / Consciousness: awake, oriented to person, oriented to place and oriented to time Exam Limitations: no limitations Nutritional Appearance: obese HEENT normocephalic, head/scalp atraumatic and moist oral mucous membranes; Negative for hearing grossly normal bilaterally HEENT Narrative: Mild hearing loss, Mallampati is 3, no thrush Eyes PERRL, EOMs intact bilaterally and conjunctivae normal Eyes Narrative: No scleral icterus Neck no lymphadenopathy and supple Neck Narrative: Trachea midline, no thyroid enlargement Resp normal respiratory effort, no retractions, no use of accessory muscles and clear to auscultation bilaterally Auscultation: Negative for rales, rhonchi or wheezes Cardio regular rate, regular rhythm, S1 normal heart sound, S2 normal heart sound, no murmurs, no rub and no gallops GI normal to inspection, nondistended, normoactive bowel sounds, soft to palpation and non-tender Extremity Extremity Narrative: Right hand swelling and tenderness has resolved, patient is able to actively and passively close hand into a fist and has no difficulty using at this time, trace bilateral lower extremity edema, no cyanosis or clubbing Skin no rashes or lesions noted, skin turgor normal and no jaundice Skin Narrative: Postoperative right knee incision is healing well and clean and dry Neuro oriented x3, CN's II-XII intact bilaterally, moves all extremities and no focal motor deficits Speech: speech normal Psych affect normal Psych Narrative: Very pleasant, appropriate Weight / BMI Weight Weight: 98.061 kg Body Mass Index (BMI) 35.9 ABG / Lab / Microbiology Data Result Diagrams: 02/15/23 07:00 02/16/23 05:09 Laboratory: Laboratory Results - last 24 hr 02/16/23 05:09: Sodium 125 L, Potassium 4.0, Chloride 94 L, Carbon Dioxide 23.0, Anion Gap 8, BUN 14, Creatinine 0.56, Estim Creat Clear Calc 37.68, Est GFR (MDRD) Af Amer 133, Est GFR (MDRD) Non-Af 110, BUN/Creatinine Ratio 25.1 H, Glucose 150 H, Calcium 8.5 D/C Instructions Discharge Diet: Low fat / Low cholesterol (Fluid restriction to 1.5 L (1500 mL) daily) Discharge Activity: Return to Normal Activity and Use Walker Meaningful Use Info Meaningful Use Diagnoses (Choose all that apply): None applicable Discharge Plan Admission Admit Date/Time: 02/13/23 15:19 Primary Reason for Your Visit: Generalized weakness/fatigue Attending Provider: Erica Zaragoza Primary Care Provider: Ej Sims Consulting Providers: Robb Shrestha ; Rui Spaulding ; Regan Stevens Instructions Additional Instructions / Restrictions: 1. Call Dr. Stevens's office on Sunday and obtain an order for a basic metabolic profile to recheck your sodium to be done at that time. 2. Please restrict water intake to 1-1/2 L daily (1500 mL) Discharge Orders/Prescriptions Prescriptions: New cefepime 2 gram Recon Soln 2 g IV Q12 8 Days Qty: 16 0RF Rx Instructions: stop date 02/22/23 dx: MSSA prosthetic joint infection weekly bmp, cbc, and esr. Fax to [phone] routine picc care hydralazine 25 mg Tablet 50 mg PO TID Qty: 180 0RF carvedilol 25 mg Tablet 25 mg PO BID Qty: 60 0RF sodium chloride 1,000 mg Tablet,Soluble 2,000 mg PO TID Qty: 180 0RF aspirin 81 mg Tablet,Chewable 81 mg PO DAILYCM Qty: 30 0RF Continued Centrum Silver 0.4-300-250 mg-mcg-mcg tablet 1 tab PO DAILY metformin 500 mg tablet extended release 24 hr 500 mg PO DAILY albuterol sulfate 90 mcg/actuation HFA aerosol inhaler 2 puff INHALATION Q4H PRN (Reason: Wheezing) Qty: 8.5 6RF cholecalciferol (vitamin D3) 25 mcg (1,000 unit) tablet 25 mcg PO DAILY pravastatin 40 mg tablet 40 mg PO QHS nitroglycerin 0.4 mg tablet, sublingual 0.4 mg sublingual Q5-15M PRN (Reason: CP) levothyroxine 75 MCG tablet 75 mcg PO QHS fosinopril 40 MG tablet 40 mg PO DAILY budesonide-formoterol [Symbicort] 160-4.5 mcg/actuation HFA aerosol inhaler 2 puff INHALATION BID Systane (PF) 0.4-0.3 % Dropperette 1 drp EACH EYE BID acetaminophen 500 mg tablet 1,000 mg PO Q8H betamethasone, augmented 0.05 % cream 1 applic TOPICAL BID polyethylene glycol 3350 17 gram Powder In Packet 17 g PO DAILY Qty: 0 0RF oxycodone 5 mg Tablet 5 mg PO Q6H PRN (Reason: pain) 7 Days Qty: 28 0RF famotidine 20 mg Tablet 20 mg PO BID doxazosin 4 mg tablet 5 mg PO QHS amlodipine 10 mg tablet 10 mg PO DAILY Qty: 90 3RF Discontinued hydrochlorothiazide 25 mg tablet 25 mg PO DAILY cefazolin 2 gram recon soln 2 g IV Q8H Qty: 117 0RF Rx Instructions: stop date 02/22/23 dx: MSSA prosthetic joint infection weekly bmp, cbc, LFT, and esr. Fax to [phone] routine picc care rifampin 300 mg Capsule 300 mg PO BID 40 Days Qty: 80 0RF No Action clobetasol 0.05 % cream 1 applic topical BID PRN (Reason: psoriasis) Referrals / Follow Up: Regan Stevens MD [Med Staff - Consulting] - See Referral Note (Should call you to schedule a follow-up appointment-if you do not hear from them by next Sunday call to set up an appointment to be seen within the next 1 to 2 weeks) Robb Shrestha MD [Med Staff - Active Staff] - Within 2 Weeks (Call office to set up an appointment to be seen in 2 weeks) Ej Sims MD [Primary Care Provider] - Within 1 Week Disposition Disposition (needs filled in before D/C Order can be placed): Home Health Service Charges/Coding Visit Charges Inpatient E&M: 45888 Disch Hosp >30min
--- NOTE | 2023-02-16 11:46 | PHA.DC.MC ---
Pharmacy Service has performed discharge medication reconciliation and counseling for this patient. The patient was counseled on the following discharge medications and changes in medications for homegoing were reviewed. 1. aspirin 2. cefepime 3. coreg 4. hydralazine 5. sodium chloride tablets The Reason for Use, instructions for use, and potential side effects were reviewed for all new medications. The patient's questions regarding all of their medications were answered. The patient was able to verbally demonstrate an understanding of their discharge medications. Home Medications fosinopril 40 mg tablet 40 mg PO DAILY BP 06/13/17 levothyroxine 75 mcg tablet 75 mcg PO QHS thyroid 06/13/17 mcaswrqf-mce-blrqu acid 0.4 mg-lycopene 300 mcg-lutein 250 mcg tablet (Centrum Silver) 1 tab PO DAILY supplement 07/02/18 cholecalciferol (vitamin D3) 25 mcg (1,000 unit) tablet 25 mcg PO DAILY supplement 01/19/22 clobetasol 0.05 % topical cream 1 applic topical BID PRN psoriasis 01/19/22 metformin 500 mg tablet,extended release 24 hr 500 mg PO DAILY blood sugar 01/19/22 nitroglycerin 0.4 mg sublingual tablet 0.4 mg sublingual Q5-15M PRN CP 01/19/22 pravastatin 40 mg tablet 40 mg PO QHS cholesterol 01/19/22 albuterol sulfate 90 mcg/actuation aerosol inhaler 2 puff inhalation Q4H PRN Wheezing #8.5 grams 03/03/22 budesonide-formoterol HFA 160 mcg-4.5 mcg/actuation aerosol inhaler (Symbicort) 2 puff inhalation BID breathing 03/20/22 peg 400-propylene glycol (PF) 0.4 %-0.3 % eye drops in a dropperette (Systane (PF)) 1 drp EACH EYE BID dry eyes 03/20/22 amlodipine 10 mg tablet 10 mg PO DAILY BP #90 tabs 07/25/22 acetaminophen 500 mg tablet 1,000 mg PO Q8H pain 01/10/23 betamethasone, augmented 0.05 % topical cream 1 applic topical BID psoriasis 01/15/23 oxycodone 5 mg tablet 5 mg PO Q6H PRN pain 7 days #28 tabs 01/16/23 polyethylene glycol 3350 17 gram oral powder packet 17 g PO DAILY #0 ea 01/16/23 doxazosin 4 mg tablet 5 mg PO QHS BP 02/11/23 famotidine 20 mg tablet 20 mg PO BID STOMACH 02/11/23 cefepime 2 gram solution for injection 2 g IV Q12 8 days #16 ea 02/15/23 aspirin 81 mg chewable tablet 81 mg PO DAILYCM #30 tabs 02/16/23 carvedilol 25 mg tablet 25 mg PO BID #60 tabs 02/16/23 hydralazine 25 mg tablet 50 mg PO TID #180 tabs 02/16/23 sodium chloride 1,000 mg soluble tablet 2,000 mg PO TID #180 tabs 02/16/23 The patient's discharge medication list was reviewed for discrepancies and discrepancies were resolved. Patient counselled by Thomas Bravo, PharmD Candidate
--- NOTE | 2023-02-16 11:46 | CASEMGMT ---
Discharge Planning Discharge Summary sent via [facility] to both [facility] and [facility]. Ashley Dee, Discharge Planning Asst.
[2023-02-16] MEDS: Lisinopril 40 MG Tablet PO (12:15)
--- NOTE | 2023-02-16 14:25 | PN.RENAL_ITS ---
Subjective Subjective Up in chair, family at bedside. Patient getting ready for discharge. Objective Data Objective Data Vital Signs: Vital Signs Temp Pulse Resp BP Pulse Ox O2 Del Method O2 Flow Rate 97.4 F L 84 17 145/71 H 96 Room Air 0 02/16/23 08:46 02/16/23 14:20 02/16/23 08:46 02/16/23 12:16 02/16/23 08:46 02/16/23 08:46 02/13/23 13:11 Oxygen Flow Rate (L/min) 0 Oxygen Delivery Method Room Air Weight: 98.061 kg Body Mass Index (BMI) 35.9 Intake & Output: Intake and Output for Last 24 Hours 02/14/23 02/15/23 02/16/23 23:59 23:59 23:59 Intake Total 1235 / 1485 1900 / 1900 990 / 990 Balance 1235 / 1485 1900 / 1900 990 / 990 Lab / Micro Data Result Diagrams: 02/15/23 07:00 02/16/23 05:09 Labs: Laboratory Results - last 24 hr 02/16/23 05:09: Sodium 125 L, Potassium 4.0, Chloride 94 L, Carbon Dioxide 23.0, Anion Gap 8, BUN 14, Creatinine 0.56, Estim Creat Clear Calc 37.68, Est GFR (MDRD) Af Amer 133, Est GFR (MDRD) Non-Af 110, BUN/Creatinine Ratio 25.1 H, Glucose 150 H, Calcium 8.5 Physical Exam Narrative Alert and oriented x3, no apparent distress S1, S2, RRR Lung sounds clear anteriorly and posteriorly. No wheezes, rhonchi rales noted Abdomen soft, nontender, positive bowel sounds No significant edema noted bilateral lower legs, feet or arms Assessment & Plan Assessment/Plan (1) Hyponatremia: (2) Hypokalemia: (3) Infection of prosthetic right knee joint: PLAN: Plan This is a pleasant 82-year-old female with past medical history significant for hypertension, gout, diabetes mellitus type 2, who was recently hospital mid December for MSSA bacteremia with right knee prosthetic joint infection, who was dischar ged from the hospital to home on IV antibiotics. Patient returned back to the hospital on 02/11 for evaluation of weakness and hyponatremia. Nephrology consulted for hyponatremia. -Acute on chronic hyponatremia; 02/11 sodium 123 and patient was started on IV fluids. On February 12 sodium improved to 126, IV fluids stopped. Sodium then dropped to 121 on February 13 and patient was restarted back on gentle IV fluids and sodium improved to 123. She was started on salt tablets 02/14. IVF have been stopped altogether. Sodium 123 02/13, 02/14. Increased salt tablets to 2 g 3 times daily, sodium 124 yesterday, sodium 125 today. Continue on salt tablets 2 g 3 times daily. Serum Osmo low at 255, urine Osmo 464. Urine sodium 62 on February 13 (collected after patient had received IV fluids). TSH is normal. Continue on regular diet, encouraged patient to try to increase solute intake. Continue holding hydrochlorothiazide. Currently patient is asymptomatic from hyponatremia. Okay for discharge per renal standpoint (on salt tabs, off hydrochlorothiazide) and patient to follow-up in [place] office - past sodium trends, patient has had few episodes of low sodium levels. Sodium as low as 129 in June 2015. In 2021 sodium ranging 127-134. Sodium was low during last hospitalization, sodium matthew 128. Patient is not on any antidepressants. - hypokalemia with potassium of 2.8 on admission. Likely from diuretic and poor oral intake. Potassium levels improved and normalized. -Disposition; patient to be discharged to home today. Encouraged increase solute intake with patient and daughter.
== END 2023-02-16 14:48 | disposition home health service (06) | DRG 644 ==
LOC: ED 11:30 → PCU 14:59
PROVIDERS: Nurse Practitioner Adult Health; Admitting Provider Internal Medicine; Emergency Provider Student in an Organized Health Care Education/Training Program; PCP Internal Medicine; Visit Provider Internal Medicine
DX: E22.2 Syndrome of inappropriate secretion of antidiuretic hormone (principal); R78.81 Bacteremia; T84.53XA Infection and inflammatory reaction due to internal right knee prosthesis, initial encounter; R44.3 Hallucinations, unspecified; D69.2 Other nonthrombocytopenic purpura; R62.7 Adult failure to thrive; E86.0 Dehydration; E11.65 Type 2 diabetes mellitus with hyperglycemia; I95.81 Postprocedural hypotension; E03.9 Hypothyroidism, unspecified; E78.5 Hyperlipidemia, unspecified; J45.909 Unspecified asthma, uncomplicated; I10 Essential (primary) hypertension; I25.10 Atherosclerotic heart disease of native coronary artery without angina pectoris; E87.6 Hypokalemia; M19.90 Unspecified osteoarthritis, unspecified site; M10.9 Gout, unspecified; B95.61 Methicillin susceptible Staphylococcus aureus infection as the cause of diseases classified elsewhere; E66.9 Obesity, unspecified; Z72.4 Inappropriate diet and eating habits; Z79.51 Long term (current) use of inhaled steroids; Z66 Do not resuscitate; Z79.84 Long term (current) use of oral hypoglycemic drugs; Z79.82 Long term (current) use of aspirin; Z68.36 Body mass index [BMI] 36.0-36.9, adult; Z51.5 Encounter for palliative care; Z79.891 Long term (current) use of opiate analgesic; Z79.52 Long term (current) use of systemic steroids; Z96.651 Presence of right artificial knee joint
CPT/HCPCS: 36415; 36592; 71045; 71275; 73030; 73130; 80048; 80053; 81001; 82962; 83735; 83880; 83930; 83935; 84100; 84300; 84443; 84484; 84550; 85025; 93005; 94640; 94668; 97110; 97116; 97162; 97166; 97530; 97535; 97802; 99285; J7030; J7040; Q9967; A4216; J2405

== ENCOUNTER 2023-02-17 03:29 | Emergency (ER) | payer MEDICARE, SELFPAY ==
[2023-02-17 03:30] VITALS: BP 202/94; PULSE 89; RESP 18; TEMP 35.9; O2SAT 96; BMI 39.8
--- NOTE | 2023-02-17 03:55 | EDS_ITS ---
HPI HPI - Fall History of Present Illness Chief Complaint: Fall Detail of Chief Complaint: Right knee wound dehiscence post fall. Informant: patient Occured/Mechanism Occurred: Today and Hours Usually ambulates: Without assistance Pain/Injury Pain Location: lower extremity Quality of Pain: Dull and Aching Current Severity: Mild Maximum Severity: Mild Narrative Narrative: 82-year-old female history of CAD, DC and diabetes. Had a prior right knee prosthesis placed last March. That became infected and may need to be washed out but the prosthesis did not need to be removed. She is currently has a PICC line and gets IV antibiotics. Was hospitalized a week ago for generalized weakness and hyponatremia. Was just discharged on Sunday less than 24 hours ago. Tonight she was going down steps at home and fell injuring her right knee causing a dehiscence of the prior knee surgical incision. Denies any other injuries. Did not hit her head. No LOC. Prior similar symptoms: No Recent Illness/Hospitalization: Yes PFSH PFSH Medical History Abnormal mammogram of right breast Ambulates with cane Arthritis Asthma Asthma Atherosclerosis of coronary artery of [place] without angina pectoris Bilateral leg edema Cardiology follow-up encounter Cataracts, bilateral Dietary restriction Diverticulosis Dysmetabolic syndrome X Essential (primary) hypertension Gout History of echocardiogram History of edema History of heart attack History of stress test Hyperlipidemia Hypothyroidism Injury of back Non-smoker Obesity (BMI 30-39.9) Pancreatic cyst PONV (postoperative nausea and vomiting) Primary osteoarthritis of right knee Psoriasis Screening for malignant neoplasm of breast Secondary pulmonary arterial hypertension Shortness of breath on exertion Type 2 diabetes mellitus Wears glasses Wears partial dentures Home Medications fosinopril 40 mg tablet 40 mg PO DAILY BP 06/13/17 [History Last Taken 02/11/23] levothyroxine 75 mcg tablet 75 mcg PO QHS thyroid 06/13/17 [History Last Taken 02/10/23] agxuziml-wos-wjspy acid 0.4 mg-lycopene 300 mcg-lutein 250 mcg tablet (Centrum Silver) 1 tab PO DAILY supplement 07/02/18 [History Last Taken 02/11/23] cholecalciferol (vitamin D3) 25 mcg (1,000 unit) tablet 25 mcg PO DAILY supplement 01/19/22 [History Last Taken 02/11/23] clobetasol 0.05 % topical cream 1 applic topical BID PRN psoriasis 01/19/22 [History Last Taken Unknown] metformin 500 mg tablet,extended release 24 hr 500 mg PO DAILY blood sugar 01/19/22 [History Last Taken 02/11/23] nitroglycerin 0.4 mg sublingual tablet 0.4 mg sublingual Q5-15M PRN CP 01/19/22 [History Last Taken Unknown] pravastatin 40 mg tablet 40 mg PO QHS cholesterol 01/19/22 [History Last Taken 02/10/23] albuterol sulfate 90 mcg/actuation aerosol inhaler 2 puff inhalation Q4H PRN Wheezing #8.5 grams 03/03/22 [Rx Last Taken 02/10/23] peg 400-propylene glycol (PF) 0.4 %-0.3 % eye drops in a dropperette (Systane (PF)) 1 drp EACH EYE BID dry eyes 03/20/22 [History Last Taken 02/10/23] amlodipine 10 mg tablet 10 mg PO DAILY BP #90 tabs 07/25/22 [Rx Last Taken 02/10/23] acetaminophen 500 mg tablet 1,000 mg PO Q8H pain 01/10/23 [History Last Taken 02/11/23] betamethasone, augmented 0.05 % topical cream 1 applic topical BID psoriasis 01/15/23 [History Last Taken Unknown] oxycodone 5 mg tablet 5 mg PO Q6H PRN pain 7 days #28 tabs 01/16/23 [Rx Last Taken 2 Weeks Ago ~01/28/23] polyethylene glycol 3350 17 gram oral powder packet 17 g PO DAILY #0 ea 01/16/23 [Rx Last Taken Unknown] doxazosin 4 mg tablet 5 mg PO QHS BP 02/11/23 [History Last Taken 02/10/23] famotidine 20 mg tablet 20 mg PO BID STOMACH 02/11/23 [History Last Taken 02/11/23] budesonide-formoterol HFA 160 mcg-4.5 mcg/actuation aerosol inhaler (Symbicort) 2 puff inhalation BID 02/17/23 [History Last Taken Unknown] cefazolin 2 gram/100 mL in dextrose 5 % intravenous solution ml IV 02/17/23 [History Last Taken Unknown] peg 400-propylene glycol (PF) 0.4 %-0.3 % eye drops in a dropperette (Systane (PF)) 1 drp EACH EYE BID 02/17/23 [History Last Taken Unknown] Allergy/AdvReac Type Severity Reaction Status Date / Time clindamycin Allergy Rash Verified 02/17/23 03:35 codeine Allergy Hives Verified 02/17/23 03:35 Penicillins [PCN] Allergy Hives Verified 02/17/23 03:35 shellfish derived Allergy hives Verified 02/17/23 03:35 erythromycin base AdvReac Upset Verified 02/17/23 03:35 [Erythromycin Base] Stomach Family History Father Diabetes Hypertension Heart disease Mother Diabetes Hypertension Brother Heart disease Brother Diabetes Brother Hypertension Surgical History History of abdominal hysterectomy (~1968) History of appendectomy (~1968) History of cataract extraction History of colonoscopy History of dilatation and curettage History of left heart catheterization (08/02/18) History of tonsillectomy Status post right knee replacement (~03/29/22) Social History household members: none Smoking Status: Never smoker alcohol intake: current alcohol intake frequency: holidays/special occasions only substance use type: does not use caffeine: Yes Type: coffee Number of servings: 2 what type of physical activity do you participate in: other details: Physical therapy frequency: 1-2 times per week seatbelt use: always ROS ROS ED ROS Narrative Denies any recent illness. Review of Systems ROS Unobtainable: Denies due to encephalopathy Constitutional Constitutional ED: Denies chills or fever(s) Eyes Eyes: Denies blurry vision ENT ENT ED: Denies ear pain Cardiovascular Cardiovascular: Denies chest pain Respiratory/Chest Respiratory/Chest: Denies cough Gastrointestinal Gastrointestinal: Denies abdominal pain Genitourinary Genitourinary ED: Denies dysuria Musculoskeletal Musculoskeletal: Denies arthralgias Integumentary Denies abscess Neurologic Neurologic: Denies headache(s) Psychiatric Psychiatric: Denies anxiety Hematologic/Lymphatic Hematologic/Lymphatic: Denies easy bleeding or easy bruising Allergic/Immunologic Allergic/Immunologic ED: Denies mouth swelling EXAM Physical Exam Narrative Exam Narrative: 82-year-old female accompanied by her daughter. Vital signs are stable afebrile. She does not look septic or toxic. H EENT exam unremarkable. Atraumatic. Nontender. Pupils round reactive light. C-spine and trachea nontender. Lungs clear. Heart regular rhythm rate about 90 no murmur. Chest wall and ribs nontender. Abdomen soft nontender. Pelvic girdle intact. Hips are nontender. No shortening or rotation. Left lower extremity nontender normal dorsi plantarflexion. Right knee has a large wound separation of a prior knee surgery is about 5 to 6 inches in length. Involves the skin and subcu tissue. Does not go into the joint. There is no exposure of the prosthesis. Dorsi and plantarflexion intact. Both hips and femurs are nontender. Lower legs are nontender. She is able to flex and extend her right knee. Patient was rolled her back and spine are nontender. There is no bruising. Neurologically she is awake and alert. Answering questions and following commands. Const Vital Signs: 02/17/23 03:30 02/17/23 03:30 Temperature 96.6 F L Temperature Source Temporal Pulse Rate 89 89 Respiratory Rate 18 18 Blood Pressure 202/94 H Blood Pressure Mean 130 Pulse Ox 96 96 Oxygen Delivery Method Room Air Room Air Positive well nourished and well developed; Negative for cachectic, contractures or unkempt General Appearance ED: well developed and NAD; Negative for unkempt, cachectic or contractures Nutritional Appearance: Negative for cachectic HEENT Reports normocephalic atraumatic; Negative for trauma, contusion, hematoma or tenderness Eyes PERRL and EOMs intact bilaterally General Eye ED: Negative for pale conjunctiva or scleral icterus Neck full ROM, no lymphadenopathy and supple General: Negative for tenderness Chest Wall inspection of chest normal and palpation of chest normal Chest: Negative for other Resp normal respiratory effort, no retractions and clear to auscultation bilaterally Effort and Inspection: Negative for pain with movement Auscultation: Negative for rales, rhonchi or wheezes Cardio regular rate, regular rhythm, S1 normal heart sound, S2 normal heart sound and no murmurs Rate: Negative for bradycardia or tachycardic Rhythm: Negative for abnormal rhythm Back/Spine no CVA tenderness Back/Spine Narrative: Patient was rolled. She had no spine or back tenderness or signs of trauma. General Back: Negative for CVA tenderness Cervical Spine: Negative for cervical spine tenderness Thoracic Spine / Upper Back: Negative for ROM limited Lumbar Spine / Lower Back: Negative for lumbar spinal tenderness or paraspinal muscle tenderness Extremity Extremity Narrative: Right knee with atraumatic prior surgical wound dehiscence. No signs of joint or prosthesis involvement. Open wound, laceration, is about 1 inch deep and involves the skin and subcu tissue. Wound is about 6 inches in length. Neuro oriented x3, CN's II-XII intact bilaterally, moves all extremities, no focal motor deficits and no sensory deficits noted Sensorium / Orientation: alert, oriented to person, oriented to place and oriented to time; Negative for orientation impaired, confused, lethargic or stuporous Motor Exam: general weakness Psych mental status grossly normal and thought process normal Appearance: Negative for unkempt Attitude: No agitated Mood & Affect: Negative for depressed, anxious or tearful Skin Skin Narrative: Prior right knee surgery traumatic wound dehiscence. Approximately 6 inches in lengt. No active bleeding. Involves the skin and subcu tissue. Does not involve the joint nor is there any visualization of the prosthetic joint. Lesions: no lesions Rashes: no rashes Trauma: laceration linear MDM MDM MDM Narrative Medical decision making narrative: 82-year-old fell causing a wound dehiscence of her recent right knee prosthesis about 10 months ago. Will need to be locally anesthetized cleaned and closed. Obtain an x-ray of the right knee. She was also recently hospitalized for generalized weakness and hyponatremia. Screening labs will be obtained. Nurses reviewed the patient's prior records we did not see any documentation of a recent tetanus. Patient thinks it may have been longer than 10 years ago. Tetanus was updated. After I closed the wound on the patient's knee. Using a walker she ambulated down the hallway to the bathroom without any difficulty. She will be discharged home. To follow-up with Dr. Hung Arriola of orthopedics either on Sunday or Sunday. I will speak with the physician on-call for his group, Dr. Chance, to ensure close follow-up. History & Record Review Discussion w/independent historian: EMS personnel, Patient and Family Additional record(s) reviewed:: Prior inpatient record, Prior outpatient record, Prior ED visit and Prior labs Lab Data Attestation: I reviewed the patient's lab results. Lab results narrative: CBC shows a white count 9.9. H&H 10.7 and 31 which is her baseline improving anemia that she has had. Platelets 457. Electrolytes show sodium 125 which again is her baseline hyponatremia she has been running for the last several weeks. Normal gap. Normal BUN and creatinine. Glucose 150. X-ray shows no acute process. Prosthesis is in good position. No fracture. Labs: Laboratory Results - last 24 hr 02/17/23 02/17/23 04:02 04:02 WBC 9.9 RBC 3.63 L Hgb 10.7 L Hct 31.2 L MCV 86.0 MCH 29.5 MCHC 34.3 RDW Std Deviation 42.8 RDW Coeff of Braden 13.8 Plt Count 457 H MPV 8.2 Immature Gran % (Auto) 1.300 H Neut % (Auto) 71.7 H Lymph % (Auto) 10.7 L [place] % (Auto) 10.6 H Eos % (Auto) 4.5 Baso % (Auto) 1.2 H Absolute Neuts (auto) 7.1 Absolute Lymphs (auto) 1.05 Nucleated RBC % 0 Sodium 125 L Potassium 4.0 Chloride 93 L Carbon Dioxide 23.0 Anion Gap 9 BUN 13 Creatinine 0.55 Estim Creat Clear Calc 37.68 Est GFR (MDRD) Af Amer 136 Est GFR (MDRD) Non-Af 112 BUN/Creatinine Ratio 23.7 H Glucose 150 H Calcium 8.8 Radiography Diagnostic Testing: Clinical Impression(s) from Imaging Studies Knee X-Ray 02/17/23 04:25 IMPRESSION: Total knee arthroplasty changes. No evidence of hardware complication or other acute abnormality. Electronically Signed: Fidel Borden MD at 5:01 EDT , Right knee x-ray, 2 views, interpreted by myself and the radiologist. Shows no acute abnormality. No fracture. No involvement of the hardware. Procedures Lacerations Dehiscence of prior right knee surgical wound:: Length: 6 in Depth: Sub Q Shape: Linear Prep: Sterile Conditions and Shure-Clens Laceration repair: Irrigated, Lidocaine, Local and Skin sutures Number of Sutures/[place]: 13 Suture Information: Ethilon, Simple and - (3-0 Ethilon sutures.13. Simple interrupted. Proper hemostasis and wound closure was obtained.) Comment: 6 inch wound. Due to the blunt trauma she dehisced the prior knee surgery closure. No significant active bleeding. No foreign body. Cleaned with peroxide and soap. Washed with saline and irrigated with saline. Locally anesthetized with Xylocaine. Closed using 13, simple, interrupted 3-0 Ethilon sutures. Proper hemostasis wound closure obtained. Patient was instructed on wound care and very close follow-up. Discharge Plan Triage Chief Complaint: Fall ED Provider: Mir Byers Dx/Rx/DC Orders Clinical Impression: Fall, Traumatic wound dehiscence, Chronic hyponatremia, Chronic anemia, History of diabetes mellitus, History of infection of total joint prosthesis of knee Instructions: ED Laceration: All Closures Prescriptions: No Action Centrum Silver 0.4-300-250 mg-mcg-mcg tablet 1 tab PO DAILY metformin 500 mg tablet extended release 24 hr 500 mg PO DAILY albuterol sulfate 90 mcg/actuation HFA aerosol inhaler 2 puff INHALATION Q4H PRN (Reason: Wheezing) Qty: 8.5 6RF cholecalciferol (vitamin D3) 25 mcg (1,000 unit) tablet 25 mcg PO DAILY pravastatin 40 mg tablet 40 mg PO QHS nitroglycerin 0.4 mg tablet, sublingual 0.4 mg sublingual Q5-15M PRN (Reason: CP) clobetasol 0.05 % cream 1 applic topical BID PRN (Reason: psoriasis) levothyroxine 75 MCG tablet 75 mcg PO QHS fosinopril 40 MG tablet 40 mg PO DAILY Systane (PF) 0.4-0.3 % Dropperette 1 drp EACH EYE BID acetaminophen 500 mg tablet 1,000 mg PO Q8H betamethasone, augmented 0.05 % cream 1 applic TOPICAL BID polyethylene glycol 3350 17 gram Powder In Packet 17 g PO DAILY Qty: 0 0RF oxycodone 5 mg Tablet 5 mg PO Q6H PRN (Reason: pain) 7 Days Qty: 28 0RF famotidine 20 mg Tablet 20 mg PO BID doxazosin 4 mg tablet 5 mg PO QHS Systane (PF) 0.4-0.3 % Dropperette 1 drp EACH EYE BID cefazolin in dextrose 5 % 2 gram/100 mL Solution IV budesonide-formoterol [Symbicort] 160-4.5 mcg/actuation Hfa Aerosol Inhaler 2 puff INHALATION BID amlodipine 10 mg tablet 10 mg PO DAILY Qty: 90 3RF Primary Care Provider: Ej Sims Referrals: Stephane Arriola MD [Med Staff - Active Staff] - As soon as possible (Call Dr. Hung Arriola's office on Sunday to have this reevaluated Sunday and no later than Sunday.) Ej Sims MD [Primary Care Provider] - Activity Restrictions/Additional Instructions: Call and follow-up with Dr. Hung Arriola on Sunday no later than Sunday. This needs to be reevaluated. He may or may not want to revise my repair. The open wound, laceration was traumatic dehiscence of your prior knee surgical wound. This will need to be watched carefully because of increase your risk of recurrent infection. This could also open up very easily again. Stitches need to stay in place at minimum 14 more days. Possibly longer. Ice and elevate your knee. Keep it dry and clean. Disposition Disposition: Home, Self Care
[2023-02-17 04:05] LABS: Absolute Lymphocyte Count 1.05 X10^3/uL (0.83-4.51); Absolute Neutrophil Count 7.1 X10^3/uL (2.0-7.7); Basophil# 0.12 X10^3/uL; Basophil% 1.2 % (0-1); Eosinophil# 0.44 X10^3/uL; Eosinophils% 4.5 % (0-5); Hematocrit 31.2 % (37-47); Hemoglobin 10.7 g/dL (12.0-15.0); Lymphocyte # 1.05 X10^3/ul (0.83-4.51); Lymphocyte % 10.7 % (19-41); Mean Corp Hgb Conc 34.3 g/dL (32-36); Mean Corpuscular Hgb 29.5 pg (27.0-32.0); Mean Platelet Vol. 8.2 fl (6.2-12.0); Monocyte# 1.04 X10^3/uL; Monocyte% 10.6 % (0-10); NRBC Flagged by Analyzer 0 % (0-5); Neutrophil # 7.07 X10^3/uL (2.7-7.7); Neutrophil % 71.7 % (47-70); Platelet Count 457 K/mm3 (150-450); RBC Distribution Width CV 13.8 % (11.6-14.6); RBC Distribution Width SD 42.8 fl (35.1-43.9); Red Blood Count 3.63 M/mm3 (4.2-5.4); White Blood Count 9.9 K/mm3 (4.4-11.0)
[2023-02-17 04:18] LABS: Anion Gap 9 (5-15); BUN 13 mg/dL (7-18); BUN/Creat Ratio 23.7 RATIO (10-20); Calcium,Total 8.8 mg/dL (8.5-10.1); Chloride 93 mmol/L (98-107); Creatinine, Serum 0.55 mg/dL (0.55-1.02); EST Glomerular Filtration Rate 112 mL/min (>60); Est Glom Filt Rate - Afr Amer 136 mL/min (>60); Estimated Creatinine Clearance 37.68 ml/min; Glucose 150 mg/dL (74-106); Sodium Level 125 mmol/L (136-145)
--- NOTE | 2023-02-17 04:25 | RAD_ITS ---
EXAM: XR RIGHT KNEE, 1 OR 2 VIEWS CLINICAL INDICATION: fall. s/p prosthesis TECHNIQUE: Frontal and/or lateral views of the right knee. COMPARISON: Right knee plain film 01/11/2023. FINDINGS: BONES/JOINTS: Total knee arthroplasty changes. No acute fracture. No subluxation. Normal alignment. No sclerotic or destructive changes observed. SOFT TISSUES: Unremarkable. No soft tissue swelling or gas. No radiopaque foreign body. RAD/Knee 1 or 2 Views IMPRESSION: Total knee arthroplasty changes. No evidence of hardware complication or other acute abnormality. Electronically Signed: Fidel Borden MD at 5:01 EDT ,
[2023-02-17] MEDS: Lidocaine 1% (20 ml mdv) 20 ML Vial INFILT (05:14)
[2023-02-17] MEDS: Diphth,Pertuss(Acell),Tet Vac 0.5 ML Vial IM (05:33)
[2023-02-17 05:47] VITALS: BP 169/74; PULSE 75; RESP 18
== END 2023-02-17 05:49 | disposition home or self-care (01) ==
PROVIDERS: Emergency Provider Emergency Medicine; PCP Internal Medicine; Visit Provider Emergency Medicine
DX: T81.33XA Disruption of traumatic injury wound repair, initial encounter (principal); E11.9 Type 2 diabetes mellitus without complications; E87.1 Hypo-osmolality and hyponatremia; I10 Essential (primary) hypertension; I25.10 Atherosclerotic heart disease of native coronary artery without angina pectoris; D64.9 Anemia, unspecified; E78.5 Hyperlipidemia, unspecified; I25.2 Old myocardial infarction; Z97.8 Presence of other specified devices; Z79.899 Other long term (current) drug therapy; E03.9 Hypothyroidism, unspecified; J45.909 Unspecified asthma, uncomplicated; Z79.51 Long term (current) use of inhaled steroids; Z90.710 Acquired absence of both cervix and uterus; Z90.49 Acquired absence of other specified parts of digestive tract; Z96.651 Presence of right artificial knee joint; W10.9XXA Fall (on) (from) unspecified stairs and steps, initial encounter; Y92.008 Other place in unspecified non-institutional (private) residence as the place of occurrence of the external cause; Z23 Encounter for immunization
CPT/HCPCS: 12020; 73560; 80048; 85025; 90471; 90715; 96372; 99285; A4216

== ENCOUNTER 2023-03-07 19:43 | Emergency (ER) | payer MEDICARE, SELFPAY ==
[2023-03-07 19:44] VITALS: BP 162/113; PULSE 83; RESP 16; TEMP 37; O2SAT 93; BMI 37.2
--- NOTE | 2023-03-07 19:57 | EDS_ITS ---
HPI History of Present Illness Chief Complaint: Fall Informant: patient Onset/Context/Timing Onset: Today Narrative Narrative: Patient presents secondary to fall. She had knee surgery on her right knee on January [address] Arriola. She is still been rehabbing from this. When she went to get ready for bed tonight she let go of her walker and turned apparently lost her balance and fell. She landed on her left knee and has pain and spasm to her left knee. She denies striking her head or loss of consciousness. She is not on any anticoagulants. She denies any other injury. [facility] Medical History (Updated 03/07/23 @ 21:[address] Aleyda White MD) Abnormal mammogram of right breast Ambulates with cane Arthritis Asthma Atherosclerosis of coronary artery of [place] heart without angina pectoris Bilateral leg edema Cardiology follow-up encounter Cataracts, bilateral Dietary restriction Diverticulosis Dysmetabolic syndrome X Essential (primary) hypertension Gout History of echocardiogram History of edema History of heart attack History of stress test Hyperlipidemia Hypothyroidism Injury of back Non-smoker Obesity (BMI 30-39.9) Pancreatic cyst PONV (postoperative nausea and vomiting) Primary osteoarthritis of right knee Psoriasis Screening for malignant neoplasm of breast Secondary pulmonary arterial hypertension Shortness of breath on exertion Type 2 diabetes mellitus Wears glasses Wears partial dentures Home Medications fosinopril 40 mg tablet 40 mg PO DAILY BP 06/13/17 [History Last Taken 02/11/23] levothyroxine 75 mcg tablet 75 mcg PO QHS thyroid 06/13/17 [History Last Taken 02/10/23] khjmxigh-bsh-qmgbx acid 0.4 mg-lycopene 300 mcg-lutein 250 mcg tablet (Centrum Silver) 1 tab PO DAILY supplement 07/02/18 [History Last Taken 02/11/23] cholecalciferol (vitamin D3) 25 mcg (1,000 unit) tablet 25 mcg PO DAILY supplement 01/19/22 [History Last Taken 02/11/23] clobetasol 0.05 % topical cream 1 applic topical BID PRN psoriasis 01/19/22 [History Last Taken Unknown] metformin 500 mg tablet,extended release 24 hr 500 mg PO DAILY blood sugar 01/19/22 [History Last Taken 02/11/23] nitroglycerin 0.4 mg sublingual tablet 0.4 mg sublingual Q5-15M PRN CP 01/19/22 [History Last Taken Unknown] pravastatin 40 mg tablet 40 mg PO QHS cholesterol 01/19/22 [History Last Taken 02/10/23] albuterol sulfate 90 mcg/actuation aerosol inhaler 2 puff inhalation Q4H PRN Wheezing #8.5 grams 03/03/22 [Rx Last Taken 02/10/23] peg 400-propylene glycol (PF) 0.4 %-0.3 % eye drops in a dropperette (Systane (PF)) 1 drp EACH EYE BID dry eyes 03/20/22 [History Last Taken 02/10/23] amlodipine 10 mg tablet 10 mg PO DAILY BP #90 tabs 07/25/22 [Rx Last Taken 02/10/23] acetaminophen 500 mg tablet 1,000 mg PO Q8H pain 01/10/23 [History Last Taken 02/11/23] betamethasone, augmented 0.05 % topical cream 1 applic topical BID psoriasis 01/15/23 [History Last Taken Unknown] oxycodone 5 mg tablet 5 mg PO Q6H PRN pain 7 days #28 tabs 01/16/23 [Rx Last Taken 2 Weeks Ago ~01/28/23] polyethylene glycol 3350 17 gram oral powder packet 17 g PO DAILY #0 ea 01/16/23 [Rx Last Taken Unknown] doxazosin 4 mg tablet 5 mg PO QHS BP 02/11/23 [History Last Taken 02/10/23] famotidine 20 mg tablet 20 mg PO BID STOMACH 02/11/23 [History Last Taken 02/11/23] budesonide-formoterol HFA 160 mcg-4.5 mcg/actuation aerosol inhaler (Symbicort) 2 puff inhalation BID 02/17/23 [History Last Taken Unknown] cefazolin 2 gram/100 mL in dextrose 5 % intravenous solution ml IV 02/17/23 [History Last Taken Unknown] peg 400-propylene glycol (PF) 0.4 %-0.3 % eye drops in a dropperette (Systane (PF)) 1 drp EACH EYE BID 02/17/23 [History Last Taken Unknown] Allergy/AdvReac Type Severity Reaction Status Date / Time clindamycin Allergy Rash Verified 03/07/23 19:53 codeine Allergy Hives Verified 03/07/23 19:53 Penicillins [PCN] Allergy Hives Verified 03/07/23 19:53 shellfish derived Allergy hives Verified 03/07/23 19:53 erythromycin base AdvReac Upset Verified 03/07/23 19:53 [Erythromycin Base] Stomach Family History Father Diabetes Hypertension Heart disease Mother Diabetes Hypertension Brother Heart disease Brother Diabetes Brother Hypertension Surgical History (Updated 03/07/23 @ 20:06 by Cristobal Barrera) H/O knee surgery History of abdominal hysterectomy (~1968) History of appendectomy (~1968) History of cataract extraction History of colonoscopy History of dilatation and curettage History of left heart catheterization (08/02/18) History of tonsillectomy Status post right knee replacement (~03/29/22) Social History household members: none Smoking Status: Never smoker alcohol intake: current alcohol intake frequency: holidays/special occasions only substance use type: does not use caffeine: Yes Type: coffee Number of servings: 2 what type of physical activity do you participate in: other details: Physical therapy frequency: 1-2 times per week seatbelt use: always ROS ROS ED Constitutional Constitutional ED: Denies chills or fever(s) Eyes Eyes: Denies change in vision or discharge from eye(s) ENT ENT ED: Denies discharge from eye(s), rhinorrhea or sore throat Cardiovascular Cardiovascular: Denies chest pain or palpitations Respiratory/Chest Respiratory/Chest: Denies cough or dyspnea Gastrointestinal Gastrointestinal: Denies abdominal pain, diarrhea, nausea or vomiting Genitourinary Genitourinary ED: Denies dysuria Musculoskeletal Musculoskeletal: Reports extremity pain; Denies back pain Integumentary Denies Abrasions or rash Neurologic Neurologic: Denies headache(s) or weakness Psychiatric Psychiatric: Denies anxiety or depression Allergic/Immunologic Allergic/Immunologic ED: Denies lip swelling or urticaria EXAM Physical Exam Const Vital Signs: 03/07/23 19:44 03/07/23 19:50 Temperature 98.6 F Temperature Source Oral Pulse Rate 93 Respiratory Rate 16 Respiratory Effort Normal Non-Labored Respiratory Depth Normal Respiratory Pattern Normal Blood Pressure 162/113 H Blood Pressure Mean 129 Pulse Ox 83 Oxygen Delivery Method Room Air Room Air Positive well nourished and well developed General Appearance ED: well developed HEENT Reports moist mucous membranes Neck no lymphadenopathy Neck Narrative: No focal C-spine tenderness. Chest Wall inspection of chest normal and palpation of chest normal Resp normal respiratory effort and clear to auscultation bilaterally Cardio regular rate and regular rhythm GI normal to inspection, nondistended, normoactive bowel sounds and non-tender GI Narrative: Pelvis is stable. 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 Wound edges are clean with no sign of infection. Family at bedside states that this looks unchanged. Left lower extremity: Ecchymosis and slight edema just inferior to the left patella. Patient is able to raise her leg off the bed. Tenderness noted over the anterior knee. Good distal pulses. Neuro oriented x3 MDM MDM MDM Narrative Medical decision making narrative: Patient is given a dose of oxycodone here. X-rays of the bilateral knees obtained to evaluate for fracture or injury. Differential diagnosis includes fracture, sprain, strain, contusion. Radiography Diagnostic Testing: Clinical Impression(s) from Imaging Studies Knee X-Ray 03/07/23 20:18 IMPRESSION: No acute fracture or dislocation. Electronically Signed: Ralph Jay MD at 20:39 EDT , Knee X-Ray 03/07/23 20:18 IMPRESSION: Normal x-ray examination of the knee after total knee arthroplasty. Electronically Signed: Ralph Jay MD at 20:37 EDT , Treatment and Re-Evaluation :: Right knee x-ray per my interpretation reveals hardware to be intact. No acute bony injury. Radiology interpretation is reviewed and agrees. Left knee x-ray per my interpretation reveals no acute bony injury. Soft tissue swelling noted. Radiology interpretation reviewed and agrees. Robin wrap were applied to the bilateral knees. Patient is able to get up and ambulate to the restroom and back with her walker. She has oxycodone at home that she can take for pain. Return instructions given. Discharge Plan Triage Chief Complaint: Fall Other Complaint: Weakness ED Provider: Aleyda White Dx/Rx/DC Orders Clinical Impression: Contusion of knee, Fall Instructions: ED Contusion, Lower Extremity, ED Mechanical Fall Prescriptions: No Action Centrum Silver 0.4-300-250 mg-mcg-mcg tablet 1 tab PO DAILY metformin 500 mg tablet extended release 24 hr 500 mg PO DAILY albuterol sulfate 90 mcg/actuation HFA aerosol inhaler 2 puff INHALATION Q4H PRN (Reason: Wheezing) Qty: 8.5 6RF cholecalciferol (vitamin D3) 25 mcg (1,000 unit) tablet 25 mcg PO DAILY pravastatin 40 mg tablet 40 mg PO QHS nitroglycerin 0.4 mg tablet, sublingual 0.4 mg sublingual Q5-15M PRN (Reason: CP) clobetasol 0.05 % cream 1 applic topical BID PRN (Reason: psoriasis) levothyroxine 75 MCG tablet 75 mcg PO QHS fosinopril 40 MG tablet 40 mg PO DAILY Systane (PF) 0.4-0.3 % Dropperette 1 drp EACH EYE BID acetaminophen 500 mg tablet 1,000 mg PO Q8H betamethasone, augmented 0.05 % cream 1 applic TOPICAL BID polyethylene glycol 3350 17 gram Powder In Packet 17 g PO DAILY Qty: 0 0RF oxycodone 5 mg Tablet 5 mg PO Q6H PRN (Reason: pain) 7 Days Qty: 28 0RF famotidine 20 mg Tablet 20 mg PO BID doxazosin 4 mg tablet 5 mg PO QHS Systane (PF) 0.4-0.3 % Dropperette 1 drp EACH EYE BID cefazolin in dextrose 5 % 2 gram/100 mL Solution IV budesonide-formoterol [Symbicort] 160-4.5 mcg/actuation Hfa Aerosol Inhaler 2 puff INHALATION BID amlodipine 10 mg tablet 10 mg PO DAILY Qty: 90 3RF Primary Care Provider: Ej Sims Referrals: Stephane Arriola MD [Med Staff - Active Staff] - Keep [facility] appointment Ej Sims MD [Primary Care Provider] - Disposition Disposition: Home, Self Care
[2023-03-07] MEDS: oxyCODONE 5 MG Tablet PO (20:08)
--- NOTE | 2023-03-07 20:18 | RAD_ITS ---
STUDY: X-RAY - LEFT KNEE REASON FOR EXAM: Female, 82 years old. injury TECHNIQUE: 3 view(s) of the knee. COMPARISON: 06/30/2014 FINDINGS: Normal visualized distal femur. Normal visualized proximal tibia and fibula. Normal proximal tibiofibular articulation. There is moderate degenerative arthrosis of the medial femorotibial compartment with moderate joint space narrowing. There is moderate degenerative arthrosis of the lateral femorotibial compartment with moderate joint space narrowing. There is mild degenerative arthrosis of the patellofemoral articulation. The soft tissue structures are unremarkable. RAD/Knee 3 Views IMPRESSION: No acute fracture or dislocation. Electronically Signed: Ralph Jay MD at 20:39 EDT ,
--- NOTE | 2023-03-07 20:18 | RAD_ITS ---
STUDY: X-RAY - RIGHT KNEE REASON FOR EXAM: Female, 82 years old. injury TECHNIQUE: 2 view(s) of the knee. COMPARISON: 02/17/2023 FINDINGS: Normal visualized distal femur. Normal visualized proximal tibia and fibula. Normal proximal tibiofibular articulation. Status post total knee arthroplasty. The prosthesis appears located. No osteophytes is suspicious for loosening.. The soft tissue structures are unremarkable. RAD/Knee 1 or 2 Views IMPRESSION: Normal x-ray examination of the knee after total knee arthroplasty. Electronically Signed: Ralph Jay MD at 20:37 EDT ,
[2023-03-07 21:21] VITALS: BP 145/65; PULSE 74; RESP 165; O2SAT 95
== END 2023-03-07 21:32 | disposition home or self-care (01) ==
PROVIDERS: Emergency Provider Emergency Medicine; PCP Internal Medicine; Visit Provider Emergency Medicine
DX: S80.02XA Contusion of left knee, initial encounter (principal); E11.9 Type 2 diabetes mellitus without complications; I10 Essential (primary) hypertension; R53.1 Weakness; E78.5 Hyperlipidemia, unspecified; I25.10 Atherosclerotic heart disease of native coronary artery without angina pectoris; E03.9 Hypothyroidism, unspecified; Z79.899 Other long term (current) drug therapy; Z79.84 Long term (current) use of oral hypoglycemic drugs; J45.909 Unspecified asthma, uncomplicated; Z79.51 Long term (current) use of inhaled steroids; Z96.651 Presence of right artificial knee joint; Z90.49 Acquired absence of other specified parts of digestive tract; Z90.710 Acquired absence of both cervix and uterus; W18.39XA Other fall on same level, initial encounter
CPT/HCPCS: 73560; 73562; 99284

== ENCOUNTER → 2023-05-31 | Outpatient (CLI) | payer MEDICARE, SELFPAY ==
--- NOTE | 2023-05-31 11:42 | BI_ITS ---
MAMMOGRAPHY - BILATERAL SCREENING REASON FOR EXAM: Female, 82 years old. Routine annual screening examination. PERTINENT HISTORY: Non-contributory. Prior right stereotactic breast biopsy. TECHNIQUE: Digital bilateral breast jose roberto (3D mammographic acquisition) in the CC and MLO projections. 2-D mediolateral oblique (MLO) and craniocaudad (CC) views of both breasts were obtained. CAD: Full Field Digital Mammography with Computer Added Detection was performed. COMPARISON: Comparison is made with prior study May 22, 2022 and April 28, 2021. FINDINGS: Breast Composition: The breasts are heterogeneously dense, which may obscure small masses. There are no dominant masses or suspicious calcifications. A tissue clip marker is once again seen within a tiny nodule in the central deep portion of the right breast. A similar appearing tissue clip marker is also seen in the anterior medial aspect of the right breast. Stable small benign appearing bilateral axillary lymph nodes. No other significant abnormalities are identified. There has been no significant change since the prior study. BI/SCRN MAMM (CAD)W/JOSE ROBERTO BILAT IMPRESSION: Stable bilateral screening mammogram. Yearly follow-up mammogram recommended. (A) ASSESSMENT CATEGORY: BIRADS Category 2: Benign. A letter regarding these results will be sent to the patient by the facility within 30 days. Approximately 10% of breast cancers are not detected by mammography. A normal mammogram should not delay biopsy of a clinically suspicious abnormality. [id number] Electronically Signed: Wale Medina MD at 13:20 EDT ,
== END | disposition home or self-care (01) ==
LOC: OPBI 11:41
PROVIDERS: PCP Internal Medicine; Referring Provider Surgery; Visit Provider Surgery
DX: Z12.31 Encounter for screening mammogram for malignant neoplasm of breast (principal)
CPT/HCPCS: 77063; 77067

== ENCOUNTER 2023-06-15 13:29 | Emergency (ER) | payer MEDICARE, SELFPAY ==
[2023-06-15 13:30] VITALS: BP 176/74; PULSE 66; RESP 18; TEMP 36.8; O2SAT 95
[2023-06-15 13:34] VITALS: BMI 35.4
--- NOTE | 2023-06-15 15:20 | EX.ED.DYSGE1 ---
HPI History of Present Illness Chief Complaint: Diarrhea Informant: patient Narrative Narrative: Patient is here to be tested for C. difficile colitis. Patient had a right total knee back in March 2022. In January 16 this got infected. She had repeat surgery. She was on a PICC line for 6 weeks or more. She has now been on oral cefdinir with the plan to keep her on that for 1 year. She states she has been having diarrhea to some degree the entire time while she has been on antibiotics. But the last week it is gotten more watery. She has no fevers chills nausea vomiting or abdominal pain. She does not feel ill. She is just tired of having frequent watery diarrhea. It is slightly yellowish tinged. It is not notably malodorous. She has never had C. difficile before. She contacted her physician who told her to come to the emergency department for testing for C. difficile colitis. No outpatient testing has yet been done. Patient also is concerned because she has a trip coming up with shows an travel planned and wants to make sure that she can make that. [facility] Medical History Abnormal mammogram of right breast Ambulates with cane Arthritis Asthma Atherosclerosis of coronary artery of [place] heart without angina pectoris Bilateral leg edema Cardiology follow-up encounter Cataracts, bilateral Dietary restriction Diverticulosis Dysmetabolic syndrome X Essential (primary) hypertension Gout History of echocardiogram History of edema History of heart attack History of stress test Hyperlipidemia Hypothyroidism Injury of back Non-smoker Obesity (BMI 30-39.9) Pancreatic cyst PONV (postoperative nausea and vomiting) Primary osteoarthritis of right knee Psoriasis Screening for malignant neoplasm of breast Secondary pulmonary arterial hypertension Shortness of breath on exertion Type 2 diabetes mellitus Wears glasses Wears partial dentures Home Medications fosinopril 40 mg tablet 40 mg PO DAILY BP 06/13/17 [History Last Taken 02/11/23] levothyroxine 75 mcg tablet 75 mcg PO QHS thyroid 06/13/17 [History Last Taken 02/10/23] qzbzhkmp-sto-fheyi acid 0.4 mg-lycopene 300 mcg-lutein 250 mcg tablet (Centrum Silver) 1 tab PO DAILY supplement 07/02/18 [History Last Taken 02/11/23] cholecalciferol (vitamin D3) 25 mcg (1,000 unit) tablet 25 mcg PO DAILY supplement 01/19/22 [History Last Taken 02/11/23] clobetasol 0.05 % topical cream 1 applic topical BID PRN psoriasis 01/19/22 [History Last Taken Unknown] metformin 500 mg tablet,extended release 24 hr 500 mg PO DAILY blood sugar 01/19/22 [History Last Taken 02/11/23] nitroglycerin 0.4 mg sublingual tablet 0.4 mg sublingual Q5-15M PRN CP 01/19/22 [History Last Taken Unknown] pravastatin 40 mg tablet 40 mg PO QHS cholesterol 01/19/22 [History Last Taken 02/10/23] albuterol sulfate 90 mcg/actuation aerosol inhaler 2 puff inhalation Q4H PRN Wheezing #8.5 grams 03/03/22 [Rx Last Taken 02/10/23] peg 400-propylene glycol (PF) 0.4 %-0.3 % eye drops in a dropperette (Systane (PF)) 1 drp EACH EYE BID dry eyes 03/20/22 [History Last Taken 02/10/23] amlodipine 10 mg tablet 10 mg PO DAILY BP #90 tabs 07/25/22 [Rx Last Taken 02/10/23] acetaminophen 500 mg tablet 1,000 mg PO Q8H pain 01/10/23 [History Last Taken 02/11/23] betamethasone, augmented 0.05 % topical cream 1 applic topical BID psoriasis 01/15/23 [History Last Taken Unknown] oxycodone 5 mg tablet 5 mg PO Q6H PRN pain 7 days #28 tabs 01/16/23 [Rx Last Taken 2 Weeks Ago ~01/28/23] polyethylene glycol 3350 17 gram oral powder packet 17 g PO DAILY #0 ea 01/16/23 [Rx Last Taken Unknown] doxazosin 4 mg tablet 5 mg PO QHS BP 02/11/23 [History Last Taken 02/10/23] famotidine 20 mg tablet 20 mg PO BID STOMACH 02/11/23 [History Last Taken 02/11/23] budesonide-formoterol HFA 160 mcg-4.5 mcg/actuation aerosol inhaler (Symbicort) 2 puff inhalation BID 02/17/23 [History Last Taken Unknown] cefazolin 2 gram/100 mL in dextrose 5 % intravenous solution ml IV 02/17/23 [History Last Taken Unknown] peg 400-propylene glycol (PF) 0.4 %-0.3 % eye drops in a dropperette (Systane (PF)) 1 drp EACH EYE BID 02/17/23 [History Last Taken Unknown] Allergy/AdvReac Type Severity Reaction Status Date / Time clindamycin Allergy Rash Verified 06/15/23 13:30 codeine Allergy Hives Verified 06/15/23 13:30 Penicillins [PCN] Allergy Hives Verified 06/15/23 13:30 shellfish derived Allergy hives Verified 06/15/23 13:30 erythromycin base AdvReac Upset Verified 06/15/23 13:30 [Erythromycin Base] Stomach Family History Father Diabetes Hypertension Heart disease Mother Diabetes Hypertension Brother Heart disease Brother Diabetes Brother Hypertension Surgical History H/O knee surgery History of abdominal hysterectomy (~1968) History of appendectomy (~1968) History of cataract extraction History of colonoscopy History of dilatation and curettage History of left heart catheterization (08/02/18) History of tonsillectomy Status post right knee replacement (~03/29/22) Social History household members: none Smoking Status: Never smoker alcohol intake: current alcohol intake frequency: holidays/special occasions only substance use type: does not use caffeine: Yes Type: coffee Number of servings: 2 what type of physical activity do you participate in: other details: Physical therapy frequency: 1-2 times per week seatbelt use: always ROS ROS ED ROS Narrative A complete review of systems was performed and is negative except as documented in the history of present illness. Some specific details below. Constitutional: No recent fevers or chills. No malaise EYE: No visual complaints or pain. No change in eye color. ENT: No difficulty swallowing. No swelling. No pain. No GERD. CV: No chest pain or palpitations. Respiratory: No dyspnea. No hemoptysis. No difficulty taking breaths. GI: Please see history of present illness. : No frequency dysuria or hematuria. Musculoskeletal: No recent trauma. No pains. She is not having problems with her knee now. Skin: No rash. Nondiaphoretic. Neuro: No weakness or numbness. Endocrine: No polyuria or polydipsia. EXAM Physical Exam Narrative Exam Narrative: CONSTITUTIONAL: Patient is nontoxic in appearance. The patient looks comfortable. HEENT: No notable trauma. Mucous membranes moist. She does not appear to be notably dehydrated. EYES: No conjunctival injection. No proptosis. CARDIOVASCULAR: Regular rate. Regular rhythm. RESPIRATORY: No respiratory distress. Breathing is unlabored. No wheezes. No rhonchi. No rales. No pain with a deep breath. GASTROINTESTINAL: Not distended. Bowel sounds are normal. No tenderness. No guarding. No rebound. No palpable mass. No bruit. Overall her abdomen is very benign. She had just given a stool sample. But it was mixed with urine. We will call the lab to see if we can still use this. It does not have a notable odor that would be consistent with C. difficile colitis although this certainly cannot rule that out. GENITOURINARY: No tenderness over the bladder. No CVA tenderness. MUSCULOSKELETAL: Atraumatic. Her right knee looks well-healed. It is not red or warm. NEUROLOGICAL: Patient is alert and appropriate. No focal deficit noted. SKIN: No noted rashes. No diaphoresis. PSYCHIATRIC: Patient is calm. Mood is appropriate. Const Vital Signs: 06/15/23 13:30 Temperature 98.3 F Temperature Source Oral Pulse Rate 66 Respiratory Rate 18 Blood Pressure 176/74 H Blood Pressure Mean 108 Pulse Ox 95 Oxygen Delivery Method Room Air MDM MDM [facility] Narrative Medical decision making narrative: Because the patient has been having a lot of watery diarrhea for the last for 5 days, we will check some basic labs. But she is overall very nontoxic. She is eating and drinking and feels okay. It is just the diarrhea that has worsened. I explained that we will send off a C. difficile test. But even though she is in the emergency department I likely will not get this test back acutely and it will need to be followed up by her private physician. Patient's electrolytes show no marked abnormalities. Although her creatinine is normal she does have a mildly elevated BUN to creatinine ratio but she is drinking fluids. Patient CBC is normal including her platelets and white count. Patient's C. difficile study is not back. We are told we are not likely get this back tonight. I explained to the patient that we will send this off but I am not getting get results tonight likely. I would not initiate vancomycin therapy at this time. The stool sample she gave here was actually formed. It was not watery. She also has a normal white count which leans against C. difficile colitis. But if it comes back positive obviously we would initiate therapy at that time. Lab Data Attestation: I reviewed the patient's lab results. Labs: Laboratory Results - last 24 hr 06/15/23 16:03 WBC 8.2 RBC 4.85 Hgb 13.3 Hct 41.5 MCV 85.6 MCH 27.4 MCHC 32.0 RDW Std Deviation 48.6 H RDW Coeff of Braden 15.7 H Plt Count 301 MPV 8.7 Immature Gran % (Auto) 0.500 Neut % (Auto) 71.4 H Lymph % (Auto) 17.[address] [place] % (Auto) 7.7 Eos % (Auto) 2.0 Baso % (Auto) 1.1 H Absolute Neuts (auto) 5.8 Absolute Lymphs (auto) 1.41 Nucleated RBC % 0 Sodium 139 Potassium 4.1 Chloride 107 Carbon Dioxide 26.0 Anion Gap 6 BUN 20 H Creatinine 0.88 Estim Creat Clear Calc 42.82 Est GFR (MDRD) Af Amer 78 Est GFR (MDRD) Non-Af 65 BUN/Creatinine Ratio 22.7 H Glucose 105 Calcium 9.6 Discharge Plan Triage Chief Complaint: Diarrhea ED Provider: Adrian Moise Dx/Rx/DC Orders Clinical Impression: Antibiotic causing adverse effect, Diarrhea Instructions: C diff Prescriptions: No Action Centrum Silver 0.4-300-250 mg-mcg-mcg tablet 1 tab PO DAILY metformin 500 mg tablet extended release 24 hr 500 mg PO DAILY albuterol sulfate 90 mcg/actuation HFA aerosol inhaler 2 puff INHALATION Q4H PRN (Reason: Wheezing) Qty: 8.5 6RF cholecalciferol (vitamin D3) 25 mcg (1,000 unit) tablet 25 mcg PO DAILY pravastatin 40 mg tablet 40 mg PO QHS nitroglycerin 0.4 mg tablet, sublingual 0.4 mg sublingual Q5-15M PRN (Reason: CP) clobetasol 0.05 % cream 1 applic topical BID PRN (Reason: psoriasis) levothyroxine 75 MCG tablet 75 mcg PO QHS fosinopril 40 MG tablet 40 mg PO DAILY Systane (PF) 0.4-0.3 % Dropperette 1 drp EACH EYE BID acetaminophen 500 mg tablet 1,000 mg PO Q8H betamethasone, augmented 0.05 % cream 1 applic TOPICAL BID polyethylene glycol 3350 17 gram Powder In Packet 17 g PO DAILY Qty: 0 0RF oxycodone 5 mg Tablet 5 mg PO Q6H PRN (Reason: pain) 7 Days Qty: 28 0RF famotidine 20 mg Tablet 20 mg PO BID doxazosin 4 mg tablet 5 mg PO QHS Systane (PF) 0.4-0.3 % Dropperette 1 drp EACH EYE BID cefazolin in dextrose 5 % 2 gram/100 mL Solution IV budesonide-formoterol [Symbicort] 160-4.5 mcg/actuation Hfa Aerosol Inhaler 2 puff INHALATION BID amlodipine 10 mg tablet 10 mg PO DAILY Qty: 90 3RF Primary Care Provider: Ej Sims Referrals: Ej Sims MD [Primary Care Provider] - 1-2 Days if not improving Disposition Disposition: Home, Self Care
[2023-06-15 16:09] LABS: Absolute Lymphocyte Count 1.41 X10^3/uL (0.83-4.51); Absolute Neutrophil Count 5.8 X10^3/uL (2.0-7.7); Basophil# 0.09 X10^3/uL; Basophil% 1.1 % (0-1); Eosinophil# 0.16 X10^3/uL; Hematocrit 41.5 % (37-47); Hemoglobin 13.3 g/dL (12.0-15.0); Lymphocyte # 1.41 X10^3/ul (0.83-4.51); Lymphocyte % 17.3 % (19-41); Mean Corpuscular Hgb 27.4 pg (27.0-32.0); Mean Corpuscular Volume 85.6 fL (81-99); Mean Platelet Vol. 8.7 fl (6.2-12.0); Monocyte# 0.63 X10^3/uL; Monocyte% 7.7 % (0-10); NRBC Flagged by Analyzer 0 % (0-5); Neutrophil # 5.83 X10^3/uL (2.7-7.7); Neutrophil % 71.4 % (47-70); Platelet Count 301 K/mm3 (150-450); RBC Distribution Width CV 15.7 % (11.6-14.6); RBC Distribution Width SD 48.6 fl (35.1-43.9); Red Blood Count 4.85 M/mm3 (4.2-5.4); White Blood Count 8.2 K/mm3 (4.4-11.0)
[2023-06-15 16:32] LABS: Anion Gap 6 (5-15); BUN 20 mg/dL (7-18); BUN/Creat Ratio 22.7 RATIO (10-20); Calcium,Total 9.6 mg/dL (8.5-10.1); Chloride 107 mmol/L (98-107); Creatinine, Serum 0.88 mg/dL (0.55-1.02); EST Glomerular Filtration Rate 65 mL/min (>60); Est Glom Filt Rate - Afr Amer 78 mL/min (>60); Estimated Creatinine Clearance 42.82 ml/min; Glucose 105 mg/dL (74-106); Potassium 4.1 mmol/L (3.5-5.1); Sodium Level 139 mmol/L (136-145)
[2023-06-15 17:45] VITALS: BP 167/83; PULSE 66; RESP 16; O2SAT 96
== END 2023-06-15 17:46 | disposition home or self-care (01) ==
PROVIDERS: Emergency Provider Emergency Medicine; PCP Internal Medicine; Visit Provider Emergency Medicine
DX: R19.7 Diarrhea, unspecified (principal); E11.9 Type 2 diabetes mellitus without complications; E78.5 Hyperlipidemia, unspecified; I10 Essential (primary) hypertension; I25.10 Atherosclerotic heart disease of native coronary artery without angina pectoris; E03.9 Hypothyroidism, unspecified; Z79.899 Other long term (current) drug therapy; Z79.84 Long term (current) use of oral hypoglycemic drugs; J45.909 Unspecified asthma, uncomplicated; Z79.51 Long term (current) use of inhaled steroids; Z90.710 Acquired absence of both cervix and uterus; Z90.49 Acquired absence of other specified parts of digestive tract; Z98.49 Cataract extraction status, unspecified eye; Z96.651 Presence of right artificial knee joint; T36.1X5A Adverse effect of cephalosporins and other beta-lactam antibiotics, initial encounter
CPT/HCPCS: 80048; 83630; 85025; 87177; 87209; 87493; 87506; 99283; A4216

== ENCOUNTER → 2024-06-05 | Outpatient (CLI) | payer MEDICARE, SELFPAY ==
--- NOTE | 2024-06-05 10:07 | BI_ITS ---
MAMMOGRAPHY - BILATERAL SCREENING REASON FOR EXAM: Female, 83 years old. Routine annual screening examination. PERTINENT HISTORY: Non-contributory. History of prior right stereotactic breast biopsy. TECHNIQUE: Digital bilateral breast jose roberto (3D mammographic acquisition) in the CC and MLO projections. 2-D mediolateral oblique (MLO) and craniocaudad (CC) views of both breasts were obtained. CAD: Full Field Digital Mammography with Computer Added Detection was performed. COMPARISON: Comparison is made with prior study May 31, 2023 and May 22, 2022. FINDINGS: Breast Composition: The breasts are heterogeneously dense, which may obscure small masses. There are no dominant masses or suspicious calcifications. A tissue clip marker is once again seen within the tiny nodule in the central deep portion of the right breast. Another tissue clip marker is also seen in the anterior medial aspect of the right breast. Stable benign-appearing bilateral axillary. No other significant abnormalities are identified. There has been no significant change since the prior study. BI/SCRN MAMM (CAD)W/JOSE ROBERTO BILAT IMPRESSION: Stable bilateral screening mammogram. Yearly follow-up mammogram recommended. (A) ASSESSMENT CATEGORY: BIRADS Category 2: Benign. A letter regarding these results will be sent to the patient by the facility within 30 days. Approximately 10% of breast cancers are not detected by mammography. A normal mammogram should not delay biopsy of a clinically suspicious abnormality. [id number] Electronically Signed: Wale Medina MD at 12:02 EDT ,
== END | disposition home or self-care (01) ==
LOC: OPBI 10:05
PROVIDERS: PCP Internal Medicine; Referring Provider Internal Medicine; Visit Provider Internal Medicine
DX: Z12.31 Encounter for screening mammogram for malignant neoplasm of breast (principal)
CPT/HCPCS: 77063; 77067

== ENCOUNTER → 2024-07-17 | Outpatient (CLI) | payer MEDICARE, SELFPAY ==
[2024-07-17 14:35] LABS: Absolute Lymphocyte Count 1.58 X10^3/uL (0.83-4.51); Absolute Neutrophil Count 6.1 X10^3/uL (2.0-7.7); Basophil# 0.12 X10^3/uL; Basophil% 1.3 % (0-1); Eosinophils% 2.2 % (0-5); Hematocrit 38.3 % (37-47); Hemoglobin 13.1 g/dL (12.0-15.0); Lymphocyte # 1.58 X10^3/ul (0.83-4.51); Lymphocyte % 17.6 % (19-41); Mean Corp Hgb Conc 34.2 g/dL (32-36); Mean Corpuscular Hgb 29.6 pg (27.0-32.0); Mean Corpuscular Volume 86.7 fL (81-99); Mean Platelet Vol. 10.1 fl (6.2-12.0); NRBC Flagged by Analyzer 0 % (0-5); Neutrophil # 6.14 X10^3/uL (2.7-7.7); Neutrophil % 68.6 % (47-70); Platelet Count 280 K/mm3 (150-450); RBC Distribution Width CV 14.1 % (11.6-14.6); RBC Distribution Width SD 44.6 fl (35.1-43.9); Red Blood Count 4.42 M/mm3 (4.2-5.4)
[2024-07-17 14:51] LABS: Anion Gap 5 (5-15); BUN 25 mg/dL (7-18); BUN/Creat Ratio 26.9 RATIO (10-20); Calcium,Total 9.5 mg/dL (8.5-10.1); Chloride 101 mmol/L (98-107); Creatinine, Serum 0.93 mg/dL (0.55-1.02); EST Glomerular Filtration Rate 61 mL/min (>60); Est Glom Filt Rate - Afr Amer 74 mL/min (>60); Glucose 91 mg/dL (74-106); Potassium 3.9 mmol/L (3.5-5.1); Sodium Level 136 mmol/L (136-145)
[2024-07-17 14:53] LABS: BNP,B-Type NATRIURETIC PEPTIDE 30.9 pg/mL (0-100)
== END | disposition home or self-care (01) ==
PROVIDERS: PCP Internal Medicine; Referring Provider Nurse Practitioner Gerontology; Visit Provider Nurse Practitioner Gerontology
DX: R06.00 Dyspnea, unspecified (principal)
CPT/HCPCS: 36415; 80048; 83880; 85025

== ENCOUNTER → 2024-07-22 | Outpatient (CLI) | payer MEDICARE, SELFPAY ==
[2024-07-22 11:30] LABS: AST(SGOT) 10 U/L (15-37); Alanine Aminotransfer ALT/SGPT 17 U/L (13-56); Albumin, Serum 3.2 g/dL (3.2-5.0); Alkaline Phosphatase 79 U/L (45-117); Anion Gap 7 (5-15); BUN 22 mg/dL (7-18); BUN/Creat Ratio 24.5 RATIO (10-20); Bilirubin, Direct 0.13 mg/dL (0.00-0.30); Calcium,Total 9.1 mg/dL (8.5-10.1); Chloride 102 mmol/L (98-107); EST Glomerular Filtration Rate 63 mL/min (>60); Est Glom Filt Rate - Afr Amer 77 mL/min (>60); Globulin 3.3 g/dL (2.2-4.2); Glucose 97 mg/dL (74-106); Lipase 26 U/L (13-75); Potassium 3.9 mmol/L (3.5-5.1); Protein, Total 6.5 g/dL (6.4-8.2); Sodium Level 136 mmol/L (136-145)
[2024-07-23 15:09] LABS: Carbohydrate Ag 19-9 2261 10 U/mL (0-35)
== END | disposition home or self-care (01) ==
PROVIDERS: PCP Internal Medicine; Referring Provider Student in an Organized Health Care Education/Training Program; Visit Provider Student in an Organized Health Care Education/Training Program
DX: K86.2 Cyst of pancreas (principal); R19.5 Other fecal abnormalities
CPT/HCPCS: 36415; 80053; 82248; 83690; 86301

== ENCOUNTER → 2024-08-11 | Outpatient (CLI) | payer MEDICARE, SELFPAY | END | disposition home or self-care (01) | LOC: LABSPEC 15:14 | PROVIDERS: PCP Internal Medicine; Referring Provider Student in an Organized Health Care Education/Training Program; Visit Provider Student in an Organized Health Care Education/Training Program | DX: R19.7 Diarrhea, unspecified (principal); K58.9 Irritable bowel syndrome, unspecified; K86.2 Cyst of pancreas; R19.5 Other fecal abnormalities | CPT/HCPCS: 83630; 87493; 87506 ==

== ENCOUNTER → 2024-08-22 | Outpatient (CLI) | payer MEDICARE, SELFPAY ==
--- NOTE | 2024-08-22 12:40 | ECHOD_ITS ---
Reason For Study: Dyspnea Procedure This was a 2D Doppler, Color Flow transthoracic echocardiogram. Exam performed in department. Left Ventricle Normal LV size. Left ventricular systolic function is normal. The left ventricular ejection fraction is 70 %. No regional wall motion abnormalities noted. Right Ventricle Normal RV size. Normal systolic function. Atria Normal left atrium. Normal right atrium. Mitral Valve Normal mitral valve. Tricuspid Valve Normal tricuspid valve. Aortic Valve Trisinus/trileaflet aortic valve. Pulmonic Valve Normal pulmonic valve. Great Vessels Normal aortic root. The pulmonary artery is normal size. Normal inferior vena cava. Pericardium/Pleural No pericardial effusion. MMode/2D Measurements & Calculations LVIDd: 3.2 cm IVSd: 1.0 cm asc Aorta Diam: 2.9 cm LVIDs: 2.0 cm LVPWd: 1.1 cm RVDd: 3.3 cm FS: 37.0 % LAV(MOD-bp): 47.7 ml LVAd ap4: 26.8 cm2 SV(MOD-sp4): 50.6 ml LAV(MOD-bp) Indexed: 23.2 ml/m2 LVLd ap4: 8.0 cm SI(MOD-sp4): 24.6 ml/m2 LAV(MOD-sp2): 51.0 ml EDV(MOD-sp4): 72.4 ml LAV(MOD-sp4): 43.1 ml EDV(sp4-el): 76.3 ml LVAs ap4: 13.4 cm2 LVLs ap4: 6.8 cm ESV(MOD-sp4): 21.8 ml ESV(sp4-el): 22.5 ml EF(MOD-sp4): 69.9 % EF(sp4-el): 70.5 % SV(sp4-el): 53.8 ml LA A4 area: 17.0 cm2 LA dimension(2D): 3.7 cm RA A4 area: 14.2 cm2 TAPSE: 2.2 cm Time Measurements MV dec time: 0.41 sec Doppler Measurements & Calculations MV E max darren: 63.1 cm/sec Lat Peak E' Darren: 5.3 cm/sec Med Peak E' Darren: 4.2 cm/sec MV A max darren: 106.8 cm/sec E/E' lat: 11.9 E/E' med: 15.2 MV E/A: 0.59 Ao V2 max: 177.5 cm/sec LV V1 max: 121.7 cm/sec MV dec slope: 152.8 cm/sec2 Ao max P.6 mmHg LV V1 max P.9 mmHg Ao V2 mean: 123.5 cm/sec Ao mean P.0 mmHg Ao V2 VTI: 39.5 cm PA V2 max: 132.3 cm/sec TR max darren: 321.7 cm/sec PA V2 mean: 102.3 cm/sec TR max P.4 mmHg ECHO/Echo Complete Interpretation Summary Normal LV size. Left ventricular systolic function is normal. The left ventricular ejection fraction is 70 %. Structurally normal valves. Ordering Physician: Siri Minor Referring Physician: Ej Sims Performed By: Jayne Kwan, DENISHA, RVT
== END | disposition home or self-care (01) ==
LOC: CVS 12:40
PROVIDERS: PCP Internal Medicine; Referring Provider Nurse Practitioner Gerontology; Visit Provider Nurse Practitioner Gerontology
DX: R06.00 Dyspnea, unspecified (principal)
CPT/HCPCS: 93306

== ENCOUNTER → 2024-11-18 | Outpatient (CLI) | payer MEDICARE, SELFPAY | END | disposition home or self-care (01) | LOC: PSN 09:50 | PROVIDERS: PCP Internal Medicine; Referring Provider Nurse Practitioner Family; Visit Provider Nurse Practitioner Family | DX: J45.909 Unspecified asthma, uncomplicated (principal) | CPT/HCPCS: 94010; 94060; 94726; 94729 ==

== ENCOUNTER → 2025-07-28 | Outpatient (CLI) | payer MEDICARE, SELFPAY ==
[2025-07-28 09:23] LABS: Hematocrit 38.0 % (37-47); Hemoglobin 13.1 g/dL (12.0-15.0); Immature Granulocytes Count 0.030 X10^3/uL (0.0-0.0); Mean Corp Hgb Conc 34.5 g/dL (32-36); Mean Corpuscular Volume 88.4 fL (81-99); Mean Platelet Vol. 8.6 fl (6.2-12.0); NRBC Flagged by Analyzer 0 % (0-5); Platelet Count 319 K/mm3 (150-450); RBC Distribution Width CV 13.2 % (11.6-14.6); RBC Distribution Width SD 42.6 fl (35.1-43.9); Red Blood Count 4.30 M/mm3 (4.2-5.4); White Blood Count 7.9 K/mm3 (4.4-11.0)
[2025-07-28 10:47] LABS: Anion Gap 12 (5-15); BUN 24 mg/dL (4-19); BUN/Creat Ratio 26.3 RATIO (10-20); Calcium,Total 9.6 mg/dL (7.6-11.0); Carbon Dioxide 24.4 mmol/L (21.0-32.0); Chloride 98 mmol/L (98-108); Glucose 111 mg/dL (70-99); Potassium 4.1 mmol/L (3.3-5.1); Pro- Brain NATRIURETIC PEPTIDE 84 pg/mL (<=1800)
== END | disposition home or self-care (01) ==
LOC: LAB 09:01
PROVIDERS: PCP Internal Medicine; Referring Provider Nurse Practitioner Family; Visit Provider Nurse Practitioner Family
DX: R53.83 Other fatigue (principal); I10 Essential (primary) hypertension; R06.00 Dyspnea, unspecified
CPT/HCPCS: 36415; 80048; 83880; 84443; 85025

== ENCOUNTER → 2025-08-13 | Outpatient (CLI) | payer MEDICARE, SELFPAY ==
--- NOTE | 2025-08-13 13:06 | CDU_ITS ---
Reason For Study Reason For Study: Dizziness Rt. Velocities/BP Lt. Velocities/BP Prox CCA 57.9/11.6 cm/sec. Prox CCA 106.5/11.5 cm/sec. Mid CCA 60.7/13.5 cm/sec. Mid CCA 64.2/10.2 cm/sec. Dist CCA 58.9/15.5 cm/sec. Dist CCA 58.1/7.7 cm/sec. Prox ICA 57.9/12.6 cm/sec. Prox ICA 60.8/14.6 cm/sec. Mid ICA 102.3/24.9 cm/sec. Mid ICA 74.5/18.6 cm/sec. Dist ICA 64.2/16.3 cm/sec. Dist ICA 70.4/15.1 cm/sec. Rt. ICA/CCA = 1.69. Lt. ICA/CCA = 1.16. Prox ECA 143 cm/sec. Prox ECA 167.5/5 cm/sec. Rt. Vert. 36.2/9.7 cm/sec. Lt. Vert. 42.8/8.8 cm/sec. Right Extracranial There is intimal thickening but no significant atherosclerotic plaque noted in the right common carotid artery. There is heterogeneous, irregular atherosclerotic plaque noted in the right internal carotid artery. There is heterogeneous, irregular atherosclerotic plaque noted in the right external carotid artery. Antegrade flow is noted in the right vertebral artery. Left Extracranial There is intimal thickening but no significant atherosclerotic plaque noted in the left common carotid artery. There is intimal thickening but no significant atherosclerotic plaque noted in the left internal carotid artery. There is heterogeneous, irregular atherosclerotic plaque noted in the left external carotid artery. Antegrade flow is noted in the left vertebral artery. Procedure Carotid Duplex [id number]. This is a Carotid Duplex examination using B-mode, color flow and specral Doppler. Exam performed in department. VL/Carotid Duplex Ultrasound Interpretation Summary Mild (<50%) stenosis right extracranial internal carotid. Normal left extracranial internal carotid. Patent and antegrade vertebrals bilaterally. Ordering Physician: Corwin Kwan Referring Physician: Ej Sims M.D. Performed By: Fanny Dunn RVT
== END | disposition home or self-care (01) ==
PROVIDERS: PCP Internal Medicine; Referring Provider Nurse Practitioner Family; Visit Provider Nurse Practitioner Family
DX: I65.22 Occlusion and stenosis of left carotid artery (principal); I10 Essential (primary) hypertension; R06.00 Dyspnea, unspecified; I25.10 Atherosclerotic heart disease of native coronary artery without angina pectoris; R42 Dizziness and giddiness
CPT/HCPCS: 93880

== ENCOUNTER → 2025-08-24 | Outpatient (CLI) | payer MEDICARE, SELFPAY | END | disposition home or self-care (01) | LOC: PSN 11:38 | PROVIDERS: PCP Internal Medicine; Referring Provider Nurse Practitioner Family; Visit Provider Nurse Practitioner Family | DX: I10 Essential (primary) hypertension (principal); R06.00 Dyspnea, unspecified | CPT/HCPCS: 93225; 93226 ==

== ENCOUNTER → 2025-08-25 | Outpatient (CLI) | payer MEDICARE, SELFPAY | END | disposition home or self-care (01) | LOC: CVS 12:49 | PROVIDERS: PCP Internal Medicine; Referring Provider Nurse Practitioner Family; Visit Provider Nurse Practitioner Family | DX: I10 Essential (primary) hypertension (principal); I25.10 Atherosclerotic heart disease of native coronary artery without angina pectoris; R06.00 Dyspnea, unspecified | CPT/HCPCS: 93306 ==